=== PATIENT | female | born 1995 | race Hispanic/Latino ===

== ENCOUNTER 2018-07-04 15:39 | Emergency (ER) | payer BC ==
[2018-07-04 17:23] LABS: Absolute Lymphocytes (CBC) 1.5 K/uL (0.7-4.9); Absolute Monocytes 0.5 K/uL (0.1-1.3); Absolute Neutrophil 2.7 K/uL (1.8-8.0); Basophils % 0.9 % (0-1.3); Eosinophils % 0.7 % (0-4.4); Hematocrit 37.9 % (36.0-45.0); Lymphocytes % 31.1 % (15.3-44.8); MCH 30.2 pg (27.0-35.0); MCV 90.4 fL (80-100); MPV 7.8 fL (7.6-11.3); Monocytes % 10.4 % (3.3-12.3)
--- NOTE | 2018-07-04 17:27 | RAD REPORT ---
EXAM DESCRIPTION: CT - [id number] - 07/04/2018 5:13 pm CLINICAL HISTORY: Numbness, weakness, CVA, head and neck pain COMPARISON: None. TECHNIQUE: Axial 5 mm thick images of the head were obtained. Axial 2 mm thick images of the cervic al spine were obtained with sagittal and coronal reconstruction images generated and reviewed. All CT scans are performed using dose optimization technique as appropriate and may include automated exposure control or mA/KV adjustment according to patient size. FINDINGS: No intracranial hemorrhage, mass, edema or acute intracranial finding. No suspicion for ac annette infarction. No extra-axial fluid collections. Mastoid air cells and paranasal sinuses are clear. No globe or orbit abnormality seen. Cervical bodies are normal in height. There is reversal of the usual cervical lordosis that could be positioning artifact, muscle spasm or a combination. No subluxation abnormality. No disk space narrow ing. No fracture or acute bony abnormality. Central canal detail is inherently limited. No paraspinal mass or hematoma. IMPRESSION: Negative CT head examination for acute or significant finding. No fracture or acute cervical spine finding. The reversal of the usual cervical lordosis could be mus daja spasm, positioning artifact or a combination.
[2018-07-04 17:32] LABS: BUN Blood Urea Nitrogen 13 mg/dL (7-18); Bicarbonate 26 mmol/L (21-32); Glucose Level 93 mg/dL (74-106); Potassium 3.7 mmol/L (3.5-5.1); Sodium Level 140 mmol/L (136-145)
[2018-07-04 17:32] LABS: Barbiturates NEGATIVE (NEGATIVE); Benzodiazepines NEGATIVE (NEGATIVE); Cocaine NEGATIVE (NEGATIVE); METHAMPHETAM NEGATIVE (NEGATIVE); Methadone NEGATIVE (NEGATIVE); Opiates NEGATIVE (NEGATIVE); Phencyclidine NEGATIVE (NEGATIVE); THC Cannibis NEGATIVE (NEGATIVE)
[2018-07-04 17:53] LABS: Urine Blood NEGATIVE (NEG); Urine Glucose NEGATIVE (NEG); Urine Protein NEGATIVE (NEG); Urine Specific Gravity 1.015 (1.005-1.030); Urine pH 7.5 (5.0-7.0)
--- NOTE | 2018-07-04 18:34 | EKG ---
Test Date: 2018-07-04 Test Time: 16:45:22 Prize Fighter: SYLWIA MEASUREMENT RESULTS: Intervals: Rate: 60 MI: 128 QRSD: 78 QT: 430 QTc: 430 [place]: P: -4 MI: 128 QRS: 25 T: 19 INTERPRETIVE STATEMENTS: Normal sinus rhythm Normal ECG No previous ECG available for comparison Electronically Signed On 07-04-18 18:34:08 CDT by Gerard Wiggins
--- NOTE | 2018-07-04 18:49 | ER ---
Nurse's Notes [facility] Name: Robert Winter Age: 23 yrs Sex: Female : 1995 Arrival Date: 07/04/2018 Time: 15:42 Bed 16 Private MD: None, None Diagnosis: Paresthesia of skin Presentation: 07/04 15:45 Presenting complaint: Patient states: numbness in my hands started an hour ago, i feel tw2 like im going to pass. Transition of care: patient was not received from another setting of care. Onset of symptoms was July 04, 2018. Risk Assessment: Do you want to hurt yourself or someone else? Patient reports no desire to harm self or others. Initial Sepsis Screen: Does the patient meet any 2 criteria? No. Patient's initial sepsis screen is negative. Does the patient have a suspected source of infection? No. Patient's initial sepsis screen is negative. Care prior to arrival: None. 15:45 Method Of Arrival: Ambulatory tw2 15:46 Acuity: REBECCA 3 tw2 Triage Assessment: 15:45 General: Appears in no apparent distress. Behavior is anxious, crying. Pain: Denies tw2 pain. Cardiovascular: Denies chest pain, shortness of breath. Respiratory: Airway is patent Respiratory effort is even, unlabored, Respiratory pattern is regular, tachypnea pt instructed to slow her breathing down, guided with slow breathing techniques, friend is with her at this time. 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 - Social history:: Smoking status: Patient/guardian denies using tobacco. - Ebola Screening: : Patient negative for fever greater than or equal to 101.5 degrees Fahrenheit, and additional compatible Ebola Virus Disease symptoms Patient denies travel to an Ebola-affected area in the 21 days before illness onset. Screenin:25 Abuse screen: Denies threats or abuse. Denies injuries from another. Nutritional iw screening: No deficits noted. Tuberculosis screening: No symptoms or risk factors identified. Fall Risk IV access (20 points). Assessment: 17:00 General: Appears in no apparent distress. Behavior is calm, cooperative. Neuro: Level iw of Consciousness is awake, alert, obeys commands, Oriented to person, place, time, situation, Moves all extremities. Full function Reports dizziness. Neuro: Reports numbness in right hand, left hand, right leg, left leg and mouth paresthesias. Cardiovascular: Patient's skin is warm and dry. Respiratory: Respiratory effort is even, unlabored, Respiratory pattern is regular, symmetrical. GI: No signs and/or symptoms were reported involving the gastrointestinal system. Derm: Skin is pink, warm \T\ dry. normal. Musculoskeletal: Range of motion: intact in all extremities. 18:24 Reassessment: Patient appears in no apparent distress at this time. Patient and/or iw family updated on plan of care and expected duration. Pain level reassessed. Patient is alert, oriented x 3, equal unlabored respirations, skin warm/dry/pink. Vital Signs: 15:45 BP 146 / 94; Pulse 99; Resp 17; Temp 97.8(O); Pulse Ox 100% on R/A; Pain 0/10; tw2 19:23 BP 127 / 78; Pulse 60; Resp 18; Pulse Ox 100% on R/A; tl2 NIH Stroke Scale Scores: 18:59 NIHSS Score: 0 gs ED Course: 15:42 Patient arrived in ED. sb2 15:42 None, None is Private Physician. sb2 15:46 Triage completed. tw2 15:46 Arm band placed on. tw2 16:16 Bailey Rodriguez, RN is Primary Nurse. iw 16:19 Raman Camargo MD is Attending Physician. gs 16:55 EKG done, by optics test technician. reviewed by Raman Camargo MD. dt2 16:56 Radiology exam delayed due to per Nurse Bailey. nj 17:00 Initial lab(s) drawn, by sd, sent to lab. Inserted saline lock: 20 gauge in left iw antecubital area, using aseptic technique. Blood collected. 17:[address] nj 17:12 CT completed. Patient tolerated procedure well. Patient moved back from CT. nj 17:13 CT Head C Spine In Process Unspecified. EDMS 18:49 Jimi Terry MD is Referral Physician. gs 19:23 No provider procedures requiring assistance completed. IV discontinued, intact, tl2 bleeding controlled, No redness/swelling at site. Pressure dressing applied. 19:24 Patient has correct armband on for positive identification. Bed in low position. tl2 Administered Medications: No medications were administered Outcome: 18:48 Discharge ordered by . 19:23 Discharged to home ambulatory, with family. tl2 19:23 Condition: stable 19:23 Discharge instructions given to patient, family, Instructed on discharge instructions, follow up and referral plans. Demonstrated understanding of instructions, follow-up care. 19:25 Patient left the ED. tl2 NIH Stroke Scale - NIH Stroke Score Date: 07/04/2018 Time: 18:59 Total Score = 0 1a. Level of Consciousness (LOC) - 0(Alert) 1b. Level of Consciousness (LOC) (Year \T\ Age) - 0(Both) 1c. 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 Best Gaze (Lateral Gaze Paresis) - 0(Normal) 3. Visual Field Loss - 0(No visual loss) 4. Facial Palsy - 0(Normal) 5a. Left Arm: Motor (10-second hold) - 0(No drift) 5b. Right Arm: Motor (10-second hold) - 0(No drift) 6a. Left Leg: Motor (5-second hold - always test supine) - 0(No drift) 6b. Right Leg: Motor (5-second hold - always test supine) - 0(No drift) 7. Limb Ataxia (finger/nose \T\ heel/alas - test with eyes open) - 0(Absent) 8. Sensory Loss (pinprick arms/legs/face) - 0(Normal) 9. Best Language: Aphasia (description/naming/reading) - 0(No aphasia) 10. Dysarthria (speech clarity - read or repeat words) - 0(Normal) 11. Extinction and Inattention (visual/tactile/auditory/spatial/personal) - 0(No abnormality) Initials: Signatures: Dispatcher [employer] Bailey Acosta RN RN iw Wise, Tara, RN RN tw2 oMnique Fleming RN RN tl2 Evan Lorenz Gregory, MD MD gs Billeau, Sheri sb2 Shalini Jaquez
--- NOTE | 2018-07-04 18:49 | EDPHYS ---
Physician Documentation [facility] Name: Robert Winter Age: 23 yrs Sex: Female : 1995 Arrival Date: 07/04/2018 Time: 15:42 Bed 16 Private MD: None, None ED Physician Raman Camargo HPI: 07/04 18:59 This 23 yrs old Female presents to ER via Ambulatory with complaints of gs Numbness. 18:59 The patient's problem is reported as paresthesias, in right upper extremity, in right gs lower extremity. Onset: The symptoms/episode began/occurred gradually, 2 hour(s) ago. Duration: The episodes are intermittent. The symptoms are alleviated by nothing. The symptoms are aggravated by nothing. Associated signs and symptoms: Pertinent negatives: agitation, ataxia, confusion, weakness. Severity of symptoms: At their worst the symptoms were moderate in the emergency department the symptoms have improved markedly. The patient has experienced similar episodes in the past, several times. The patient has not recently seen a physician. 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 - Social history:: Smoking status: Patient/guardian denies using tobacco. - Ebola Screening: : Patient negative for fever greater than or equal to 101.5 degrees Fahrenheit, and additional compatible Ebola Virus Disease symptoms Patient denies travel to an Ebola-affected area in the 21 days before illness onset. ROS: 18:59 Cardiovascular: Negative for chest pain. gs 18:59 Respiratory: Negative for shortness of breath. 18:59 Abdomen/GI: Negative for abdominal pain. 18:59 All other systems are negative. Exam: 18:52 ECG was reviewed by the Attending Physician. gs 18:59 Head/Face: Normocephalic, atraumatic. Eyes: Pupils equal round and reactive to light, gs extra-ocular motions intact. Lids and lashes normal. Conjunctiva and sclera are non-icteric and not injected. Cornea within normal limits. Periorbital areas with no swelling, redness, or edema. ENT: Nares patent. No nasal discharge, no septal abnormalities noted. Tympanic membranes are normal and external auditory canals are clear. Oropharynx with no redness, swelling, or masses, exudates, or evidence of obstruction, uvula midline. Mucous membranes moist. Neck: Trachea midline, no thyromegaly or masses palpated, and no cervical lymphadenopathy. Supple, full range of motion without nuchal rigidity, or vertebral point tenderness. No Meningismus. Chest/axilla: Normal chest wall appearance and motion. Nontender with no deformity. No lesions are appreciated. Cardiovascular: Regular rate and rhythm with a normal S1 and S2. No gallops, murmurs, or rubs. Normal PMI, no JVD. No pulse deficits. Respiratory: Lungs have equal breath sounds bilaterally, clear to auscultation and percussion. No rales, rhonchi or wheezes noted. No increased work of breathing, no retractions or nasal flaring. Abdomen/GI: Soft, non-tender, with normal bowel sounds. No distension or tympany. No guarding or rebound. No evidence of tenderness throughout. Back: No spinal tenderness. No costovertebral tenderness. Full range of motion. Female : Normal external genitalia. Skin: Warm, dry with normal turgor. Normal color with no rashes, no lesions, and no evidence of cellulitis. MS/ Extremity: Pulses equal, no cyanosis. Neurovascular intact. Full, normal range of motion. 18:59 Constitutional: The patient appears alert, awake. 18:59 Neuro: Orientation: is normal, Mentation: is normal, Memory: is normal, Cranial nerves: CN II- XII are normal as tested, Cerebellar function: is grossly normal, normal finger to nose testing, Motor: moves all fours, strength is 5/5 in all extremities, Sensation: pin prick testing is normal, Gait: is steady. 18:59 Neuro: Deep tendon reflexes are 2+ (normal) in the right bicep, right brachioradialis, gs right patellar, right Achilles, left bicep, left brachioradialis, left patellar and left Achilles. Vital Signs: 15:45 BP 146 / 94; Pulse 99; Resp 17; Temp 97.8(O); Pulse Ox 100% on R/A; Pain 0/10; tw2 19:23 BP 127 / 78; Pulse 60; Resp 18; Pulse Ox 100% on R/A; tl2 NIH Stroke Scale Scores: 18:59 NIHSS Score: 0 gs MDM: 16:37 Patient medically screened. 18:59 Differential diagnosis: CVA, metabolic disorder, drug effects, cervical stenosis, gs neoplasm. Data reviewed: vital signs, nurses notes. 18:59 Counseling: I had a detailed discussion with the patient and/or guardian regarding: the gs presence of at least one elevated blood pressure reading (>120/80) during this emergency department visit, the need for outpatient follow up, a neurologist. Response to treatment: the patient's symptoms have resolved after treatment, and as a result, I will discharge patient. Special discussion: I have referred the patient to see his PCP for further evaluation of high blood pressure. 07/04 16:39 Order name: Basic Metabolic Panel; Complete Time: 17:47 07/04 16:39 Order name: CBC with Diff; Complete Time: 17:47 07/04 16:39 Order name: Urine Drug Screen; Complete Time: 17:47 07/04 17:46 Order name: Urine Dipstick--Ancillary (enter results) 07/04 17:46 Order name: Urine --Ancillary (enter results) 07/04 17:46 Order name: Urine Dipstick-Ancillary; Complete Time: 18:20 EDMS 07/04 16:39 Order name: EKG; Complete Time: 16:39 07/04 16:39 Order name: Cardiac monitoring; Complete Time: 17:35 07/04 16:39 Order name: EKG - Nurse/Tech; Complete Time: 17:35 07/04 16:39 Order name: IV Saline Lock; Complete Time: 17:35 07/04 16:39 Order name: Labs collected and sent; Complete Time: 17:35 07/04 16:39 Order name: O2 Per Protocol; Complete Time: 17:35 07/04 16:39 Order name: CT Head C Spine; Complete Time: 17:47 07/04 17:46 Order name: Urine --Ancillary; Complete Time: 18:20 EDMS 07/04 16:39 Order name: O2 Sat Monitoring; Complete Time: 17:35 07/04 16:39 Order name: Urine Dipstick-Ancillary (obtain specimen); Complete Time: 17:35 07/04 16:39 Order name: Urine Test (obtain specimen); Complete Time: 17:35 gs EC:52 Rate is 60 beats/min. Rhythm is regular. OR interval is normal. QRS interval is normal. gs T waves are Normal. No ST changes noted. Clinical impression: Normal ECG. Interpreted by me. Administered Medications: No medications were administered Disposition: 07/04/18 18:48 Discharged to Home. Impression: Paresthesia of skin. - Condition is Stable. - Discharge Instructions: Paresthesia, Peripheral Neuropathy, Paresthesia, Mmdo-by-Rnlo, Managing Your Hypertension. - Medication Reconciliation Form, Thank You Letter, Antibiotic Education, Prescription Opioid Use form. - Follow up: Jimi Terry MD; When: 1 - 2 days; Reason: Re-evaluation by your physician. NIH Stroke Scale - NIH Stroke Score Date: 07/04/2018 Time: 18:59 Total Score = 0 1a. Level of Consciousness (LOC) - 0(Alert) 1b. Level of Consciousness (LOC) (Year \T\ Age) - 0(Both) 1c. 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 Best Gaze (Lateral Gaze Paresis) - 0(Normal) 3. Visual Field Loss - 0(No visual loss) 4. Facial Palsy - 0(Normal) 5a. Left Arm: Motor (10-second hold) - 0(No drift) 5b. Right Arm: Motor (10-second hold) - 0(No drift) 6a. Left Leg: Motor (5-second hold - always test supine) - 0(No drift) 6b. Right Leg: Motor (5-second hold - always test supine) - 0(No drift) 7. Limb Ataxia (finger/nose \T\ heel/alas - test with eyes open) - 0(Absent) 8. Sensory Loss (pinprick arms/legs/face) - 0(Normal) 9. Best Language: Aphasia (description/naming/reading) - 0(No aphasia) 10. Dysarthria (speech clarity - read or repeat words) - 0(Normal) 11. Extinction and Inattention (visual/tactile/auditory/spatial/personal) - 0(No abnormality) Initials: Signatures: Dispatcher [employer] EDMS Gudelia Fermin RN RN tw2 Monique Fleming RN RN tl2 Raman Camargo MD MD Corrections: (The following items were deleted from the chart) 18:49 18:48 07/04/2018 18:48 Discharged to Home. Impression: Paresthesia of skin. gs Condition is Stable. Forms are Medication Reconciliation Form, Thank You Letter, Antibiotic Education, Prescription Opioid Use. Follow up: Private Physician; When: 2 - 3 days; Reason: Re-evaluation by your physician. 19:25 18:49 07/04/2018 18:48 Discharged to Home. Impression: Paresthesia of skin. tl2 Condition is Stable. Discharge Instructions: Paresthesia, Peripheral Neuropathy. Forms are Medication Reconciliation Form, Thank You Letter, Antibiotic Education, Prescription Opioid Use. Follow up: Jimi Terry; When: 1 - 2 days; Reason: Re-evaluation by your physician.
== END 2018-07-04 19:25 | disposition home or self-care (01) ==
LOC: ER 15:39
DX: R20.2 Paresthesia of skin (principal)
CPT/HCPCS: 36415; 70450; 72125; 80048; 80307; 81003; 81025; 85025; 93005; 99284

== ENCOUNTER 2018-09-09 15:07 | Emergency (ER) | payer BC ==
--- NOTE | 2018-09-09 16:17 | EDPHYS ---
Physician Documentation [facility] Name: Robert Winter Age: 23 yrs Sex: Female : 1995 Arrival Date: 09/09/2018 Time: 15:10 Bed 12 Private MD: None, None ED Physician Raman Camargo HPI: 09/09 16:09 This 23 yrs old Female presents to ER via Ambulatory with complaints of gs Abscess. 16:09 the patient presents with a swollen area of the diaphragm. Description: The affected gs area is small, confluent, raised. Onset: The symptoms/episode began/occurred 2 day(s) ago. Associated signs and symptoms: Pertinent negatives: drainage, fever. Modifying factors: the symptoms are aggravated by touching. Severity of symptoms: At their worst the symptoms were mild, in the emergency department the symptoms are unchanged. The patient has not experienced similar symptoms in the past. 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 - Social history:: Smoking status: Patient/guardian denies using tobacco. - Ebola Screening: : No symptoms or risks identified at this time. ROS: 16:09 All other systems are negative. gs Exam: 16:09 Cardiovascular: Regular rate and rhythm with a normal S1 and S2. No gallops, murmurs, gs or rubs. Normal PMI, no JVD. No pulse deficits. Respiratory: Lungs have equal breath sounds bilaterally, clear to auscultation and percussion. No rales, rhonchi or wheezes noted. No increased work of breathing, no retractions or nasal flaring. Abdomen/GI: Soft, non-tender, with normal bowel sounds. No distension or tympany. No guarding or rebound. No evidence of tenderness throughout. MS/ Extremity: Pulses equal, no cyanosis. Neurovascular intact. Full, normal range of motion. Neuro: Awake and alert, GCS 15, oriented to person, place, time, and situation. Cranial nerves II-XII grossly intact. Motor strength 5/5 in all extremities. Sensory grossly intact. Cerebellar exam normal. Normal gait. 16:09 Constitutional: The patient appears alert, awake. 16:09 Chest/axilla: Inspection: abscess, that is small, indurated not fluctuant. 16:09 Skin: abscess, that is small, of the chest, with induration. Vital Signs: 15:30 BP 121 / 76; Pulse 69; Resp 16 S; Temp 97.8(TE); Pulse Ox 99% on R/A; Weight 93.89 kg aa5 (R); Height 5 ft. 5 in. (165.10 cm) (R); Pain 6/10; 15:30 Body Mass Index 34.45 (93.89 kg, 165.10 cm) aa5 MDM: 16:09 Patient medically screened. gs 16:09 Data reviewed: vital signs, nurses notes. ED course: pt ok with holding i and d as no gs real fluctuance. Administered Medications: No medications were administered Disposition: 09/09/18 16:17 Discharged to Home. Impression: Cutaneous abscess of chest wall. - Condition is Stable. - Discharge Instructions: Skin Abscess. - Prescriptions for Bactroban 2 % Topical Ointment - Apply to affected area 1 application by TOPICAL route every 12 hours; 30 gram. Clindamycin HCl 300 mg Oral Capsule - take 1 capsule by ORAL route every 8 hours for 7 days; 21 capsule. - Work release form, Medication Reconciliation Form, Thank You Letter, Antibiotic Education, Prescription Opioid Use form. - Follow up: Private Physician; When: 2 - 3 days; Reason: Re-evaluation by your physician. Signatures: Jessica Bird RN RN aa5 Raman Camargo MD MD Corrections: (The following items were deleted from the chart) 16:23 16:17 09/09/2018 16:17 Discharged to Home. Impression: Cutaneous abscess of chest wall. aa5 Condition is Stable. Forms are Medication Reconciliation Form, Thank You Letter, Antibiotic Education, Prescription Opioid Use. Follow up: Private Physician; When: 2 - 3 days; Reason: Re-evaluation by your physician. gs
--- NOTE | 2018-09-09 16:17 | ER ---
Nurse's Notes [facility] Name: Robert Winter Age: 23 yrs Sex: Female : 1995 Arrival Date: 09/09/2018 Time: 15:10 Bed 12 Private MD: None, None Diagnosis: Cutaneous abscess of chest wall Presentation: 09/09 15:29 Presenting complaint: Patient states: "I think I have a spider bite on my chest that I aa5 noticed about 3 days ago, it's getting big and hard". Transition of care: patient was not received from another setting of care. Onset of symptoms was August 2018. Risk Assessment: Do you want to hurt yourself or someone else? Patient reports no desire to harm self or others. Initial Sepsis Screen: Does the patient meet any 2 criteria? No. Patient's initial sepsis screen is negative. Does the patient have a suspected source of infection? No. Patient's initial sepsis screen is negative. Care prior to arrival: None. 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 - Social history:: Smoking status: Patient/guardian denies using tobacco. - Ebola Screening: : No symptoms or risks identified at this time. Screenin:45 Abuse screen: Denies threats or abuse. Nutritional screening: No deficits noted. aa5 Tuberculosis screening: No symptoms or risk factors identified. Fall Risk None identified. Assessment: 15:45 General: Appears comfortable, Behavior is calm, cooperative. Pain: Complains of pain in aa5 mid-sternal area. Neuro: Level of Consciousness is awake, alert, obeys commands, Oriented to person, place, time, situation. Cardiovascular: No deficits noted. Respiratory: Airway is patent Respiratory effort is even, unlabored, Respiratory pattern is regular, symmetrical. GI: No signs and/or symptoms were reported involving the gastrointestinal system. : No signs and/or symptoms were reported regarding the genitourinary system. EENT: No signs and/or symptoms were reported regarding the EENT system. Derm: Skin is pink, warm \\T\\ dry. Bite that it's red and raised to mid-sternal area with no drainage noted. Musculoskeletal: Range of motion: intact in all extremities. Vital Signs: 15:30 BP 121 / 76; Pulse 69; Resp 16 S; Temp 97.8(TE); Pulse Ox 99% on R/A; Weight 93.89 kg aa5 (R); Height 5 ft. 5 in. (165.10 cm) (R); Pain 6/10; 15:30 Body Mass Index 34.45 (93.89 kg, 165.10 cm) aa5 ED Course: 15:10 Patient arrived in ED. mr 15:10 None, None is Private Physician. mr 15:30 Triage completed. aa5 15:30 Arm band placed on. aa5 15:30 Patient has correct armband on for positive identification. aa5 15:31 Jessica Bird RN is Primary Nurse. aa5 15:38 Raman Camargo MD is Attending Physician. gs 16:20 No provider procedures requiring assistance completed. Patient did not have IV access aa5 during this emergency room visit. Administered Medications: No medications were administered Outcome: 16:17 Discharge ordered by . gs 16:20 Discharged to home ambulatory, with significant other. aa5 16:20 Condition: stable 16:20 Discharge instructions given to patient, Instructed on discharge instructions, follow up and referral plans. medication usage, Demonstrated understanding of instructions, follow-up care, medications, Prescriptions given X 2. 16:23 Patient left the ED. aa5 Signatures: Julissa Aparicio mr Jessica Bird RN RN aa5 Raman Camargo MD MD Corrections: (The following items were deleted from the chart) 16:38 15:45 Derm: Skin is pink, warm \\T\\ dry. Bite that it's red and raised with no drainage aa5 noted. aa5
== END 2018-09-09 16:23 | disposition home or self-care (01) ==
LOC: ER 15:07
DX: L02.213 Cutaneous abscess of chest wall (principal)
CPT/HCPCS: 99282

== ENCOUNTER 2019-04-10 11:36 | Emergency (ER) | payer BC ==
--- OUTSIDE RECORDS SUMMARY | 2019-04-10 11:38 | XMS REPORT ---
:1995 [facility] Address [address] [place] [address] Dr. Hardy[address] [place] [id number] Care Team Providers Name Role Phone Unavailable Unavailable Unavailable Problems This patient has no known problems. Allergies, Adverse Reactions, Alerts This patient has no known allergies or adverse reactions. Medications This patient has no known medications.
--- NOTE | 2019-04-10 15:38 | ER ---
Nurse's Notes [facility] Name: Robert Winter Age: 24 yrs Sex: Female : 1995 Arrival Date: 04/10/2019 Time: 11:38 Bed 16 Private MD: Angel Horn Diagnosis: Acute pharyngitis Presentation: 04/10 11:51 Presenting complaint: Patient states: the passed 2 days my throat is getting real sore, tw2 it has happened before it gets red and itchy and maybe i had an upper respiratory infection and i feel like i have it again and i am having nausea, i feel congested and have boogers and i have stomach and back pain and i have these knots in my lower back. Transition of care: patient was not received from another setting of care. Onset of symptoms was April 10, 2019. Risk Assessment: Do you want to hurt yourself or someone else? Patient reports no desire to harm self or others. Initial Sepsis Screen: Does the patient meet any 2 criteria? No. Patient's initial sepsis screen is negative. Does the patient have a suspected source of infection? No. Patient's initial sepsis screen is negative. Care prior to arrival: None. 11:51 Method Of Arrival: Ambulatory tw2 11:51 Acuity: REBECCA 3 tw2 Triage Assessment: 11:53 General: Appears in no apparent distress. obese, well groomed, Behavior is calm, tw2 cooperative, appropriate for age. Pain: Complains of pain in left upper quadrant and left lower quadrant. GI: Reports nausea. 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 - Social history:: Smoking status: . - Ebola Screening: : Patient denies travel to an Ebola-affected area in the 21 days before illness onset. Screenin:46 Abuse screen: Denies threats or abuse. Denies injuries from another. Nutritional ls4 screening: No deficits noted. Tuberculosis screening: No symptoms or risk factors identified. Fall Risk None identified. Assessment: 13:47 General: Appears in no apparent distress. comfortable, well groomed, well nourished, ls4 Behavior is calm, cooperative. Neuro: No deficits noted. Cardiovascular: No deficits noted. Respiratory: Airway is patent Respiratory effort is even, unlabored. Derm: Skin is pink, warm \T\ dry. Musculoskeletal: Circulation, motion, and sensation intact. Capillary refill < 3 seconds, Range of motion: intact in all extremities. 14:57 Reassessment: Patient and/or family updated on plan of care and expected duration. Pain ls4 level reassessed. Patient is alert, oriented x 3, equal unlabored respirations, skin warm/dry/pink. 14:57 GI: Bowel sounds present X 4 quads. Abd is soft and non tender X 4 quads. ls4 Vital Signs: 11:52 BP 125 / 82; Pulse 69; Resp 17; Temp 97.2(TE); Pulse Ox 98% on R/A; Weight 95.25 kg tw2 (R); Height 5 ft. 5 in. (165.10 cm); Pain 8/10; 13:02 BP 108 / 76; Pulse 64; Resp 16; Pulse Ox 99% on R/A; Pain 5/10; ls4 14:10 BP 116 / 79; Pulse 62; Resp 16; Pulse Ox 99% on R/A; Pain 5/10; ls4 15:45 BP 119 / 64; Pulse 56; Resp 16; Pulse Ox 99% on R/A; Pain 5/10; ls4 11:52 Body Mass Index 34.95 (95.25 kg, 165.10 cm) tw2 ED Course: 11:39 Patient arrived in ED. rg4 11:39 Angel Horn MD is Private Physician. rg4 11:52 Triage completed. tw2 11:52 Arm band placed on. tw2 13:38 Lisa Vickers FNP-C [facility] kb 13:38 Bryan Lockwood MD is Attending Physician. kb 13:45 Emelina Darling RN is Primary Nurse. ls4 13:46 Patient has correct armband on for positive identification. Bed in low position. Call ls4 light in reach. Side rails up X 1. 13:46 No provider procedures requiring assistance completed. ls4 14:58 IV discontinued, intact, bleeding controlled, No redness/swelling at site. Pressure ls4 dressing applied. Administered Medications: No medications were administered Outcome: 15:38 Discharge ordered by . kb 15:44 Discharged to home ambulatory. ls4 15:44 Condition: good 15:44 Discharge instructions given to patient, Instructed on discharge instructions, follow up and referral plans. medication usage, safety practices, Demonstrated understanding of instructions, follow-up care, medications. 15:51 Patient left the ED. ls4 Signatures: Lisa Vickers, CIDER PRESS OPERATOR-C CIDER PRESS OPERATOR-Ckb Gudelia Fermin RN RN tw2 Lisa Alston rg4 Emelina Darling RN RN ls4 Corrections: (The following items were deleted from the chart) 15:44 14:58 Condition: good ls4 ls4 15:44 14:58 Discharged to home ambulatory, ls4 ls4 15:44 14:58 Discharge instructions given to patient, Instructed on discharge instructions, ls4 follow up and referral plans. Demonstrated understanding of instructions, follow-up care, medications, ls4
--- NOTE | 2019-04-10 15:38 | EDPHYS ---
Physician Documentation [facility] Name: Robert Winter Age: 24 yrs Sex: Female : 1995 Arrival Date: 04/10/2019 Time: 11:38 Bed 16 Private MD: Angel Horn ED Physician Bryan Lockwood HPI: 04/10 16:06 This 24 yrs old Female presents to ER via Ambulatory with complaints of kb Abdominal Pain, Nausea, Sore Throat. 16:06 The patient presents with sore throat. The patient describes throat pain as constant. kb Onset: The symptoms/episode began/occurred last night. Severity of symptoms: At their worst the symptoms were mild, moderate, in the emergency department the symptoms are unchanged. Modifying factors: The symptoms are alleviated by nothing, the symptoms are aggravated by swallowing, Patient's oral intake status: good. Associated signs and symptoms: Pertinent positives: nausea, Sore throat. The patient has not experienced similar symptoms in the past. The patient has not recently seen a physician. Pt reports sore throat and redness. States she has nausea when she takes a deep breath. 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 - Social history:: Smoking status: . - Ebola Screening: : Patient denies travel to an Ebola-affected area in the 21 days before illness onset. ROS: 16:06 Constitutional: Negative for fever, chills, and weight loss, Neck: Negative for injury, kb pain, and swelling, Cardiovascular: Negative for chest pain, palpitations, and edema, Respiratory: Negative for shortness of breath, cough, wheezing, and pleuritic chest pain, Back: Negative for injury and pain, MS/Extremity: Negative for injury and deformity, Skin: Negative for injury, rash, and discoloration, Neuro: Negative for headache, weakness, numbness, tingling, and seizure. 16:06 ENT: Positive for sore throat. 16:06 Abdomen/GI: Positive for nausea. Exam: 16:04 Constitutional: This is a well developed, well nourished patient who is awake, alert, kb and in no acute distress. Head/Face: Normocephalic, atraumatic. Chest/axilla: Normal chest wall appearance and motion. Nontender with no deformity. No lesions are appreciated. Cardiovascular: Regular rate and rhythm with a normal S1 and S2. No gallops, murmurs, or rubs. Normal PMI, no JVD. No pulse deficits. Respiratory: Lungs have equal breath sounds bilaterally, clear to auscultation and percussion. No rales, rhonchi or wheezes noted. No increased work of breathing, no retractions or nasal flaring. Abdomen/GI: Soft, non-tender, with normal bowel sounds. No distension or tympany. No guarding or rebound. No evidence of tenderness throughout. Back: No spinal tenderness. No costovertebral tenderness. Full range of motion. Skin: Warm, dry with normal turgor. Normal color with no rashes, no lesions, and no evidence of cellulitis. MS/ Extremity: Pulses equal, no cyanosis. Neurovascular intact. Full, normal range of motion. Neuro: Awake and alert, GCS 15, oriented to person, place, time, and situation. Cranial nerves II-XII grossly intact. Motor strength 5/5 in all extremities. Sensory grossly intact. Cerebellar exam normal. Normal gait. 16:04 ENT: External ear(s): are unremarkable, Ear canal(s): are normal, TM's: are normal, Nose: is normal, Mouth: is normal, Posterior pharynx: Airway: normal, no evidence of obstruction, Tonsils: with erythema, Uvula: normal, midline, swelling, that is mild, erythema, that is moderate. Vital Signs: 11:52 BP 125 / 82; Pulse 69; Resp 17; Temp 97.2(TE); Pulse Ox 98% on R/A; Weight 95.25 kg tw2 (R); Height 5 ft. 5 in. (165.10 cm); Pain 8/10; 13:02 BP 108 / 76; Pulse 64; Resp 16; Pulse Ox 99% on R/A; Pain 5/10; ls4 14:10 BP 116 / 79; Pulse 62; Resp 16; Pulse Ox 99% on R/A; Pain 5/10; ls4 15:45 BP 119 / 64; Pulse 56; Resp 16; Pulse Ox 99% on R/A; Pain 5/10; ls4 11:52 Body Mass Index 34.95 (95.25 kg, 165.10 cm) tw2 MDM: 13:38 Patient medically screened. kb 15:37 Data reviewed: vital signs, nurses notes. Data interpreted: Pulse oximetry: on room air kb is 99 %. Interpretation: normal. Counseling: I had a detailed discussion with the patient and/or guardian regarding: the historical points, exam findings, and any diagnostic results supporting the discharge/admit diagnosis, lab results, the need for outpatient follow up, a family practitioner, to return to the emergency department if symptoms worsen or persist or if there are any questions or concerns that arise at home. 04/10 14:01 Order name: Flu; Complete Time: 15:15 kb 04/10 14:01 Order name: Strep; Complete Time: 15:15 kb 04/10 15:14 Order name: Throat Culture EDMS Administered Medications: No medications were administered Disposition: 04/11 09:07 Co-signature as Attending Physician, Bryan Lockwood MD I agree with the assessment and kdr plan of care. Disposition: 04/10/19 15:38 Discharged to Home. Impression: Acute pharyngitis. - Condition is Stable. - Discharge Instructions: Pharyngitis, [id number], Sore Throat, [id number]. - Medication Reconciliation Form, Thank You Letter, Antibiotic Education, Prescription Opioid Use, Work release form form. - Follow up: Emergency Department; When: As needed; Reason: Worsening of condition. Follow up: Private Physician; When: 2 - 3 days; Reason: Recheck today's complaints, Continuance of care, Re-evaluation by your physician. Signatures: Dispatcher [employer] EDMS Lisa Vickers, SHIFT PRODUCTION ASSOCIATE-C DARIEN-Bryan Yap MD MD kdr Gudelia Fermin RN RN tw2 Emelina Darling, GRIFFIN RN ls4 Corrections: (The following items were deleted from the chart) 04/10 15:51 15:38 04/10/2019 15:38 Discharged to Home. Impression: Acute pharyngitis. Condition is ls4 Stable. Forms are Medication Reconciliation Form, Thank You Letter, Antibiotic Education, Prescription Opioid Use. Follow up: Emergency Department; When: As needed; Reason: Worsening of condition. Follow up: Private Physician; When: 2 - 3 days; Reason: Recheck today's complaints, Continuance of care, Re-evaluation by your physician. kb
== END 2019-04-10 15:51 | disposition home or self-care (01) ==
LOC: ER 11:36
DX: J02.9 Acute pharyngitis, unspecified (principal)
CPT/HCPCS: 87070; 87081; 87804; 99281

== ENCOUNTER 2019-04-24 00:57 | Emergency (ER) | payer BC ==
--- OUTSIDE RECORDS SUMMARY | 2019-04-24 01:00 | XMS REPORT ---
:1995 [facility] Address [address] [place] [address] Dr. Gresham [address] [place] [id number] Care Team Providers Name Role Phone Unavailable Unavailable Unavailable Problems This patient has no known problems. Allergies, Adverse Reactions, Alerts This patient has no known allergies or adverse reactions. Medications This patient has no known medications.
[2019-04-24] MEDS ORDERED: HYDROCODONE/APAP 7.5/325 MG TAB ONE (01:49)
--- NOTE | 2019-04-24 01:53 | ER ---
Nurse's Notes [facility] Name: Robert Winter Age: 24 yrs Sex: Female : 1995 Arrival Date: 04/24/2019 Time: 00:58 Bed 7 Private MD: Diagnosis: Low back pain Presentation: 04/24 01:05 Presenting complaint: EMS states: Patient was lying in bathtub when lower back pain lp1 began, states similar pain in the past but pain worse tonight; States taking muscle relaxer, Chlorzoxazone, and smoking marijuana for relief but no change; Patient states also having positive test tonight. Transition of care: patient was not received from another setting of care. Onset of symptoms was April 23, 2019 at 23:30. Risk Assessment: Do you want to hurt yourself or someone else? Patient reports no desire to harm self or others. Initial Sepsis Screen: Does the patient meet any 2 criteria? No. Patient's initial sepsis screen is negative. Does the patient have a suspected source of infection? No. Patient's initial sepsis screen is negative. Care prior to arrival: None. 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 - Social history:: Smoking status: Patient/guardian denies using tobacco, Patient uses street drugs, marijuana. - Ebola Screening: : No symptoms or risks identified at this time. Screenin:11 Abuse screen: Denies threats or abuse. Denies injuries from another. Nutritional lp1 screening: No deficits noted. Tuberculosis screening: No symptoms or risk factors identified. Fall Risk None identified. Assessment: 01:10 General: Appears in no apparent distress. Behavior is appropriate for age. Pain: lp1 Complains of pain in lumbar area Pain currently is 8 out of 10 on a pain scale. Quality of pain is described as sharp. Neuro: Level of Consciousness is awake, alert, obeys commands, Oriented to person, place, time, situation. Cardiovascular: Patient's skin is warm and dry. Respiratory: No deficits noted. GI: No deficits noted. : No deficits noted. EENT: No deficits noted. Derm: Skin is pink, warm \T\ dry. Musculoskeletal: Circulation, motion, and sensation intact. 01:30 Reassessment: Patient assisted to bathroom in , states some relief after movement. lp1 Vital Signs: 01:08 BP 118 / 68; Pulse 76; Resp 18; Temp 99.5(O); Pulse Ox 100% on R/A; Weight 97.52 kg; lp1 Height 5 ft. 6 in. (167.64 cm); Pain 8/10; 01:08 Body Mass Index 34.70 (97.52 kg, 167.64 cm) lp1 ED Course: 00:58 Patient arrived in ED. ds1 01:04 Kenia Brewer RN is Primary Nurse. lp1 01:08 Triage completed. lp1 01:08 Arm band placed on left wrist. lp1 01:11 Patient has correct armband on for positive identification. lp1 01:18 Lisa Vickers FNP-C [facility]. kb 01:18 Paul Murcia MD is Attending Physician. kb 02:03 No provider procedures requiring assistance completed. Patient did not have IV access lp1 during this emergency room visit. Administered Medications: 01:43 Drug: [place] (7.5 mg-325 mg) 1 tabs Route: PO; lp1 02:00 Follow up: Response: No adverse reaction lp1 Outcome: 01:52 Discharge ordered by MD. kb 02:03 Discharged to home via wheelchair, with family. lp1 02:03 Condition: improved 02:03 Discharge instructions given to patient, Instructed on discharge instructions, follow up and referral plans. Demonstrated understanding of instructions, follow-up care. 02:04 Patient left the ED. lp1 Signatures: Lisa Vickers FNP-C BOILER TENDERS SUPERVISOR-Jolene Fong ds1 Kenia Brewer, RN RN lp1 Corrections: (The following items were deleted from the chart) 01:10 01:05 Presenting complaint: EMS states: Patient was lying in bathtub when lower back lp1 pain began, states similar pain in the past but pain worse tonight; States taking muscle relaxer and smoking marijuana for relief but no change; Patient states also having positive test tonight lp1
--- NOTE | 2019-04-24 01:54 | EDPHYS ---
Physician Documentation [facility] Name: Robert Winter Age: 24 yrs Sex: Female : 1995 Arrival Date: 04/24/2019 Time: 00:58 Bed 7 Private MD: ED Physician Paul Murcia HPI: 04/24 01:27 This 24 yrs old Female presents to ER via EMS with complaints of Back Pain. kb 01:27 The patient presents with pain that is acute, that is chronic. The symptoms are located kb in the lumbar area. Onset: The symptoms/episode began/occurred and became worse 4 day(s) ago. The pain does not radiate. Associated signs and symptoms: The patient has no apparent associated signs or symptoms. The problem was sustained from unknown cause. Modifying factors: The patient symptoms are alleviated by nothing, the patient symptoms are aggravated by any movement. Severity of symptoms: At their worst the symptoms were moderate, in the emergency department the symptoms are unchanged. The patient has not experienced similar symptoms in the past. The patient has not recently seen a physician. Pt states "I've had this back pain for a while already, but it got worse 4 days ago. I've been going to the chiropractor and he does adjustments and gives me muscle relaxers. Tonight it locked up and I couldn't move because it hurt. I took a test right before the pain started and it was positive." . 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 - Social history:: Smoking status: Patient/guardian denies using tobacco, Patient uses street drugs, marijuana. - Ebola Screening: : No symptoms or risks identified at this time. ROS: 01:26 Constitutional: Negative for fever, chills, and weight loss, Cardiovascular: Negative kb for chest pain, palpitations, and edema, Respiratory: Negative for shortness of breath, cough, wheezing, and pleuritic chest pain, Abdomen/GI: Negative for abdominal pain, nausea, vomiting, diarrhea, and constipation, : Negative for injury, bleeding, discharge, and swelling, MS/Extremity: Negative for injury and deformity, Skin: Negative for injury, rash, and discoloration, Neuro: Negative for headache, weakness, numbness, tingling, and seizure. 01:26 Back: Positive for pain at rest, pain with movement, of the lumbar area. Exam: 01:26 Constitutional: This is a well developed, well nourished patient who is awake, alert, kb and in no acute distress. Head/Face: Normocephalic, atraumatic. Chest/axilla: Normal chest wall appearance and motion. Nontender with no deformity. No lesions are appreciated. Cardiovascular: Regular rate and rhythm with a normal S1 and S2. No gallops, murmurs, or rubs. Normal PMI, no JVD. No pulse deficits. Respiratory: Lungs have equal breath sounds bilaterally, clear to auscultation and percussion. No rales, rhonchi or wheezes noted. No increased work of breathing, no retractions or nasal flaring. Abdomen/GI: Soft, non-tender, with normal bowel sounds. No distension or tympany. No guarding or rebound. No evidence of tenderness throughout. Skin: Warm, dry with normal turgor. Normal color with no rashes, no lesions, and no evidence of cellulitis. MS/ Extremity: Pulses equal, no cyanosis. Neurovascular intact. Full, normal range of motion. Neuro: Awake and alert, GCS 15, oriented to person, place, time, and situation. Cranial nerves II-XII grossly intact. Motor strength 5/5 in all extremities. Sensory grossly intact. Cerebellar exam normal. Normal gait. 01:26 Back: pain, that is moderate, of the lumbar area, ROM is painful, with all movement, normal spinal alignment noted, Straight leg raises: pain bilaterally. Vital Signs: 01:08 BP 118 / 68; Pulse 76; Resp 18; Temp 99.5(O); Pulse Ox 100% on R/A; Weight 97.52 kg; lp1 Height 5 ft. 6 in. (167.64 cm); Pain 8/10; 01:08 Body Mass Index 34.70 (97.52 kg, 167.64 cm) lp1 MDM: 01:18 Patient medically screened. kb 01:25 Data reviewed: vital signs, nurses notes. Data interpreted: Pulse oximetry: on room air kb is 100 %. Interpretation: normal. 01:52 Counseling: I had a detailed discussion with the patient and/or guardian regarding: the kb historical points, exam findings, and any diagnostic results supporting the discharge/admit diagnosis, lab results, the need for outpatient follow up, a family practitioner, to return to the emergency department if symptoms worsen or persist or if there are any questions or concerns that arise at home. ED course: Pt able to walk. States the pain is better. . 04/24 01:44 Order name: Urine Dipstick--Ancillary (enter results) 2 04/24 01:44 Order name: Urine --Ancillary (enter results) 2 04/24 01:25 Order name: Urine Dipstick-Ancillary (obtain specimen); Complete Time: 01:43 kb 04/24 01:25 Order name: Urine Test (obtain specimen); Complete Time: 01:43 kb Administered Medications: 01:43 Drug: [place] (7.5 mg-325 mg) 1 tabs Route: PO; lp1 02:00 Follow up: Response: No adverse reaction lp1 Disposition: 02:09 Co-signature as Attending Physician, Paul Murcia MD I agree with the assessment and tw4 plan of care. Disposition: 04/24/19 01:52 Discharged to Home. Impression: Low back pain. - Condition is Stable. - Discharge Instructions: Back Pain, Adult, [id number]. - Medication Reconciliation Form, Thank You Letter, Antibiotic Education, Prescription Opioid Use form. - Work release form (04/24/19 02:05). lp1 - Follow up: Emergency Department; When: As needed; Reason: Worsening of condition. Follow up: Private Physician; When: 2 - 3 days; Reason: Recheck today's complaints, Continuance of care, Re-evaluation by your physician. Signatures: Dispatcher [employer] Lisa Camarillo FNP-C FNP-Kenia Mandujano RN RN lp1 Paul Murcia MD MD tw4 Corrections: (The following items were deleted from the chart) 02:04 01:52 04/24/2019 01:52 Discharged to Home. Impression: Low back pain. Condition is lp1 Stable. Forms are Medication Reconciliation Form, Thank You Letter, Antibiotic Education, Prescription Opioid Use. Follow up: Emergency Department; When: As needed; Reason: Worsening of condition. Follow up: Private Physician; When: 2 - 3 days; Reason: Recheck today's complaints, Continuance of care, Re-evaluation by your physician. kb
[2019-04-24 02:05] LABS: Urine Blood NEGATIVE (NEG); Urine Glucose NEGATIVE (NEG); Urine Protein 1+ (NEG); Urine Specific Gravity 1.025 (1.005-1.030)
== END 2019-04-24 02:04 | disposition home or self-care (01) ==
LOC: ER 00:57
DX: M54.5 Low back pain (principal)
CPT/HCPCS: 81003; 81025; 99283

== ENCOUNTER 2019-04-29 00:01 | Emergency (ER) | payer BC ==
--- OUTSIDE RECORDS SUMMARY | 2019-04-29 00:04 | XMS REPORT ---
:1995 [facility] Address [address] [place] [address] Dr. Gresham [address] [place] [id number] Care Team Providers Name Role Phone Unavailable Unavailable Unavailable Problems This patient has no known problems. Allergies, Adverse Reactions, Alerts This patient has no known allergies or adverse reactions. Medications This patient has no known medications.
[2019-04-29 00:48] LABS: Urine Specific Gravity 1.025 (1.005-1.030)
[2019-04-29 00:48] LABS: Urine Blood NEGATIVE (NEG); Urine Glucose NEGATIVE (NEG); Urine Protein 2+ (NEG); Urine Specific Gravity 1.025 (1.005-1.030); Urine pH 6.5 (5.0-7.0)
[2019-04-29] MEDS ORDERED: NA CHLORIDE 0.9% 1,000 ML ONE (01:07)
[2019-04-29] MEDS ORDERED: PROMETHAZINE 25 MG/ML VIAL ONE (01:07)
[2019-04-29 01:15] LABS: Absolute Lymphocytes (CBC) 1.4 K/uL (0.7-4.9); Absolute Monocytes 0.5 K/uL (0.1-1.3); Absolute Neutrophil 7.3 K/uL (1.8-8.0); Basophils % 0.6 % (0-1.3); Eosinophils % 0.3 % (0-4.4); Lymphocytes % 14.7 % (15.3-44.8); Monocytes % 5.8 % (3.3-12.3); RBC Red Blood Cell Count 4.41 M/uL (3.86-4.86)
[2019-04-29 01:24] LABS: Urine Bacteria 20-50 /HPF (<20); Urine Culture Reflex Order REFLEXED; Urine Mucus HEAVY /HPF (NONE SEEN); Urine RBC NONE SEEN /HPF (NONE SEEN)
[2019-04-29 01:39] LABS: Potassium 3.4 mmol/L (3.5-5.1)
--- NOTE | 2019-04-29 02:42 | EDPHYS ---
Physician Documentation [facility] Name: Robert Winter Age: 24 yrs Sex: Female : 1995 Arrival Date: 04/29/2019 Time: 00:06 Bed 16 Private MD: Angel Horn ED Physician Franklin Pro HPI: 04/29 00:50 This 24 yrs old Female presents to ER via Ambulatory with complaints of kb Vomiting, Abdominal Pain, 3-4 weeks preg. 00:50 The patient presents to the emergency department with nausea and vomiting, that started kb 2 day(s) ago. The estimated gestational age is 3 weeks. course: care: none, Leakage of Fluid: none appreciated, Ultrasound: the patient has not had an ultrasound, Risk/complications: no obvious risks or complications are appreciated. Previous pregnancies: the patient has never been . Associated signs and symptoms: Pertinent positives: nausea, vomiting, Pertinent negatives: abdominal pain, chest pain, diarrhea, dysuria, fever, frequency, ruptured membranes, seizure, shortness of breath, vaginal bleeding, vaginal discharge. The patient has not experienced similar symptoms in the past. The patient has not recently seen a physician. Pt c/o nausea and vomiting for 2 days. Unable to tolerate anything by mouth. 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 - Social history:: Smoking status: Patient/guardian denies using tobacco. - Ebola Screening: : Patient negative for fever greater than or equal to 101.5 degrees Fahrenheit, and additional compatible Ebola Virus Disease symptoms Patient denies exposure to infectious person Patient denies travel to an Ebola-affected area in the 21 days before illness onset No symptoms or risks identified at this time. ROS: 00:50 Constitutional: Negative for fever, chills, and weight loss, Cardiovascular: Negative kb for chest pain, palpitations, and edema, Respiratory: Negative for shortness of breath, cough, wheezing, and pleuritic chest pain, Back: Negative for injury and pain, MS/Extremity: Negative for injury and deformity, Skin: Negative for injury, rash, and discoloration, Neuro: Negative for headache, weakness, numbness, tingling, and seizure. 00:50 Abdomen/GI: Positive for nausea and vomiting, Negative for abdominal pain, diarrhea, constipation, abdominal cramps, abdominal distension, anorexia. Exam: 00:49 Head/Face: Normocephalic, atraumatic. Chest/axilla: Normal chest wall appearance and kb motion. Nontender with no deformity. No lesions are appreciated. Cardiovascular: Regular rate and rhythm with a normal S1 and S2. No gallops, murmurs, or rubs. Normal PMI, no JVD. No pulse deficits. Respiratory: Lungs have equal breath sounds bilaterally, clear to auscultation and percussion. No rales, rhonchi or wheezes noted. No increased work of breathing, no retractions or nasal flaring. Abdomen/GI: Soft, non-tender, with normal bowel sounds. No distension or tympany. No guarding or rebound. No evidence of tenderness throughout. Skin: Warm, dry with normal turgor. Normal color with no rashes, no lesions, and no evidence of cellulitis. MS/ Extremity: Pulses equal, no cyanosis. Neurovascular intact. Full, normal range of motion. Neuro: Awake and alert, GCS 15, oriented to person, place, time, and situation. Cranial nerves II-XII grossly intact. Motor strength 5/5 in all extremities. Sensory grossly intact. Cerebellar exam normal. Normal gait. 00:49 Constitutional: The patient appears alert, awake, pale. Vital Signs: 00:19 BP 139 / 88; Pulse 71; Resp 19; Temp 97.6(O); Pulse Ox 98% on R/A; Weight 91.17 kg; ed1 Height 5 ft. 6 in. (167.64 cm); Pain 6/10; 01:50 BP 118 / 86; Pulse 90; Resp 18; Pulse Ox 97% ; ea 02:38 BP 120 / 60; Pulse 60; Resp 18; Pulse Ox 100% ; ea 00:19 Body Mass Index 32.44 (91.17 kg, 167.64 cm) ed1 MDM: 00:12 Patient medically screened. kb 00:49 Data reviewed: vital signs, nurses notes. Data interpreted: Pulse oximetry: on room air kb is 98 %. Interpretation: normal. 02:22 Counseling: I had a detailed discussion with the patient and/or guardian regarding: the kb historical points, exam findings, and any diagnostic results supporting the discharge/admit diagnosis, lab results, the need for outpatient follow up, a family practitioner, an OB/Gyne specialist, to return to the emergency department if symptoms worsen or persist or if there are any questions or concerns that arise at home. 04/29 00:11 Order name: Quantitative Hcg; Complete Time: 02:21 kb 04/29 00:11 Order name: Abo/rh Typing; Complete Time: 01:42 kb 04/29 00:11 Order name: Basic Metabolic Panel; Complete Time: 02:21 kb 04/29 00:11 Order name: CBC with Diff; Complete Time: 01:26 kb 04/29 00:44 Order name: Urine Dipstick--Ancillary (enter results); Complete Time: 00:49 mw2 04/29 00:44 Order name: Urine Microscopic Only; Complete Time: 01:26 ea 04/29 00:11 Order name: Urine Test (obtain specimen); Complete Time: 00:45 kb 04/29 00:11 Order name: IV Saline Lock; Complete Time: 01:09 kb 04/29 00:11 Order name: Labs collected and sent; Complete Time: 01:09 kb 04/29 00:11 Order name: NPO; Complete Time: 01:09 kb 04/29 00:45 Order name: Urine --Ancillary (enter results); Complete Time: 00:49 mw2 04/29 01:26 Order name: Urine Culture EDOR 04/29 00:11 Order name: Urine Dipstick-Ancillary (obtain specimen); Complete Time: 01: kb 04/29 02:20 Order name: PO challenge; Complete Time: 02:36 kb Administered Medications: 01:08 Drug: Phenergan 12.5 mg Route: IVP; Site: left antecubital; ea 01:51 Follow up: Response: No adverse reaction; Marked relief of symptoms; Nausea is decreasedea 01:09 Drug: NS 0.9% 1000 ml Route: IV; Rate: 1000 ml; Site: left antecubital; ea 01:51 Follow up: Response: No adverse reaction; IV Status: Completed infusion; IV Intake: ea 1000ml Disposition: 04:26 Co-signature as Attending Physician, Franklin Pro MD. ma2 Disposition: 04/29/19 02:41 Discharged to Home. Impression: Vomiting of , unspecified. - Condition is Stable. - Discharge Instructions: Morning Sickness, [id number], Nausea and Vomiting, Adult, [id number]. - Prescriptions for Macrobid 100 mg Oral Capsule - take 1 capsule by ORAL route every 12 hours for 7 days; 14 capsule. promethazine 25 mg Oral Tablet - take 1 tablet by ORAL route every 8 hours As needed; 20 tablet. - Medication Reconciliation Form, Thank You Letter, Antibiotic Education, Prescription Opioid Use form. - Follow up: Emergency Department; When: As needed; Reason: Worsening of condition. Follow up: Private Physician; When: 2 - 3 days; Reason: Recheck today's complaints, Continuance of care, Re-evaluation by your physician. Signatures: Dispatcher [employer] EDLisa Plaza, DARIEN-C MASH PREPARATORY OPERATOR-Lali Garcia RN RN ed1 Chen Wiley RN RN ea Alzahri, Mohammad, MD MD ma2 Corrections: (The following items were deleted from the chart) 02:49 02:41 04/29/2019 02:41 Discharged to Home. Impression: Vomiting of , ea unspecified. Condition is Stable. Discharge Instructions: Morning Sickness, [id number], Nausea and Vomiting, Adult, [id number]. Prescriptions for Macrobid 100 mg Oral Capsule - take 1 capsule by ORAL route every 12 hours for 7 days; 14 capsule, promethazine 25 mg Oral Tablet - take 1 tablet by ORAL route every 8 hours As needed; 20 tablet. and Forms are Medication Reconciliation Form, Thank You Letter, Antibiotic Education, Prescription Opioid Use. Follow up: Emergency Department; When: As needed; Reason: Worsening of condition. Follow up: Private Physician; When: 2 - 3 days; Reason: Recheck today's complaints, Continuance of care, Re-evaluation by your physician. kb
--- NOTE | 2019-04-29 02:42 | ER ---
[facility] Name: Robert Winter Age: 24 yrs Sex: Female : 1995 Arrival Date: 04/29/2019 Time: 00:06 Bed 16 Private MD: Angel Horn Diagnosis: Vomiting of , unspecified Presentation: 04/29 00:17 Presenting complaint: Patient states: I haven't had anything to eat in two days. I keep ed1 vomiting. Transition of care: patient was not received from another setting of care. Onset of symptoms was April 26, 2019. Risk Assessment: Do you want to hurt yourself or someone else? Patient reports no desire to harm self or others. Initial Sepsis Screen: Does the patient meet any 2 criteria? No. Patient's initial sepsis screen is negative. Does the patient have a suspected source of infection? No. Patient's initial sepsis screen is negative. Care prior to arrival: None. 00:17 Method Of Arrival: Ambulatory ed1 00:17 Acuity: REBECCA 3 ed1 Triage Assessment: 00:19 General: Appears uncomfortable, Behavior is calm, cooperative. Pain: Complains of pain ed1 in back. GI: Reports lower abdominal pain, upper abdominal pain, vomiting. 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 - Social history:: Smoking status: Patient/guardian denies using tobacco. - Ebola Screening: : Patient negative for fever greater than or equal to 101.5 degrees Fahrenheit, and additional compatible Ebola Virus Disease symptoms Patient denies exposure to infectious person Patient denies travel to an Ebola-affected area in the 21 days before illness onset No symptoms or risks identified at this time. Screenin:28 Abuse screen: Denies threats or abuse. Nutritional screening: No deficits noted. ea Tuberculosis screening: No symptoms or risk factors identified. Fall Risk IV access (20 points). Assessment: 01:00 General: Appears uncomfortable, Behavior is calm, cooperative, appropriate for age. ea Pain: Complains of pain in abdomen. Neuro: Level of Consciousness is awake, alert, obeys commands, Oriented to person, place, time. Cardiovascular: Patient's skin is warm and dry. Respiratory: Airway is patent Respiratory effort is even, unlabored, Respiratory pattern is regular, symmetrical. GI: Abdomen is non-distended. Derm: Skin is pink, warm \T\ dry. Musculoskeletal: Circulation, motion, and sensation intact. 02:33 Reassessment: Patient and/or family updated on plan of care and expected duration. Pain ea level reassessed. Patient is alert, oriented x 3, equal unlabored respirations, skin warm/dry/pink. Patient states symptoms have improved. 02:34 Reassessment: PO challenge complete, pt tolerated well. ea 02:47 Reassessment: Patient and/or family updated on plan of care and expected duration. Pain ea level reassessed. Patient is alert, oriented x 3, equal unlabored respirations, skin warm/dry/pink. Discharge instruction given to patient, verbalized the understanding of instruction. Pt left ED ambulatory with significant other, pt tolerating well. Patient states feeling better. Patient states symptoms have improved. Vital Signs: 00:19 BP 139 / 88; Pulse 71; Resp 19; Temp 97.6(O); Pulse Ox 98% on R/A; Weight 91.17 kg; ed1 Height 5 ft. 6 in. (167.64 cm); Pain 6/10; 01:50 BP 118 / 86; Pulse 90; Resp 18; Pulse Ox 97% ; ea 02:38 BP 120 / 60; Pulse 60; Resp 18; Pulse Ox 100% ; ea 00:19 Body Mass Index 32.44 (91.17 kg, 167.64 cm) ed1 ED Course: 00:06 Patient arrived in ED. es 00:08 Angel Horn MD is Private Physician. es 00:11 Lisa Vickers [facility]-C [facility] kb 00:11 Franklin Pro MD is Attending Physician. kb 00:18 Triage completed. ed1 00:19 Arm band placed on right wrist. ed1 00:33 Chen Wiley, RN is Primary Nurse. ea 01:09 Inserted saline lock: 20 gauge in left antecubital area, using aseptic technique. Blood ea collected. 01:28 Patient has correct armband on for positive identification. Bed in low position. Call ea light in reach. Side rails up X2. 02:48 No provider procedures requiring assistance completed. IV discontinued, intact, ea bleeding controlled, No redness/swelling at site. Pressure dressing applied. Administered Medications: 01:08 Drug: Phenergan 12.5 mg Route: IVP; Site: left antecubital; ea 01:51 Follow up: Response: No adverse reaction; Marked relief of symptoms; Nausea is decreasedea 01:09 Drug: NS 0.9% 1000 ml Route: IV; Rate: 1000 ml; Site: left antecubital; ea 01:51 Follow up: Response: No adverse reaction; IV Status: Completed infusion; IV Intake: ea 1000ml Intake: 01:51 IV: 1000ml; Total: 1000ml. ea Outcome: 02:41 Discharge ordered by . kb 02:48 Discharged to home ambulatory, with significant other. ea 02:48 Condition: improved 02:48 Discharge instructions given to patient, Instructed on discharge instructions, follow up and referral plans. medication usage, Demonstrated understanding of instructions, follow-up care, medications, Prescriptions given X 2. 02:49 Patient left the ED. ea Signatures: Lisa Vickers, BASEBALL WINDER-C BASEBALL WINDER-Alma Rosa Elam Erika RN RN ed1 Chen Wiley, RN RN ea Corrections: (The following items were deleted from the chart) 02:48 02:47 Reassessment: Patient and/or family updated on plan of care and expected ea duration. Pain level reassessed. Patient is alert, oriented x 3, equal unlabored respirations, skin warm/dry/pink. Discharge instruction given to patient, verbalized the understanding of instruction. Patient states symptoms have improved. ea
== END 2019-04-29 02:49 | disposition home or self-care (01) ==
LOC: ER 00:01
DX: O21.9 Vomiting of pregnancy, unspecified (principal); Z3A.01 Less than 8 weeks gestation of pregnancy
CPT/HCPCS: 36415; 80048; 81003; 81015; 81025; 84702; 85025; 86900; 86901; 87086; 87088; 96361; 96374; 99284; J2550; J7030

== ENCOUNTER 2020-01-22 22:05 | Emergency (ER) | payer BC, OTHER ==
--- OUTSIDE RECORDS SUMMARY | 2020-01-22 22:07 | XMS REPORT ---
:1995 [facility] [address] [place] [address] Dr. [place] [address] [place] [id number] Care Team Providers Name Role Phone Unavailable Unavailable Unavailable Problems This patient has no known problems. Allergies, Adverse Reactions, Alerts This patient has no known allergies or adverse reactions. Medications This patient has no known medications.
--- OUTSIDE RECORDS SUMMARY | 2020-01-22 22:10 | XMS REPORT | Summary of Care ---
:1995 Author Organization [facility] - [facility] Address [address] [place] [address] Care Team Providers Name Role Phone Amanda Rao MD Primary Care Provider Rocio Tolliver Insurance H[employer] Reason for Referral (Routine) Status Reason Specialty Diagnoses / Referred By Referred To Procedures Contact Contact New Request Diagnoses Obesity, unspecified classification, unspecified obesity type, unspecified whether serious comorbidity present High-risk in third trimester 37 weeks gestation of Amanda Rao MD Lam, Vien Cam, MD labor in third trimester with term delivery, single or unspecified fetus Liveborn infant, of barillas , born in hospital by vaginal delivery [address] [place] [address] Procedures DISCHARGE FOLLOW-UP: PRIVATE PHYSICIAN DR. CHA [facility] [address] [place] [address] [place] Phone: [phone] Phone: Reason for Visit Auth/Cert Status Reason Specialty Diagnoses / Procedures Referred By Contact Referred To Contact Obstetrics Diagnoses Contractions; Vaginal bleeding Ad[facility] Labor And Delivery [address] [place] [address] [place] [address] Encounter Details Date Type Department Care Team Description 12/02/2019 - Hospital Encounter ADC Labor and Amanda Rao, Liveborn , of 12/05/2019 Delivery Unit MD barillas [address] [place] [address] , born [place] [address] [address] delivery [phone] [place] [address] [phone] Allergies No Known Allergiesdocumented as of this encounter (statuses as of 12/05/2019) Medications Medication Sig Dispensed Refills Start Date End Date Status SERTraline (ZOLOFT) Take 1 tablet 30 tablet 1 06/12/2019 Active 50 mg by mouth tabletIndications: daily. High-risk in first trimester, 12 weeks gestation of , Moderate episode of recurrent major depressive disorder vitamin Take 1 tablet 100 tablet 3 12/04/2019 Active w/FA by mouth tabletIndications: daily. Obesity, unspecified classification, unspecified obesity type, unspecified whether serious comorbidity present, High-risk in third trimester, 37 weeks gestation of , labor in third trimester with term delivery, single or unspecified fetus, Liveborn , of barillas , born in hospital by vaginal delivery docusate calcium Take 1 30 capsule 1 12/04/2019 Active 240 mg capsule by capsuleIndications: mouth once Obesity, daily as unspecified needed for classification, Constipation. unspecified obesity type, unspecified whether serious comorbidity present, High-risk in third trimester, 37 weeks gestation of , labor in third trimester with term delivery, single or unspecified fetus, Liveborn infant, of barillas , born in hospital by vaginal delivery ferrous sulfate 325 Take 1 tablet 60 tablet 2 12/04/2019 Active mg (65 mg iron) by mouth 2 tabletIndications: (two) times Obesity, daily. unspecified classification, unspecified obesity type, unspecified whether serious comorbidity present, High-risk in third trimester, 37 weeks gestation of , labor in third trimester with term delivery, single or unspecified fetus, Liveborn , of barillas , born in hospital by vaginal delivery ibuprofen 600 mg Take 1 tablet 30 tablet 1 12/04/2019 Active tabletIndications: by mouth Obesity, every 6 (six) unspecified hours as classification, needed unspecified obesity (Pain). Take type, unspecified with food or whether serious milk. comorbidity present, High-risk in third trimester, 37 weeks gestation of , labor in third trimester with term delivery, single or unspecified fetus, Liveborn infant, of barillas , born in hospital by vaginal delivery Take by 0 12/04/2019 Discontinued vit37/iron/folic mouth. acid (PRENATA ORAL) metroNIDAZOLE 500 Take 1 tablet 14 tablet 0 10/23/2019 12/04/2019 Discontinued mg by mouth tabletIndications: every 12 BV (bacterial (twelve) vaginosis) hours. documented as of this encounter (statuses as of 12/05/2019) Active Problems Problem Noted Date labor in third trimester with term delivery 12/03/2019 Liveborn , of barillas , born in hospital by vaginal 2019 delivery High-risk in third trimester 11/05/2019 37 weeks gestation of 11/05/2019 Acanthosis nigricans 10/03/2017 Obesity, unspecified classification, unspecified obesity type, unspecified whether serious comorbidity present Tobacco use disorder 10/03/2017 Comments Yes documented as of this encounter (statuses as of 12/05/2019) Resolved Problems Problem Noted Date Resolved Date Candidiasis of vulva and vagina 01/09/2018 11/05/2019 documented as of this encounter (statuses as of 12/05/2019) Immunizations Name Administration Dates Next Due HPV9 10/03/2018 Influenza Virus Vaccine Quad .5 mL IM 6+ MO 09/08/2019 TDAP (ADACEL) VACCINE 10/22/2019 Tdap 08/22/2018 documented as of this encounter Social History Tobacco Use Types Packs/Day Years Used Date Never Smoker 0.1 Smokeless Tobacco: Never Used Alcohol Use Drinks/Week oz/Week Comments Not Currently occasional Comments Yes Sex Assigned at Date Recorded Not on file Job Start Date Occupation Industry Not on file Not on file Not on file Travel History Travel Start Travel End No recent travel history available. documented as of this encounter Last Filed Vital Signs Vital Sign Reading Time Taken Comments Blood Pressure 140/89 12/05/2019 8:00 AM WATER SERVICE DISPATCHER Pulse 74 12/05/2019 8:00 AM WATER SERVICE DISPATCHER Temperature 36.8 C (98.2 F) 12/05/2019 8:00 AM WATER SERVICE DISPATCHER Respiratory Rate 16 12/05/2019 8:00 AM WATER SERVICE DISPATCHER Oxygen Saturation 100% 12/05/2019 8:00 AM WATER SERVICE DISPATCHER Inhaled Oxygen Concentration - - Weight 106.1 kg (234 lb) 12/02/2019 6:54 PM WATER SERVICE DISPATCHER Height 165.1 cm (5' 5") 12/02/2019 6:54 PM WATER SERVICE DISPATCHER Body Mass Index 38.94 12/02/2019 6:54 PM WATER SERVICE DISPATCHER documented in this encounter Discharge Summaries Amanda Rao MD - 12/05/2019 7:40 AM CST PP D/C SUMMARY ADMIT DATE: 12/02/2019 DISCHARGE DATE: 12/05/2019 ADMIT ATTENDING: Amanda Rao MD ATTENDING MD AT DISCHARGE: Amanda Rao MD REASON FOR ADMISSION: in active labor FINAL DIAGNOSIS: S/P Vaginal Delivery SECONDARY DIAGNOSIS: Principal Problem: Liveborn , of barillas , born in hospital by vaginal delivery (12/03/2019) POA: No Active Problems: Obesity, unspecified classification, unspecified obesity type, unspecified whether serious comorbidity present (10/03/2017) POA: Yes High-risk in third trimester (11/05/2019) POA: Yes 37 weeks gestation of (11/05/2019) POA: Yes labor in third trimester with term delivery (12/03/2019) POA: Yes PRINCIPAL PROCEDURE: Cephalic vaginal delivery ADDITIONAL PROCEDURES: None SIGNIFICANT LAB/X-RAYS: WBC (10*3/L) Date Value 12/04/2019 18.65 (H) 12/02/2019 12.77 (H) 10/22/2019 8.25 HGB (g/dL) Date Value 12/04/2019 10.5 (L) 12/02/2019 12.4 10/22/2019 11.4 (L) HCT (%) Date Value 12/04/2019 33.3 (L) 12/02/2019 38.6 10/22/2019 36.0 PLT (10*3/L) Date Value 12/04/2019 200 12/02/2019 254 10/22/2019 252 HOSPITAL COURSE: Briefly, Robert Winter is a 24 year old G1 who was admitted to [facility] on for pretermlabor at 36 6/7 weeks. She underwent a Cephalic vaginal delivery at 37 0/7 weeks. She was ambulating, tolerating a regular diet with good pain control on day # 2. The patient is medically stable for discharge home to the care of her family with care instructions reviewed and with home medsprescribed. She is to follow-up in clinic as directed. CONDITION: Good DIET: Regular ACTIVITY: Physical activities as tolerated. Pelvic rest x 6-8 weeks . DISCHARGE MEDICATIONS: Robert Winter Home Medication Instructions SEYMOUR:[id number] Printed on:12/05/19740 Medication Information docusate calcium 240 mg capsule Take 1 capsule by mouth once daily as needed for Constipation. ferrous sulfate 325 mg (65 mg iron) tablet Take 1 tablet by mouth 2 (two) times daily. ibuprofen 600 mg tablet Take 1 tablet by mouth every 6 (six) hours as needed (Pain). Take with food or milk. vitamin w/FA tablet Take 1 tablet by mouth daily. SERTraline (ZOLOFT) 50 mg tablet Take 1 tablet by mouth daily. WOUND CARE: The patient was instructed to keep delivery lacerations (if any) clean and dry with soap and water in shower, dry gently with clean towel. She was instructed to return to ER if Temp > 101F, foul-smelling vaginal discharge, headache unresolved with pain medications, visual disturbances including double or blurry vision, seeing spots, upper abdominal pain, or vaginal bleeding greater than 1 pad perhour. Pelvic rest 4-6 weeks, and no heavy lifting. DISCHARGE: Home FOLLOW-UP APPOINTMENT: With [facility] clinic in 4 weeks for check. Amanda Rao MD 12/05/2019 7:41 AM documented in this encounter Progress Notes Amanda Rao MD - 12/04/2019 10:15 AM CST PROGRESS NOTE Subjective: Patient is a 24 year old, S/P , post day 1. She complains of nothing. Objective: Vital Signs: BP: (108-146)/(65-87) Temp: [36.6 C (97.9 F)-37.1 C (98.7 F)] Temp source: Oral (12/04 07) Pulse: [61-88] Resp: [16-20] SpO2: [99 %-100 %] Height: -- Weight: -- BMI (calculated): -- Physical Exam: General: NAD Lungs: clear to auscultation bilaterally Cardiology: regular rate and rhythm Abdomen: Soft, NTTP, fundus firm and below umbilicus Extremities: no clubbing, cyanosis, or edema Current Medications: Current Facility-Administered Medications Medication Dose Route Frequency Last Rate Last Dose acetaminophen (TYLENOL) tablet 650 mg 650 mg Oral Q6HPRN benzocaine-menthol (DERMOPLAST) 20-0.5 % topical spray Topical PRN diphenhydrAMINE (BENADRYL) tablet 25 mg 25 mg Oral Q6HPRN docusate calcium (SURFAK) capsule 240 mg 240 mg Oral QDAILYPRN 240 mg at 12/04/19 1009 HYDROcodone-acetaminophen (NORCO 5) 5-325 mg tablet 1 tablet 1 tablet Oral Q6HPRN ibuprofen (IBU) tablet 600 mg 600 mg Oral Q6HPRN 600 mg at 12/03/192006 magnesium hydroxide (MILK OF MAGNESIA) 400 mg/5 mL suspension 30 mL 30 mL Oral QDAILYPRN ondansetron (ZOFRAN (PF)) injection 4 mg 4 mg Slow IV Push Q8HPRN vitamin w/FA (PRENATABS RX) tablet 1 tablet 1 tablet Oral DAILY 1 tablet at 12/04/200909 rho(D) immune globulin (RHOGAM) syringe 300 mcg 300 mcg Intramuscular ONCE simethicone (GAS RELIEF (SIMETHICONE)) chewable tablet 160 mg 160 mg Oral PC+HSPRN 160 mg at 12/04/19 1009 Labs: CBC BMP MAGNESIUM WBC (10*3/L) Date Value 12/04/2019 18.65 (H) No results found for: NA No results found for: MG PLT (10*3/L) Date Value 12/04/2019 200 No results found for: K HGB (g/dL) Date Value 12/04/2019 10.5 (L) No results found for: CA HCT (%) Date Value 12/04/2019 33.3 (L) No results found for: CL TYPE & RH No results found for: BUN ABO & RH (no units) Date Value 12/02/2019 O Positive No results found for: CREAT Type & Screen Rubella Varicella ABO & RH (no units) Date Value 12/02/2019 O Positive Rubella screen IgG (no units) Date Value 06/12/2019 Positive No results found for: VZVG No results found for: TSABINT Hep B HIV Syphilis No results found for: HBS No results found for: HIV No results found for: SYPG Group B Strep Chlamydia No results found for: CGBS C. trachomatis Nucleic Acid (no units) Date Value 12/02/2019 Negative Assessment/Plan: PPD#1 - Doing well. Continue routine care - patient desires to stay tonight. Anticipate discharge tomorrow if remains stable Amanda Rao MD 12/04/2019 7:42 PM manda Rao MD - 12/03/2019 4:45 PM CSTPatient continues to make cervical change. SVE 80/0. Will admit for delivery due to labor. AROM with clear fluid without complications. SVE 80/0. Amanda Rao MD 12/03/2019 4:45 PM documented in this encounter Plan of Treatment Date Type Specialty Care Team Description 01/01/2020 Routine Obstetrics & Danielle Mireles, Visit Gynecology [facility] [address] [place] [phone] Health Maintenance Due Date Last Done Comments MENINGOCOCCAL B VACCINES (1 2007 of 2 - Risk Bexsero 2-dose series) HPV VACCINES (2 - Female 10/31/2018 10/03/2018 3-dose series) CHLAMYDIA SCREENING 12/02/2020 12/02/2019, 04/24/2019, 10/03/2018, Additional history exists PAP SMEAR 10/03/2021 10/03/2018 DTaP,Tdap,and Td Vaccines (3 10/22/2029 10/22/2019, 08/22/2018 - Td) INFLUENZA VACCINE Completed 09/08/2019 MENINGOCOCCAL VACCINE Aged Out No longer eligible based on patient's age to complete this topic PNEUMOCOCCAL 0-64 YEARS Aged Out No longer eligible COMBINED SERIES based on patient's age to complete this topic documented as of this encounter Procedures Procedure Name Priority Date/Time Associated Comments Diagnosis CBC WITH DIFFERENTIAL Routine 12/04/2019 3:59 Results for this AM WATER SERVICE DISPATCHER procedure are in the results section. CBC WITH DIFFERENTIAL Routine 12/04/2019 3:59 Results for this AM WATER SERVICE DISPATCHER procedure are in the results section. VENOUS CORD GAS Routine 12/03/2019 5:45 Results for this PM WATER SERVICE DISPATCHER procedure are in the results section. ARTERIAL CORD GAS Routine 12/03/2019 5:45 Results for this PM WATER SERVICE DISPATCHER procedure are in the results section. GROUP B STREPTOCOCCUS Routine 12/02/2019 8:47 Results for this BY PCR PM WATER SERVICE DISPATCHER procedure are in the results section. RHO (D) IMMUNE Routine 12/02/2019 8:45 Results for this GLOBULIN PM WATER SERVICE DISPATCHER procedure are in the results section. RHO (D) IMMUNE Routine 12/02/2019 8:45 Results for this GLOBULIN PM WATER SERVICE DISPATCHER procedure are in the results section. HB ABO GROUPING Routine 12/02/2019 8:45 Results for this PM WATER SERVICE DISPATCHER procedure are in the results section. HIV 1/2 AG-AB WITH Routine 12/02/2019 8:37 Results for this REFLEX PM WATER SERVICE DISPATCHER procedure are in the results section. CBC WITH DIFFERENTIAL Routine 12/02/2019 8:37 Results for this PM WATER SERVICE DISPATCHER procedure are in the results section. ADC OR DEMARCUS ONLY - Routine 12/02/2019 8:37 Results for this RPR PM WATER SERVICE DISPATCHER procedure are in the results section. GC & CHLAMYDIA Routine 12/02/2019 8:37 Results for this AMPLIFIED ASSAY PM WATER SERVICE DISPATCHER procedure are in the results section. HEPATITIS B SURFACE Routine 12/02/2019 8:37 Results for this ANTIGEN PM WATER SERVICE DISPATCHER procedure are in the results section. CBC WITH DIFFERENTIAL Routine 12/02/2019 8:37 Results for this PM WATER SERVICE DISPATCHER procedure are in the results section. ADC CLC OR LCC ONLY - Routine 12/02/2019 8:36 Results for this WET PREP PM WATER SERVICE DISPATCHER procedure are in the results section. ASSIGNMENT OF BENEFITS Routine 12/02/2019 6:28 PM WATER SERVICE DISPATCHER CONSENT/REFUSAL FOR Routine 12/02/2019 6:28 DIAGNOSIS AND PM WATER SERVICE DISPATCHER TREATMENT documented in this encounter Results CBC WITH DIFFERENTIAL (12/04/2019 3:59 AM WATER SERVICE DISPATCHER) WBC 18.65 (H) 4.30 - 11.10 [facility] 10*3/L [facility] RBC 3.61 (L) 3.93 - 5.25 [facility] 10*6/L [facility] HGB 10.5 (L) 11.6 - 15.0 [facility] g/dL HOSPITAL LABORATORY HCT 33.3 (L) 35.7 - 45.2 % [facility] MCV 92.2 80.6 - 95.5 fL [facility] MCH 29.1 25.9 - 32.8 pg [facility] MCHC 31.5 (L) 31.6 - 35.1 [facility] g/dL [facility] RDW-SD 43.2 39.0 - 49.9 fL [facility] RDW-CV 12.8 12.0 - 15.5 % [facility] PLT 200 166 - 358 [facility] 10*3/L [facility] MPV 10.5 9.5 - 12.9 fL [facility] NRBC/100 WBC 0.0 0.0 - 10.0 /100 [facility] WBCs [facility] NRBC x10^3 <0.01 10*3/L [facility] GRAN MAT (NEUT) % 86.2 % [facility] IMM GRAN % 0.90 % [facility] LYMPH % 9.3 % [facility] MONO % 3.3 % [facility] EOS % 0.0 % [facility] BASO % 0.3 % [facility] GRAN MAT x10^3(ANC) 16.08 (H) 1.88 - 7.09 [facility] 10*3/uL [facility] IMM GRAN x10^3 0.17 (H) 0.00 - 0.06 [facility] 10*3/uL [facility] LYMPH x10^3 1.73 1.32 - 3.29 [facility] 10*3/uL [facility] MONO x10^3 0.62 0.33 - 0.92 [facility] 10*3/uL [facility] EOS x10^3 <0.03 (L) 0.03 - 0.39 [facility] 10*3/uL [facility] BASO x10^3 0.05 0.01 - 0.07 [facility] 10*3/uL [facility] Specimen Blood - VENOUS Performing Organization Address City/State/Zipcode Phone Number [facility] CLIA: [id number], [address] [place] [address] Venous Cord Gas (12/03/2019 5:45 PM WATER SERVICE DISPATCHER) VENOUS BASE EXCESS, -3.7 mEq/L [facility] VENOUS PH, CORD 7.40 7.25 - 7.45 [facility] VENOUS PC02, CORD 33 27 - 49 mmHg [facility] VENOUS PO2, CORD 23 17 - 41 mmHg [facility] VENOUS BICARBONATE, 20 12 - 29 mEq/L [facility] Specimen Blood - ARTERIAL Performing Organization Address City/[facility] Services[facility] Phone Number [facility] CLIA: [id number], [address] [place] [id number] [place] [address] Arterial Cord Gas (12/03/2019 5:45 PM WATER SERVICE DISPATCHER) BASE EXCESS, CORD -5.8 mEq/L [facility] AC PH, CORD (BEAKER) 7.31 7.18 - 7.38 [facility] PC02, CORD 41 32 - 66 mmHg [facility] PO2, CORD 25 10 - 30 mmHg [facility] BICARBONATE, CORD 20 17 - 27 mEq/L [facility] Specimen Blood - ARTERIAL Performing Organization Address City/[facility] Phone Number [facility] CLIA: [id number], [address] [place] [address] GROUP B STREPTOCOCCUS BY PCR (12/02/2019 8:47 PM WATER SERVICE DISPATCHER) Group B Streptococcus by Negative Negative [facility] LABORAT[facility] PCR SERVICES Specimen Swab - ANAL/VAGINAL Performing Organization Address City/[facility]/Zipcode Phone Number [facility] LABORATORY SERVICES CLIA: [id number], [address] [place] [address] [facility] RHO (D) IMMUNE GLOBULIN (12/02/2019 8:45 PM WATER SERVICE DISPATCHER) RHIG CANDIDATE? No- see comment LAB Comment: Patient is not a candidate for RhIg- Patient is Rh Positive. Performed at [facility] Laboratory Services - [facility] Blood Bank [address] [place] [id number] Toll Free: [phone] CLIA No. [id number] Specimen Blood - VENOUS Performing Organization Address City/[facility]/Zipcode Phone Number [facility] LAB RHO (D) IMMUNE GLOBULIN (12/02/2019 8:45 PM WATER SERVICE DISPATCHER) Pathologist [facility] RHIG CANDIDATE? No- see comment LAB Comment: Patient is not a candidate for RhIg- Patient is Rh Positive. Performed at [facility] Laboratory [facility] Blood Bank [address] [place] [address] Toll Free: [phone] CLIA No. [id number] Specimen Blood - VENOUS Performing Organization Address City/[facility]/Zipcode Phone Number [facility] Type and Screen - ONCE Routine (12/02/2019 8:45 PM WATER SERVICE DISPATCHER) Pathologist [facility] ABO & RH O Positive LAB Comment: Performed at [facility] Laboratory [facility] Blood Bank [address] [place] [address] Toll Free: [phone] CLIA No. [id number] IAT Negative LAB Comment: Performed at [facility] Laboratory [facility] Blood Bank [address] [place] [address] Toll Free: [phone] CLIA No. [id number] Specimen Performing Organization Address City/[facility] Phone Number [facility] HIV 1/2 AG-AB WITH REFLEX (12/02/2019 8:37 PM WATER SERVICE DISPATCHER) [facility] HIV 1/2 Ag-Ab with Negative Negative [facility] Reflex HOSPITAL LABORATORY HIV Semi-quantitative 0.08 [facility] LABOR[facility]ORY Specimen Blood - VENOUS Narrative Performed At Non-reactive for HIV-1 antigen and HIV-1/HIV-2 [facility] LABORATORY antibodies. No laboratory evidence of HIV infection. Repeat in 2-4 weeks if acute HIV infection is suspected. Performing Organization Address City/[facility] Servicescode Phone Number [facility] CLIA: [id number], [address] [place] [address] CBC WITH DIFFERENTIAL (12/02/2019 8:37 PM WATER SERVICE DISPATCHER) [facility] WBC 12.77 (H) 4.30 - 11.10 [facility] 10*3/L HOSPITAL LABORATORY RBC 4.25 3.93 - 5.25 [facility] 10*6/L HOSPITAL LABORATORY HGB 12.4 11.6 - 15.0 [facility] g/dL HOSPITAL LABORATORY HCT 38.6 35.7 - 45.2 % [facility]ORY MCV 90.8 80.6 - 95.5 fL [facility]ORY MCH 29.2 25.9 - 32.8 pg [facility] MCHC 32.1 31.6 - 35.1 [facility] g/dL [facility] RDW-SD 42.2 39.0 - 49.9 fL [facility] RDW-CV 12.9 12.0 - 15.5 % [facility] PLT 254 166 - 358 [facility] 10*3/L [facility] MPV 9.9 9.5 - 12.9 fL [facility]ORY NRBC/100 WBC 0.0 0.0 - 10.0 /100 [facility] WBCs [facility] NRBC x10^3 <0.01 10*3/L [facility]ORY GRAN MAT (NEUT) % 63.8 % [facility] IMM GRAN % 0.50 % [facility] LYMPH % 28.1 % [facility] MONO % 6.7 % [facility] EOS % 0.6 % [facility] BASO % 0.3 % [facility]OR[facility]ORY GRAN MAT x10^3(ANC) 8.13 (H) 1.88 - 7.09 [facility] 10*3/uL [facility] IMM GRAN x10^3 0.07 (H) 0.00 - 0.06 [facility] 10*3/uL HOSPITAL LABORATORY LYMPH x10^3 3.59 (H) 1.32 - 3.29 [facility] 10*3/uL HOSPITAL LABORATORY MONO x10^3 0.86 0.33 - 0.92 [facility] 10*3/uL HOSPITAL LABORATORY EOS x10^3 0.08 0.03 - 0.39 [facility] 10*3/uL HOSPITAL LABORATORY BASO x10^3 0.04 0.01 - 0.07 [facility] 10*3/uL [facility]OR[facility] Specimen Blood - VENOUS Performing Organization Address City/State/Zipcode Phone Number [facility] CLIA: [id number], [address] [place] [address] ADC OR DEMARCUS BOSTON - RPR (12/02/2019 8:37 PM WATER SERVICE DISPATCHER) RPR (Qualitative) Nonreactive Nonreactive [facility] LABORATORY Specimen Blood - VENOUS Performing Organization Address City/[facility] Services[facility]h Phone Number [facility] CLIA: [id number], [address] [place] [address] HEPATITIS B SURFACE ANTIGEN (12/02/2019 8:37 PM WATER SERVICE DISPATCHER) HBsAg Negative Negative [facility] HBsAg 0.04 [facility] Semi-Quantitative SERVICES Specimen Blood - VENOUS Performing Organization Address City/[facility] Services[facility] Phone Number [facility] CLIA: [id number], [address] [place] [address] [facility] GC & CHLAMYDIA AMPLIFIED ASSAY (12/02/2019 8:37 PM WATER SERVICE DISPATCHER) C. trachomatis Nucleic Negative Negative [facility] Acid SERVICES N. gonorrhoeae Nucleic Negative Negative [facility] Acid SERVICES Specimen Fluid - URINARY BLADDER Performing Organization Address [facility] Phone Number [facility] CLIA: [id number], [address] [place] [address] [facility] ADC CLC OR LCC ONLY - WET PREP (12/02/2019 8:36 PM WATER SERVICE DISPATCHER) Wet Prep No Trichomonas [facility] vaginalis [facility] LABORATORY Wet Prep No Yeast [facility] Wet Prep Numerous Organisms [facility] LABORATORY Wet Prep Numerous Epithelial [facility] LABORATORY Wet Prep Few WBC per high-power [facility] LABORATORY Wet Prep Few Red blood cells [facility] Specimen Fluid - CERVIX Performing Organization Address [facility] Servicesconh Phone Number [facility] CLIA: [id number], [id number] documented in this encounter Visit Diagnoses Diagnosis Liveborn infant, of barillas , born in hospital by vaginal delivery - Primary Obesity, unspecified classification, unspecified obesity type, unspecified whether serious comorbidity present High-risk in third trimester 37 weeks gestation of state, incidental labor in third trimester with term delivery, single or unspecified fetus documented in this encounter Administered Medications Medication Order MAR Action Action Date Dose Rate Site acetaminophen (TYLENOL) tablet Given 12/05/2019 8:07 AM WATER SERVICE DISPATCHER 650 mg 650 mg 650 mg, Oral, Q6HPRN, Starting Sun12/04/19 at 1630, Until Discontinued, Routine, Pain (scale 1-3) ibuprofen (IBU) tablet 600 mg Given 12/05/2019 12:00 PM WATER SERVICE DISPATCHER 600 mg 600 mg, Oral, Q6HPRN, Starting Sun12/04/19 at 1630, Until Discontinued, Routine, Pain (scale 4-6) Given 12/04/2019 6:42 PM WATER SERVICE DISPATCHER 600 mg vitamin w/FA (PRENATABS RX) Given 12/05/2019 8:07 AM WATER SERVICE DISPATCHER 1 tablet tablet 1 tablet 1 tablet, Oral, DAILY, First dose on Sun12/05/19 at 0900, Until Discontinued, Routine Medication Order MAR Action Action Date Dose Rate Site acetaminophen (TYLENOL) tablet Given 12/04/2019 3:53 PM WATER SERVICE DISPATCHER 650 mg 650 mg 650 mg, Oral, Q6HPRN, Starting Sun12/03/19 at 2006, Until Sun12/04/19 at 1630, Routine, Pain (scale 1-3) betamethasone acet,sod phos (CELESTONE Given 12/02/2019 8:01 PM WATER SERVICE DISPATCHER 12 mg Left Hip SOLUSPAN) 6 mg/mL injection 12 mg 12 mg, Intramuscular, Q24H, 2 doses, First dose on Sun12/02/19 at 2100, Last dose on Sun12/03/19 at 2100, Routine D5W-LR IV infusion 1,000 mL New Bag 12/03/2019 1:28 PM WATER SERVICE DISPATCHER 1,000 mL 125 mL/hr at 125 mL/hr, IV Infusion, CONTINUOUS, Starting Sun12/02/19 at 2115, Until Sun12/03/19 at 2006, Routine New Bag 12/03/2019 4:23 AM WATER SERVICE DISPATCHER 1,000 mL 125 mL/hr New Bag 12/02/2019 8:37 PM WATER SERVICE DISPATCHER 1,000 mL 125 mL/hr docusate calcium (SURFAK) capsule 240 mg Given 12/04/2019 10:09 AM WATER SERVICE DISPATCHER 240 mg 240 mg, Oral, QDAILYPRN, Starting Sun12/03/19 at 2006, Until Sun12/04/19 at 1630, Routine, Constipation FENTanyl PF (SUBLIMAZE (PF)) injection 100 Given 12/03/2019 12:05 PM WATER SERVICE DISPATCHER 100 mcg mcg 100 mcg, Slow IV Push, ONCE, 1 dose, Sun12/03/19 at 1215, Routine FENTanyl PF (SUBLIMAZE (PF)) injection 100 Given 12/03/2019 5:37 PM WATER SERVICE DISPATCHER 100 mcg mcg 100 mcg, Slow IV Push, Q1HPRN, Starting Sun12/03/19 at 1533, Until Sun12/03/19 at 2006, Routine, Pain (scale 4-6) Given 12/03/2019 3:43 PM WATER SERVICE DISPATCHER 100 mcg ibuprofen (IBU) tablet 600 mg Given 12/04/2019 11:56 AM WATER SERVICE DISPATCHER 600 mg 600 mg, Oral, Q6HPRN, Starting Sun12/03/19 at 2006, Until Lynette 12/04/19 at 1630, Routine, Pain (scale 4-6) Given 12/03/2019 8:07 PM WATER SERVICE DISPATCHER 600 mg lactated ringers IV infusion New Bag 12/02/2019 8:38 PM WATER SERVICE DISPATCHER 1,000 mL 999 mL/hr 1,000 mL at 999 mL/hr, 1,000 mL, IV Infusion, ONCE, 1 dose, 12/02/19 at 2115, Routine nalbuphine (NUBAIN) injection 10 mg Given 12/02/2019 9:42 PM WATER SERVICE DISPATCHER 10 mg 10 mg, Intravenous, ONCE, 1 dose, 12/02/19 at 2245, Routine penicillin g pot in dextrose Given 12/03/2019 4:23 AM WATER SERVICE DISPATCHER 3 Million Units 50 mL/hr 3 million unit/50 mL RTU iv piggyback 3 Million Units 3 Million Units, IV Piggyback, Q4H ABX, First dose on Sun12/03/19 at 0000, Until Discontinued, 50 mL, Reason for Anti-Infective: Empiric Therapy for Suspected Infection, Empiric Therapy Site: Other, Other site: vaginal, Duration of therapy: 72 hours Given 12/03/2019 12:29 AM WATER SERVICE DISPATCHER 3 Million Units 50 mL/hr penicillin g pot in dextrose Given 12/03/2019 1:52 PM WATER SERVICE DISPATCHER 3 Million Units 50 mL/hr 3 million unit/50 mL RTU iv piggyback 3 Million Units 3 Million Units, IV Piggyback, Q4H ABX, First dose on Sun12/03/19 at 1445, Until Discontinued, 50 mL, Reason for Anti-Infective: Empiric Therapy for Suspected Infection, Empiric Therapy Site: Pelvic, Duration of therapy: 72 hours penicillin g potassium 5 Million Given 12/02/2019 9:15 PM WATER SERVICE DISPATCHER 5 Million Units Units in NaCl 0.9% (NS) 100 mL piggyback 5 Million Units, IV Piggyback, ONCE, 1 dose, Sun12/02/19 at 2115, 100 mL, Reason for Anti-Infective: Empiric Therapy for Suspected Infection, Empiric Therapy Site: Other, Other site: vaginal vitamin w/FA (PRENATABS RX) Given 12/04/2019 10:09 AM WATER SERVICE DISPATCHER 1 tablet tablet 1 tablet 1 tablet, Oral, DAILY, First dose on Sun12/04/19 at 0900, Until Discontinued, Routine proMETHazine (PHENERGAN) 25 mg in NaCl 0.9% Given 12/02/2019 10:45 PM WATER SERVICE DISPATCHER 25 mg (NS) 50 mL piggyback 25 mg, IV Piggyback, ONCE, 1 dose, Sun12/02/19 at 2245, 50 mL proMETHazine (PHENERGAN) 25 mg in NaCl 0.9% Given 12/03/2019 12:48 PM WATER SERVICE DISPATCHER 25 mg (NS) 50 mL piggyback 25 mg, IV Piggyback, ONCE-SEE INSTRUCTIONS, 1 dose, Starting Sun12/03/19 at 1155, Until Sun12/03/19 at 1248, 50 mL simethicone (GAS RELIEF (SIMETHICONE)) Given 12/04/2019 10:09 AM WATER SERVICE DISPATCHER 160 mg chewable tablet 160 mg 160 mg, Oral, PC+HSPRN, Starting Sun12/03/19 at 2006, Until Sun12/04/19 at 1630, Routine, Gas terbutaline (BRETHINE) injection Given 12/02/2019 8:00 PM WATER SERVICE DISPATCHER 0.25 mg Left Arm 0.25 mg 0.25 mg, Subcutaneous, ONCE, 1 dose, Sun12/02/19 at 2100, Routine documented in this encounter Insurance Payer Benefit Plan / Subscriber ID Effective Phone Address Type Group Dates [facility] [id number] 2016-Pedro [phone] [address] PPO/POS nt [id number] [place] [address] [facility] xxxxxxxxx 2019- [address] Medicaid HEALTH CHOICE HEALTH [facility] [id number] - MANAGED MEDICAID [place], [place] MEDICAID [id number] documented as of this encounter
--- OUTSIDE RECORDS SUMMARY | 2020-01-22 22:11 | XMS REPORT | Summary of Care ---
:1995 Author Organization [facility] - [facility] Address [address] [place] [id number] Care Team Providers Name Role Phone Pcp, Patient Does Not Have A Primary Care Provider Amanda Rao MD Primary Care Provider Rocio Tolliver Insurance Hmo Encounter Details Date Type Department Care Team Description 12/01/2019 Patient Secure Msg [facility] Amanda Rao MD [facility]- [address] [place] [address] [place], [place] [id number] Allergies No Known Allergiesdocumented as of this encounter (statuses as of 01/03/2020) Medications Medication Sig Dispensed Refills Start Date End Date Status SERTraline (ZOLOFT) 50 Take 1 tablet by 30 tablet 1 06/12/2019 Active mg tabletIndications: mouth daily. High-risk in first trimester, 12 weeks gestation of , Moderate episode of recurrent major depressive disorder documented as of this encounter (statuses as of 01/03/2020) Active Problems Problem Noted Date labor in third trimester with term delivery 12/03/2019 Liveborn infant, of barillas , born in hospital by vaginal 2019 delivery High-risk in third trimester 11/05/2019 37 weeks gestation of 11/05/2019 Acanthosis nigricans 10/03/2017 Obesity, unspecified classification, unspecified obesity type, unspecified whether serious comorbidity present Tobacco use disorder 10/03/2017 Comments Yes documented as of this encounter (statuses as of 01/03/2020) Resolved Problems Problem Noted Date Resolved Date Candidiasis of vulva and vagina 01/09/2018 11/05/2019 documented as of this encounter (statuses as of 01/03/2020) Immunizations Name Administration Dates Next Due HPV9 [...] of this encounter Last Filed Vital Signs Not on filedocumented in this encounter Plan of Treatment Health Maintenance Due Date Last Done Comments [...] this topic documented as of this encounter Results Not on filedocumented in this encounter Insurance Payer Benefit Plan / Subscriber ID Effective Phone Address Type Group Dates [facility] [id number] 2016-Prese [phone] [address] PPO/POS nt [id number] [place] [address] [facility] xxxxxxxxx 2019-Pres [address] Medicaid HEALTH CHOICE HEALTH CHOICE ent [id number] - MANAGED MEDICAID [place], [place] MEDICAID [id number] documented as of this encounter
[2020-01-22 22:53] LABS: Urine Blood NEGATIVE (NEG); Urine Glucose NEGATIVE (NEG); Urine Protein NEGATIVE (NEG); Urine Specific Gravity 1.025 (1.005-1.030)
[2020-01-22 23:46] LABS: Urine Bacteria <20 /HPF (<20); Urine RBC <5 /HPF (NONE SEEN)
[2020-01-22] MEDS ORDERED: KETOROLAC 30 MG/ML INJ ONE (23:55)
--- NOTE | 2020-01-23 00:10 | EDPHYS ---
Physician Documentation [facility] Name: Robert Winter Age: 24 yrs Sex: Female : 1995 Arrival Date: 01/22/2020 Time: 22:05 Bed 19 Private MD: ED Physician Paul Murcia HPI: 01/22 01:20 This 24 yrs old Female presents to ER via Ambulatory with complaints of Low tw4 Back Pain. 01:20 The patient presents with pain and decreased range of motion, and tenderness. The tw4 symptoms are located in the low back. The pain does not radiate. The problem was sustained from unknown cause. Onset: The symptoms/episode began/occurred today, at 14:00. Modifying factors: The patient symptoms are alleviated by nothing, the patient symptoms are aggravated by nothing. Associated signs and symptoms: The patient has no apparent associated signs or symptoms. The patient has not experienced similar symptoms in the past. Historical: - Allergies: 01/21 22:22 No Known Allergies; ah - Home Meds: 22:22 cyclobenzaprine 5 mg Oral tab [Active]; ah - PMHx: 22:22 None; ah - PSHx: 22:22 None; ah - Immunization history:: Flu vaccine is up to date. - Social history:: Smoking status: Patient reports the use of cigarette tobacco products, denies chronic smoking, but will smoke occasionally. ROS: 01/22 01:20 Constitutional: Negative for fever, chills, and weight loss, Eyes: Negative for injury, tw4 pain, redness, and discharge, Cardiovascular: Negative for chest pain, palpitations, and edema, Respiratory: Negative for shortness of breath, cough, wheezing, and pleuritic chest pain, Abdomen/GI: Negative for abdominal pain, nausea, vomiting, diarrhea, and constipation, MS/Extremity: Negative for injury and deformity, Skin: Negative for injury, rash, and discoloration, Neuro: Negative for headache, weakness, numbness, tingling, and seizure. Back: Positive for decreased range of motion, pain at rest, pain with movement. Exam: 01:22 Constitutional: This is a well developed, well nourished patient who is awake, alert, tw4 and in no acute distress. Head/Face: Normocephalic, atraumatic. Chest/axilla: Normal chest wall appearance and motion. Nontender with no deformity. No lesions are appreciated. Cardiovascular: Regular rate and rhythm with a normal S1 and S2. No gallops, murmurs, or rubs. Normal PMI, no JVD. No pulse deficits. Respiratory: Lungs have equal breath sounds bilaterally, clear to auscultation and percussion. No rales, rhonchi or wheezes noted. No increased work of breathing, no retractions or nasal flaring. Abdomen/GI: Soft, non-tender, with normal bowel sounds. No distension or tympany. No guarding or rebound. No evidence of tenderness throughout. MS/ Extremity: Pulses equal, no cyanosis. Neurovascular intact. Full, normal range of motion. Neuro: Awake and alert, GCS 15, oriented to person, place, time, and situation. Cranial nerves II-XII grossly intact. Motor strength 5/5 in all extremities. Sensory grossly intact. Cerebellar exam normal. Normal gait. 01:22 Back: pain, that is moderate, of the lumbar area, ROM is painless, decreased, with all movement. Vital Signs: 01/21 22:17 BP 128 / 80; Pulse 88; Resp 20; Temp 97.9; Pulse Ox 100% ; Weight 108.86 kg; Height 5 ah ft. 6 in. (167.64 cm); Pain 9/10; 01/22 00:15 BP 119 / 64; Pulse 75; Resp 18; Pulse Ox 100% on R/A; ea 01/21 22:17 Body Mass Index 38.74 (108.86 kg, 167.64 cm) ah MDM: 01/21 22:20 Patient medically screened. tw4 01/22 01:22 Data reviewed: vital signs, nurses notes. Data reviewed: lab test result(s), tw4 urinalysis. Counseling: I had a detailed discussion with the patient and/or guardian regarding: the historical points, exam findings, and any diagnostic results supporting the discharge/admit diagnosis, lab results. Medication response: Toradol partially relieved the patient's pain. Response to treatment: and as a result, I will discharge patient, administer pain medication. Special discussion: I discussed with the patient/guardian in detail that at this point there is no indication for admission to the hospital. It is understood, however, that if the symptoms persist or worsen the patient needs to return immediately for re-evaluation. 01/21 22:44 Order name: Urine Dipstick--Ancillary (enter results) ar 01/21 22:44 Order name: Urine --Ancillary (enter results) ar5 01/21 22:20 Order name: Urine Dipstick-Ancillary (obtain specimen); Complete Time: 22:42 tw4 01/21 22:53 Order name: Urine Microscopic Only; Complete Time: 23:47 ar5 01/21 22:53 Order name: Urine Culture ar5 01/21 22:20 Order name: Urine Test (obtain specimen); Complete Time: 22:42 tw4 Administered Medications: 01/21 23:55 Drug: TORadol 60 mg Route: IM; Site: right gluteus; 01/22 00:18 Follow up: Response: No adverse reaction; Pain is decreased ea Disposition: 01/23/20 00:08 Discharged to Home. Impression: Sprain of ligaments of lumbar spine. - Condition is Stable. - Discharge Instructions: Back Pain, Adult, Back Injury Prevention. - Prescriptions for Ibuprofen 800 mg Oral Tablet - take 1 tablet by ORAL route every 8 hours As needed take with food; 30 tablet. Cyclobenzaprine 10 mg Oral Tablet - take 1 tablet by ORAL route every 8 hours As needed; 30 tablet. Tramadol 50 mg Oral Tablet - take 1 tablet by ORAL route every 8 hours as needed; 12 tablet. - Work release form, Medication Reconciliation Form, Thank You Letter, Antibiotic Education, Prescription Opioid Use form. - Follow up: Private Physician; When: Upon discharge from the Emergency Department; Reason: Recheck today's complaints, Continuance of care. - Problem is new. - Symptoms have improved. Signatures: Dispatcher [employer] EDChen Brian RN Paul Ross ea, MD MD tw4 Kylah Wiggins RN GRIFFIN Corrections: (The following items were deleted from the chart) 00:26 00:08 01/23/2020 00:08 Discharged to Home. Impression: Sprain of ligaments of lumbar ea spine. Condition is Stable. Forms are Medication Reconciliation Form, Thank You Letter, Antibiotic Education, Prescription Opioid Use. Follow up: Private Physician; When: Upon discharge from the Emergency Department; Reason: Recheck today's complaints, Continuance of care. Problem is new. Symptoms have improved. tw4
--- NOTE | 2020-01-23 00:10 | ER ---
Nurse's Notes [facility] Name: Robert Winter Age: 24 yrs Sex: Female : 1995 Arrival Date: 01/22/2020 Time: 22:05 Bed 19 Private MD: Diagnosis: Sprain of ligaments of lumbar spine Presentation: 01/21 22:17 Chief complaint: Patient states: low back pain since 1400 today with no injury. Coronavirus screen: The patient has NOT traveled to a country currently being monitored by the [facility] within the last 14 days. The patient has NOT had contact with any known and/or suspected case of coronavirus. Ebola Screen: No symptoms or risks identified at this time. Initial Sepsis Screen: Does the patient meet any 2 criteria? No. Patient's initial sepsis screen is negative. Risk Assessment: Do you want to hurt yourself or someone else? Patient reports no desire to harm self or others. 22:17 Method Of Arrival: Ambulatory 22:17 Acuity: REBECCA 3 22:32 Initial Sepsis Screen: Does the patient have a suspected source of infection? No. Patient's initial sepsis screen is negative. Historical: - Allergies: 22:22 No Known Allergies; - Home Meds: 22:22 cyclobenzaprine 5 mg Oral tab [Active]; - PMHx: 22:22 None; - PSHx: 22:22 None; - Immunization history:: Flu vaccine is up to date. - Social history:: Smoking status: Patient reports the use of cigarette tobacco products, denies chronic smoking, but will smoke occasionally. Screenin:30 Abuse screen: Denies threats or abuse. Nutritional screening: No deficits noted. Tuberculosis screening: No symptoms or risk factors identified. Fall Risk None identified. Assessment: 22:25 General: Appears uncomfortable, Behavior is cooperative. Pain: Complains of pain in back Pain does not radiate. Pain currently is 9 out of 10 on a pain scale. Quality of pain is described as dull, sharp, Pain began 1400 today Is continuous, Aggravated by standing up straight. Neuro: Level of Consciousness is awake, alert, Oriented to person, place, time, Foundry Process Engineer are equal bilaterally. Cardiovascular: No deficits noted. Heart tones S1 S2. Respiratory: Airway is patent Respiratory effort is even, unlabored, Respiratory pattern is regular, symmetrical, Breath sounds are clear GI: No signs and/or symptoms were reported involving the gastrointestinal system. : No signs and/or symptoms were reported regarding the genitourinary system. Denies burning with urination. EENT: No signs and/or symptoms were reported regarding the EENT system. Derm: No signs and/or symptoms reported regarding the dermatologic system. Vital Signs: 22:17 BP 128 / 80; Pulse 88; Resp 20; Temp 97.9; Pulse Ox 100% ; Weight 108.86 kg; Height 5 ft. 6 in. (167.64 cm); Pain 9/10; 01/22 00:15 BP 119 / 64; Pulse 75; Resp 18; Pulse Ox 100% on R/A; ea 01/21 22:17 Body Mass Index 38.74 (108.86 kg, 167.64 cm) ED Course: 01/21 22:05 Patient arrived in ED. 3 22:16 Kylah Wiggins, RN is Primary Nurse. 22:19 Triage completed. 22:19 Paul Murcia MD is Attending Physician. tw4 22:32 Patient has correct armband on for positive identification. Bed in low position. Call light in reach. 22:40 Patient placed in an exam room, on a stretcher, on pulse oximetry. ea 01/22 00:24 No provider procedures requiring assistance completed. Patient did not have IV access ea during this emergency room visit. Administered Medications: 01/21 23:55 Drug: TORadol 60 mg Route: IM; Site: right gluteus; 01/22 00:18 Follow up: Response: No adverse reaction; Pain is decreased ea Outcome: 00:08 Discharge ordered by [facility] 00:24 Discharged to home ambulatory. ea 00:24 Condition: stable 00:24 Discharge instructions given to patient, Instructed on discharge instructions, follow up and referral plans. medication usage, Demonstrated understanding of instructions, follow-up care, medications, Prescriptions given X 3. 00:26 Patient left the ED. ea Signatures: Chen Wiley RN Paul Ross ea, MD MD 4 Kalpesh Loza cl3 Kylah Wiggins, RN GRIFFIN Corrections: (The following items were deleted from the chart) 00:30 00:29 BP 119 / 64; Pulse 75bpm; Resp 18bpm; Pulse Ox 100% RA; jeri ea
[2020-01-23 01:03] VITALS: BP 128/80; TEMP 97.9; O2SAT 100
== END 2020-01-23 00:26 | disposition home or self-care (01) ==
LOC: ER 22:05
DX: S33.5XXA Sprain of ligaments of lumbar spine, initial encounter (principal); X58.XXXA Exposure to other specified factors, initial encounter; Y93.9 Activity, unspecified; Y92.9 Unspecified place or not applicable; F17.210 Nicotine dependence, cigarettes, uncomplicated
CPT/HCPCS: 81003; 81015; 81025; 87086; 87088; 96372; 99283

== ENCOUNTER 2020-04-14 11:29 | Emergency (ER) | payer BC, OTHER ==
--- OUTSIDE RECORDS SUMMARY | 2020-04-14 13:37 | XMS REPORT ---
:[address] [facility] t Address [address] [place] [address] Care Team Providers Name Role Phone Aline JAUREGUI Attending Clinician Problems This patient has no known problems. Allergies, Adverse Reactions, Alerts This patient has no known allergies or adverse reactions. Medications This patient has no known medications. Procedures This patient has no known procedures. Encounters Start End Encounter Admission Attending Care Care Encounter Source Date/Time Date/Time Type Type Clinicians Facility Department ID 2020-04-01 2020-04-01 PINO Guzman [id number] 00:00:00 00:00:00 Management Danielle Lima [id number] Mabel [id number] Alphonso [id number] [facility] [address] [facility] Results This patient has no known results.
--- OUTSIDE RECORDS SUMMARY | 2020-04-14 13:38 | XMS REPORT | Summary of Care ---
:1995 Author Organization [facility] Address [address] [place] [id number] Care Team Providers Name Role Phone Manuelito Rao MD Primary Care Provider Efra Tolliver Insurance [employer] Reason for Visit Reason Comments Assessment Appointment Encounter Details Date Type Department Care Team Description 03/22/2020 Telephone [facility] Women's Amanda Rao MD Assessment; [facility]- [address] Appointment [address] [facility], [address] [place], [place] [id number] [phone] Allergies No Known Allergiesdocumented as of this encounter (statuses as of 03/29/2020) Medications Medication Sig Dispensed Refills Start Date End Date Status SERTraline (ZOLOFT) 50 Take 1 tablet by 30 tablet 1 06/12/2019 Active mg tabletIndications: mouth daily. High-risk in first trimester, 12 weeks gestation of , Moderate episode of recurrent major depressive disorder vitamin w/FA Take 1 tablet by 100 tablet 3 12/04/2019 Active tabletIndications: mouth daily. Obesity, unspecified classification, unspecified obesity type, unspecified whether serious comorbidity present, High-risk in third trimester, 37 weeks gestation of , labor in third trimester with term delivery, single or unspecified fetus, Liveborn , of bar[place] , born in hospital by vaginal delivery docusate calcium 240 Take 1 capsule by 30 capsule 1 12/04/2019 Active mg capsuleIndications: mouth once daily Obesity, unspecified as needed for classification, Constipation. unspecified obesity type, unspecified whether serious comorbidity present, High-risk in third trimester, 37 weeks gestation of , labor in third trimester with term delivery, single or unspecified fetus, Liveborn infant, of bar[place] , born in hospital by vaginal delivery ferrous sulfate 325 mg Take 1 tablet by 60 tablet 2 12/04/2019 Active (65 mg iron) mouth 2 (two) tabletIndications: times daily. Obesity, unspecified classification, unspecified obesity type, unspecified whether serious comorbidity present, High-risk in third trimester, 37 weeks gestation of , labor in third trimester with term delivery, single or unspecified fetus, Liveborn , of bar[place] , born in hospital by vaginal delivery ibuprofen 600 mg Take 1 tablet by 30 tablet 1 12/04/2019 Active tabletIndications: mouth every 6 Obesity, unspecified (six) hours as classification, needed (Pain). unspecified obesity Take with food or type, unspecified milk. whether serious comorbidity present, High-risk in third trimester, 37 weeks gestation of , labor in third trimester with term delivery, single or unspecified fetus, Liveborn infant, of bar[place] , born in hospital by vaginal delivery documented as of this encounter (statuses as of 03/29/2020) Active Problems Problem Noted Date labor in third trimester with term delivery Liveborn , of bar[place] , [facility] in [facility] by vaginal 12/03/2019 delivery High-risk in third trimester 11/05/2019 37 weeks gestation of 11/05/2019 Acanthosis nigricans 10/03/2017 Obesity, unspecified classification, unspecified obesi ty type, unspecified 10/03/2017 whether serious comorbidity present Tobacco use disorder 10/03/2017 documented as of this encounter (statuses as of 03/29/2020) Resolved Problems Problem Noted Date Resolved Date Candidiasis of vulva and vagina 01/09/2018 11/05/20 19 documented as of this encounter (statuses as of 03/29/2020) Immunizations Name Administration Dates Next Due HPV9 10/03/2018 Influenza Virus Vaccine Quad .5 mL IM 6+ MO 09/08/2019 TDAP (ADACEL) VACCINE 10/22/2019 Tdap 08/22/2018 documented as of this encounter Social History Tobacco Use Types Packs/Day Years Used Date Never Smoker 0.1 Smokeless Tobacco: Never Used Alcohol Use Drinks/Week oz/Week Comments Not Currently occasional Sex Assigned at Date Recorded Not on file Job Start Date Occupation Industry Not on file Not on file Not on file Travel History Travel Start Travel End No recent travel history available. documented as of this encounter Last Filed Vital Signs Not on filedocumented in this encounter Plan of Treatment Date Type Specialty Care Team Description 03/29/2020 Office Visit Obstetrics & Gynecology Danielle Mireles PA-C [address] [place] [address] [phone] Health Maintenance Due Date Last Done Comments MENINGOCOCCAL B VACCINES (1 2007 of 2 - Risk Bexsero 2-dose series) HPV VACCINES (2 - Female 10/31/2018 10/03/2018 3-dose series) CHLAMYDIA SCREENING 12/02/2020 12/02/2019, 04/24/2019, 10/03/2018, Additional history exists PAP SMEAR 10/03/2021 10/03/2018 DTaP,Tdap,and Td Vaccines (3 10/22/2029 10/22/2019, 018 - Td) INFLUENZA VACCINE Completed 09/08/2019 PNEUMOCOCCAL 0-64 YEARS Aged Out No longe r eligible COMBINED SERIES based on patient 's age to complete this topic documented as of this encounter Results Not on filedocumented in this encounter Insurance Payer Benefit Plan / Subscriber ID Effective Phone Address T ype Group Dates [facility] [id number] 2016-Prese [phone] [address] PPO/POS nt [id number] [place] [address] [facility] xxxxxxxxx 2019-Pres [address] Medic aid HEALTH CHOICE HEALTH CHOICE ent [id number] - MANAGED MEDICAID [place] [id number] documented as of this encounter
--- OUTSIDE RECORDS SUMMARY | 2020-04-14 13:38 | XMS REPORT | Summary of Care ---
:1995 Author Organization [facility] Address [address] [place] [address] Care Team Providers Name Role Phone Manuelito Rao MD Primary Care Provider Efra Tolliver Insurance Hmo Reason for Visit Reason Comments Vaginal Discharge Encounter Details Date Type Department Care Team Description 03/29/2020 Office Visit [facility] Women's Danielle Mireles Vagi nal discharge [facility] (Primary Dx) [address] [facility], [address] [facility] 208 [phone] [place] [phone] Allergies No Known Allergiesdocumented as of this [...] of 03/29/2020) Active Problems Problem Noted Date Morbid obesity with body mass index of 40.0-49.9 03/29 Acanthosis nigricans 10/03/2017 Obesity, unspecified classification, unspecified obesi ty type, unspecified 10/03/2017 whether serious comorbidity present Tobacco use disorder 10/03/2017 documented as of this encounter (statuses as of 03/29/2020) Resolved Problems Problem Noted Date Resolved Date labor in third trimester with term delivery 12/03/19 20 03/29/2020 Liveborn infant, of barillas , born in hospital by 12/03/2019 03/29/2020 vaginal delivery High-risk in third trimester 11/05/2019 0 03/29/2020 37 weeks gestation of 11/05/2019 03/29/20 20 Candidiasis of vulva and vagina 01/09/2018 11/05/20 [...] Travel End No recent travel history available. COVID-19 Exposure Response Date Recorded In the last month, have you been in contact with No / Unsure 03/29/2020 2:33 PM CDT someone who was confirmed or suspected to have Coronavirus / COVID-19? documented as of this encounter Last Filed Vital Signs Vital Sign Reading Time Taken Comments Blood Pressure 106/67 03/29/2020 2:33 PM CDT Pulse 76 03/29/2020 2:33 PM CDT Temperature 36.7 C (98.1 F) 03/29/2020 2:33 PM CDT Respiratory Rate 18 03/29/2020 2:33 PM CDT Oxygen Saturation - - Inhaled Oxygen Concentration - - Weight 115.5 kg (254 lb 9.6 oz) 03/29/2020 2:33 PM CDT Height 165.1 cm (5' 5") 03/29/2020 2:33 PM CDT Body Mass Index 42.37 03/29/2020 2:33 PM CDT documented in this encounter Patient Instructions Patient InstructionsArlene Barragan MA - 03/29/2020 2:00 PM CDT Patient Education Bacterial Vaginosis You have a vaginal infection called bacterial vaginosis (BV). Both good and bad bacteria are presentin a healthy vagina. BV occurs when these bacteria get out of balance. The number of bad bacteria increase. And the number of good bacteria decrease. Although BV is associated with sexual activity, it is not a sexually transmitted disease. BV may or may not cause symptoms. If symptoms do occur, they can include: Thin, mullins, milky-white, or sometimes green discharge Unpleasant odor or fishy smell Itching, burning, or pain in or around the vagina It is not known what causes BV, but certain factors can make the problem more likely. This can include: Douching Having sex with a new partner Having sex with more than one partner BV will sometimes go away on its own. But treatment is usually recommended. This is because untreated BV can increase the risk of more serious health problems such as: Pelvic inflammatory disease (PID) delivery (giving to a baby early if youre ) HIV and certain other sexually transmitted diseases (STDs) Infection after surgery on the reproductive organs Home care General care BV is most often treated with medicines called antibiotics. These may be given as pills or as a vaginal cream.If antibiotics are prescribed, be sure to use them exactly as directed. Also, be sure to complete all of the medicine, even if your symptoms go away. Don't douche or having sex during treatment. If you have sex with a female partner, ask your healthcare provider if she should also be treated. Prevention Don't douche. Don't have sex. If you do have sex, then take steps to lower your risk: ? Use condoms when having sex. ? Limit the number of sexual partners you have. Follow-up care Follow up with your healthcare provider, or as advised. When to seek medical advice Call your healthcare provider right away if: You have a fever of100.4F (38C)or higher, or as directed by your provider. Your symptoms worsen, or they dont go away within a few days of starting treatment. You have new pain in the lower bellyor pelvic region. You have side effects that bother you or a reaction to the pills or cream youre prescribed. You or any partners you have sex with have new symptoms, such as a rash, joint pain, or sores. [employer] last reviewed this educational content on 08/19/201719993887-3507 [employer]. [address] [place] [address], [place] [address]. All rights reserved. This information is not intended as a substitute for professional medical care. Always follow your healthcare professional's instructions. Patient Education Bacterial Vaginosis You have a vaginal infection called bacterial vaginosis (BV). Both good and bad bacteria are presentin a healthy vagina. BV occurs when these bacteria get out of balance. The number of bad bacteria increase. And the number of good bacteria decrease. Although BV is associated with sexual activity, it is not a sexually transmitted disease. BV may or may not cause symptoms. If symptoms do occur, they can include: Thin, mullins, milky-white, or sometimes green discharge Unpleasant odor or fishy smell Itching, burning, or pain in or around the vagina It is not known what causes BV, but certain factors can make the problem more likely. This can include: Douching Having sex with a new partner Having sex with more than one partner BV will sometimes go away on its own. But treatment is usually recommended. This is because untreated BV can increase the risk of more serious health problems such as: Pelvic inflammatory disease (PID) delivery (giving to a baby early if youre ) HIV and certain other sexually transmitted diseases (STDs) Infection after surgery on the reproductive organs Home care General care BV is most often treated with medicines called antibiotics. These may be given as pills or as a vaginal cream.If antibiotics are prescribed, be sure to use them exactly as directed. Also, be sure to complete all of the medicine, even if your symptoms go away. Don't douche or having sex during treatment. If you have sex with a female partner, ask your healthcare provider if she should also be treated. Prevention Don't douche. Don't have sex. If you do have sex, then take steps to lower your risk: ? Use condoms when having sex. ? Limit the number of sexual partners you have. Follow-up care Follow up with your healthcare provider, or as advised. When to seek medical advice Call your healthcare provider right away if: You have a fever of100.4F (38C)or higher, or as directed by your provider. Your symptoms worsen, or they dont go away within a few days of starting treatment. You have new pain in the lower bellyor pelvic region. You have side effects that bother you or a reaction to the pills or cream youre prescribed. You or any partners you have sex with have new symptoms, such as a rash, joint pain, or sores. [employer] last reviewed this educational content on 08/19/201719997857-9021 [employer]. [address] [place] [address], [place] [address]. All rights reserved. This information is not intended as a substitute for professional medical care. Always follow your healthcare professional's instructions. Patient Education Understanding STIs When it comes to sex, nothing is risk-free. Any sexual contact with the penis, vagina, anus, or mouth can spread a sexually transmitted infection (STI). These include chlamydia, gonorrhea, herpes, HIV,and genital warts. STIs are also known as sexually transmitted diseases (STDs). The only sure way toprevent STIs is not having sex (abstinence). But there are ways to make sex safer. Use a latex condom each time you have sex. And choose your partner wisely. Use condoms for safer sex If you have sex, latex condoms provide the best protection against STIs. Latex condoms stop the exchange of body fluids that carry certain STIs. They also limit contact with affected skin. Be aware that a condom doesnt cover all skin. So affected skin that isn't covered can still transfer disease. But youre safer with a condom than without one. Use a condom even if you use other control. control methods such as the pill or IUD help prevent , but they don't protect against STIs. Choose the right condom Condoms made of latex prevent disease best. If youre allergic to latex, use polyurethane condoms instead. Male condoms fit over the penis. Female condoms line the vagina. Before buying a condom, read the label to be sure it prevents disease. Some novelty condoms dont. The right lubricant helps Buy lubricated condoms or use lubricant. This provides greater comfort and reduces the risk for condom breakage. Use only water-based lubricants. Dont use oil, lotion, or petroleum jelly. They can weaken the condom, causing breakage. Also, you may want to choose lubricants without nonoxynol-9. This spermicide may cause irritation. It can raise the risk for certain STIs. Use condoms correctly For condoms to work, they must be used the right way. Keep these tips in mind: Use a new latex condom each time you have sex. Slip the condom on the penis before any contact ismade. When ready to withdraw, hold the rim of the condom as the penis pulls out. This prevents the condom from slipping off. Check the expiration date before using a condom. Dont store condoms in places that can get hot, such as a car or a wallet that is carried in a back pocket. Get to know your partner Safer sex is a process. It involves getting to know your partner and making informed choices. Ask each other how many partners you have had in the past, and how many you have now. Find out if either ofyou has HIV or any other STI. If you decide to have sex, use a condom each time. Dont stop using condoms unless youre sure neither of you has other partners and youve both been tested to confirm you dont have HIV or other STIs. Then stay free of disease by having sex only with each other (monogamy). Keep your cool Dont let alcohol or drugs cloud your judgment. They could lead you to have sex with someone you wouldnt have chosen if you were sober. Or you might forget to use a condom. If you do plan to have sex, keep a latex condom with you. Dont wait until youre in the heat of passion to try to find one. Consider abstinence The only way to be sure you wont get an STI is to abstain from sex. Abstinence is a choice that many people make at some point in their life. Maybe you want to wait until you are sure youre readybefore you have sex. Maybe youd like a break from the responsibilities of sex for a while. Or maybe you just want to know your partner better before taking the next step. Abstinence is a choice you can make now to protect your future. [employer] last reviewed this educational content on 10/19/201819999751-6618 [employer]. [address] [place] [address], [place] [address]. All rights reserved. This information is not intended as a substitute for professional medical care. Always follow your healthcare professional's instructions. Patient Education What Are Sexually Transmitted Infections (STIs)? A sexually transmitted infection (STI) is an infection that is spread during sex. An STI can also becalled STD for sexually transmitted disease. You can become infected with an STI if you have sex with someone who has an STI. Any sex that involves the penis, vagina, anus, or mouth can spread these infections. Some STIs also spread through body fluids such as semen, vaginal fluid, or blood. Others spread through contact with infected skin. The most common STIs are chlamydia, genital warts , genital herpes, syphilis, HIV, gonorrhea, and trichomoniasis. Who is at risk? It doesnt matter if youre straight or morgan, male or female, young or old. Any person who has sex can get an STI. Your risk increases if: You have more than one partner. The more partners you have, the greater your risk. Your partner has other partners. If your partner is exposed to an STI, you could be, too. You or your partner have had sex with other people in the past. Either of you might be carrying an STI from an earlier partner. You have an STI. The STI may cause sores or other health problems that increase your risk for newinfections. Your risk will stay high unless you are treated for your current STI and change the behaviors that put you at risk. Prevent future problems Left untreated, certain STIs can lead to cancer or, rarely, . Some can harm unborn babies whosemothers are infected. Others can cause you to not be able to have children (sterility) or can affectchanges in behavior or your ability to think. You can prevent these problems with safer sex, regularcheckups, and early treatment. Always use a latex condom when you have sex. Get tested if youre at risk. And get treated early if you have an STI. Using a latex condom every time you have sex can reduce your risk of STIs. Getting checked The only sure way to know if you have an STI is to get checked by a healthcare provider. If you notice a change in how your body looks or feels, have it checked out. But keep in mind, STIs dont always show symptoms. So if youre at risk for STIs, get checked regularly. If you find you have an STI, have your partner get treatment. If not, his or her health is at risk. And left untreated, your partner could pass the STI back to you, or on to others. Common symptoms Be alert to any changes in your body and your partners body. Symptoms may appear in or near the vagina, penis, rectum, mouth, or throat. They may include: Unusual discharge Lumps, bumps, or rashes Sores that may be painful, itchy, or painless Itchy skin Burning with urination Pain in the pelvis, belly (abdomen), or rectum Bleeding from the rectum Even if you dont have symptoms You may have an STI even if you dont have symptoms. If you think you are at risk, get checked. Goto a clinic or to your healthcare provider. If your partner has an STI, you need to be tested even if you feel fine. Vaccines to prevent disease Vaccines are available to prevent hepatitis A and hepatitis B. These are 2 kinds of STIs. There is also a vaccine to prevent human papillomavirus (HPV). This is a virus that can be passed from person to person through sexual contact. Ask your healthcare provider whether any of these vaccines is right for you. [employer] last reviewed this educational content on 10/19/201819994889-7994 [employer]. [address] [place] [address]. All rights reserved. This information is not intended as a substitute for professional medical care. Always follow your healthcare professional's instructions. documented in this encounter Progress Notes Danielle Mireles PA-C - 03/29/2020 2:00 PM CDT Robert Winter is a 25 year old female presented for vaginal discharge. Patient had WWE on 09/2018. Vaginal discharge started a couple of months ago. Vaginal discharge appears yellow/green.+ vaginal itching. + vaginal pain. + vaginal odor. not associated with menstrual cycle. not associated with intercourse. no vaginal douching. + history of prior infection: bv. + cotton underwear. Past Medical History: Diagnosis Date Anxiety Candidiasis of vulva and vagina 01/09/2018 Depression Tobacco use disorder 10/03/2017 No past surgical history on file. No Known Allergies Current Outpatient Medications on File Prior to Visit Medication Sig Dispense Refill docusate calcium 240 mg capsule Take 1 capsule by mouth once daily as needed for Constipation. 30 capsule 1 ferrous sulfate 325 mg (65 mg iron) tablet Take 1 tablet by mouth 2 (two) times daily. 60 tablet2 ibuprofen 600 mg tablet Take 1 tablet by mouth every 6 (six) hours as needed (Pain). Take with food or milk. 30 tablet 1 vitamin w/FA tablet Take 1 tablet by mouth daily. 100 tablet 3 SERTraline (ZOLOFT) 50 mg tablet Take 1 tablet by mouth daily. 30 tablet 1 No current facility-administered medications on file prior to visit. 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 Social Needs Financial resource strain: Not on file Food insecurity: Worry: Not on file Inability: Not on file Transportation needs: Medical: Not on file Non-medical: Not on file Tobacco Use Smoking status: Never Smoker Smokeless tobacco: Never Used Substance and Sexual Activity Alcohol use: Not Currently Comment: occasional Drug use: Not Currently Types: Marijuana Sexual activity: Yes Partners: Male control/protection: None Lifestyle Physical activity: Days per week: Not on file Minutes per session: Not on file Stress: Not on file Relationships Social connections: Talks on phone: Not on file Gets together: Not on file Attends taoism service: Not on file Active member of club or organization: Not on file Attends meetings of clubs or organizations: Not on file Relationship status: Not on file Intimate partner violence: Fear of current or ex partner: Not on file Emotionally abused: Not on file Physically abused: Not on file Forced sexual activity: Not on file Other Topics Concern Not on file Social History Narrative Denies domestic abuse or violence in the home Mu-Ism Preference: none Family History Problem Relation Age of Onset Heart Mother Diabetes Father Colon Cancer Maternal Aunt 50's Arthritis NoFHx Asthma NoFHx defects NoFHx Breast Cancer NoFHx Ovarian Cancer NoFHx Uterine Cancer NoFHx Cancer NoFHx Depression NoFHx Genetic NoFHx High cholesterol NoFHx Hypertension NoFHx Mental retardation NoFHx Neurological NoFHx Osteoporosis NoFHx Psychiatry NoFHx Other - see comments NoFHx ROS: Denies chest pain, SOB, fever/chill, abdominal pain, vaginal bleeding/spotting, dysuria. BP: (106)/(67) Temp: [36.7 C (98.1 F)] Temp source: Oral (03/29 1433) Pulse: [76] Resp: [18] SpO2: -- Height: [5' 5" (165.1 cm)] Weight: [254 lb 9.6 oz (115.5 kg)] BMI (calculated): [42.37] NAD RRR Breathing unlabored External genitalia: no erythema. no lesions. Speculum exam: + vaginal discharge (white). + odor BME: no uterine tenderness, no CMT, no adnexal tenderness Vaginal discharge Plan: GC & CHLAMYDIA AMPLIFIED ASSAY, [facility] ONLY - VAGINAL PATHOGENS BY DNA PROBE Feminine hygiene reviewed. Advise patient to rinse vagina with warm water after sexual intercourse and menses. May try probiotic yogurt. Follow-up PRN if symptoms do not resolved, improved, or worsened Danielle Mireles PA-C 03/29/2020 2:54 PM documented in this encounter Plan of Treatment Name Type Priority Associated Diagnoses Order S chedule GC & CHLAMYDIA AMPLIFIED ASSAY LAB Routine Vaginal di scharge Ordered: 03/29/2020 [facility] ONLY - VAGINAL PATHOGENS LAB Routine Vaginal dis charge Ordered: 03/29/2020 BY DNA PROBE Health Maintenance Due Date Last Done Comments [...] Results Not on filedocumented in this encounter Visit Diagnoses Diagnosis Vaginal discharge - Primary Leukorrhea, not specified as infective documented in this encounter Insurance Payer Benefit Plan / Subscriber ID Effective Phone Address T ype Group Dates [facility] [id number] 2016-Prese [phone] [address] PPO/POS nt [id number] [place] [address] [facility] xxxxxxxxx 2019-Pres [address] Medic aid HEALTH CHOICE HEALTH CHOICE ent [id number] - MANAGED MEDICAID [place], [place] [phone] documented as of this encounter
--- OUTSIDE RECORDS SUMMARY | 2020-04-14 13:38 | XMS REPORT | Summary of Care ---
:1995 Author Organization [facility] Address [address] [place] [id number] Care Team Providers Name Role Phone Manuelito Rao MD Primary Care Provider Efra Tolliver Insurance Hmo Reason for Visit Reason Comments Vaginal Discharge Encounter Details Date Type Department Care Team Description 03/29/2020 Office Visit [facility] Women's Danielle Mireles Vagi nal discharge [facility] (Primary Dx) [address] [facility], [address] [facility] 208 [phone] [place] [phone] Allergies No Known Allergiesdocumented as of this [...] as a rash, joint pain, or sores. [employer] last reviewed this educational content on 08/19/201719998709-3165 [employer]. [address] [place] [address], [place] [address]. All rights reserved. This information is not [...] as a rash, joint pain, or sores. [employer] last reviewed this educational content on 08/19/201719993895-7668 [employer]. [address] [place] [address], [place] [address]. All rights reserved. This information is not [...] can make now to protect your future. [employer] last reviewed this educational content on 10/19/201819996632-1717 [employer]. [address] [place] [address], [place] [address]. All rights reserved. This information is not [...] of these vaccines is right for you. [employer] last reviewed this educational content on 10/19/201819995369-8889 [employer]. [address] [place] [address]. All rights reserved. 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 Medic aid HEALTH CHOICE HEALTH CHOICE ent [id number] - MANAGED MEDICAID [place], [place] [id number] documented as of this encounter
--- OUTSIDE RECORDS SUMMARY | 2020-04-14 13:39 | XMS REPORT | Summary of Care ---
:1995 Author Organization [facility] Address [address] [place] [address] Care Team Providers Name Role Phone Manuelito Rao MD Primary Care Provider Efra Tolliver Insurance Hmo Encounter Details Date Type Department Care Team Description 04/01/2020 Patient Secure Msg [facility] Women's Doctor Unassign , [facility] [place] [address], [address] [place] [address] [address] [place] [address] [place] [address] Allergies No Known Allergiesdocumented as of this encounter (statuses as of 04/01/2020) Medications Medication Sig Dispensed Refills Start Date [...] hospital by vaginal delivery docusate calcium 240 mg Take 1 capsule 30 capsule 1 12/04/2019 Active capsuleIndications: by mouth once Obesity, unspecified daily as needed classification, for unspecified obesity Constipation. type, unspecified whether serious comorbidity present, High-risk [...] needed (Pain). unspecified obesity Take with food type, unspecified or milk. whether serious comorbidity present, High-risk in third trimester, 37 weeks gestation of , labor in third trimester with term delivery, single or unspecified fetus, Liveborn , of barillas , born in hospital by vaginal delivery metroNIDAZOLE 500 mg Take 1 tablet by 14 tablet 0 04/01/2020 Active tabletIndications: mouth every 12 Trichomonal (twelve) hours. vulvovaginitis, BV (bacterial vaginosis) documented as of this encounter (statuses as of 04/01/2020) Active Problems Problem Noted Date Morbid obesity with body mass index of 40.0-49.9 03/29 Acanthosis nigricans 10/03/2017 Obesity, unspecified classification, unspecified obesi ty type, unspecified 10/03/2017 whether serious comorbidity present Tobacco use disorder 10/03/2017 documented as of this encounter (statuses as of 04/01/2020) Resolved Problems Problem Noted Date Resolved Date labor in third trimester with term delivery 12/03/19 20 03/29/2020 Liveborn , of barillas , born in hospital by 12/03/2019 03/29/2020 vaginal delivery High-risk in third trimester 11/05/2019 0 03/29/2020 37 weeks gestation of 11/05/2019 03/29/20 20 Candidiasis of vulva and vagina 01/09/2018 11/05/20 19 documented as of this encounter (statuses as of 04/01/2020) Immunizations Name Administration Dates Next Due HPV9 [...] Treatment Date Type Specialty Care Team Description 05/19/2020 Office Visit Obstetrics & Gynecology Danielle Mireles PA-C [address] [place] [address] [phone] Health Maintenance Due Date Last Done Comments MENINGOCOCCAL B VACCINES (1 2007 of 2 - Risk Bexsero 2-dose series) HPV VACCINES (2 - Female 10/31/2018 10/03/2018 3-dose series) CHLAMYDIA SCREENING 03/29/2021 03/29/2020, 12/02/2019, 04/24/2019, Additional history exists PAP SMEAR 10/03/2021 10/03/2018 [...] Effective Phone Address T ype Group Dates [facility] [id number] 2016-Prese [phone] P O BOX PPO/POS nt [id number] [place] [address] [facility] xxxxxxxxx 2019-Pres P.OEsdras BOX Medic aid HEALTH CHOICE HEALTH CHOICE ent [id number] - MANAGED MEDICAID [place], [place] [phone] documented as of this encounter
--- OUTSIDE RECORDS SUMMARY | 2020-04-14 13:39 | XMS REPORT | Summary of Care ---
:1995 Author Organization [facility] Address [address] [place] [address] Care Team Providers Name Role Phone Manuelito Rao MD Primary Care Provider Efra Tolliver Insurance Hmo Reason for Visit Reason Comments New Medication Encounter Details Date Type Department Care Team Description 04/01/[address] [facility] Women's Danielle Mireles N ew Medication Healthcare- [address], [address] [place] [address] [facility] [address] [place] [address] [phone] Allergies No Known Allergiesdocumented as of this [...] Visit Obstetrics & Gynecology Danielle Mireles PA-C [address] [place] [address] [phone] Health Maintenance Due Date Last Done [...] filedocumented in this encounter Visit Diagnoses Diagnosis Trichomonal vulvovaginitis - Primary BV (bacterial vaginosis) Vaginitis and vulvovaginitis, unspecifie d documented in this encounter Insurance Payer Benefit Plan / Subscriber ID Effective Phone Address T ype Group Dates [facility] [id number] 2016-Pedro [phone] P O BOX PPO/POS nt [id number] [place] [address] [facility] xxxxxxxxx 2019-Pres P.O. BOX Medic aid HEALTH CHOICE HEALTH CHOICE ent [id number] - MANAGED MEDICAID [place], [place] [id number] documented as of this encounter
--- OUTSIDE RECORDS SUMMARY | 2020-04-14 13:39 | XMS REPORT | Summary of Care ---
:1995 Author Organization [facility] Address [address] [place] [address] Care Team Providers Name Role Phone Manuelito Rao MD Primary Care Provider Efra Tolliver Insurance Hmo Reason for Visit Reason Comments New Medication Encounter Details Date Type Department Care Team Description 04/01/2020 Case Management [facility] Women's Danielle Mireles N ew Medication Healthcare- [address], [address] [place] [address] [facility] [address] [place] [address] [phone] Allergies No Known Allergiesdocumented as of this [...] Signs Not on filedocumented in this encounter Progress Notes Leticia Hickman RN - 04/01/2020 8:23 AM CDTRx called to Pharmacist Awilda at [facility] pharmacy for partner. Cain Menon 07/27/1996 NKDA Metronidazole 500mg Qty 14, 0 refills Take 1 tablet by mouth twice daily. documented in this encounter Plan of Treatment Date Type Specialty Care Team Description 05/19/2020 Office Visit Obstetrics & Gynecology Danielle Mireles PA-C [address] [place] [address] [phone] Health Maintenance Due Date Last Done [...] T ype Group Dates [facility] [id number] 2016-Pedro [phone] P O BOX PPO/POS nt [id number] [place] [address] [facility] xxxxxxxxx 2019-Pres P.O. BOX Medic aid HEALTH CHOICE HEALTH CHOICE ent [id number] - MANAGED MEDICAID [place], [place] MED[place] [phone] documented as of this encounter
[2020-04-14 15:21] VITALS: BP 122/81; TEMP 98.4; O2SAT 99
--- NOTE | 2020-04-19 14:19 | ER ---
Nurse's Notes [facility] Name: Robert Winter Age: 25 yrs Sex: Female : 1995 Arrival Date: 04/14/2020 Time: 11:35 Bed 12 Private MD: None, None Diagnosis: Rash and other nonspecific skin eruption Presentation: 04/14 11:49 Acuity: REBECCA 5 dm5 12:54 Chief complaint: Patient states: rash started last night, and fever on Sunday up to 101 dm5 but no fever today. Pt denies taking medication for headache she had yesterday or today. Pt states that she feels better but the itchiness has gotten worse. I may be having an allergic reaction. Coronavirus screen: Proceed with normal triage. Patient denies a cough. Patient denies shortness of breath or difficulty breathing. Patient denies measured and/or subjective temperature greater than 100.4F prior to today's visit. Patient denies travel on a cruise ship or to a country the [facility] currently lists as an affected area. Patient denies contact with known and/or suspected case of COVID-19. Ebola Screen: Patient negative for fever greater than or equal to 101.5 degrees Fahrenheit, and additional compatible Ebola Virus Disease symptoms Patient denies exposure to infectious person. Patient denies travel to an Ebola-affected area in the 21 days before illness onset. No symptoms or risks identified at this time. Initial Sepsis Screen: Does the patient meet any 2 criteria? No. Patient's initial sepsis screen is negative. Does the patient have a suspected source of infection? No. Patient's initial sepsis screen is negative. Risk Assessment: Do you want to hurt yourself or someone else? Patient reports no desire to harm self or others. Onset of symptoms was April 12, 2020. 12:54 Method Of Arrival: Ambulatory dm5 Triage Assessment: 14:30 General: Appears in no apparent distress. Behavior is calm, cooperative. Pain: Denies ll1 pain. Derm: Reports rash with itching to arms and chest. 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 - Social history:: Smoking status: Patient denies any tobacco usage or history of. Screenin:32 Abuse screen: Denies threats or abuse. Denies injuries from another. Nutritional hb screening: No deficits noted. Tuberculosis screening: No symptoms or risk factors identified. Fall Risk None identified. Assessment: 14:30 General: Appears in no apparent distress. Behavior is calm, cooperative, appropriate ll1 for age. Pain: Denies pain. Derm: Rash noted that is itchy, Reports itching. Vital Signs: 12:54 BP 122 / 81; Pulse 79; Resp 18; Temp 98.4; Pulse Ox 99% on R/A; Weight 113.4 kg; Height dm5 5 ft. 5 in. (165.10 cm); Pain 0/10; 12:54 Body Mass Index 41.60 (113.40 kg, 165.10 cm) 5 ED Course: 11:35 Patient arrived in ED. mr 11:35 None, None is Private Physician. mr 11:49 Triage completed. [facility] 14:17 Darwin Oliver PA is [facility] 14:17 Bryan Lockwood MD is Attending Physician. [facility] 14:30 Patient has correct armband on for positive identification. Bed in low position. Call ll1 light in reach. Side rails up X2. 14:30 No provider procedures requiring assistance completed. Patient did not have IV access ll1 during this emergency room visit. 14:32 Daya Loza, GRIFFIN is Primary Nurse. ll1 14:32 Arm band placed on. hb Administered Medications: No medications were administered Outcome: 14:25 Discharge ordered by . [facility] 14:35 Discharged to home ambulatory. ll1 14:35 Condition: stable 14:35 Discharge instructions given to patient, Instructed on discharge instructions, follow up and referral plans. medication usage, Demonstrated understanding of instructions, follow-up care, medications, Prescriptions given X 3. 14:36 Patient left the ED. ll1 Signatures: Jemima Duarte, RN RN [facility] Darwin Oliver PA PA jmm RiveraJulissa mr RoachEula RN RN Daya Loza RN RN ll1
--- NOTE | 2020-04-19 14:19 | EDPHYS ---
Physician Documentation [facility] Name: Robert Winter Age: 25 yrs Sex: Female : 1995 Arrival Date: 04/14/2020 Time: 11:35 Bed 12 Private MD: None, None ED Physician Bryan Lockwood HPI: 04/14 14:22 This 25 yrs old Female presents to ER via Ambulatory with complaints of Rash. jmm 14:22 The patient's rash thought to be caused by an unknown cause. Onset: The jmm symptoms/episode began/occurred gradually, 1 day(s) ago. Associated signs and symptoms: Pertinent positives: itching, itching, Pertinent negatives: burning sensation, difficulty breathing, fever, nausea, Pain swelling of throat, swelling of tongue, vomiting, wheezing. Patient complains of rash to the arms and chest. Does now know of any infectious exposure. This has happened once before. . 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 - Social history:: Smoking status: Patient denies any tobacco usage or history of. ROS: 14:22 Constitutional: Negative for fever, chills, and weight loss, Cardiovascular: Negative jmm for chest pain, palpitations, and edema, Respiratory: Negative for shortness of breath, cough, wheezing, and pleuritic chest pain. 14:22 Skin: Positive for rash. 14:22 Allergy/Immunology: Positive for pruritus. 14:22 All other systems are negative. Exam: 14:22 Constitutional: This is a well developed, well nourished patient who is awake, alert, jmm and in no acute distress. Head/Face: atraumatic. Eyes: EOMI, no conjunctival erythema appreciated ENT: Moist Mucus Membranes Neck: Trachea midline, Supple Chest/axilla: Normal chest wall appearance and motion. Cardiovascular: Regular rate and rhythm. No edema appreciated Respiratory: Normal respirations, no respiratory distress appreciated Abdomen/GI: Non distended, soft Back: Normal ROM 14:22 Skin: mild erythematous rash noted to the arms bilaterally. . 14:22 Neuro: Orientation: is normal, Mentation: is normal, Memory: is normal. 14:22 Psych: Behavior/mood is pleasant, cooperative. Vital Signs: 12:54 BP 122 / 81; Pulse 79; Resp 18; Temp 98.4; Pulse Ox 99% on R/A; Weight 113.4 kg; Height dm5 5 ft. 5 in. (165.10 cm); Pain 0/10; 12:54 Body Mass Index 41.60 (113.40 kg, 165.10 cm) dm5 MDM: 14:19 Patient medically screened. [facility] 14:24 Data reviewed: vital signs, nurses notes. Counseling: I had a detailed discussion with sandy the patient and/or guardian regarding: the historical points, exam findings, and any diagnostic results supporting the discharge/admit diagnosis, the need for outpatient follow up, to return to the emergency department if symptoms worsen or persist or if there are any questions or concerns that arise at home. ED course: Patient is alert and non toxic in appearance in the ED. No signs of resp distress. Patient is advised to follow up with pcp and otherwise given strict return precautions. Patient understood and agrees with the plan of care. . Administered Medications: No medications were administered Disposition: 14:52 Co-signature as Attending Physician, Bryan Lockwood MD I agree with the assessment and kdr plan of care. Disposition: 04/14/20 14:25 Discharged to Home. Impression: Rash and other nonspecific skin eruption. - Condition is Stable. - Discharge Instructions: Rash. - Prescriptions for Elimite 5 % Topical Cream - apply 1 application by TOPICAL route one time Wash after 12 hours.; 60 gram. Hydroxyzine HCl 25 mg Oral Tablet - take 1 tablet by ORAL route every 6 hours As needed; 30 tablet. Prednisone 20 mg Oral Tablet - take 3 tablet by ORAL route once daily for 5 days; 15 tablet. - Medication Reconciliation Form, Thank You Letter, Antibiotic Education, Prescription Opioid Use, Work release form form. - Follow up: Private Physician; When: 2 - 3 days; Reason: Recheck today's complaints, Continuance of care, Re-evaluation by your physician. Signatures: Jemima Duarte, RN RN dm5 Bryan Lockwood MD MD kdr Mickail, Joel, PA PA jmm Lewis, Lynsay, RN RN ll1 Corrections: (The following items were deleted from the chart) 14:36 14:25 04/14/2020 14:25 Discharged to Home. Impression: Rash and other nonspecific skin ll1 eruption. Condition is Stable. Forms are Medication Reconciliation Form, Thank You Letter, Antibiotic Education, Prescription Opioid Use. Follow up: Private Physician; When: 2 - 3 days; Reason: Recheck today's complaints, Continuance of care, Re-evaluation by your physician. sandy
== END 2020-04-14 14:36 | disposition home or self-care (01) ==
LOC: ER 11:29
DX: R21 Rash and other nonspecific skin eruption (principal)
CPT/HCPCS: 99282

== ENCOUNTER 2021-05-21 17:19 | Emergency (ER) | payer BC, OTHER ==
--- OUTSIDE RECORDS SUMMARY | 2021-05-21 17:35 | XMS REPORT | Continuity of Care Document ---
:1995 Author Organization [facility] t Address [address] [place] [address] Dr. Hardy. [address] [place] [address] Care Team Providers Name Role Phone Andrew Arana DO Attending Clinician Aline JAUREGUI Attending Clinician 2, Lab Attending Clinician Unavailable Problems This patient has no known problems. Allergies, Adverse Reactions, Alerts This patient has no known allergies or adverse reactions. Medications This patient has no known medications. Procedures This patient has no known procedures. Encounters Start End Encounter Admission Attending Care Care Encounter Source Date/Time Date/Time Type Type Clinicians Facility Department ID 2021-02-08 2021-02-08 Patient PINO Arana [id number] 00:00:00 00:00:00 Outreach Giuseppe JIMENEZ 350..13.10 Andrew [facility] [id number] PAVDEYSI [phone] [facility] 2020-12-29 2020-12-29 Case PINO Mireles [id number] 00:00:00 00:00:00 Management Danielle Lima [id number] [place] [id number] Profminhio [phone] [address] 2020-12-29 2020-12-29 PINO Guzman [id number] 00:00:00 00:00:00 Management Daniellegricel Lima [id number] Mabel [id number] Professio [phone] [facility] [address] [facility] 2020-08-03 2020-08-03 Drugless Doctor 2, Adc Lab [facility] [id number] 10:37:16 10:52:16 Visit Janie [id number] Mabel [id number] Professio [phone] [facility] 2020-08-03 2020-08-03 Office Aline [facility] [id number] 09:20:24 10:20:24 Visit Danielle Lima [id number] Mabel [id number] Professio [phone] [address] Results This patient has no known results.
--- NOTE | 2021-05-21 19:11 | ER ---
Nurse's Notes [facility] Name: Robert Winter Age: 26 yrs Sex: Female : 1995 Arrival Date: 05/21/2021 Time: 18:08 Bed Waiting Private MD: Diagnosis: ED Course: 05/21 18:08 Patient arrived in ED. mr 18:35 Fab Cazares NP is PHCP. pm1 18:35 Bryan Lockwood MD is Attending Physician. pm1 Administered Medications: No medications were administered Outcome: 19:11 Patient left the ED. kg Signatures: Julissa Aparicio mr Fab Cazares NP SCRATCH FINISHER pm1 Shauna Wellington, RN RN kg
== END 2021-05-21 19:11 | disposition left against medical advice (07) ==
LOC: ER 17:19
DX: Z02.9 Encounter for administrative examinations, unspecified (principal)

== ENCOUNTER 2021-05-22 00:57 | Emergency (ER) | payer BC, OTHER ==
--- OUTSIDE RECORDS SUMMARY | 2021-05-22 01:04 | XMS REPORT | Continuity of Care Document ---
:1995 Author Organization [facility] t Address [address] [place] [address] Dr. Hardy. [address] [place] [address] Care Team Providers Name Role Phone Andrew [...] ID 2021-02-08 2021-02-08 Patient PINO Arana [id number] 00:00:00 00:00:00 Outreach Giuseppe JIMENEZ 350..13.10 Andrew [facility] [id number] PAVDEYSI [id number] [facility] 2020-12-29 2020-12-29 Case PINO Mireles [id number] 00:00:00 00:00:00 Management Danielle Lima [id number] [place] [id number] Profminhio [phone] [address] 2020-12-29 2020-12-29 PINO Guzman [id number] 00:00:00 00:00:00 Management Daniellegricel Lima [id number] Mabel [id number] Professio [phone] [facility] 134 [facility] 2020-08-03 2020-08-03 Body Painter 2, Adc Lab [facility] [id number] 10:37:16 10:52:16 Visit Janie [id number] Mabel [id number] Professio [phone] [facility] 353 [facility] 2020-08-03 2020-08-03 Office Aline [facility] [id number] 09:20:24 10:20:24 Visit Danielle Lima [id number] Mabel [id number] Professio [phone] [address] Results This patient has no known results.
--- NOTE | 2021-05-22 02:08 | EDPHYS ---
Physician Documentation [facility] Name: Robert Winter Age: 26 yrs Sex: Female : 1995 Arrival Date: 05/22/2021 Time: 00:59 Bed 13 Private MD: ED Physician Rusty Rao HPI: 05/22 01:58 This 26 yrs old Female presents to ER via Ambulatory with complaints of RT LEG pkl PAIN. 01:58 The patient presents with pain that is acute. The symptoms are located in the low back. pkl The pain radiates to the right lateral thigh. Onset: The symptoms/episode began/occurred 2 day(s) ago. Patient said she has back pain off and on for a long time. 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 - Social history:: Smoking status: Patient reports the use of cigarette tobacco products, denies chronic smoking, but will smoke occasionally. ROS: 01:58 Eyes: Negative for injury, pain, redness, and discharge, ENT: Negative for injury, pkl pain, and discharge, Neck: Negative for injury, pain, and swelling, Cardiovascular: Negative for chest pain, palpitations, and edema, Respiratory: Negative for shortness of breath, cough, wheezing, and pleuritic chest pain, Abdomen/GI: Negative for abdominal pain, nausea, vomiting, diarrhea, and constipation. 01:58 Back: Positive for pain with movement, of the lower back. 01:58 : Negative for urinary symptoms. 01:58 MS/extremity: Negative for acute changes. 01:58 Skin: Negative for rash. 01:58 Neuro: Negative for altered mental status, loss of consciousness. Exam: 01:58 Head/Face: Normocephalic, atraumatic. Eyes: Pupils equal round and reactive to light, pkl extra-ocular motions intact. Lids and lashes normal. Conjunctiva and sclera are non-icteric and not injected. Cornea within normal limits. Periorbital areas with no swelling, redness, or edema. ENT: Nares patent. No nasal discharge, no septal abnormalities noted. Tympanic membranes are normal and external auditory canals are clear. Oropharynx with no redness, swelling, or masses, exudates, or evidence of obstruction, uvula midline. Mucous membranes moist. Neck: Trachea midline, no thyromegaly or masses palpated, and no cervical lymphadenopathy. Supple, full range of motion without nuchal rigidity, or vertebral point tenderness. No Meningismus. Chest/axilla: Normal chest wall appearance and motion. Nontender with no deformity. No lesions are appreciated. Cardiovascular: Regular rate and rhythm with a normal S1 and S2. No gallops, murmurs, or rubs. Normal PMI, no JVD. No pulse deficits. Respiratory: Lungs have equal breath sounds bilaterally, clear to auscultation and percussion. No rales, rhonchi or wheezes noted. No increased work of breathing, no retractions or nasal flaring. Abdomen/GI: Soft, non-tender, with normal bowel sounds. No distension or tympany. No guarding or rebound. No evidence of tenderness throughout. 01:58 Back: pain, that is very mild, of the lower back, Straight leg raises: right lower extremity illicits pain, at 30 degrees. 01:58 : Exam negative for acute changes. pkl 01:58 Musculoskeletal/extremity: Extremities: grossly normal except: noted in the right lateral thigh: pain. 01:58 Skin: Exam negative for rash. 01:58 Neuro: Orientation: is normal, Mentation: is normal, Cranial nerves: grossly normal, Motor: is normal. Vital Signs: 01:04 BP 128 / 87; Pulse 68; Resp 18; Temp 98.4; Pulse Ox 99% on R/A; Weight 108.86 kg; em Height 5 ft. 6 in. (167.64 cm); Pain 7/10; 02:24 BP 115 / 74; Pulse 71; Resp 16; Pulse Ox 100% on R/A; ak2 01:04 Body Mass Index 38.74 (108.86 kg, 167.64 cm) em MDM: 01:46 Patient medically screened. pkl 01:58 Data reviewed: vital signs, nurses notes. ED course: Discussed possibility of lumbar pkl radiculopathy. Advised MRI lumbar if symptoms persists. Patient understood instructions. Administered Medications: 02:22 Drug: Motrin (ibuprofen) 600 mg Route: PO; ak2 Disposition Summary: 05/22/21 02:07 Discharge Ordered Location: Home pkl Problem: new pkl Symptoms: are unchanged pkl Condition: Stable pkl Diagnosis - Lumbar radiculopathy pkl Followup: pkl - With: Private Physician - When: 1 week - Reason: Re-evaluation by your physician Discharge Instructions: - Discharge Summary Sheet pkl Forms: - Medication Reconciliation Form pkl - Thank You Letter pkl - Antibiotic Education pkl - Work release form pkl - Prescription Opioid Use pkl Prescriptions: - Diclofenac Sodium 75 mg Oral Tablet Sustained Release - take 1 tablet by ORAL route 2 times per day; 30 tablet; Refills: 0, Product pkl Selection Permitted Signatures: Rusty Rao MD MD pkl Maxwell Uriarte RN RN em Melchor Diez2
--- NOTE | 2021-05-22 02:08 | ER ---
Nurse's Notes [facility] Name: Robert Winter Age: 26 yrs Sex: Female : 1995 Arrival Date: 05/22/2021 Time: 00:59 Bed 13 Private MD: Diagnosis: Lumbar radiculopathy Presentation: 05/22 01:04 Chief complaint: Patient states: right leg pain for 3 days, denies trauma. Coronavirus em screen: Client denies travel out of the [place] in the last 14 days. Ebola Screen: Patient negative for fever greater than or equal to 101.5 degrees Fahrenheit, and additional compatible Ebola Virus Disease symptoms Patient denies exposure to infectious person. Patient denies travel to an Ebola-affected area in the 21 days before illness onset. No symptoms or risks identified at this time. Initial Sepsis Screen: Does the patient meet any 2 criteria? No. Patient's initial sepsis screen is negative. Does the patient have a suspected source of infection? No. Patient's initial sepsis screen is negative. Risk Assessment: Do you want to hurt yourself or someone else? Patient reports no desire to harm self or others. Onset of symptoms was May 22, 2021. 01:04 Method Of Arrival: Ambulatory em 01:04 Acuity: REBECCA 4 em Triage Assessment: 01:26 General: Appears in no apparent distress. Behavior is calm, cooperative. Pain: ak2 Complains of pain in right leg. Neuro: No deficits noted. Cardiovascular: No deficits noted. Respiratory: No deficits noted. 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 - Social history:: Smoking status: Patient reports the use of cigarette tobacco products, denies chronic smoking, but will smoke occasionally. Screenin:27 Abuse screen: Denies threats or abuse. Denies injuries from another. Nutritional ak2 screening: No deficits noted. Tuberculosis screening: No symptoms or risk factors identified. Fall Risk None identified. Assessment: 01:26 Reassessment:. General: Appears in no apparent distress. Behavior is calm, cooperative. ak2 Vital Signs: 01:04 BP 128 / 87; Pulse 68; Resp 18; Temp 98.4; Pulse Ox 99% on R/A; Weight 108.86 kg; em Height 5 ft. 6 in. (167.64 cm); Pain 7/10; 02:24 BP 115 / 74; Pulse 71; Resp 16; Pulse Ox 100% on R/A; ak2 01:04 Body Mass Index 38.74 (108.86 kg, 167.64 cm) em ED Course: 00:59 Patient arrived in ED. cf2 01:06 Triage completed. em 01:06 Arm band placed on. em 01:23 Melchor Diez is Primary Nurse. ak2 01:27 Patient has correct armband on for positive identification. ak2 01:27 No provider procedures requiring assistance completed. Patient did not have IV access ak2 during this emergency room visit. 01:46 Rusty Rao MD is Attending Physician. pkl Administered Medications: 02:22 Drug: Motrin (ibuprofen) 600 mg Route: PO; ak2 Outcome: 02:07 Discharge ordered by . pkl 02:24 Discharged to home ambulatory. ak2 02:24 Condition: good 02:24 Discharge instructions given to patient, Prescriptions given X 02:24 Patient left the ED. ak2 Signatures: Rusty Rao MD MD pkl Maxwell Uriarte, RN RN Andrea Corado cf2 Melchor Diez ak2
[2021-05-22 02:32] VITALS: TEMP 98.4
[2021-05-22 02:33] VITALS: BP 115/74; O2SAT 100
[2021-05-22] MEDS ORDERED: IBUPROFEN 200 MG TAB PO ONE (02:36)
[2021-05-22] MEDS ORDERED: IBUPROFEN 400 MG TAB ONE (02:36)
== END 2021-05-22 02:24 | disposition home or self-care (01) ==
LOC: ER 00:57
DX: M54.16 Radiculopathy, lumbar region (principal); F17.210 Nicotine dependence, cigarettes, uncomplicated
CPT/HCPCS: 99283

== ENCOUNTER 2022-09-17 08:48 | Emergency (ER) | payer BC, OTHER ==
--- OUTSIDE RECORDS SUMMARY | 2022-09-17 08:55 | XMS REPORT | Continuity of Care Document ---
:1995 Author Organization [facility] [place] t Address [address] [place] [address] [address]. [address] [place] [address] Care Team Providers Name Role Phone Jalen ROBISON, Amanda Billings Primary Care Physician DANIELLE FERREIRA Attending Clinician Unavailable Stanley MOYA, Janice Hobson Attending Clinician Unavailable Giuseppe Arana DO Attending Clinician Danielle Ferreira PA-C Attending Clinician 2, [facility] Attending Clinician Unavailable Doctor Unassigned, [place] Attending Clinician Unavailable ANDERSON BARNETT Attending Clinician Unavailable Amanda Rao MD Attending Clinician Ultrasound, [facility] Attending Clinician Unavailable Katie Bowling MD Attending Clinician 1, [facility] Attending Clinician Unavailable Rocio Paulino RN Attending Clinician Unavailable Lab/Pedi, [facility] Attending Clinician Unavailable Lang NAVARRO, Ritika Arevalo Attending Clinician 1, [facility] Attending Clinician Unavailable Sarah Ordonez MD Attending Clinician Amanda Rao MD Admitting Clinician Payers Payer Name Policy Type Policy Number Effective Date Expiration Date S ource [place] [id number] 2016 00:00:00 [facility] [id number] 2019 CHOICE MEDICAID 00:00:00 Problems Condition Condition Condition Status Onset Resolution Last Treating Co mments Source Name Details Category Date Date Treatment Clinician Date Morbid Morbid Disease Active Univers obesity obesity 5-11 [place] of [place] mass [place] mass index 00 [place] dical of of Branch 40.0-49.9 40.0-49.9 Disease Active Univers labor in labor in 1-15 ity of third third 00:00: [place] trimester trimester 00 [facility] with term with term Bran ch delivery delivery Liveborn Liveborn Disease Active Unive rs infant, of infant, of 1-15 it y of barillas bar[place] , , 00 [place] dical born in born in [facility] hospital by vaginal by vaginal delivery delivery High-risk High-risk Disease Active 2018-11 Uni vers 2-18 ity of in third in third 00:00: [place] trimester trimester [address] [facility] 37 weeks 37 weeks Disease Active 2018-11 Unive rs gestation gestation 2-18 ity of of of 00:00: [place] [address] [facility] Candidiasi Candidiasi Disease Active U nivers s of vulva s of vulva 2-21 it y of [place] [facility] Acanthosis Acanthosis Disease Active 2016-11 U nivers nigricans nigricans 1-15 ity of 00:00: [place] [facility] Obesity, Obesity, Disease Active 2016-11 Unive rs unspecifie unspecifie 1-15 it y of d d 00:00: [place] classifica classifica 00 Me dical tion, tion, Branch unspecifie unspecifie d obesity d obesity type, type, unspecifie unspecifie d whether d whether serious serious comorbidit comorbidit y present y present Tobacco Tobacco Disease Active 2016-11 Univers use use 1-15 ity of disorder disorder 00:00: [place] 00 [facility] Allergies, Adverse Reactions, Alerts Allergy Allergy Status Severity Reaction(s) Onset Inactive Treating Comm ents Source Name Type Date Date Clinician NO KNOWN Drug Active Univers ALLERGIE Class ity of [facility] [place] [facility] Social History Social Habit Start Date Stop Date Quantity Comments Source History of tobacco 2020-07-20 Smoker Univer sity of use 00:00:00 [facility] ASSERTION 2019-04-02 University of 00:00:00 [facility] History SDOH University o f Alcohol Std Drinks [facility] History SDOH University o f Alcohol Binge [facility] Exposure to Not sure University SARS-CoV-2 (event) [facility] Alcohol intake 2020-12-27 2020-12-27 Ex-drinker University of 00:00:00 00:00:00 (finding) [facility] Cigarettes smoked 2020-08-03 2020-08-03 Univers ity of current (pack per 00:00:00 00:00:00 [facility] [place]) - Reported Branch Tobacco use and 2020-08-03 2020-08-03 Never used Universit y of exposure 00:00:00 00:00:00 [facility] History SDOH 2019-04-24 2019-04-24 99 University o f Alcohol Frequency 00:00:00 00:00:00 [facility] Alcohol Comment 2017-10-03 2017-10-03 occasional Universit y of 00:00:00 00:00:00 [facility] Sex Assigned At [birth year] Universit y of 00:00:00 00:00:00 [facility] Smoking Status Start Date Stop Date Source Current every day smoker 2020-08-03 00:00:00 Uni versity of [facility] Never smoker [facility] Medications Ordered Filled Start Stop Current Ordering Indication Dosage Frequency Signature Comments Components Source Medication Medication Date Date Medication? Clinician (SIG) Name Name metroNIDAZO Yes [id number] 500mg Take 1 Univers LE 500 mg 2-10 tablet by ity o f tablet 00:00: mouth [place] 00 every 12 Medical (twelve) Branch hours. metroNIDAZO Yes [id number] 500mg Take 1 Univers LE 500 mg 2-10 tablet by ity o f tablet 00:00: mouth [place] 00 every 12 Medical (twelve) Branch hours. metroNIDAZO Yes [id number] 500mg Take 1 Univers LE 500 mg 2-10 tablet by ity o f tablet 00:00: mouth [place] 00 every 12 Medical (twelve) Branch hours. metroNIDAZO Yes [id number] 500mg Take 1 Univers LE 500 mg 2-10 tablet by ity o f tablet 00:00: mouth [place] 00 every 12 Medical (twelve) Branch hours. azithromyci 2020- No [id number] 1000mg Take 2 Univers n 500 mg 2-10 02-12 tablets by ity of tablet 00:00: 05:59 mouth [place] 00 :00 daily for Medical 1 day. Branch azithromyci 2020- No [id number] 1000mg Take 2 Univers n 500 mg 2-10 02-12 tablets by ity of tablet 00:00: 05:59 mouth [place] 00 :00 daily for Medical 1 day. Branch metroNIDAZO 2020-0 Yes [id number] 500mg Take 1 Univers LE 500 mg 5-14 tablet by ity o f tablet 00:00: mouth [place] 00 every 12 Medical (twelve) Branch hours. metroNIDAZO 2020-0 Yes [id number] 500mg Take 1 Univers LE 500 mg 5-14 tablet by ity o f tablet 00:00: mouth [place] 00 every 12 Medical (twelve) Branch hours. metroNIDAZO 2020-0 Yes [id number] 500mg Take 1 Univers LE 500 mg 5-14 tablet by ity o f tablet 00:00: mouth [place] 00 every 12 Medical (twelve) Branch hours. metroNIDAZO 2020-0 Yes [id number] 500mg Take 1 Univers LE 500 mg 5-14 tablet by ity o f tablet 00:00: mouth [place] 00 every 12 Medical (twelve) Branch hours. metroNIDAZO 2020-0 Yes [id number] 500mg Take 1 Univers LE 500 mg 5-14 tablet by ity o f tablet 00:00: mouth [place] 00 every 12 Medical (twelve) Branch hours. metroNIDAZO 2020-0 Yes [id number] 500mg Take 1 Univers LE 500 mg 5-14 tablet by ity o f tablet 00:00: mouth [place] 00 every 12 Medical (twelve) Branch hours. metroNIDAZO 2020-0 Yes [id number] 500mg Take 1 Univers LE 500 mg 5-14 tablet by ity o f tablet 00:00: mouth [place] 00 every 12 Medical (twelve) Branch hours. metroNIDAZO 2020-0 Yes [id number] 500mg Take 1 Univers LE 500 mg 5-14 tablet by ity o f tablet 00:00: mouth [place] 00 every 12 Medical (twelve) Branch hours. metroNIDAZO 2020-0 Yes [id number] 500mg Take 1 Univers LE 500 mg 5-14 tablet by ity o f tablet 00:00: mouth [place] 00 every 12 Medical (twelve) Branch hours. metroNIDAZO 2020-0 Yes [id number] 500mg Take 1 Univers LE 500 mg 5-14 tablet by ity o f tablet 00:00: mouth [place] 00 every 12 Medical (twelve) Branch hours. metroNIDAZO 2020-0 Yes [id number] 500mg Take 1 Univers LE 500 mg 5-14 tablet by ity o f tablet 00:00: mouth [place] 00 every 12 Medical (twelve) Branch hours. rho(D) 2020-0 Yes 300ug 300 mcg, Univer s immune 1-16 Intramuscu ity of globulin 22:30: lar, ONCE, [place] as (RHOGAM) 19 For 1 Medical syringe 300 dose, Branch mcg Conditiona l, Routine ondansetron 2019-0 Yes 4mg 4 mg, Slow Univers (ZOFRAN 1-16 IV Push, ity of (PF)) 22:30: Q8HPRN, [place] injection 4 15 Starting Medi elias mg [place] Branch 12/04/19 at 1630, Until Discontinu ed, Routine, Nausea and Vomiting (N/V) simethicone 2020-0 Yes 160mg 160 mg, Un breezy (GAS RELIEF 1-16 Oral, ity of (SIMETHICON 22:30: [place]+HSPRN, [place] E)) 15 Starting Medical chewable [place] Branch tablet 160 12/04/19 at mg 1630, Until Discontinu ed, Routine, Gas HYDROcodone 2020-0 Yes 1{tbl} 1 tablet, Univers -acetaminop 1-16 Oral, ity of hen (NORCO 22:30: Q6HPRN, [place] 5) 5-325 mg 14 Starting Medi elias tablet 1 [place] Branch tablet 12/04/19 at 1630, Until Discontinu ed, Routine, Pain (scale 7-10) ibuprofen 2020-0 Yes 600mg 600 mg, Univ ers (IBU) 1-16 Oral, ity of tablet 600 22:30: Q6HPRN, [place] mg 14 Starting Medical [place] Branch 12/04/19 at 1630, Until Discontinu ed, Routine, Pain (scale 4-6) acetaminoph 2020-0 Yes 650mg 650 mg, Un breezy en 16 Oral, ity of (TYLENOL) 22:30: Q6HPRN, [place] tablet 650 14 Starting Medic al mg [place] Branch 12/04/19 at 1630, Until Discontinu ed, Routine, Pain (scale 1-3) diphenhydrA 2020-0 Yes 25mg 25 mg, Univ ers MINE 12-04 Oral, ity of (BENADRYL) 22:30: Q6HPRN, [place] tablet 25 14 Starting Medica l mg [place] Branch 12/04/19 at 1630, Until Discontinu ed, Routine, Sleep, Itching docusate 2020-0 Yes 240mg 240 mg, [facility] rs calcium 12-04 Oral, ity of (SURFAK) 22:30: QDAILYPRN, [place] capsule 240 14 Starting Medi elias mg [place] Branch 12/04/19 at 1630, Until Discontinu ed, Routine, Constipati on magnesium 2019-0 Yes 30mL 30 mL, [facility] s hydroxide 12-04 Oral, ity of (MILK OF 22:30: QDAILYPRN, [place] MAGNESIA) 14 Starting Medica l 400 mg/5 mL [place] Branch suspension 12/04/19 at 30 mL 1630, Until Discontinu ed, Routine, Constipati on benzocaine- 2019-0 Yes Topical, Un breezy menthol 16 PRN, ity of (DERMOPLAST 22:30: [place] 20-0.5 % 14 [place] Medical topical 12/04/19 at Branch spray 1630, Until Discontinu ed, Routine, Perineum discomfort 2019-0 2020- No Take by [facility] vit37/iron/ 12-04 mouth. ity o f folic acid 16:20: 00:00 [place] (PRENATA 27 :00 Medical ORAL) Branch ibuprofen 0 2020- No 600mg 600 mg, Uni vers (IBU) 12-04 Oral, ity of tablet 600 02:06: 22:30 Q6HPRN, [place] mg 25 :20 Starting Medical Wed Branch 12/03/19 at 2006, Until [place] 12/04/19 at 1630, Routine, Pain (scale 4-6) simethicone 2020-0 2020- No 160mg 160 mg, U nivers (GAS RELIEF 12-04 Oral, ity of (SIMETHICON 02:06: 22:30 PC+HSPRN, [place] E)) 25 :20 Starting Medical chewable Wed Branch tablet 160 12/03/19 at mg 2005, Until [place] 12/04/19 at 1630, Routine, Gas docusate 2019- No 240mg 240 mg, Univ ers calcium 12-04 Oral, ity of (SURFAK) 02:06: 22:30 QDAILYPRN, [place] capsule 240 25 :20 Starting Medi elias mg Wed Branch 12/03/19 at 2005, Until [place] 12/04/19 at 1630, Routine, Constipati on acetaminoph 2019- No 650mg 650 mg, U nivers en 12-04 Oral, ity of (TYLENOL) 02:06: 22:30 Q6HPRN, [place] tablet 650 24 :20 Starting Medic al mg Wed Branch 12/03/19 at 2005, Until [place] 12/04/19 at 1630, Routine, Pain (scale 1-3) 2019-0 Yes [id number] 1{tbl} Take 1 Univers vitamin 1-16 102 tablet by ity of w/FA tablet 00:00: mouth [place] 00 daily. Medical Branch 2019-0 Yes [id number] 1{tbl} Take 1 Univers vitamin 1-16 102 tablet by ity of w/FA tablet 00:00: mouth [place] 00 daily. Medical Branch docusate Yes [id number] 240mg Take 1 Univers calcium 240 1-16 102 capsule by it y of mg capsule 00:00: mouth [place] 00 daily as Medical needed for Branch Constipati on. ferrous 2019-0 Yes [id number] 325mg Take 1 Univers sulfate 325 1-16 102 tablet by ity of mg (65 mg 00:00: mouth 2 [place] iron) 00 (two) Medical tablet times Branch daily. ibuprofen 2019-0 Yes [id number] 600mg Take 1 Univers 600 mg 1-16 102 tablet by ity of tablet 00:00: mouth [place] 00 every 6 Medical (six) Branch hours as needed (Pain). Take with food or milk. docusate 0 Yes [id number] 240mg Take 1 Univers calcium 240 1-16 102 capsule by it y of mg capsule 00:00: mouth once [place] 00 daily as Medical needed for Branch Constipati on. ferrous 2020-0 Yes [id number] 325mg Take 1 Univers sulfate 325 1-16 102 tablet by ity of mg (65 mg 00:00: mouth 2 [place] iron) 00 (two) Medical tablet times Branch daily. ibuprofen 2020-0 Yes [id number] 600mg Take 1 Univers 600 mg 1-16 102 tablet by ity of tablet 00:00: mouth [place] 00 every 6 Medical (six) Branch hours as needed (Pain). Take with food or milk. 2020-0 Yes [id number] 1{tbl} Take 1 Univers vitamin 1-16 102 tablet by ity of w/FA tablet 00:00: mouth [place] 00 daily. Medical Branch docusate 2020-0 Yes [id number] 240mg Take 1 Univers calcium 240 1-16 102 capsule by it y of mg capsule 00:00: mouth once [place] 00 daily as Medical needed for Branch Constipati on. ferrous 2020-0 Yes [id number] 325mg Take 1 Univers sulfate 325 1-16 102 tablet by ity of mg (65 mg 00:00: mouth 2 [place] iron) 00 (two) Medical tablet times Branch daily. ibuprofen 2020-0 Yes [id number] 600mg Take 1 Univers 600 mg 1-16 102 tablet by ity of tablet 00:00: mouth [place] 00 every 6 Medical (six) Branch hours as needed (Pain). Take with food or milk. 2020-0 Yes [id number] 1{tbl} Take 1 Univers vitamin 1-16 102 tablet by ity of w/FA tablet 00:00: mouth [place] 00 daily. Medical Branch docusate 2020-0 Yes [id number] 240mg Take 1 Univers calcium 240 1-16 102 capsule by it y of mg capsule 00:00: mouth once [place] 00 daily as Medical needed for Branch Constipati on. ferrous 2020-0 Yes [id number] 325mg Take 1 Univers sulfate 325 1-16 102 tablet by ity of mg (65 mg 00:00: mouth 2 [place] iron) 00 (two) Medical tablet times Branch daily. ibuprofen 2020-0 Yes [id number] 600mg Take 1 Univers 600 mg 1-16 102 tablet by ity of tablet 00:00: mouth [place] 00 every 6 Medical (six) Branch hours as needed (Pain). Take with food or milk. 2020-0 Yes [id number] 1{tbl} Take 1 Univers vitamin 1-16 102 tablet by ity of w/FA tablet 00:00: mouth [place] 00 daily. Medical Branch docusate 2020-0 Yes [id number] 240mg Take 1 Univers calcium 240 1-16 102 capsule by it y of mg capsule 00:00: mouth once [place] 00 daily as Medical needed for Branch Constipati on. ferrous 2020-0 Yes [id number] 325mg Take 1 Univers sulfate 325 1-16 102 tablet by ity of mg (65 mg 00:00: mouth 2 [place] iron) 00 (two) Medical tablet times Branch daily. ibuprofen 2020-0 Yes [id number] 600mg Take 1 Univers 600 mg 1-16 102 tablet by ity of tablet 00:00: mouth [place] 00 every 6 Medical (six) Branch hours as needed (Pain). Take with food or milk. 2020-0 Yes [id number] 1{tbl} Take 1 Univers vitamin 1-16 102 tablet by ity of w/FA tablet 00:00: mouth [place] 00 daily. Medical Branch docusate 2020-0 Yes [id number] 240mg Take 1 Univers calcium 240 1-16 102 capsule by it y of mg capsule 00:00: mouth once [place] 00 daily as Medical needed for Branch Constipati on. ferrous 2020-0 Yes [id number] 325mg Take 1 Univers sulfate 325 1-16 102 tablet by ity of mg (65 mg 00:00: mouth 2 [place] iron) 00 (two) Medical tablet times Branch daily. ibuprofen 2020-0 Yes [id number] 600mg Take 1 Univers 600 mg 1-16 102 tablet by ity of tablet 00:00: mouth [place] 00 every 6 Medical (six) Branch hours as needed (Pain). Take with food or milk. 2020-0 Yes [id number] 1{tbl} Take 1 Univers vitamin 1-16 102 tablet by ity of w/FA tablet 00:00: mouth [place] 00 daily. Medical Branch docusate 2020-0 Yes [id number] 240mg Take 1 Univers calcium 240 1-16 102 capsule by it y of mg capsule 00:00: mouth once [place] 00 daily as Medical needed for Branch Constipati on. ferrous 2020-0 Yes [id number] 325mg Take 1 Univers sulfate 325 1-16 102 tablet by ity of mg (65 mg 00:00: mouth 2 [place] iron) 00 (two) Medical tablet times Branch daily. ibuprofen 2020-0 Yes [id number] 600mg Take 1 Univers 600 mg 1-16 102 tablet by ity of tablet 00:00: mouth [place] 00 every 6 Medical (six) Branch hours as needed (Pain). Take with food or milk. 2020-0 Yes [id number] 1{tbl} Take 1 Univers vitamin 1-16 102 tablet by ity of w/FA tablet 00:00: mouth [place] 00 daily. Medical Branch docusate 2020-0 Yes [id number] 240mg Take 1 Univers calcium 240 1-16 102 capsule by it y of mg capsule 00:00: mouth once [place] 00 daily as Medical needed for Branch Constipati on. ferrous 2020-0 Yes [id number] 325mg Take 1 Univers sulfate 325 1-16 102 tablet by ity of mg (65 mg 00:00: mouth 2 [place] iron) 00 (two) Medical tablet times Branch daily. ibuprofen 2020-0 Yes [id number] 600mg Take 1 Univers 600 mg 1-16 102 tablet by ity of tablet 00:00: mouth [place] 00 every 6 Medical (six) Branch hours as needed (Pain). Take with food or milk. 2020-0 Yes [id number] 1{tbl} Take 1 Univers vitamin 1-16 102 tablet by ity of w/FA tablet 00:00: mouth [place] 00 daily. Medical Branch docusate 2020-0 Yes [id number] 240mg Take 1 Univers calcium 240 1-16 102 capsule by it y of mg capsule 00:00: mouth once [place] 00 daily as Medical needed for Branch Constipati on. ferrous 2020-0 Yes [id number] 325mg Take 1 Univers sulfate 325 1-16 102 tablet by ity of mg (65 mg 00:00: mouth 2 [place] iron) 00 (two) Medical tablet times Branch daily. ibuprofen 2020-0 Yes [id number] 600mg Take 1 Univers 600 mg 1-16 102 tablet by ity of tablet 00:00: mouth [place] 00 every 6 Medical (six) Branch hours as needed (Pain). Take with food or milk. 2020-0 Yes [id number] 1{tbl} Take 1 Univers vitamin 1-16 102 tablet by ity of w/FA tablet 00:00: mouth [place] 00 daily. Medical Branch docusate 2020-0 Yes [id number] 240mg Take 1 Univers calcium 240 1-16 102 capsule by it y of mg capsule 00:00: mouth once [place] 00 daily as Medical needed for Branch Constipati on. ferrous 2020-0 Yes [id number] 325mg Take 1 Univers sulfate 325 1-16 102 tablet by ity of mg (65 mg 00:00: mouth 2 [place] iron) 00 (two) Medical tablet times Branch daily. ibuprofen 2020-0 Yes [id number] 600mg Take 1 Univers 600 mg 1-16 102 tablet by ity of tablet 00:00: mouth [place] 00 every 6 Medical (six) Branch hours as needed (Pain). Take with food or milk. 2020-0 Yes [id number] 1{tbl} Take 1 Univers vitamin 1-16 102 tablet by ity of w/FA tablet 00:00: mouth [place] 00 daily. Medical Branch docusate 2020-0 Yes [id number] 240mg Take 1 Univers calcium 240 1-16 102 capsule by it y of mg capsule 00:00: mouth once [place] 00 daily as Medical needed for Branch Constipati on. ferrous 2020-0 Yes [id number] 325mg Take 1 Univers sulfate 325 1-16 102 tablet by ity of mg (65 mg 00:00: mouth 2 [place] iron) 00 (two) Medical tablet times Branch daily. ibuprofen 2020-0 Yes [id number] 600mg Take 1 Univers 600 mg 1-16 102 tablet by ity of tablet 00:00: mouth [place] 00 every 6 Medical (six) Branch hours as needed (Pain). Take with food or milk. 2020-0 Yes [id number] 1{tbl} Take 1 Univers vitamin 1-16 102 tablet by ity of w/FA tablet 00:00: mouth [place] 00 daily. Medical Branch docusate 2020-0 Yes [id number] 240mg Take 1 Univers calcium 240 1-16 102 capsule by it y of mg capsule 00:00: mouth once [place] 00 daily as Medical needed for Branch Constipati on. ferrous 2020-0 Yes [id number] 325mg Take 1 Univers sulfate 325 1-16 102 tablet by ity of mg (65 mg 00:00: mouth 2 [place] iron) 00 (two) Medical tablet times Branch daily. ibuprofen 2020-0 Yes [id number] 600mg Take 1 Univers 600 mg 1-16 102 tablet by ity of tablet 00:00: mouth [place] 00 every 6 Medical (six) Branch hours as needed (Pain). Take with food or milk. 2020-0 Yes [id number] 1{tbl} Take 1 Univers vitamin 1-16 102 tablet by ity of w/FA tablet 00:00: mouth [place] 00 daily. Medical Branch docusate 2020-0 Yes [id number] 240mg Take 1 Univers calcium 240 1-16 102 capsule by it y of mg capsule 00:00: mouth once [place] 00 daily as Medical needed for Branch Constipati on. ferrous 2020-0 Yes [id number] 325mg Take 1 Univers sulfate 325 1-16 102 tablet by ity of mg (65 mg 00:00: mouth 2 [place] iron) 00 (two) Medical tablet times Branch daily. ibuprofen 2020-0 Yes [id number] 600mg Take 1 Univers 600 mg 1-16 102 tablet by ity of tablet 00:00: mouth [place] 00 every 6 Medical (six) Branch hours as needed (Pain). Take with food or milk. 2020-0 Yes [id number] 1{tbl} Take 1 Univers vitamin 1-16 102 tablet by ity of w/FA tablet 00:00: mouth [place] 00 daily. Medical Branch docusate 2020-0 Yes [id number] 240mg Take 1 Univers calcium 240 1-16 102 capsule by it y of mg capsule 00:00: mouth once [place] 00 daily as Medical needed for Branch Constipati on. ferrous 2020-0 Yes [id number] 325mg Take 1 Univers sulfate 325 1-16 102 tablet by ity of mg (65 mg 00:00: mouth 2 [place] iron) 00 (two) Medical tablet times Branch daily. ibuprofen 2020-0 Yes [id number] 600mg Take 1 Univers 600 mg 1-16 102 tablet by ity of tablet 00:00: mouth [place] 00 every 6 Medical (six) Branch hours as needed (Pain). Take with food or milk. 2020-0 Yes [id number] 1{tbl} Take 1 Univers vitamin 1-16 102 tablet by ity of w/FA tablet 00:00: mouth [place] 00 daily. Medical Branch docusate 2020-0 Yes [id number] 240mg Take 1 Univers calcium 240 1-16 102 capsule by it y of mg capsule 00:00: mouth once [place] 00 daily as Medical needed for Branch Constipati on. ferrous 2020-0 Yes [id number] 325mg Take 1 Univers sulfate 325 - 102 tablet by ity of mg (65 mg 00:00: mouth 2 [place] iron) 00 (two) Medical tablet times Branch daily. ibuprofen 2020-0 Yes [id number] 600mg Take 1 Univers 600 mg -16 102 tablet by ity of tablet 00:00: mouth [place] 00 every 6 Medical (six) Branch hours as needed (Pain). Take with food or milk. FENTanyl PF 2020- No 100ug 100 mcg, Univers (SUBLIMAZE 12-03 Slow IV ity o f (PF)) 21:33: 02:06 Push, [place] injection 37 :30 Q1HPRN, Medical 100 mcg Starting Branch 12/03/19 at 1533, Until 12/03/19 at 2006, Routine, Pain (scale 4-6) penicillin 2019- No 310 3 Million U nivers g pot in 12-03 Units, IV ity o f dextrose 3 20:45: 02:06 Piggyback, [place] million 00 :30 Q4H ABX, Medical unit/50 mL First dose Bra nch RTU iv on Sun piggyback 3 12/03/19 at Million 1445, Units Until Discontinu ed, 50 mL
R ivan for Anti-Infec tive: Empiric Therapy for Suspected Infection< br>Empiric Therapy Site: Pelvic
Duration of therapy: 72 hours FENTanyl PF 2020- No 100ug 100 mcg, Univers (SUBLIMAZE 12-03 Slow IV ity o f (PF)) 18:15: 18:05 Push, [place] injection 00 :00 ONCE, 1 Medical 100 mcg dose, Wed Branch 12/03/19 at 1215, Routine proMETHazin 2019- No 25mg 25 mg, IV Univers e 12-03 Piggyback, ity of (PHENERGAN) 17:55: 18:48 ONCE-[place] 25 mg in 47 :00 INSTRUCTIO Medic al NaCl 0.9% NS, 1 Branch (NS) 50 mL dose, piggyback Starting 12/03/19 at 1155, Until Sun12/03/19 at 1248, 50 mL penicillin 2020-0 2020- No 310 3 Million U nivers g pot in 12-03 Units, IV ity o f dextrose 3 06:00: 14:59 Piggyback, [facility] [place] [facility] 00 :42 Q4H ABX, Medical unit/50 mL First dose Bra nch RTU iv on Sun piggyback 3 12/03/19 at Million 0000, Units Until Discontinu ed, 50 mL
R ivan for Anti-Infec tive: Empiric Therapy for Suspected Infection< br>Empiric Therapy Site: Other
O ther site: vaginal
Duration of therapy: 72 hours proMETHazin 2020-0 2020- No 25mg 25 mg, IV Univers e 12-03 Piggyback, ity of (PHENERGAN) 04:45: 04:45 [place]CE[place] 1 [place] 25 mg in 00 :00 dose, Tue Medica l NaCl 0.9% 12/02/19 at [facility] (NS) 50 mL 2244, 50 piggyback mL nalbuphine 2019-0 2020- No 10mg 10 mg, Univ ers (NUBAIN) 12-03 Intravenou ity of injection 04:45: 03:42 s, ONCE, 1 [place] 10 mg 00 :00 dose, [facility] 12/02/19 at Branch 2245, Routine [id number] IV 2020-0 2020- No 1000mL at 125 Uni vers infusion 12-03 01-16 mL/hr, IV ity o f 1,000 mL 03:15: 02:06 Infusion, [place] as 00 :30 CONTINUOUS Medical , Starting Branch Replaced By [facility] 12/02/19 at 2115, Until Sun12/03/19 at 2006, Routine penicillin 2020-0 2020- No 510 5 Million U nivers g potassium 12-03 Units, IV it y of 5 Million 03:15: 04:15 Piggyback, [place] Units in 00 :00 ONCE, 1 Medical NaCl 0.9% dose, [facility] h (NS) 100 mL 12/02/19 at piggyback 2115, 100 mL
Reas on for Anti-Infec tive: Empiric Therapy for Suspected Infection< br>Empiric Therapy Site: Other
O ther site: vaginal lactated 2019- No 1000mL at 999 Univ ers ringers IV 12-03 mL/hr, ity of infusion 03:15: 02:38 1,000 mL, [place] as 1,000 mL 00 :00 IV Medical Infusion, Branch ONCE, 1 dose, 12/02/19 at 2115, Routine betamethaso 2019- No 12mg 12 mg, Uni vers ne acet,sod 12-03 Intramuscu i ty of phos 03:00: 02:06 lar, Q24H, [place] (CELESTONE 00 :30 2 doses, Medic al SOLUSPAN) 6 First dose Br anch mg/mL on Tue injection 12/02/19 at 12 mg 2100, Last dose on 12/03/19 at 2100, Routine terbutaline 2019- No .25mg 0.25 mg, Univers (BRETHINE) 12-03 Subcutaneo it y of injection 03:00: 02:[place] 0.25 mg 00 :00 1 dose, Medical Tue Branch 12/02/19 at 2100, Routine metroNIDAZO 2018-11 2020- No [id number] 500mg Take 1 Univers LE 500 mg 2-12-04 tablet by ity of tablet 00:00: 00:00 mouth [place] 00 :00 every 12 Medical (twelve) Branch hours. Yes Take by [facility] vit37/iron/ 9-19 mouth. ity of folic acid 18:55: [place] ([facility] 41 Medical ORAL) Branch 2019 Yes Take by [facility] vit37/iron/ 9-19 mouth. ity of folic acid 18:55: [place] [facility] Branch metroNIDAZO Yes [id number] 500mg Take 1 Univers LE 500 mg 8-23 tablet by ity o f tablet 00:00: mouth [place] 00 every 12 Medical (twelve) Branch hours. metroNIDAZO 2019- No [id number] 500mg Take 1 Univers LE 500 mg 8-23 -19 tablet by ity of tablet 00:00: 00:00 mouth [place] 00 :00 every 12 Medical (twelve) Branch hours. SERTraline 2019-0 Yes [id number] 50mg Take 1 Univers (ZOLOFT) 50 7-25 tablet by ity of mg tablet 00:00: mouth [place] 00 daily. Medical Branch SERTraline 2018-0 Yes [id number] 50mg Take 1 Univers (ZOLOFT) 50 7-25 tablet by ity of mg tablet 00:00: mouth [place] 00 daily. Medical Branch SERTraline 2018-0 Yes [id number] 50mg Take 1 Univers (ZOLOFT) 50 7-25 tablet by ity of mg tablet 00:00: mouth [place] 00 daily. Medical Branch SERTraline 2018-0 Yes [id number] 50mg Take 1 Univers (ZOLOFT) 50 7-25 tablet by ity of mg tablet 00:00: mouth [place] 00 daily. Medical Branch SERTraline 0 Yes [id number] 50mg Take 1 Univers (ZOLOFT) 50 7-25 tablet by ity of mg tablet 00:00: mouth [place] 00 daily. Medical Branch SERTraline 2018-0 Yes [id number] 50mg Take 1 Univers (ZOLOFT) 50 7-25 tablet by ity of mg tablet 00:00: mouth [place] 00 daily. Medical Branch SERTraline 0 Yes [id number] 50mg Take 1 Univers (ZOLOFT) 50 7-25 tablet by ity of mg tablet 00:00: mouth [place] 00 daily. Medical Branch SERTraline 0 Yes [id number] 50mg Take 1 Univers (ZOLOFT) 50 7-25 tablet by ity of mg tablet 00:00: mouth [place] 00 daily. Medical Branch SERTraline 2018-0 Yes [id number] 50mg Take 1 Univers (ZOLOFT) 50 7-25 tablet by ity of mg tablet 00:00: mouth [place] 00 daily. Medical Branch SERTraline 0 Yes [id number] 50mg Take 1 Univers (ZOLOFT) 50 7-25 tablet by ity of mg tablet 00:00: mouth [place] 00 daily. [facility] Branch SERTraline 2018-0 Yes [id number] 50mg Take 1 Univers (ZOLOFT) 50 7-25 tablet by ity of mg tablet 00:00: mouth [place] 00 daily. [facility] Branch SERTraline 2018-0 Yes [id number] 50mg Take 1 Univers (ZOLOFT) 50 7-25 tablet by ity of mg tablet 00:00: mouth [place] 00 daily. Medical Branch SERTraline Yes [id number] 50mg Take 1 Univers (ZOLOFT) 50 7-25 tablet by ity of mg tablet 00:00: mouth [place] 00 daily. Medical Branch SERTraline Yes [id number] 50mg Take 1 Univers (ZOLOFT) 50 7-25 tablet by ity of mg tablet 00:00: mouth [place] 00 daily. Medical Branch SERTraline Yes [id number] 50mg Take 1 Univers (ZOLOFT) 50 7-25 tablet by ity of mg tablet 00:00: mouth [place] 00 daily. Medical Branch SERTraline Yes [id number] 50mg Take 1 Univers (ZOLOFT) 50 7-25 tablet by ity of mg tablet 00:00: mouth [place] 00 daily. [facility] Branch SERTraline Yes [id number] 50mg Take 1 Univers (ZOLOFT) 50 7-25 tablet by ity of mg tablet 00:00: mouth [place] 00 daily. Medical Branch SERTraline Yes [id number] 50mg Take 1 Univers (ZOLOFT) 50 7-25 tablet by ity of mg tablet 00:00: mouth [place] 00 daily. Medical Branch SERTraline Yes [id number] 50mg Take 1 Univers (ZOLOFT) 50 7-25 tablet by ity of mg tablet 00:00: mouth [place] 00 daily. [facility] Branch SERTraline Yes [id number] 50mg Take 1 Univers (ZOLOFT) 50 7-25 tablet by ity of mg tablet 00:00: mouth [place] 00 daily. [facility] Branch SERTraline Yes [id number] 50mg Take 1 Univers (ZOLOFT) 50 7-25 tablet by ity of mg tablet 00:00: mouth [place] 00 daily. Medical Branch SERTraline Yes [id number] 50mg Take 1 Univers (ZOLOFT) 50 7-25 tablet by ity of mg tablet 00:00: mouth [place] 00 daily. [facility] Branch SERTraline Yes [id number] 50mg Take 1 Univers (ZOLOFT) 50 7-25 tablet by ity of mg tablet 00:00: mouth [place] 00 daily. [facility] Branch SERTraline Yes [id number] 50mg Take 1 Univers (ZOLOFT) 50 7-25 tablet by ity of mg tablet 00:00: mouth [place] 00 daily. Medical Branch SERTraline Yes [id number] 50mg Take 1 Univers (ZOLOFT) 50 7-25 tablet by ity of mg tablet 00:00: mouth [place] 00 daily. Medical Branch SERTraline Yes [id number] 50mg Take 1 Univers (ZOLOFT) 50 7-25 tablet by ity of mg tablet 00:00: mouth [place] 00 daily. Medical Branch SERTraline Yes [id number] 50mg Take 1 Univers (ZOLOFT) 50 7-25 tablet by ity of mg tablet 00:00: mouth [place] 00 daily. [facility] Branch SERTraline Yes [id number] 50mg Take 1 Univers (ZOLOFT) 50 7-25 tablet by ity of mg tablet 00:00: mouth [place] 00 daily. [facility] Branch SERTraline Yes [id number] 50mg Take 1 Univers (ZOLOFT) 50 7-25 tablet by ity of mg tablet 00:00: mouth [place] 00 daily. Medical Branch Yes Take by Univer s vit37/iron/ 6-27 mouth. ity of folic acid 16:14: [place] [facility] Saline Yes Take by Univer s vit37/iron/ 6-27 mouth. ity of folic acid 16:14: [place] [facility]) Saline Yes Take by Univer s vit37/iron/ 6-27 mouth. ity of folic acid 16:14: [place] (PRENATA 27 Medical ORAL) Saline 2019 Yes Take by Univer s vit37/iron/ 6-27 mouth. ity of folic acid 16:14: [place] [facility]) Saline 2019-0 Yes Take by Univer s vit37/iron/ 6-27 mouth. ity of folic acid 16:14: [place] [facility]) Saline 2019-0 Yes Take by Univer s vit37/iron/ 6-27 mouth. ity of folic acid 16:14: [place] [facility]) Saline 2019-0 Yes Take by Univer s vit37/iron/ 6-27 mouth. ity of folic acid 16:14: [place] (PRENATA 27 Medical ORAL) Branch Yes Take by [facility] s vit37/iron/ 6-27 mouth. ity of folic acid 16:14: [place] (PRENATA 27 Medical ORAL) Saline Yes Take by [facility] s vit37/iron/ 6-27 mouth. ity of folic acid 16:14: [place] ([facility] 27 Medical ORAL) Saline Yes Take by [facility] s vit37/iron/ 6-27 mouth. ity of folic acid 16:14: [place] [facility]) Saline Yes Take by [facility] s vit37/iron/ 6-27 mouth. ity of folic acid 16:14: [place] ([facility] 27 Medical ORAL) Saline Yes Take by [facility] s vit37/iron/ 6-27 mouth. ity of folic acid 16:14: [place] ([facility] 27 Medical ORAL) Saline doxylamine- Yes [id number] 1{tbl} Take 1 Univers pyridoxine, 6-10 tablet by ity of vit B6, 00:00: mouth [facility]) 00 SEE-INSTRU Med ical 10-10 mg CTIONS. Branch per tablet doxylamine- Yes [id number] 1{tbl} Take 1 Univers pyridoxine, 6-10 tablet by ity of vit B6, 00:00: mouth [facility] 00 SEE-INSTRU Med ical 10-10 mg CTIONS. Branch per tablet doxylamine- Yes [id number] 1{tbl} Take 1 Univers pyridoxine, 6-10 tablet by ity of vit B6, 00:00: mouth [facility]) 00 SEE-INSTRU Med ical 10-10 mg CTIONS. Branch per tablet doxylamine- Yes [id number] 1{tbl} Take 1 Univers pyridoxine, 6-10 tablet by ity of vit B6, 00:00: mouth [place] (DICS) 00 SEE-INSTRU Med ical 10-10 mg CTIONS. Branch per tablet doxylamine- Yes [id number] 1{tbl} Take 1 Univers pyridoxine, 6-10 tablet by ity of vit B6, 00:00: mouth [place] ([facility]) 00 SEE-INSTRU Med ical 10-10 mg CTIONS. Branch per tablet doxylamine- Yes [id number] 1{tbl} Take 1 Univers pyridoxine, 6-10 tablet by ity of vit B6, 00:00: mouth [place] ([facility]) 00 SEE-INSTRU Med ical 10-10 mg CTIONS. Branch per tablet doxylamine- Yes [id number] 1{tbl} Take 1 Univers pyridoxine, 6-10 tablet by ity of vit B6, 00:00: mouth [place] ([facility]) 00 SEE-INSTRU Med ical 10-10 mg CTIONS. Branch per tablet doxylamine- Yes [id number] 1{tbl} Take 1 Univers pyridoxine, 6-10 tablet by ity of vit B6, 00:00: mouth [place] ([facility]) 00 SEE-INSTRU Med ical 10-10 mg CTIONS. Branch per tablet doxylamine- Yes [id number] 1{tbl} Take 1 Univers pyridoxine, 6-10 tablet by ity of vit B6, 00:00: mouth [place] ([facility]) 00 SEE-INSTRU Med ical 10-10 mg CTIONS. Branch per tablet doxylamine- Yes [id number] 1{tbl} Take 1 Univers pyridoxine, 6-10 tablet by ity of vit B6, 00:00: mouth [place] ([facility]) 00 SEE-INSTRU Med ical 10-10 mg CTIONS. Branch per tablet doxylamine- Yes [id number] 1{tbl} Take 1 Univers pyridoxine, 6-10 tablet by ity of vit B6, 00:00: mouth [place] ([facility]) 00 SEE-INSTRU Med ical 10-10 mg CTIONS. Branch per tablet doxylamine- Yes [id number] 1{tbl} Take 1 Univers pyridoxine, 6-10 tablet by ity of vit B6, 00:00: mouth [place] ([facility]) 00 SEE-INSTRU Med ical 10-10 mg CTIONS. Branch per tablet doxylamine- 2019- No [id number] 1{tbl} Take 1 Univers pyridoxine, 6-10 - tablet by it y of vit B6, 00:00: 00:00 mouth [place] (D[facility]) 00 :00 SEE-INSTRU Med ical 10-10 mg CTIONS. Branch per tablet Immunizations Ordered Filled Immunization Date Status Comments Sour e Immunization Name Name TDAP (ADACEL) 2019-10-22 Completed University of VACCINE 00:00:00 [facility] Branch TDAP (ADACEL) 2019-10-22 Completed University of VACCINE 00:00:00 [facility] Branch TDAP (ADACEL) 2019-10-22 Completed University of VACCINE 00:00:00 [facility] Branch TDAP (ADACEL) 2019-10-22 Completed University of VACCINE 00:00:00 [facility] Branch TDAP (ADACEL) 2019-10-22 Completed University of VACCINE 00:00:00 [facility] Branch TDAP (ADACEL) 2019-10-22 Completed University of VACCINE 00:00:00 [facility] Branch TDAP (ADACEL) 2019-10-22 Completed University of VACCINE 00:00:00 [facility] Branch TDAP (ADACEL) 2019-10-22 Completed University of VACCINE 00:00:00 [facility] Branch TDAP (ADACEL) 2019-10-22 Completed University of VACCINE 00:00:00 [facility] TDAP (ADACEL) 2019-10-22 Completed University of VACCINE 00:00:00 [facility] Branch TDAP (ADACEL) 2019-10-22 Completed University of VACCINE 00:00:00 [facility] TDAP (ADACEL) 2019-10-22 Completed University of VACCINE 00:00:00 [facility] TDAP (ADACEL) 2019-10-22 Completed University of VACCINE 00:00:00 [facility] Branch TDAP (ADACEL) 2019-10-22 Completed University of VACCINE 00:00:00 [facility] Branch TDAP (ADACEL) 2019-10-22 Completed University of VACCINE 00:00:00 [facility] Branch TDAP (ADACEL) 2019-10-22 Completed University of VACCINE 00:00:00 [facility] Influenza Virus 2019-09-08 Completed Universit y of Vaccine Quad .5 mL 00:00:[address] [facility] 6+ MO Branch Influenza Virus 2019-09-08 Completed Universit y of Vaccine [place] .5 mL 00:00:00 [facility] IM 6+ MO Branch Influenza Virus 2019-09-08 Completed Universit y of Vaccine [place] .5 mL 00:00:00 [place] [facility] 6+ MO Branch Influenza Virus 2019-09-08 Completed Universit y of Vaccine [place] .5 mL 00:00:00 [place] [facility] IM 6+ MO Branch Influenza Virus 2019-09-08 Completed Universit y of Vaccine [place] .5 mL 00:00:00 [place] [facility] IM 6+ MO Branch Influenza Virus 2019-09-08 Completed Universit y of Vaccine [place] .5 mL 00:00:00 [place] [facility] IM 6+ MO Branch Influenza Virus 2019-09-08 Completed Universit y of Vaccine [place] .5 mL 00:00:00 [place] [facility] IM 6+ MO Branch Influenza Virus 2019-09-08 Completed Universit y of Vaccine [place] .5 mL 00:00:00 [place] [facility] IM 6+ MO Branch Influenza Virus 2019-09-08 Completed Universit y of Vaccine [place] .5 mL 00:00:00 [place] [facility] IM 6+ MO Branch Influenza Virus 2019-09-08 Completed Universit y of Vaccine [place] .5 mL 00:00:00 [place] [facility] IM 6+ MO Branch Influenza Virus 2019-09-08 Completed Universit y of Vaccine [place] .5 mL 00:00:00 [place] [facility] IM 6+ MO Branch Influenza Virus 2019-09-08 Completed Universit y of Vaccine [place] .5 mL 00:00:00 [place] [facility] IM 6+ MO Branch Influenza Virus 2019-09-08 Completed Universit y of Vaccine [place] .5 mL 00:00:00 [place] [facility] IM 6+ MO Branch Influenza Virus 2019-09-08 Completed Universit y of Vaccine [place] .5 mL 00:00:00 [place] [facility] IM 6+ MO Branch Influenza Virus 2019-09-08 Completed Universit y of Vaccine [place] .5 mL 00:00:00 [place] [facility] IM 6+ MO Branch Influenza Virus 2019-09-08 Completed Universit y of Vaccine [place] .5 mL 00:00:00 [place] [facility] 6+ MO Branch HPV9 2018-10-03 Completed University of 00:00:00 [place] [facility] HPV9 2018-10-03 Completed University of 00:00:00 [place] [facility] HPV9 2018-10-03 Completed University of 00:00:00 [place] [facility] HPV9 2018-10-03 Completed University of 00:00:00 [place] [facility] HPV9 2018-10-03 Completed University of 00:00:00 [place] [facility] HPV9 2018-10-03 Completed University of 00:00:00 [place] [facility] HPV9 2018-10-03 Completed University of 00:00:00 [place] [facility] HPV9 2018-10-03 Completed University of 00:00:00 [place] [facility] HPV9 2018-10-03 Completed University of 00:00:00 [place] [facility] HPV9 2018-10-03 Completed University of 00:00:00 [place] [facility] HPV9 2018-10-03 Completed University of 00:00:00 [place] [facility] HPV9 2018-10-03 Completed University of 00:00:00 [place] [facility] HPV9 2018-10-03 Completed University of 00:00:00 [place] [facility] HPV9 2018-10-03 Completed University of 00:00:00 [place] [facility] HPV9 2018-10-03 Completed University of 00:00:00 [place] [facility] HPV9 2018-10-03 Completed University of 00:00:00 [place] [facility] HPV9 2018-10-03 Completed University of 00:00:00 [place] [facility] HPV9 2018-10-03 Completed University of 00:00:00 [place] [facility] HPV9 2018-10-03 Completed University of 00:00:00 [place] [facility] HPV9 2018-10-03 Completed University of 00:00:00 [place] [facility] HPV9 2018-10-03 Completed University of 00:00:00 [place] [facility] HPV9 2018-10-03 Completed University of 00:00:00 [place] [facility] HPV9 2018-10-03 Completed University of 00:00:00 [place] [facility] HPV9 2018-10-03 Completed University of 00:00:00 [place] [facility] HPV9 2018-10-03 Completed University of 00:00:00 [place] [facility] HPV9 2018-10-03 Completed University of 00:00:00 [place] [facility] HPV9 2018-10-03 Completed University of 00:00:00 [place] [facility] HPV9 2018-10-03 Completed University of 00:00:00 [place] [facility] HPV9 2018-10-03 Completed University of 00:00:00 [place] [facility] HPV9 2018-10-03 Completed University of 00:00:00 [facility] Tdap 2018-08-22 Completed University of 00:00:00 [facility] Tdap 2018-08-22 Completed University of 00:00:00 [facility] Tdap 2018-08-22 Completed University of 00:00:00 [facility] Branch Tdap 2018-08-22 Completed University of 00:00:00 [place] [facility] Tdap 2018-08-22 Completed University of 00:00:00 [place] [facility] Tdap 2018-08-22 Completed University of 00:00:00 [place] [facility] Tdap 2018-08-22 Completed University of 00:00:00 [place] [facility] Tdap 2018-08-22 Completed University of 00:00:00 [place] [facility] TDAP 2018-08-22 Completed University of 00:00:00 [place] [facility] Tdap 2018-08-22 Completed University of 00:00:00 [place] [facility] Tdap 2018-08-22 Completed University of 00:00:00 [place] [facility] Tdap 2018-08-22 Completed University of 00:00:00 [place] [facility] Tdap 2018-08-22 Completed University of 00:00:00 [place] [facility] Tdap 2018-08-22 Completed University of 00:00:00 [place] [facility] Tdap 2018-08-22 Completed University of 00:00:00 [facility] Tdap 2018-08-22 Completed University of 00:00:00 [place] [facility] TDAP 2018-08-22 Completed University of 00:00:00 [place] [facility] TDAP 2018-08-22 Completed University of 00:00:00 [place] [facility] Tdap 2018-08-22 Completed University of 00:00:00 [place] [facility] TDAP 2018-08-22 Completed University of 00:00:00 [facility] Branch TDAP 2018-08-22 Completed University of 00:00:00 [facility] TDAP 2018-08-22 Completed University of 00:00:00 [facility] TDAP 2018-08-22 Completed University of 00:00:00 [place] [facility] TDAP 2018-08-22 Completed University of 00:00:00 [place] [facility] Tdap 2018-08-22 Completed University of 00:00:00 [facility] Tdap 2018-08-22 Completed University of 00:00:00 [facility] Tdap 2018-08-22 Completed University of 00:00:00 [place] [facility] Tdap 2018-08-22 Completed University of 00:00:00 [place] [facility] Tdap 2018-08-22 Completed University of 00:00:00 [facility] Tdap 2018-08-22 Completed University of 00:00:00 [facility] Vital Signs Vital Name Observation Time Observation Value Comments Source Systolic blood 2020-08-03 14:34:00 120 mm[Hg] Univer sity of pressure [place] [facility] Diastolic blood 2020-08-03 14:34:00 81 mm[Hg] Unive rsity of pressure [place] [facility] Heart rate 2020-08-03 14:34:00 84 /min Universi ty of [place] [facility] Body temperature 2020-08-03 14:34:00 36.78 Julia Univ ersity of [place] [facility] Respiratory rate 2020-08-03 14:34:00 18 /min Univ ersity of [place] [facility] Body height 2020-08-03 14:34:00 167.6 cm Universi ty of [place] [facility] Body weight 2020-08-03 14:34:00 112.674 kg Universi ty of [place] [facility] BMI 2020-08-03 14:34:00 40.09 kg/m2 Universi ty of [place] [facility] Systolic blood 2020-08-03 14:34:00 120 mm[Hg] Univer sity of pressure [place] [facility] Diastolic blood 2020-08-03 14:34:00 81 mm[Hg] Unive rsity of pressure [place] [facility] Heart rate 2020-08-03 14:34:00 84 /min Universi ty of [place] [facility] Body temperature 2020-08-03 14:34:00 36.78 Julia Univ ersity of [place] [facility] Respiratory rate 2020-08-03 14:34:00 18 /min Univ ersity of [place] [facility] Body height 2020-08-03 14:34:00 167.6 cm Universi ty of [place] [facility] Body weight 2020-08-03 14:34:00 112.674 kg Universi ty of [place] [facility] BMI 2020-08-03 14:34:00 40.09 kg/m2 Universi ty of [place] [facility] Systolic blood 2020-03-29 19:33:00 106 mm[Hg] Univer sity of pressure [place] [facility] Diastolic blood 2020-03-29 19:33:00 67 mm[Hg] Unive rsity of pressure [place] [facility] Heart rate 2020-03-29 19:33:00 76 /min Universi ty of [place] [facility] Body temperature 2020-03-29 19:33:00 36.72 Julia Univ ersity of [place] [facility] Respiratory rate 2020-03-29 19:33:00 18 /min Univ ersity of [place] [facility] Body height 2020-03-29 19:33:00 165.1 cm Universi ty of [place] [facility] Body weight 2020-03-29 19:33:00 115.486 kg Universi ty of [place] [facility] BMI 2020-03-29 19:33:00 42.37 kg/m2 Universi ty of [place] [facility] Systolic blood 2019-12-05 14:00:00 140 mm[Hg] Univer sity of pressure [place] [facility] Diastolic blood 2019-12-05 14:00:00 89 mm[Hg] Unive rsity of pressure [place] [facility] Heart rate 2019-12-05 14:00:00 74 /min Universi ty of [place] [facility] Body temperature 2019-12-05 14:00:00 36.78 Julia Univ ersity of [facility] Branch Respiratory rate 2019-12-05 14:00:00 16 /min Univ ersity of [facility] Oxygen saturation in 2019-12-05 14:00:00 100 /min University of Arterial blood by [facility] Pulse oximetry Branch Body height 2019-12-03 00:54:00 165.1 cm Universi ty of [place] [facility] Body weight 2019-12-03 00:54:00 106.142 kg Universi ty of [place] [facility] BMI 2019-12-03 00:54:00 38.94 kg/m2 Universi ty of [place] [facility] Systolic blood 2019-08-07 18:53:00 121 mm[Hg] Univer sity of pressure [place] [facility] Diastolic blood 2019-08-07 18:53:00 76 mm[Hg] Unive rsity of pressure [place] [facility] Heart rate 2019-08-07 18:53:00 69 /min Universi ty of [place] [facility] Body temperature 2019-08-07 18:53:00 36.5 Julia Univ ersity of [place] [facility] Respiratory rate 2019-08-07 18:53:00 20 /min Univ ersity of [place] [facility] Body height 2019-08-07 18:53:00 167.6 cm Universi ty of [place] [facility] Body weight 2019-08-07 18:53:00 92.08 kg Universi ty of [place] [facility] BMI 2019-08-07 18:53:00 32.77 kg/m2 Universi ty of [place] [facility] Systolic blood 2019-07-10 16:56:00 117 mm[Hg] Univer sity of pressure [place] [facility] Diastolic blood 2019-07-10 16:56:00 72 mm[Hg] [facility] Heart rate 2019-07-10 16:56:00 70 /min Universi ty of [facility] Body temperature 2019-07-10 16:56:00 36.78 Julia [facility] 2019-07-10 16:56:00 18 /min [facility] Body height 2019-07-10 16:56:00 167.6 cm Universi ty of [facility] Body weight 2019-07-10 16:56:00 89.359 kg Universi ty [facility] BMI 2019-07-10 16:56:00 31.80 kg/m2 Universi ty [facility] Systolic blood 2019-06-12 16:42:00 118 mm[Hg] Univer sity of [facility] Diastolic blood 2019-06-12 16:42:00 82 mm[facility]Hg[facility] 2019-06-12 16:42:00 36.39 Julia [facility] Respiratory rate 2019-06-12 16:42:00 18 /min [facility] Body height 2019-06-12 16:42:00 165.1 cm Universi ty of [facility] Body weight 2019-06-12 16:42:00 89.177 kg Universi ty [facility] BMI 2019-06-12 16:42:00 32.72 [facility] Procedures Procedure Date / Time Performing Clinician Source Performed THYROID STIMULATING 2020-08-03 15:42:00 [facility] H[facility]ONE [facility] CBC WITH DIFFERENTIAL 2019-12-04 09:59:00 Amanda Rao [facility] VENOUS CORD GAS 2019-12-03 23:45:00 Amanda Rao [facility] o f [facility] GROUP B STREPTOCOCCUS BY 2019-12-03 02:47:00 Amanda [facility]ao [facility] 2019-12-03 02:45:00 Amanda Rao [place] o [facility] RHO (D) IMMUNE GLOBULIN 2019-12-03 02:45:00 Amanda Rao [facility] CBC WITH DIFFERENTIAL 2019-12-03 02:37:00 Amanda Rao [facility] HEPATITIS B SURFACE 2019-12-03 02:37:00 Amanda Rao [facility] ANTIGEN [facility] [place] GC & CHLAMYDIA AMPLIFIED 2019-12-03 02:37:00 Amanda Rao [facility] [place] ADC OR DEMARCUS ONLY - 2019-12-03 02:37:00 Amanda Rao [facility] RPR [facility] [place] HIV 1/2 AG-AB WITH 2019-12-03 02:37:00 Amanda Rao [facility] REFLEX [facility] [place] ADC CLC OR LCC ONLY - 2019-12-03 02:36:00 Amanda Rao [facility] WET PREP [facility] [place] ASSIGNMENT OF BENEFITS 2019-12-03 00:28:34 Doctor Unassigned, No [place] [facility]ENT[facility]REFUSAL FOR 2019-12-03 00:28:17 Doctor Unassigned, No [facility] DIAGNOSIS AND TREATMENT [facility] POCT URINALYSIS W/O 2019-08-07 00:00:00 Amanda Rao [facility] SPECIFIC GRAVITY [facility] ASSIGNMENT OF BENEFITS 2019-07-10 17:40:12 Doctor Unassigned, No [facility] POCT URINALYSIS W/O 2019-07-10 00:00:00 Danielle Ferreira [facility] Encounters Start End Encounter Admission Attending Care Care Encounter Source Date/Time Date/Time Type Type Clinicians Facility Department ID 2021-08-18 2021-08-18 Outpatient Ria FERREIRA [facility] [id number] Univers 16:00:00 16:00:00 DANIELLE pearce [facility] 2021-08-05 2021-08-05 Telephone Stanley Fair 1.2.840.114 [id number] Univers 00:00:00 00:00:00 , Janice Guevara 350.1.13.10 Jono 4.2.7.2.686 Noah s [phone] [place] [address] [address] 2021-08-03 2021-08-03 Outpatient Ria FERREIRA [facility] [id number] Univers 13:00:00 13:00:00 DANIELLE pearce [facility] 2021-02-082021-02-08 Patient Sumit, [facility] 1.2.840.114 [id number] 00:00:00 00:00:00 Outreach Giuseppe PRIMARY 350.1.13.10 Andrew CARE 4.2.7.2.686 PAVILLION [id number] [id number] 2021-02-08 2021-02-08 Patient Sumit [facility] 1.2.840.114 [id number] Univers 00:00:00 00:00:00 Outreach Giuseppe PRIMARY 350.1.13.10 i ty of [place] [phone] Dc dical [address] 2020-12-29 2020-12-29 Case Jhon [facility] 1.2.055.370 [id number] Univers 00:00:00 00:00:00 Management Danielle Alkol 350.1.13.10 [place] [phone] Dc dical [address] 2020-12-29 2020-12-29 [facility] 1.2.083.172 [id number] Univers 00:00:00 00:00:00 Management Danielle Alkol 350.1.13.10 [place] [phone] Dc dical nal 134 [facility] 2020-12-29 2020-12-29 Case Jhon [facility] 1.2.917.527 [id number] 00:00:00 00:00:00 Management Danielle Alkol 350.1.13.10 [place] 4.2.7.2.686 Professio [phone] [address] 2020-12-29 2020-12-29 Case Jhon [facility] 1.2.113.677 [id number] 00:00:00 00:00:00 Management Danielle Alkol 350.1.13.10 [place] 4.2.7.2.686 Professio [phone] [address] 2020-12-27 2020-12-27 Outpatient R JHON [facility] [id number] [facility] 16:30:00 16:54:49 DANIELLE pearce [facility] 2020-12-27 2020-12-27 Outpatient R JHON [facility] [id number] [facility] 14:30:00 14:30:00 DANIELLE pearce [facility] 2020-12-02 2020-12-02 Outpatient R JHON [facility] [id number] [facility] 14:45:00 14:45:00 DANIELLE ramses [facility] 2020-08-03 2020-08-03 Beam Dyer Operator 2, Adc Lab [facility] 1.2.840.114 [id number] Univers 10:37:16 10:52:16 Visit Danielle Ferreira 350.1.13.10 [place] [phone] [address] 2020-08-03 2020-08-03 Beam Dyer Operator 2, Adc Lab [facility] 1.2.840.114 [id number] 10:37:16 10:52:16 Visit Alkol 350.1.13.10 [place] 4.2.7.2.686 Professio [phone] [address] 2020-08-03 2020-08-03 Office Jhon [facility] 1.2.797.073 [id number] [facility] 09:20:24 10:20:24 Visit Daniellegricel Lima 350.1.13.10 [place] [phone] [address] 2020-08-03 2020-08-03 Office Jhon [facility] 1.2.308.383 [id number] 09:20:24 10:20:24 Visit Danielle Lima 350.1.13.10 [place] 4.2.7.2.686 Professio [phone] [address] 2020-08-03 2020-08-03 Outpatient R JHON [facility] [id number] [facility] 09:00:00 09:00:00 DANIELLE pearce [facility] 2020-04-01 2020-04-01 Case Jhon [facility] 1.2.155.324 [id number] Univers 00:00:00 00:00:00 Management Danielle Janie 350.1.13.10 [place] [phone] Dc dical nal [address] [place] [address] 2020-04-01 2020-04-01 Patient Doctor [facility] 1.2.840.114 [id number] Univers 00:00:00 00:00:00 Secure Msg Unassigned Janie 350.1.13.10 ity of [place] [phone] [address] 2020-03-29 2020-03-29 Office Jhon [facility] 1.2.738.019 [id number] Univers 14:20:12 14:55:35 Visit Danielle [place]ima 350.1.13.10 [place] [phone] [address] 2020-03-29 2020-03-29 Outpatient R JHON [facility] [id number] Univers 14:00:00 14:00:00 DANIELLE dianakathrine [facility] 2020-03-29 2020-03-29 Outpatient R ANIBAL [facility] [id number] Univers 09:00:00 09:00:00 ANDERSON ortizkathrine [facility] 2020-03-22 2020-03-22 Telephone Amanda Rao [facility] 1..840.114 [id number] Univers 00:00:00 00:00:00 Cam Janie 350.1.13.10 i [place] [phone] Dc dical nal [address] [place] [address] 2019-12-02 2019-12-05 Hospital RaoVianneyen [facility] .2.840.114 [id number] Univers 18:27:00 12:55:00 Encounter Manuelito [place] 350.1.13.10 [place] [phone] [address] 2019-12-01 2019-12-01 Patient Rao, Amanda [facility] 1.2.052.127 [id number] Univers 00:00:00 00:00:00 Secure Msg Manuelito Alkol 350.1.13.10 [place] [phone] Dc dical nal 134 [facility] 2019-08-08 2019-08-08 Beam Dyer Operator Ultrasound, Adc [facility] 1.2 .840.114 [id number] Univers 10:01:37 11:01:37 Visit aRdhatelmaKatie 350.1.13.10 [place] [phone] Dc dical nal 134 [facility] 2019-08-07 2019-08-07 Routine Vianney Raoen [facility] 1.2.084.971 [id number] [facility] 13:19:27 14:31:47 Manuelito Acostaton 350.1.13.10 ity of [place] [phone] Dc dical nal 134 [facility] 2019-07-11 2019-07-11 Case Vianney Raoen [facility] 1.2.677.152 [id number] Univers 00:00:00 00:00:00 Management Manuelito Alkol 350.1.13.10 [place] [phone] Dc dical nal 134 [facility] 2019-07-11 2019-07-11 Case Jhon NCLAVERN 1.2.552.095 [id number] Univers 00:00:00 00:00:00 Management Danielle Health 350.1.13.10 ity of Surgical 4.2.7.2.686 Jose Antonio as Specialti [phone] Dc dical es 370 [facility] 2019-07-10 2019-07-10 Beam Dyer Operator 1, Adc Lab [facility] 1.2.840.114 [id number] Univers 12:39:44 12:54:44 Visit Amanda Rao Manuelito [place] 350.1.13.10 [place] [phone] [address] 2019-07-10 2019-07-10 Routine Nateetienneroxane, [facility] 1.2.280.964 [id number] Univers 11:37:17 12:16:07 Danielle Janie 350.1.13.10 it[place] of [place] [phone] [facility] [address] [facility] 2019-07-10 2019-07-10 Orders Doctor [facility] 1.2.840.114 [id number] Univers 00:00:00 00:00:00 Only Unassigned, CAYETANO 350.1.13.10 ity of [place] [facility] 4.2.7.2.686 Jose Antonio as [phone] [address] 2019-06-30 2019-06-30 Patient Lora, [facility] 1.2.840.114 [id number] Univers 00:00:00 00:00:00 Secure Msg Rocio Mickey [place] 350.1.13.10 [place] [phone] [address] 2019-06-19 2019-06-19 Beam Dyer Operator Lab/Se[facility] 1.2 .840.114 [id number] Univers 15:19:17 15:34:49 Visit Ritika Croft JAIL OFFICER 350.1.13.10 ity of [facility] 4.2.7.2.686 Jose Antonio as MATERNAL [phone] [facility] ical & CHILD 125 [facility] 2019-06-19 2019-06-19 Beam Dyer Operator 1, [facility] 1.2. 840.114 [id number] Univers 14:34:16 15:04:16 Visit Sarah Ordonez JAIL OFFICER 350.1.13.10 ity of [facility] 4.2.7.2.686 Jose Antonio as MATERNAL [phone] [facility] ical & CHILD 369 [facility] 2019-06-12 2019-06-12 Beam Dyer Operator 1, Alejandro Lab [facility] 1.2.840.114 [id number] Univers 12:24:42 12:39:42 Visit Amanda Rao 350.1.13.10 [place] [phone] [facility] [address] 2019-06-12 2019-06-12 Routine Amanda Rao [facility] 1.2.006.006 [id number] Univers 11:32:16 12:10:45 Cam Alkol 350.1.13.10 ity of [place].2.[place] [facility] [phone] Dc dical nal [address] Results Test Description Test Time Test Comments Results Result Comments Source THYROID STIMULATING HORMONE 2020-08-03 17:57:00 Test Item Value Reference Range Interpretation Comme nts TSH (test code = 7947556930) See_Comment Biotin has been reported to cause a negative bias , interpret results relativ e to patient's use of biotin. [Aut omated message] The system [employer] generated this result transmit hipolito reference range: 0.45 - 4 .70 mIU/L. The reference range was not used to interpret this result as normal/abnormal . Lab Interpretation (test code = Normal 88821-6) [place] [facility] IMMUNE [id number] 22:47:05 Test Item Value Reference Range Interpretation Comments RHIG CANDIDATE? No- see comment Patient i s not a (test code = candidate for R [facility]- 5055) Patient is Rh Positive.Perfor med at [facility] Laboratory Services - [facility] Blood [address] [place] [address]Dzjw Free: [phone] A No. [id number] [facility]landsGROUP B STREPTOCOCCUS BY [id number] 15:52:00 Test Item Value Reference Range Interpretation Comments Group B Streptococcus by PCR (test Negative Negative code = 95020-1) Lab Interpretation (test code = Normal 32326-9) [facility] WITH [id number] 10:28:00 Test Item Value Reference Range Interpretation Comments WBC (test code = See_Comment H [Automated 8709-2) message] The system which generated this result transmit hipolito reference range : 4.30 - 11.10 10*3/?L. The reference range was not used to interpret this result as normal/abnormal . RBC (test code = See_Comment L [Automated 789-8) message] The system which generated this result transmit hipolito reference range : 3.93 - 5.25 10*6/?L. The reference range was not used to interpret this result as normal/abnormal . HGB (test code = 10.5 g/dL 11.6-15 L 718-7) HCT (test code = 33.3 % 35.7-45.2 L 4544-3) MCV (test code = 92.2 fL 80.6-95.5 787-2) MCH (test code = 29.1 pg 25.9-32.8 785-6) MCHC (test code = 31.5 g/dL 31.6-35.1 L 786-4) RDW-SD (test code = 43.2 fL 39-49.9 62807-1) RDW-CV (test code = 12.8 % 12-15.5 788-0) PLT (test code = See_Comment [Automated 777-3) message] The system which generated this result transmit hipolito reference range : 166 - 358 10*3/ ?L. The reference range was not u sed to interpret th is result as normal/abnormal . MPV (test code = 10.5 fL 9.5-12.9 82999-1) NRBC/100 WBC (test See_Comment [Automat ed code = 1629438832) message] The system which generated this result transmit hipolito reference range : 0.0 - 10.0 /100 WBCs. The reference range was not used to interpret this result as normal/abnormal . NRBC x10^3 (test code <0.01 See_Comment [Auto mated = 0104017196) message] The system which generated this result transmit hipolito reference range : 10*3/?L. The reference range was not used to interpret this result as normal/abnormal . GRAN MAT (NEUT) % 86.2 % (test code = 770-8) IMM GRAN % (test code 0.90 % = 1182283653) LYMPH % (test code = 9.3 % 736-9) MONO % (test code = 3.3 % 5905-5) EOS % (test code = 0.0 % 713-8) BASO % (test code = 0.3 % 706-2) GRAN MAT x10^3(ANC) 16.08 10*3/uL 1.88-7.09 H (test code = 9115836839) IMM GRAN x10^3 (test 0.17 10*3/uL 0-0.06 H code = 7082105101) LYMPH x10^3 (test code 1.73 10*3/uL 1.32-3.29 = 731-0) MONO x10^3 (test code 0.62 10*3/uL 0.33-0.92 = 742-7) EOS x10^3 (test code = <0.03 0.03-0.39 L 711-2) BASO x10^3 (test code 0.05 10*3/uL 0.01-0.07 = 704-7) Lab Interpretation Abnormal (test code = 84590-0) [facility] (D) IMMUNE [id number] 03:13:43 Test Item Value Reference Range Interpretation Comments RHIG CANDIDATE? No- see comment Patient i s not a (test code = candidate for R hIg- 5055) Patient is Rh Positive.Perfor med at [facility] Laboratory Services - [facility] Blood [address] [place], [place] [address]Toll Free: [phone] A No. [id number] [facility]landsVenous Cord [id number] 23:56:00 Test Item Value Reference Range Interpretation Comments VENOUS BASE EXCESS, mEq/L CORD (test code = 2490460609) VENOUS PH, CORD (test 7.25-7.45 code = 6616603075) VENOUS PC02, CORD See_Comment [Automate d message] The (test code = system which ge nerated 4834618926) this result tra nsmitted reference range : 27 - 49 mmHg. The refer ence range was not used to interpret this result as normal/abnormal . VENOUS PO2, CORD (test See_Comment [Aut omated message] The code = 5912834562) system ich generated this result tra nsmitted reference range : 17 - 41 mmHg. The refer ence range was not used to interpret this result as normal/abnormal . VENOUS BICARBONATE, See_Comment [Automa hipolito message] The CORD (test code = system whi ch generated 4770323450) this result tra nsmitted reference range : 12 - 29 mEq/L. The refe rence range was not used to interpret this result as normal/abnormal . [facility]landsArterial Cord [id number] 23:54:00 Test Item Value Reference Range Interpretation Comments BASE EXCESS, CORD mEq/L (test code = 9522819287) AC PH, CORD (BEAKER) 7.18-7.38 (test code = 1265890834) PC02, CORD (test code See_Comment [Auto mated message] The = 5608390181) system which g enerated this result transmit hipolito reference range : 32 - 66 mmHg. The refer ence range was not used to interpret this result as normal/abnormal . PO2, CORD (test code See_Comment [Autom ated message] The = 3037124197) system which g enerated this result transmit hipolito reference range : 10 - 30 mmHg. The refer ence range was not used to interpret this result as normal/abnormal . BICARBONATE, CORD See_Comment [Automate d message] The (test code = system which ge nerated this 2960234569) result transmit hipolito reference range : 17 - 27 mEq/L. The refe rence range was not used to interpret this result as normal/abnormal . [facility]landsGC & CHLAMYDIA AMPLIFIED [id number] 17:27:00 Test Item Value Reference Range Interpretation Comments C. trachomatis Nucleic Acid (test Negative Negative code = 66482-7) N. gonorrhoeae Nucleic Acid (test Negative Negative code = 96336-0) Lab Interpretation (test code = Normal 00103-4) [facility]landsHEPATITIS B SURFACE [id number] 06:43:00 Test Item Value Reference Range Interpretation Comments HBsAg Semi-Quantitative (test code = Negative Negative 5195-3) [facility]landsADC OR DEMARCUS ONLY - [id number] 05:35:00 Test Item Value Reference Range Interpretation Comments RPR (Qualitative) (test code = Nonreactive Nonreactive 67707-2) Lab Interpretation (test code = Normal 93639-2) [facility]landsHIV 1/2 AG-AB WITH [id number] 04:32:00 Test Item Value Reference Range Interpretation Comments HIV Negative Negative Semi-quantitative (test code = 42371-7) DELIA (test code = Non-reactive for HIV-1 DELIA) antigen and HIV-1/HIV-2 antibodies. ?No laboratory evidence of HIV infection. ?Repeat in 2-4 weeks if acute HIV infection is suspected. [facility] WoodlandsType and Screen - ONCE [id number] 04:08:33 Test Item Value Reference Range Interpretation Comments ABO & RH (test code O Positive Performe d at [facility] = 20) Laboratory Serv [facility] Blood [facility] [place], [place] [address]Toll Free: [phone] A No. [id number] IAT (test code = Negative Performed a t [facility] 1185) Laboratory Serv [facility] [address] [place], [place] [address]Toll Free: [phone] A No. [id number] [facility]landsAD CLC OR LCC ONLY - WET [id number] 03:20:00 Test Item Value Reference Range Interpretation Comments Wet Prep (test code = Few Red blood cells 3726058045) [facility]landsCBC WITH [id number] 03:12:00 Test Item Value Reference Range Interpretation Comments WBC (test code = See_Comment H [Automated 3519-2) message] The sy stem which generated this result transmitted reference range : 4.30 - 11.10 10*3/?L. The reference range was not used to interpret this result as normal/abnormal . RBC (test code = See_Comment [Automated 819-8) message] The sy stem which generated this result transmitted reference range : 3.93 - 5.25 10*6/?L. The reference range was not used to interpret this result as normal/abnormal . HGB (test code = 12.4 g/dL 11.6-15 718-7) HCT (test code = 38.6 % 35.7-45.2 4544-3) MCV (test code = 90.8 fL 80.6-95.5 787-2) MCH (test code = 29.2 pg 25.9-32.8 785-6) MCHC (test code = 32.1 g/dL 31.6-35.1 786-4) RDW-SD (test code = 42.2 fL 39-49.9 13328-5) RDW-CV (test code = 12.9 % 12-15.5 788-0) PLT (test code = See_Comment [Automated 777-3) message] The sy stem which generated this result transmitted reference range : 166 - 358 10*3/ ?L. The reference r nikki was not used to interpret this result as normal/abnormal . MPV (test code = 9.9 fL 9.5-12.9 17141-7) NRBC/100 WBC (test See_Comment [Automat ed code = 7776504846) message] The system which generated this result transmitted reference range : 0.0 - 10.0 /100 WBCs. The refer ence range was not u sed to interpret th is result as normal/abnormal . NRBC x10^3 (test code <0.01 See_Comment [Auto mated = 4639300759) message] The s ystem which generated this result transmitted reference range : 10*3/?L. The reference range was not used to interpret this result as normal/abnormal . GRAN MAT (NEUT) % 63.8 % (test code = 770-8) IMM GRAN % (test code 0.50 % = 7515387593) LYMPH % (test code = 28.1 % 736-9) MONO % (test code = 6.7 % 5905-5) EOS % (test code = 0.6 % 713-8) BASO % (test code = 0.3 % 706-2) GRAN MAT x10^3(ANC) 8.13 10*3/uL 1.88-7.09 H (test code = 9628478985) IMM GRAN x10^3 (test 0.07 10*3/uL 0-0.06 H code = 9673886791) LYMPH x10^3 (test code 3.59 10*3/uL 1.32-3.29 H = 731-0) MONO x10^3 (test code 0.86 10*3/uL 0.33-0.92 = 742-7) EOS x10^3 (test code = 0.08 10*3/uL 0.03-0.39 711-2) BASO x10^3 (test code 0.04 10*3/uL 0.01-0.07 = 704-7) Lab Interpretation Abnormal (test code = 36338-9) [facility]landsPOWV URINALYSIS W/O SPECIFIC [id number] 18:57:00 Test Item Value Reference Range Interpretation Comments POCT PH U (test code = 3254) n/a 5-8 POCT U LEUK EST (test code = 3263) n/a Negative - Negative POCT U NIT (test code = 3262) n/a Negative - Negative POCT U PROT (test code = 3259) neg Negative - Negative POCT U GLU (test code = 3256) neg Negative - Negative POCT U KETONE (test code = 3258) n/a Negative - Negative POCT U BLD (test code = 3257) n/a Negative - Negative Lab Interpretation (test code = Normal 01972-0) [facility] URINALYSIS W/O SPECIFIC [id number] 17:00:00 Test Item Value Reference Range Interpretation Comments POCT PH U (test code = 3254) N/A 5-8 POCT U LEUK EST (test code = N/A Negative - Negative 3263) POCT U NIT (test code = 3262) N/A Negative - Negative POCT U PROT (test code = 3259) Negative Negative - Negative POCT U GLU (test code = 3256) Negative Negative - Negative POCT U KETONE (test code = 3258) N/A Negative - Negative POCT U BLD (test code = 3257) N/A Negative - Negative [facility]
[2022-09-17 08:59] LABS: Urine Blood Negative (Negative); Urine Glucose Negative (Negative); Urine Protein 1+ (Negative); Urine pH 7.5 (5.0-7.0)
[2022-09-17 09:35] LABS: Absolute Lymphocytes (CBC) 1.4 K/uL (0.7-4.9); Hematocrit 38.6 % (36.0-45.0); Lymphocytes % 15.5 % (15.3-44.8); MCV 88.6 fL (80-100); RBC Red Blood Cell Count 4.35 M/uL (3.86-4.86)
[2022-09-17 09:51] LABS: Bilirubin Total 0.4 mg/dL (0.2-1.0); Potassium 3.8 mmol/L (3.5-5.1); Protein, Total 7.9 g/dL (6.4-8.2)
--- NOTE | 2022-09-17 10:22 | EDPHYS ---
Physician Documentation [facility] Name: Robert Winter Age: 27 yrs Sex: Female : 1995 Arrival Date: 09/17/2022 Time: 08:49 Bed 20 Private MD: ED Physician Bryan Lockwood HPI: 09/17 11:20 This 27 yrs old Female presents to ER via Ambulatory with complaints of kb Vomiting. 11:20 The patient presents to the emergency department with nausea, vomiting. Onset: The kb symptoms/episode began/occurred last night. Possible causes: unknown. The symptoms are aggravated by nothing. The symptoms are alleviated by nothing. Associated signs and symptoms: Pertinent positives: nausea, vomiting, Pertinent negatives: abdominal pain, diarrhea, fever. Severity of symptoms: At their worst the symptoms were moderate in the emergency department the symptoms are unchanged. The patient has not experienced similar symptoms in the past. The patient has not recently seen a physician. Pt states she vomited last night, then started drinking alcohol which caused her to vomit more. Reports several episodes of vomiting since 0200. Denies fever, diarrhea, abd pain. 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 - Social history:: Smoking status: Patient denies any tobacco usage or history of. ROS: 11:20 Constitutional: Negative for fever, chills, and weight loss. kb 11:20 Abdomen/GI: Positive for nausea and vomiting, Negative for abdominal pain, diarrhea. 11:20 All other systems are negative. Exam: 11:20 Constitutional: This is a well developed, well nourished patient who is awake, alert, kb and in no acute distress. Head/Face: Normocephalic, atraumatic. ENT: Moist Mucous membranes Cardiovascular: Regular rate and rhythm with a normal S1 and S2. No gallops, murmurs, or rubs. No pulse deficits. Respiratory: Respirations even and unlabored. No increased work of breathing. Talking in full sentences Skin: Warm, dry with normal turgor. Normal color. MS/ Extremity: Pulses equal, no cyanosis. Neurovascular intact. Full, normal range of motion. Neuro: Awake and alert, GCS 15, oriented to person, place, time, and situation. Moves all extremities. Normal gait. Psych: Awake, alert, with orientation to person, place and time. Behavior, mood, and affect are within normal limits. 11:20 Abdomen/GI: Inspection: abdomen appears normal, Bowel sounds: normal, Palpation: soft, in all quadrants, mild abdominal tenderness, in all quadrants. Vital Signs: 08:58 Resp 22; Weight 113.4 kg; Height 5 ft. 5 in. (165.10 cm); Pain 8/10; ss 09:12 BP 143 / 80; Pulse 90; Resp 24; Temp 98.2; Pulse Ox 100% on R/A; ll1 10:06 BP 108 / 76; Pulse 91; Resp 16; Pulse Ox 100% on R/A; eh3 08:58 Body Mass Index 41.60 (113.40 kg, 165.10 cm) ss MDM: 08:51 Patient medically screened. kb 10:21 Data reviewed: vital signs, nurses notes. Data interpreted: Pulse oximetry: on room air kb is 100 %. Interpretation: normal. Counseling: I had a detailed discussion with the patient and/or guardian regarding: the historical points, exam findings, and any diagnostic results supporting the discharge/admit diagnosis, lab results, the need for outpatient follow up, a family practitioner, to return to the emergency department if symptoms worsen or persist or if there are any questions or concerns that arise at home. 11:20 ED course: Pt is nontoxic in appearance. Tolerating po intake. kb 09/17 08:56 Order name: CBC with Diff; Complete Time: 09:45 kb 09/17 08:56 Order name: CMP; Complete Time: 09:52 kb 09/17 08:56 Order name: Lipase; Complete Time: 09:52 kb 09/17 08:56 Order name: Strep; Complete Time: 09:45 kb 09/17 08:59 Order name: Urine Dipstick-Ancillary; Complete Time: 09:45 EDMS 09/17 09:03 Order name: Urine --Ancillary (enter results); Complete Time: 10:14 ss 09/17 08:56 Order name: IV Saline Lock; Complete Time: 09:30 kb 09/17 08:56 Order name: Labs collected and sent; Complete Time: 09:30 kb 09/17 08:56 Order name: Urine Test (obtain specimen); Complete Time: 08:59 kb 09/17 09:32 Order name: Throat Culture [facility] 09/17 10:02 Order name: PO challenge; Complete Time: 10:12 kb Administered Medications: 09:30 Drug: NS 0.9% 1000 ml Route: IV; Rate: 1 bolus; Site: left antecubital; eh3 10:30 Follow up: Response: No adverse reaction; IV Status: Completed infusion; IV Intake: eh3 1000ml 09:30 Drug: Zofran (Ondansetron) 4 mg Route: IVP; Site: left antecubital; eh3 10:10 Follow up: Response: Nausea is decreased eh3 09:32 Drug: Pepcid (famotidine) 20 mg Route: IVP; Site: left antecubital; eh3 10:10 Follow up: Response: No adverse reaction eh3 09:36 Drug: GI Cocktail without - (Maalox Suspension 30 ml, Lidocaine Liquid 2 % 15 eh3 ml) Route: PO; 10:12 Follow up: Response: Pain is decreased eh3 Disposition: 11:34 Co-signature as Attending Physician, Bryan Lockwood MD I agree with the assessment and kdr plan of care. Disposition Summary: 09/17/22 10:21 Discharge Ordered Location: Home kb Condition: Stable kb Diagnosis - Nausea with vomiting, unspecified kb Followup: kb - With: Emergency Department - When: As needed - Reason: Worsening of condition Followup: kb - With: Private Physician - When: 2 - 3 days - Reason: Recheck today's complaints, Continuance of care, Re-evaluation by your physician Discharge Instructions: - Discharge Summary Sheet kb - Nausea and Vomiting, Adult, [id number] kb Forms: - Medication Reconciliation Form kb - Thank You Letter kb - Antibiotic Education kb - Prescription Opioid Use kb Prescriptions: - Zofran 4 mg Oral Tablet - take 1 tablet by ORAL route every 6 hours As needed; 20 tablet; Refills: 0, kb Product Selection Permitted - dicyclomine 20 mg Oral Tablet - take 1 tablet by ORAL route 4 times per day As needed; 20 tablet; Refills: 0, kb Product Selection Permitted Signatures: Dispatcher [employer] EDLisa Plaza, MULTIPLE LAUNCH ROCKET SYSTEM CREWMEMBER-C MULTIPLE LAUNCH ROCKET SYSTEM CREWMEMBER-Ckb Bryan Lockwood MD MD kdr Azra Traylor, GRIFFIN RN ss Radha Wasserman RN RN eh3
--- NOTE | 2022-09-17 10:22 | ER ---
Nurse's Notes [facility] Name: Robert Winter Age: 27 yrs Sex: Female : 1995 Arrival Date: 09/17/2022 Time: 08:49 Bed 20 Private MD: Diagnosis: Nausea with vomiting, unspecified Presentation: 09/17 08:58 Chief complaint: Patient states: N/V that began at 0200 this morning. Pt reports ss drinking "some" ETOH last night, but vomited prior to drinking. Coronavirus screen: Client denies travel out of the [place] in the last 14 days. Ebola Screen: Patient denies exposure to infectious person. Patient denies travel to an Ebola-affected area in the 21 days before illness onset. Initial Sepsis Screen: Does the patient meet any 2 criteria? No. Patient's initial sepsis screen is negative. Does the patient have a suspected source of infection? No. Patient's initial sepsis screen is negative. Risk Assessment: Do you want to hurt yourself or someone else? Patient reports no desire to harm self or others. Onset of symptoms was September 17, 2022 at 02:00. 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 - Social history:: Smoking status: Patient denies any tobacco usage or history of. Screenin:52 Abuse screen: Denies threats or abuse. Nutritional screening: No deficits noted. ll1 Tuberculosis screening: No symptoms or risk factors identified. Fall Risk IV access (20 points). Total James Fall Scale indicates No Risk (0-24 pts). Assessment: 09:12 General: Appears distressed, uncomfortable, Behavior is cooperative, crying, fussy, eh3 Reports feeling ill for 0-12 hours. Pain: Complains of pain in throat. Neuro: Level of Consciousness is awake, alert, obeys commands, Oriented to person, place, time, situation. Cardiovascular: Capillary refill < 3 seconds Patient's skin is warm and dry. Respiratory: Airway is patent Respiratory effort is even, labored, Respiratory pattern is regular, symmetrical. GI: Abdomen is round non-distended, Reports nausea, vomiting. : No signs and/or symptoms were reported regarding the genitourinary system. EENT: No signs and/or symptoms were reported regarding the EENT system. Derm: No signs and/or symptoms reported regarding the dermatologic system. Musculoskeletal: No signs and/or symptoms reported regarding the musculoskeletal system. 10:06 Reassessment: Patient and/or family updated on plan of care and expected duration. Pain eh3 level reassessed. Patient is alert, oriented x 3, equal unlabored respirations, skin warm/dry/pink. Vital Signs: 08:58 Resp 22; Weight 113.4 kg; Height 5 ft. 5 in. (165.10 cm); Pain 8/10; ss 09:12 BP 143 / 80; Pulse 90; Resp 24; Temp 98.2; Pulse Ox 100% on R/A; ll1 10:06 BP 108 / 76; Pulse 91; Resp 16; Pulse Ox 100% on R/A; eh3 08:58 Body Mass Index 41.60 (113.40 kg, 165.10 cm) ss ED Course: 08:49 Patient arrived in ED. as 08:51 Bryan Lockwood MD is Attending Physician. kdr 08:51 Lisa Vickers FNP-C is PHCP. kb 08:51 Arm band placed on Patient placed in an exam room, on a stretcher. ll1 08:57 Radha Wasserman, GRIFFIN is Primary Nurse. eh3 08:59 Triage completed. ss 09:08 Strep Sent. ll1 09:12 Patient has correct armband on for positive identification. Placed in gown. Bed in low eh3 position. Call light in reach. Side rails up X2. Client placed on continuous cardiac and pulse oximetry monitoring. NIBP monitoring applied. Door closed. Noise minimized. Warm blanket given. 09:12 Missed attempt(s): 20 gauge in right antecubital area. Bleeding controlled, band aid eh3 applied, catheter tip intact. 09:30 Inserted saline lock: 22 gauge in left antecubital area, using aseptic technique. Blood ll1 collected. 10:12 Diet: Patient given water. Tolerated well. eh3 10:39 No provider procedures requiring assistance completed. eh3 10:49 IV discontinued, intact, bleeding controlled, No redness/swelling at site. Pressure eh3 dressing applied. Administered Medications: 09:30 Drug: NS 0.9% 1000 ml Route: IV; Rate: 1 bolus; Site: left antecubital; eh3 10:30 Follow up: Response: No adverse reaction; IV Status: Completed infusion; IV Intake: eh3 1000ml 09:30 Drug: Zofran (Ondansetron) 4 mg Route: IVP; Site: left antecubital; eh3 10:10 Follow up: Response: Nausea is decreased eh3 09:32 Drug: Pepcid (famotidine) 20 mg Route: IVP; Site: left antecubital; eh3 10:10 Follow up: Response: No adverse reaction eh3 09:36 Drug: GI Cocktail without - (Maalox Suspension 30 ml, Lidocaine Liquid 2 % 15 eh3 ml) Route: PO; 10:12 Follow up: Response: Pain is decreased eh3 Medication: 10:40 VIS not applicable for this client. eh3 Intake: 10:30 IV: 1000ml; Total: 1000ml. eh3 Outcome: 10:21 Discharge ordered by . kb 10:49 Discharged to home ambulatory, with significant other. eh3 10:49 Condition: stable 10:49 Discharge instructions given to patient, Instructed on discharge instructions, follow up and referral plans. medication usage, Demonstrated understanding of instructions, follow-up care, medications, Prescriptions given X 2. 10:55 Patient left the ED. eh3 Signatures: Lisa Vickers, BLOCK TRIMMER-C BLOCK TRIMMER-Ckb Bryan Lockwood MD MD kdr Martinez, Amelia as Smirch, Shelby, RN RN ss Daya Loza RN RN ll1 Radha Wasserman RN RN eh3
[2022-09-17 11:15] VITALS: TEMP 98.2; O2SAT 100
[2022-09-17 11:17] VITALS: BP 108/76
== END 2022-09-17 10:55 | disposition home or self-care (01) ==
LOC: ER 08:48
DX: R11.2 Nausea with vomiting, unspecified (principal)
CPT/HCPCS: 36415; 80053; 81003; 81025; 83690; 85025; 87070; 87081; 96361; 96374; 96375; 99284

== ENCOUNTER 2023-05-29 18:34 | Emergency (ER) | payer BC, OTHER ==
--- OUTSIDE RECORDS SUMMARY | 2023-05-29 18:43 | XMS REPORT | Continuity of Care Document ---
:1995 Author Organization [facility] t Address [address] [facility] [address] [place] [address] Care Team Providers Name Role Phone Jalen ROBISON, Amanda Billings Primary Care Physician DANIELLE FERREIRA Attending Clinician Unavailable Stanley MOYA, Janice Hobson Attending Clinician Unavailable Giuseppe Arana DO Attending Clinician Danielle Ferreira PA-C Attending Clinician 2, [facility] Attending Clinician Unavailable Doctor Unassigned, [facility] Attending Clinician Unavailable ANDERSON BARNETT Attending Clinician Unavailable Amanda Rao MD Attending Clinician Ultrasound, [facility] Attending Clinician Unavailable Katie Bowling MD Attending Clinician 1, [facility] Attending Clinician Unavailable Rocio Paulino RN Attending Clinician Unavailable Lab/Pedi, [facility] Attending Clinician Unavailable Lang NAVARRO, Ritika Arevalo Attending Clinician 1, [facility] Attending Clinician Unavailable Sarah Ordonez MD Attending Clinician Amanda Rao MD Admitting Clinician Payers Payer Name Policy Type Policy Number Effective Date Expiration Date S ource [place] [id number] 2016 00:00:00 [facility] [id number] 2019 CHOICE MEDICAID 00:00:00 Problems Condition Condition [...] in 1-15 ity of third third 00:00: [place] trimester trimester 00 [facility] with term with term Bran ch delivery delivery Liveborn Liveborn Disease Active Unive rs , of , of 1-15 it y of bar[place] , , [place] born in born in [facility] by vaginal by vaginal delivery delivery High-risk High-risk Disease Active 2018-11 Uni vers 2-18 ity of in third in third 00:00: [place] trimester trimester 00 [facility] 37 weeks 37 weeks Disease Active 2018-11 Unive rs gestation gestation 2-18 ity of of of 00:00: [place] 00 [facility] Candidiasi Candidiasi Disease Active U nivers s of vulva s of vulva 2-21 it y of [place] vagina [place] 00 [facility] Acanthosis Acanthosis Disease Active 2016-11 U nivers nigricans nigricans 1-15 ity of 00:00: [place] [facility] Obesity, Obesity, Disease Active 2016-11 Unive rs unspecifie unspecifie 1-15 it y of d d 00:00: [place] classifica classifica 00 Me dical tion, tion, Branch unspecifie unspecifie d obesity d obesity type, type, unspecifie unspecifie d whether d whether serious serious comorbidit comorbidit y present y present Tobacco Tobacco Disease Active 2016-11 Univers use use 1-15 ity of disorder disorder 00:00: [place] 00 [facility] Allergies, Adverse Reactions, Alerts Allergy Allergy Status Severity Reaction(s) Onset Inactive Treating Comm ents Source Name Type Date Date Clinician NO KNOWN Drug Active Univers ALLERGIE Class ity of [facility] [place] [facility] Social History Social Habit Start Date Stop Date Quantity Comments Source History of tobacco 2020-07-20 Smoker Univer sity of use 00:00:00 [facility] ASSERTION 2019-04-02 University of 00:00:00 [facility] History SDOH University o f Alcohol Std Drinks [facility] History SDOH University o f Alcohol [facility]inge [facility] Exposure to Not sure University SARS-CoV-2 (event) [facility] Alcohol intake 2020-12-27 2020-12-27 Ex-drinker University of 00:00:00 00:00:00 (finding) [facility] Cigarettes smoked 2020-08-03 2020-08-03 Univers ity of current (pack per 00:00:00 00:00:00 [facility]) - Reported Branch Tobacco use and 2020-08-03 2020-08-03 Never used Universit y of exposure 00:00:00 00:00:00 [facility] History SDOH 2019-04-24 2019-04-24 99 University o f Alcohol Frequency 00:00:00 00:00:00 [facility] Alcohol Comment 2017-10-03 2017-10-03 occasional Universit y of 00:00:00 00:00:00 [facility] Sex Assigned At [birth year] Universit y of 00:00:00 00:00:00 [facility] Smoking Status Start Date Stop Date Source Current every day smoker 2020-08-03 00:00:00 Uni versity of [facility] Never smoker [facility] Medications Ordered Filled Start Stop Current Ordering Indication Dosage Frequency Signature Comments Components Source Medication Medication Date Date Medication? Clinician (SIG) Name Name metroNIDAZO Yes [id number] 500mg Take 1 Univers LE 500 mg 2-10 tablet by ity o f tablet 00:00: mouth [place] 00 every 12 Medical (twelve) Branch hours. metroNIDAZO Yes [id number] 500mg Take 1 Univers LE 500 mg 2-10 tablet by ity o f tablet 00:00: mouth [place] 00 every 12 Medical (twelve) Branch hours. metroNIDAZO Yes [id number] 500mg Take 1 Univers LE 500 mg 2-10 tablet by ity o f tablet 00:00: mouth [place] 00 every 12 Medical (twelve) Branch hours. metroNIDAZO Yes [id number] 500mg Take 1 Univers LE 500 mg 2-10 tablet by ity o f tablet 00:00: mouth [place] 00 every 12 Medical (twelve) Branch hours. azithromyci 2020- No [id number] 1000mg Take 2 Univers n 500 mg 2-10 02-12 tablets by ity of tablet 00:00: 05:59 mouth [place] 00 :00 daily for Medical 1 day. Branch azithromyci 2020- No [id number] 1000mg Take 2 Univers n 500 mg 2-10 02-12 tablets by ity of tablet 00:00: 05:59 mouth [place] 00 :00 daily for Medical 1 day. Branch metroNIDAZO 2020-0 Yes [id number] 500mg Take 1 Univers LE 500 mg 5-14 tablet by ity o f tablet 00:00: mouth [place] 00 every 12 Medical (twelve) Branch hours. metroNIDAZO 2020-0 Yes [id number] 500mg Take 1 Univers LE 500 mg 5-14 tablet by ity o f tablet 00:00: mouth [place] 00 every 12 Medical (twelve) Branch hours. metroNIDAZO 2020-0 Yes [id number] 500mg Take 1 Univers LE 500 mg 5-14 tablet by ity o f tablet 00:00: mouth [place] 00 every 12 Medical (twelve) Branch hours. metroNIDAZO 2020-0 Yes [id number] 500mg Take 1 Univers LE 500 mg 5-14 tablet by ity o f tablet 00:00: mouth [place] 00 every 12 Medical (twelve) Branch hours. metroNIDAZO 2020-0 Yes [id number] 500mg Take 1 Univers LE 500 mg 5-14 tablet by ity o f tablet 00:00: mouth [place] 00 every 12 Medical (twelve) Branch hours. metroNIDAZO 2020-0 Yes [id number] 500mg Take 1 Univers LE 500 mg 5-14 tablet by ity o f tablet 00:00: mouth [place] 00 every 12 Medical (twelve) Branch hours. metroNIDAZO 2020-0 Yes [id number] 500mg Take 1 Univers LE 500 mg 5-14 tablet by ity o f tablet 00:00: mouth [place] 00 every 12 Medical (twelve) Branch hours. metroNIDAZO 2020-0 Yes [id number] 500mg Take 1 Univers LE 500 mg 5-14 tablet by ity o f tablet 00:00: mouth [place] 00 every 12 Medical (twelve) Branch hours. metroNIDAZO 2020-0 Yes [id number] 500mg Take 1 Univers LE 500 mg 5-14 tablet by ity o f tablet 00:00: mouth [place] 00 every 12 Medical (twelve) Branch hours. metroNIDAZO 2020-0 Yes [id number] 500mg Take 1 Univers LE 500 mg 5-14 tablet by ity o f tablet 00:00: mouth [place] 00 every 12 Medical (twelve) Branch hours. metroNIDAZO 2020-0 Yes [id number] 500mg Take 1 Univers LE 500 mg [...] 16 Oral, ity of (TYLENOL) 22:30: Q6HPRN, [place] tablet 650 14 Starting Medic al mg [place] Branch 12/04/19 at 1630, Until Discontinu ed, Routine, Pain (scale 1-3) diphenhydrA 2020-0 Yes 25mg 25 mg, Univ ers MINE 12-04 Oral, ity of (BENADRYL) 22:30: Q6HPRN, [place] 25 14 Starting Medica l mg [place] Branch 12/04/19 at 1630, Until Discontinu ed, Routine, Sleep, Itching docusate 2020-0 Yes 240mg 240 mg, [facility] rs calcium 12-04 Oral, ity of (SURFAK) 22:30: QDAILYPRN, [place] as capsule 240 14 Starting Medi elias mg [place] Branch 12/04/19 at 1630, Until Discontinu ed, Routine, Constipati on magnesium 2019-0 Yes 30mL 30 mL, [facility] s hydroxide 12-04 Oral, ity of (MILK [...] Perineum discomfort 2019-0 2020- No Take by [facility] vit37/iron/ 12-04 mouth. ity o f folic acid 16:20: 00:00 [place] (PRENATA 27 :00 Medical ORAL) Branch ibuprofen [...] 1630, Routine, Pain (scale 1-3) 2019-0 Yes [id number] 1{tbl} Take 1 Univers vitamin 1-16 102 tablet by ity of w/FA tablet 00:00: mouth [place] 00 daily. Medical Branch 2019-0 Yes [id number] 1{tbl} Take 1 Univers vitamin 1-16 102 tablet by ity of w/FA tablet 00:00: mouth [place] 00 daily. Medical Branch docusate Yes [id number] 240mg Take 1 Univers calcium 240 1-16 102 capsule by it y of mg capsule 00:00: mouth [place] 00 daily as Medical needed for Branch Constipati on. ferrous 2019-0 Yes [id number] 325mg Take 1 Univers sulfate 325 1-16 102 tablet by ity of mg (65 mg 00:00: mouth 2 [place] iron) 00 (two) Medical tablet times Branch daily. ibuprofen 2019-0 Yes [id number] 600mg Take 1 Univers 600 mg 1-16 102 tablet by ity of tablet 00:00: mouth [place] 00 every 6 Medical (six) Branch hours as needed (Pain). Take with food or milk. docusate 0 Yes [id number] 240mg Take 1 Univers calcium 240 1-16 102 capsule by it y of mg capsule 00:00: mouth once [place] 00 daily as Medical needed for Branch Constipati on. ferrous 2020-0 Yes [id number] 325mg Take 1 Univers sulfate 325 1-16 102 tablet by ity of mg (65 mg 00:00: mouth 2 [place] iron) 00 (two) Medical tablet times Branch daily. ibuprofen 2020-0 Yes [id number] 600mg Take 1 Univers 600 mg 1-16 102 tablet by ity of tablet 00:00: mouth [place] 00 every 6 Medical (six) Branch hours as needed (Pain). Take with food or milk. 2020-0 Yes [id number] 1{tbl} Take 1 Univers vitamin 1-16 102 tablet by ity of w/FA tablet 00:00: mouth [place] 00 daily. Medical Branch docusate 2020-0 Yes [id number] 240mg Take 1 Univers calcium 240 1-16 102 capsule by it y of mg capsule 00:00: mouth once [place] 00 daily as Medical needed for Branch Constipati on. ferrous 2020-0 Yes [id number] 325mg Take 1 Univers sulfate 325 1-16 102 tablet by ity of mg (65 mg 00:00: mouth 2 [place] iron) 00 (two) Medical tablet times Branch daily. ibuprofen 2020-0 Yes [id number] 600mg Take 1 Univers 600 mg 1-16 102 tablet by ity of tablet 00:00: mouth [place] 00 every 6 Medical (six) Branch hours as needed (Pain). Take with food or milk. 2020-0 Yes [id number] 1{tbl} Take 1 Univers vitamin 1-16 102 tablet by ity of w/FA tablet 00:00: mouth [place] 00 daily. Medical Branch docusate 2020-0 Yes [id number] 240mg Take 1 Univers calcium 240 1-16 102 capsule by it y of mg capsule 00:00: mouth once [place] 00 daily as Medical needed for Branch Constipati on. ferrous 2020-0 Yes [id number] 325mg Take 1 Univers sulfate 325 1-16 102 tablet by ity of mg (65 mg 00:00: mouth 2 [place] iron) 00 (two) Medical tablet times Branch daily. ibuprofen 2020-0 Yes [id number] 600mg Take 1 Univers 600 mg 1-16 102 tablet by ity of tablet 00:00: mouth [place] 00 every 6 Medical (six) Branch hours as needed (Pain). Take with food or milk. 2020-0 Yes [id number] 1{tbl} Take 1 Univers vitamin 1-16 102 tablet by ity of w/FA tablet 00:00: mouth [place] 00 daily. Medical Branch docusate 2020-0 Yes [id number] 240mg Take 1 Univers calcium 240 1-16 102 capsule by it y of mg capsule 00:00: mouth once [place] 00 daily as Medical needed for Branch Constipati on. ferrous 2020-0 Yes [id number] 325mg Take 1 Univers sulfate 325 1-16 102 tablet by ity of mg (65 mg 00:00: mouth 2 [place] iron) 00 (two) Medical tablet times Branch daily. ibuprofen 2020-0 Yes [id number] 600mg Take 1 Univers 600 mg 1-16 102 tablet by ity of tablet 00:00: mouth [place] 00 every 6 Medical (six) Branch hours as needed (Pain). Take with food or milk. 2020-0 Yes [id number] 1{tbl} Take 1 Univers vitamin 1-16 102 tablet by ity of w/FA tablet 00:00: mouth [place] 00 daily. Medical Branch docusate 2020-0 Yes [id number] 240mg Take 1 Univers calcium 240 1-16 102 capsule by it y of mg capsule 00:00: mouth once [place] 00 daily as Medical needed for Branch Constipati on. ferrous 2020-0 Yes [id number] 325mg Take 1 Univers sulfate 325 1-16 102 tablet by ity of mg (65 mg 00:00: mouth 2 [place] iron) 00 (two) Medical tablet times Branch daily. ibuprofen 2020-0 Yes [id number] 600mg Take 1 Univers 600 mg 1-16 102 tablet by ity of tablet 00:00: mouth [place] 00 every 6 Medical (six) Branch hours as needed (Pain). Take with food or milk. 2020-0 Yes [id number] 1{tbl} Take 1 Univers vitamin 1-16 102 tablet by ity of w/FA tablet 00:00: mouth [place] 00 daily. Medical Branch docusate 2020-0 Yes [id number] 240mg Take 1 Univers calcium 240 1-16 102 capsule by it y of mg capsule 00:00: mouth once [place] 00 daily as Medical needed for Branch Constipati on. ferrous 2020-0 Yes [id number] 325mg Take 1 Univers sulfate 325 1-16 102 tablet by ity of mg (65 mg 00:00: mouth 2 [place] iron) 00 (two) Medical tablet times Branch daily. ibuprofen 2020-0 Yes [id number] 600mg Take 1 Univers 600 mg 1-16 102 tablet by ity of tablet 00:00: mouth [place] 00 every 6 Medical (six) Branch hours as needed (Pain). Take with food or milk. 2020-0 Yes [id number] 1{tbl} Take 1 Univers vitamin 1-16 102 tablet by ity of w/FA tablet 00:00: mouth [place] 00 daily. Medical Branch docusate 2020-0 Yes [id number] 240mg Take 1 Univers calcium 240 1-16 102 capsule by it y of mg capsule 00:00: mouth once [place] 00 daily as Medical needed for Branch Constipati on. ferrous 2020-0 Yes [id number] 325mg Take 1 Univers sulfate 325 1-16 102 tablet by ity of mg (65 mg 00:00: mouth 2 [place] iron) 00 (two) Medical tablet times Branch daily. ibuprofen 2020-0 Yes [id number] 600mg Take 1 Univers 600 mg 1-16 102 tablet by ity of tablet 00:00: mouth [place] 00 every 6 Medical (six) Branch hours as needed (Pain). Take with food or milk. 2020-0 Yes [id number] 1{tbl} Take 1 Univers vitamin 1-16 102 tablet by ity of w/FA tablet 00:00: mouth [place] 00 daily. Medical Branch docusate 2020-0 Yes [id number] 240mg Take 1 Univers calcium 240 1-16 102 capsule by it y of mg capsule 00:00: mouth once [place] 00 daily as Medical needed for Branch Constipati on. ferrous 2020-0 Yes [id number] 325mg Take 1 Univers sulfate 325 1-16 102 tablet by ity of mg (65 mg 00:00: mouth 2 [place] iron) 00 (two) Medical tablet times Branch daily. ibuprofen 2020-0 Yes [id number] 600mg Take 1 Univers 600 mg 1-16 102 tablet by ity of tablet 00:00: mouth [place] 00 every 6 Medical (six) Branch hours as needed (Pain). Take with food or milk. 2020-0 Yes [id number] 1{tbl} Take 1 Univers vitamin 1-16 102 tablet by ity of w/FA tablet 00:00: mouth [place] 00 daily. Medical Branch docusate 2020-0 Yes [id number] 240mg Take 1 Univers calcium 240 1-16 102 capsule by it y of mg capsule 00:00: mouth once [place] 00 daily as Medical needed for Branch Constipati on. ferrous 2020-0 Yes [id number] 325mg Take 1 Univers sulfate 325 1-16 102 tablet by ity of mg (65 mg 00:00: mouth 2 [place] iron) 00 (two) Medical tablet times Branch daily. ibuprofen 2020-0 Yes [id number] 600mg Take 1 Univers 600 mg 1-16 102 tablet by ity of tablet 00:00: mouth [place] 00 every 6 Medical (six) Branch hours as needed (Pain). Take with food or milk. 2020-0 Yes [id number] 1{tbl} Take 1 Univers vitamin 1-16 102 tablet by ity of w/FA tablet 00:00: mouth [place] 00 daily. Medical Branch docusate 2020-0 Yes [id number] 240mg Take 1 Univers calcium 240 1-16 102 capsule by it y of mg capsule 00:00: mouth once [place] 00 daily as Medical needed for Branch Constipati on. ferrous 2020-0 Yes [id number] 325mg Take 1 Univers sulfate 325 1-16 102 tablet by ity of mg (65 mg 00:00: mouth 2 [place] iron) 00 (two) Medical tablet times Branch daily. ibuprofen 2020-0 Yes [id number] 600mg Take 1 Univers 600 mg 1-16 102 tablet by ity of tablet 00:00: mouth [place] 00 every 6 Medical (six) Branch hours as needed (Pain). Take with food or milk. 2020-0 Yes [id number] 1{tbl} Take 1 Univers vitamin 1-16 102 tablet by ity of w/FA tablet 00:00: mouth [place] 00 daily. Medical Branch docusate 2020-0 Yes [id number] 240mg Take 1 Univers calcium 240 1-16 102 capsule by it y of mg capsule 00:00: mouth once [place] 00 daily as Medical needed for Branch Constipati on. ferrous 2020-0 Yes [id number] 325mg Take 1 Univers sulfate 325 1-16 102 tablet by ity of mg (65 mg 00:00: mouth 2 [place] iron) 00 (two) Medical tablet times Branch daily. ibuprofen 2020-0 Yes [id number] 600mg Take 1 Univers 600 mg 1-16 102 tablet by ity of tablet 00:00: mouth [place] 00 every 6 Medical (six) Branch hours as needed (Pain). Take with food or milk. 2020-0 Yes [id number] 1{tbl} Take 1 Univers vitamin 1-16 102 tablet by ity of w/FA tablet 00:00: mouth [place] 00 daily. Medical Branch docusate 2020-0 Yes [id number] 240mg Take 1 Univers calcium 240 1-16 102 capsule by it y of mg capsule 00:00: mouth once [place] 00 daily as Medical needed for Branch Constipati on. ferrous 2020-0 Yes [id number] 325mg Take 1 Univers sulfate 325 1-16 102 tablet by ity of mg (65 mg 00:00: mouth 2 [place] iron) 00 (two) Medical tablet times Branch daily. ibuprofen 2020-0 Yes [id number] 600mg Take 1 Univers 600 mg 1-16 102 tablet by ity of tablet 00:00: mouth [place] 00 every 6 Medical (six) Branch hours as needed (Pain). Take with food or milk. 2020-0 Yes [id number] 1{tbl} Take 1 Univers vitamin 1-16 102 tablet by ity of w/FA tablet 00:00: mouth [place] 00 daily. Medical Branch docusate 2020-0 Yes [id number] 240mg Take 1 Univers calcium 240 1-16 102 capsule by it y of mg capsule 00:00: mouth once [place] 00 daily as Medical needed for Branch Constipati on. ferrous 2020-0 Yes [id number] 325mg Take 1 Univers sulfate 325 1-16 102 tablet by ity of mg (65 mg 00:00: mouth 2 [place] iron) 00 (two) Medical tablet times Branch daily. ibuprofen 2020-0 Yes [id number] 600mg Take 1 Univers 600 mg 1-16 102 tablet by ity of tablet 00:00: mouth [place] 00 every 6 Medical (six) Branch hours as needed (Pain). Take with food or milk. 2020-0 Yes [id number] 1{tbl} Take 1 Univers vitamin 1-16 102 tablet by ity of w/FA tablet 00:00: mouth [place] 00 daily. Medical Branch docusate 2020-0 Yes [id number] 240mg Take 1 Univers calcium 240 1-16 102 capsule by it y of mg capsule 00:00: mouth once [place] 00 daily as Medical needed for Branch Constipati on. ferrous 2020-0 Yes [id number] 325mg Take 1 Univers sulfate 325 - 102 tablet by ity of mg (65 mg 00:00: mouth 2 [place] iron) 00 (two) Medical tablet times Branch daily. ibuprofen 2020-0 Yes [id number] 600mg Take 1 Univers 600 mg -16 [...] o f dextrose 3 06:00: 14:59 Piggyback, [facility] 00 :42 Q4H ABX, Medical unit/50 mL [...] Tue Medica l NaCl 0.9% 12/02/19 at [facility] (NS) 50 mL 2244, 50 piggyback mL nalbuphine 2019-0 2020- No 10mg 10 mg, Univ ers (NUBAIN) 12-03 Intravenou ity of injection 04:45: 03:42 s, ONCE, 1 [place] 10 mg 00 :00 dose, [facility] 12/02/19 at Branch 2245, Routine D5W-LR IV 2020-0 2020- No 1000mL at 125 Uni vers infusion 12-03 01-16 mL/hr, IV ity o f 1,000 mL 03:15: 02:06 Infusion, Josea Ntonio as 00 :30 CONTINUOUS Medical , Starting Branch [facility] 12/02/19 at 2115, Until Sun12/03/19 at 2006, Routine penicillin 2020-0 2020- No 510 5 Million U nivers g potassium 12-03 Units, IV it y of 5 Million 03:15: 04:15 [place]gyback, [place] Units in 00 :00 ONCE, 1 Medical NaCl 0.9% dose, [facility] h (NS) 100 mL 12/02/19 [...] ty of phos 03:00: 02:06 lar, Q24H, [place] (CELESTONE 00 :30 2 doses, Medic al [...] at 2100, Routine metroNIDAZO 2018-11 2020- No [id number] 500mg Take 1 Univers LE 500 mg 2-12-04 tablet by ity of tablet 00:00: 00:00 mouth [place] 00 :00 every 12 Medical (twelve) Branch hours. Yes Take by [facility] vit37/iron/ 9-19 mouth. ity of folic acid 18:55: [place] (PRENATA 41 Medical ORAL) Branch [address] [facility] vit37/iron/ 9-19 mouth. ity of folic acid 18:55: [place] [facility] Branch metroNIDAZO Yes [id number] 500mg Take 1 Univers LE 500 mg 8-23 tablet by ity o f tablet 00:00: mouth [place] 00 every 12 Medical (twelve) Branch hours. metroNIDAZO 2019- No [id number] 500mg Take 1 Univers LE 500 mg 8-23 -19 tablet by ity of tablet 00:00: 00:00 mouth [place] 00 :00 every 12 Medical (twelve) Branch hours. SERTraline 2019-0 Yes [id number] 50mg Take 1 Univers (ZOLOFT) 50 7-25 tablet by ity of mg tablet 00:00: mouth [place] 00 daily. Medical Branch SERTraline 2018-0 Yes [id number] 50mg Take 1 Univers (ZOLOFT) 50 7-25 tablet by ity of mg tablet 00:00: mouth [place] 00 daily. Medical Branch SERTraline 2018-0 Yes [id number] 50mg Take 1 Univers (ZOLOFT) 50 7-25 tablet by ity of mg tablet 00:00: mouth [place] 00 daily. Medical Branch SERTraline 2018-0 Yes [id number] 50mg Take 1 Univers (ZOLOFT) 50 7-25 tablet by ity of mg tablet 00:00: mouth [place] 00 daily. Medical Branch SERTraline 0 Yes [id number] 50mg Take 1 Univers (ZOLOFT) 50 7-25 tablet by ity of mg tablet 00:00: mouth [place] 00 daily. Medical Branch SERTraline 2018-0 Yes [id number] 50mg Take 1 Univers (ZOLOFT) 50 7-25 tablet by ity of mg tablet 00:00: mouth [place] 00 daily. Medical Branch SERTraline 0 Yes [id number] 50mg Take 1 Univers (ZOLOFT) 50 7-25 tablet by ity of mg tablet 00:00: mouth [place] 00 daily. Medical Branch SERTraline 0 Yes [id number] 50mg Take 1 Univers (ZOLOFT) 50 7-25 tablet by ity of mg tablet 00:00: mouth [place] 00 daily. Medical Branch SERTraline 2018-0 Yes [id number] 50mg Take 1 Univers (ZOLOFT) 50 7-25 tablet by ity of mg tablet 00:00: mouth [place] 00 daily. Medical Branch SERTraline 0 Yes [id number] 50mg Take 1 Univers (ZOLOFT) 50 7-25 tablet by ity of mg tablet 00:00: mouth [place] 00 [facility]. [facility] SERTraline 2018-0 Yes [id number] 50mg Take 1 Univers (ZOLOFT) 50 7-25 tablet by ity of mg tablet 00:00: mouth [place] 00 daily. [facility] SERTraline 2018-0 Yes [id number] 50mg Take 1 Univers (ZOLOFT) 50 7-25 tablet by ity of mg tablet 00:00: mouth [place] 00 daily. Medical Branch SERTraline Yes [id number] 50mg Take 1 Univers (ZOLOFT) 50 7-25 tablet by ity of mg tablet 00:00: mouth [place] 00 daily. Medical Branch SERTraline Yes [id number] 50mg Take 1 Univers (ZOLOFT) 50 7-25 tablet by ity of mg tablet 00:00: mouth [place] 00 daily. Medical Branch SERTraline Yes [id number] 50mg Take 1 Univers (ZOLOFT) 50 7-25 tablet by ity of mg tablet 00:00: mouth [place] 00 daily. Medical Branch SERTraline Yes [id number] 50mg Take 1 Univers (ZOLOFT) 50 7-25 tablet by ity of mg tablet 00:00: mouth [place] 00 daily. [facility] SERTraline Yes [id number] 50mg Take 1 Univers (ZOLOFT) 50 7-25 tablet by ity of mg tablet 00:00: mouth [place] 00 daily. Medical Branch SERTraline Yes [id number] 50mg Take 1 Univers (ZOLOFT) 50 7-25 tablet by ity of mg tablet 00:00: mouth [place] 00 daily. Medical Branch SERTraline Yes [id number] 50mg Take 1 Univers (ZOLOFT) 50 7-25 tablet by ity of mg tablet 00:00: mouth [place] 00 daily. [facility] SERTraline Yes [id number] 50mg Take 1 Univers (ZOLOFT) 50 7-25 tablet by ity of mg tablet 00:00: mouth [place] 00 daily. [facility] SERTraline Yes [id number] 50mg Take 1 Univers (ZOLOFT) 50 7-25 tablet by ity of mg tablet 00:00: mouth [place] 00 daily. Medical Branch SERTraline Yes [id number] 50mg Take 1 Univers (ZOLOFT) 50 7-25 tablet by ity of mg tablet 00:00: mouth [place] 00 daily. [facility] SERTraline Yes [id number] 50mg Take 1 Univers (ZOLOFT) 50 7-25 tablet by ity of mg tablet 00:00: mouth [place] 00 daily. [facility] SERTraline Yes [id number] 50mg Take 1 Univers (ZOLOFT) 50 7-25 tablet by ity of mg tablet 00:00: mouth [place] 00 daily. Medical Branch SERTraline Yes [id number] 50mg Take 1 Univers (ZOLOFT) 50 7-25 tablet by ity of mg tablet 00:00: mouth [place] 00 daily. Medical Branch SERTraline Yes [id number] 50mg Take 1 Univers (ZOLOFT) 50 7-25 tablet by ity of mg tablet 00:00: mouth [place] 00 daily. Medical Branch SERTraline Yes [id number] 50mg Take 1 Univers (ZOLOFT) 50 7-25 tablet by ity of mg tablet 00:00: mouth [place] 00 daily. [facility] SERTraline Yes [id number] 50mg Take 1 Univers (ZOLOFT) 50 7-25 tablet by ity of mg tablet 00:00: mouth [place] 00 daily. [facility] SERTraline Yes [id number] 50mg Take 1 Univers (ZOLOFT) 50 7-25 tablet by ity of mg tablet 00:00: mouth [place] 00 daily. Medical Branch Yes Take by Univer s vit37/iron/ 6-27 mouth. ity of folic acid 16:14: [place] [facility] [place] Yes Take by Univer s vit37/iron/ 6-27 mouth. ity of folic acid 16:14: [place] [facility] [place] Yes Take by Univer s vit37/iron/ 6-27 mouth. ity of folic acid 16:14: [place] ([facility] 27 Medical ORAL) [place] 2019 Yes Take by Univer s vit37/iron/ 6-27 mouth. ity of folic acid 16:14: [place] [facility] [place] 2019-0 Yes Take by Univer s vit37/iron/ 6-27 mouth. ity of folic acid 16:14: [place] [facility]) [place] 2019-0 Yes Take by Univer s vit37/iron/ 6-27 mouth. ity of folic acid 16:14: [place] [facility]) [place] 2019-0 Yes Take by Univer s vit37/iron/ 6-27 mouth. ity of folic acid 16:14: [place] ([facility] 27 Medical ORAL) Branch Yes Take by [facility] s vit37/iron/ 6-27 mouth. ity of folic acid 16:14: [place] ([facility] 27 Medical ORAL) [place] Yes Take by [facility] s vit37/iron/ 6-27 mouth. ity of folic acid 16:14: [place] ([facility] 27 Medical ORAL) [place] Yes Take by [facility] s vit37/iron/ 6-27 mouth. ity of folic acid 16:14: [place] ([facility]) [place] Yes Take by [facility] s vit37/iron/ 6-27 mouth. ity of folic acid 16:14: [place] ([facility] 27 Medical ORAL) [place] Yes Take by [facility] s vit37/iron/ 6-27 mouth. ity of folic acid 16:14: [place] ([facility] 27 Medical ORAL) [place] doxylamine- Yes [id number] 1{tbl} Take 1 Univers pyridoxine, 6-10 tablet by ity of vit B6, 00:00: mouth [facility]) 00 SEE-INSTRU Med ical 10-10 mg CTIONS. Branch per tablet doxylamine- Yes [id number] 1{tbl} Take 1 Univers pyridoxine, 6-10 tablet by ity of vit B6, 00:00: mouth [facility] 00 SEE-INSTRU Med ical 10-10 mg CTIONS. Branch per tablet doxylamine- Yes [id number] 1{tbl} Take 1 Univers pyridoxine, 6-10 tablet by ity of vit B6, 00:00: mouth [facility]) 00 SEE-INSTRU Med ical 10-10 mg CTIONS. Branch per tablet doxylamine- Yes [id number] 1{tbl} Take 1 Univers pyridoxine, 6-10 tablet by ity of vit B6, 00:00: mouth [place] ([facility]) 00 SEE-INSTRU Med ical 10-10 mg CTIONS. Branch per tablet doxylamine- Yes [id number] 1{tbl} Take 1 Univers pyridoxine, 6-10 tablet by ity of vit B6, 00:00: mouth [place] ([facility]) 00 SEE-INSTRU Med ical 10-10 mg CTIONS. Branch per tablet doxylamine- Yes [id number] 1{tbl} Take 1 Univers pyridoxine, 6-10 tablet by ity of vit B6, 00:00: mouth [place] ([facility]) 00 SEE-INSTRU Med ical 10-10 mg CTIONS. Branch per tablet doxylamine- Yes [id number] 1{tbl} Take 1 Univers pyridoxine, 6-10 tablet by ity of vit B6, 00:00: mouth [place] ([facility]) 00 SEE-INSTRU Med ical 10-10 mg CTIONS. Branch per tablet doxylamine- Yes [id number] 1{tbl} Take 1 Univers pyridoxine, 6-10 tablet by ity of vit B6, 00:00: mouth [place] ([facility]) 00 SEE-INSTRU Med ical 10-10 mg CTIONS. Branch per tablet doxylamine- Yes [id number] 1{tbl} Take 1 Univers pyridoxine, 6-10 tablet by ity of vit B6, 00:00: mouth [place] ([facility]) 00 SEE-INSTRU Med ical 10-10 mg CTIONS. Branch per tablet doxylamine- Yes [id number] 1{tbl} Take 1 Univers pyridoxine, 6-10 tablet by ity of vit B6, 00:00: mouth [place] ([facility]) 00 SEE-INSTRU Med ical 10-10 mg CTIONS. Branch per tablet doxylamine- Yes [id number] 1{tbl} Take 1 Univers pyridoxine, 6-10 tablet by ity of vit B6, 00:00: mouth [place] ([facility]) 00 SEE-INSTRU Med ical 10-10 mg CTIONS. Branch per tablet doxylamine- Yes [id number] 1{tbl} Take 1 Univers pyridoxine, 6-10 tablet by ity of vit B6, 00:00: mouth [place] ([facility]) 00 SEE-INSTRU Med ical 10-10 mg CTIONS. Branch per tablet doxylamine- 2019- No [id number] 1{tbl} Take 1 Univers pyridoxine, 6-10 - tablet by it y of vit B6, 00:00: 00:00 mouth [place] ([facility]) 00 :00 SEE-INSTRU Med ical 10-10 mg CTIONS. Branch per tablet Immunizations Ordered Filled Immunization Date Status Comments Sour e Immunization Name Name TDAP (ADACEL) 2019-10-22 Completed University of VACCINE 00:00:00 [facility] Branch TDAP (ADACEL) 2019-10-22 Completed University of VACCINE 00:00:00 [facility] Branch TDAP (ADACEL) 2019-10-22 Completed University of VACCINE 00:00:00 [facility] Branch TDAP (ADACEL) 2019-10-22 Completed University of VACCINE 00:00:00 [facility] Branch TDAP (ADACEL) 2019-10-22 Completed University of VACCINE 00:00:00 [facility] Branch TDAP (ADACEL) 2019-10-22 Completed University of VACCINE 00:00:00 [facility] Branch TDAP (ADACEL) 2019-10-22 Completed University of VACCINE 00:00:00 [facility] Branch TDAP (ADACEL) 2019-10-22 Completed University of VACCINE 00:00:00 [facility] Branch TDAP (ADACEL) 2019-10-22 Completed University of VACCINE 00:00:00 [facility] TDAP (ADACEL) 2019-10-22 Completed University of VACCINE 00:00:00 [facility] Branch TDAP (ADACEL) 2019-10-22 Completed University of VACCINE 00:00:00 [facility] TDAP (ADACEL) 2019-10-22 Completed University of VACCINE 00:00:00 [facility] TDAP (ADACEL) 2019-10-22 Completed University of VACCINE 00:00:00 [facility] Branch TDAP (ADACEL) 2019-10-22 Completed University of VACCINE 00:00:00 [facility] Branch TDAP (ADACEL) 2019-10-22 Completed University of VACCINE 00:00:00 [facility] Branch TDAP (ADACEL) 2019-10-22 Completed University of VACCINE 00:00:00 [facility] Influenza Virus 2019-09-08 Completed Universit y of Vaccine Quad .5 mL 00:00:00 [facility] 6+ MO Branch Influenza Virus 2019-09-08 Completed Universit y of Vaccine [place] .5 mL 00:00:00 [facility] IM 6+ MO Branch Influenza Virus 2019-09-08 [...] y of Vaccine Quad .5 mL 00:00:00 [place] [facility] 6+ MO Branch HPV9 2018-10-03 Completed University of 00:00:00 [place] [facility] HPV9 2018-10-03 Completed University of 00:00:00 [place] [facility] HPV9 2018-10-03 Completed University of 00:00:00 [place] [facility] HPV9 2018-10-03 Completed University of 00:00:00 [place] [facility] HPV9 2018-10-03 Completed University of 00:00:00 [place] [facility] HPV9 2018-10-03 Completed University of 00:00:00 [place] [facility] HPV9 2018-10-03 Completed University of 00:00:00 [place] [facility] HPV9 2018-10-03 Completed University of 00:00:00 [place] [facility] HPV9 2018-10-03 Completed University of 00:00:00 [place] [facility] HPV9 2018-10-03 Completed University of 00:00:00 [place] [facility] HPV9 2018-10-03 Completed University of 00:00:00 [place] [facility] HPV9 2018-10-03 Completed University of 00:00:00 [place] [facility] HPV9 2018-10-03 Completed University of 00:00:00 [place] [facility] HPV9 2018-10-03 Completed University of 00:00:00 [place] [facility] HPV9 2018-10-03 Completed University of 00:00:00 [place] [facility] HPV9 2018-10-03 Completed University of 00:00:00 [place] [facility] HPV9 2018-10-03 Completed University of 00:00:00 [place] [facility] HPV9 2018-10-03 Completed University of 00:00:00 [place] [facility] HPV9 2018-10-03 Completed University of 00:00:00 [place] [facility] HPV9 2018-10-03 Completed University of 00:00:00 [place] [facility] HPV9 2018-10-03 Completed University of 00:00:00 [place] [facility] HPV9 2018-10-03 Completed University of 00:00:00 [place] [facility] HPV9 2018-10-03 Completed University of 00:00:00 [place] [facility] HPV9 2018-10-03 Completed University of 00:00:00 [place] [facility] HPV9 2018-10-03 Completed University of 00:00:00 [place] [facility] HPV9 2018-10-03 Completed University of 00:00:00 [place] [facility] HPV9 2018-10-03 Completed University of 00:00:00 [place] [facility] HPV9 2018-10-03 Completed University of 00:00:00 [place] [facility] HPV9 2018-10-03 Completed University of 00:00:00 [place] [facility] HPV9 2018-10-03 Completed University of 00:00:00 [facility] Tdap 2018-08-22 Completed University of 00:00:00 [facility] Tdap 2018-08-22 Completed University of 00:00:00 [facility] Tdap 2018-08-22 Completed University of 00:00:00 [facility] Branch Tdap 2018-08-22 Completed University of 00:00:00 [place] [facility] Tdap 2018-08-22 Completed University of 00:00:00 [place] [facility] Tdap 2018-08-22 Completed University of 00:00:00 [place] [facility] Tdap 2018-08-22 Completed University of 00:00:00 [place] [facility] Tdap 2018-08-22 Completed University of 00:00:00 [place] [facility] TDAP 2018-08-22 Completed University of 00:00:00 [place] [facility] Tdap 2018-08-22 Completed University of 00:00:00 [place] [facility] Tdap 2018-08-22 Completed University of 00:00:00 [place] [facility] Tdap 2018-08-22 Completed University of 00:00:00 [place] [facility] Tdap 2018-08-22 Completed University of 00:00:00 [place] [facility] Tdap 2018-08-22 Completed University of 00:00:00 [place] [facility] Tdap 2018-08-22 Completed University of 00:00:00 [facility] Tdap 2018-08-22 Completed University of 00:00:00 [place] [facility] TDAP 2018-08-22 Completed University of 00:00:00 [place] [facility] TDAP 2018-08-22 Completed University of 00:00:00 [place] [facility] Tdap 2018-08-22 Completed University of 00:00:00 [place] [facility] TDAP 2018-08-22 Completed University of 00:00:00 [facility] Branch TDAP 2018-08-22 Completed University of 00:00:00 [facility] TDAP 2018-08-22 Completed University of 00:00:00 [facility] TDAP 2018-08-22 Completed University of 00:00:00 [place] [facility] TDAP 2018-08-22 Completed University of 00:00:00 [place] [facility] Tdap 2018-08-22 Completed University of 00:00:00 [facility] Branch Tdap 2018-08-22 Completed University of 00:00:00 [facility] Branch Tdap 2018-08-22 Completed University of 00:00:00 [place] [facility] Tdap 2018-08-22 Completed University of 00:00:00 [place] [facility] Tdap 2018-08-22 Completed University of 00:00:00 [facility] Tdap 2018-08-22 Completed University of 00:00:00 [facility] Vital Signs Vital Name Observation Time Observation Value Comments Source Systolic blood 2020-08-03 14:34:00 120 mm[Hg] Univer sity of pressure [place] [facility] Diastolic blood 2020-08-03 14:34:00 81 mm[Hg] Unive rsity of pressure [place] [facility] Heart rate 2020-08-03 14:34:00 84 /min Universi ty of [place] [facility] Body temperature 2020-08-03 14:34:00 36.78 Julia Univ ersity of [place] [facility] Respiratory rate 2020-08-03 14:34:00 18 /min Univ ersity of [place] [facility] Body height 2020-08-03 14:34:00 167.6 cm Universi ty of [place] [facility] Body weight 2020-08-03 14:34:00 112.674 kg Universi ty of [place] [facility] BMI 2020-08-03 14:34:00 40.09 kg/m2 Universi ty of [place] [facility] Systolic blood 2020-08-03 14:34:00 120 mm[Hg] Univer sity of pressure [place] [facility] Diastolic blood 2020-08-03 14:34:00 81 mm[Hg] Unive rsity of pressure [place] [facility] Heart rate 2020-08-03 14:34:00 84 /min Universi ty of [place] [facility] Body temperature 2020-08-03 14:34:00 36.78 Julia Univ ersity of [place] [facility] Respiratory rate 2020-08-03 14:34:00 18 /min Univ ersity of [place] [facility] Body height 2020-08-03 14:34:00 167.6 cm Universi ty of [place] [facility] Body weight 2020-08-03 14:34:00 112.674 kg Universi ty of [place] [facility] BMI 2020-08-03 14:34:00 40.09 kg/m2 Universi ty of [place] [facility] Systolic blood 2020-03-29 19:33:00 106 mm[Hg] Univer sity of pressure [place] [facility] Diastolic blood 2020-03-29 19:33:00 67 mm[Hg] Unive rsity of pressure [place] [facility] Heart rate 2020-03-29 19:33:00 76 /min Universi ty of [place] [facility] Body temperature 2020-03-29 19:33:00 36.72 Julia Univ ersity of [place] [facility] Respiratory rate 2020-03-29 19:33:00 18 /min Univ ersity of [place] [facility] Body height 2020-03-29 19:33:00 165.1 cm Universi ty of [place] [facility] Body weight 2020-03-29 19:33:00 115.486 kg Universi ty of [place] [facility] BMI 2020-03-29 19:33:00 42.37 kg/m2 Universi ty of [place] [facility] Systolic blood 2019-12-05 14:00:00 140 mm[Hg] Univer sity of pressure [place] [facility] Diastolic blood 2019-12-05 14:00:00 89 mm[Hg] Unive rsity of pressure [place] [facility] Heart rate 2019-12-05 14:00:00 74 /min Universi ty of [place] [facility] Body temperature 2019-12-05 14:00:00 36.78 Julia Univ ersity of [facility] Branch Respiratory rate 2019-12-05 14:00:00 16 /min Univ ersity of [facility] Oxygen saturation in 2019-12-05 14:00:00 100 /min University of Arterial blood by [facility] Pulse oximetry Branch Body height 2019-12-03 00:54:00 165.1 cm Universi ty of [place] [facility] Body weight 2019-12-03 00:54:00 106.142 kg Universi ty of [place] [facility] BMI 2019-12-03 00:54:00 38.94 kg/m2 Universi ty of [place] [facility] Systolic blood 2019-08-07 18:53:00 121 mm[Hg] Univer sity of pressure [place] [facility] Diastolic blood 2019-08-07 18:53:00 76 mm[Hg] Unive rsity of pressure [place] [facility] Heart rate 2019-08-07 18:53:00 69 /min Universi ty of [place] [facility] Body temperature 2019-08-07 18:53:00 36.5 Julia Univ ersity of [place] [facility] Respiratory rate 2019-08-07 18:53:00 20 /min Univ ersity of [place] [facility] Body height 2019-08-07 18:53:00 167.6 cm Universi ty of [place] [facility] Body weight 2019-08-07 18:53:00 92.08 kg Universi ty of [place] [facility] BMI 2019-08-07 18:53:00 32.77 kg/m2 Universi ty of [place] [facility] Systolic blood 2019-07-10 16:56:00 117 mm[Hg] Univer sity of pressure [place] [facility] Diastolic blood 2019-07-10 16:56:00 72 mm[Hg] [facility] Heart rate 2019-07-10 16:56:00 70 /min Universi ty of [facility] Body temperature 2019-07-10 16:56:00 36.78 Julia [facility] Respiratory rate 2019-07-10 16:56:00 18 /min [facility] Body height 2019-07-10 16:56:00 167.6 cm Universi ty of [facility] Body weight 2019-07-10 16:56:00 89.359 kg Universi ty [facility] [place] [facility] BMI 2019-07-10 16:56:00 31.80 kg/m2 Universi ty [facility] Systolic blood 2019-06-12 16:42:00 118 mm[Hg] Univer sity of [facility] Diastolic blood 2019-06-12 16:42:00 82 mm[facility]Hg] [facility] 2019-06-12 16:42:00 36.39 Julia [facility] Respiratory rate 2019-06-12 16:42:00 18 /min [facility] Body height 2019-06-12 16:42:00 165.1 cm Universi ty of [facility] Body weight 2019-06-12 16:42:00 89.177 kg Universi ty [facility] BMI 2019-06-12 16:42:00 32.72 kg/m2 [facility] Procedures Procedure Date / Time Performing Clinician Source Performed THYROID STIMULATING 2020-08-03 15:42:00 Danielle [facility] HORMONE [facility] CBC WITH DIFFERENTIAL 2019-12-04 09:59:00 Amanda Rao [facility] VENOUS CORD GAS 2019-12-03 23:45:00 Amanda Rao [facility] o f [facility] GROUP B STREPTOCOCCUS BY 2019-12-03 02:47:00 Amanda Rao [facility] ABO GROUPING 2019-12-03 02:45:00 Amanda Rao [place] o f [facility] RHO (D) IMMUNE GLOBULIN 2019-12-03 02:45:00 Amanda Rao [facility] CBC WITH DIFFERENTIAL 2019-12-03 02:37:00 Amanda Rao [facility] HEPATITIS B SURFACE 2019-12-03 02:37:00 Amanda Rao [facility] ANTIGEN [facility] GC & CHLAMYDIA AMPLIFIED 2019-12-03 02:37:00 Amanda [facility] ADC OR DEMARCUS ONLY - 2019-12-03 02:37:00 Amanda Rao [facility] RPR [facility] HIV 1/2 AG-AB WITH 2019-12-03 02:37:00 Amanda Rao [facility] REFLEX [facility] ADC CLC OR LCC ONLY - 2019-12-03 02:36:00 Amanda Rao [facility] WET PREP [facility] ASSIGNMENT OF BENEFITS 2019-12-03 00:28:34 Doctor Unassigned, No [facility] CONSENT/REFUSAL FOR 2019-12-03 00:28:17 Doctor Unassigned, No [facility] DIAGNOSIS AND TREATMENT [facility] POCT URINALYSIS W/O 2019-08-07 00:00:00 Amanda Rao [facility] SPECIFIC GRAVITY [facility] ASSIGNMENT OF BENEFITS 2019-07-10 17:40:12 Doctor Unassigned, No [facility] POCT URINALYSIS W/O 2019-07-10 00:00:00 Danielle Ferreira [facility] Encounters Start End Encounter Admission Attending Care Care Encounter Source Date/Time Date/Time Type Type Clinicians Facility Department ID 2021-08-18 2021-08-18 Outpatient Ria FERREIRA [facility] [id number] Univers 16:00:00 16:00:00 DANIELLE pearce [facility] 2021-08-05 2021-08-05 Telephone [place] [id number] Univers 00:00:00 00:00:00 , Janice Guevara [id number] Jono [id number] Noah s [phone] [place] [address] Branch 2021-08-03 2021-08-03 Outpatient Ria FERREIRA [facility] [id number] Univers 13:00:00 13:00:00 DANIELLE pearce [facility] 2021-02-082021-02-08 Patient Sumit, [facility] [id number] 00:00:00 00:00:00 Outreach Giuseppe PRIMARY [id number] Andrew CARE [id number] PAVILLION [id number] 388 2021-02-08 2021-02-08 Patient Sumit [facility] [id number] Univers 00:00:00 00:00:00 Outreach Giuseppe PRIMARY [id number] i ty of [id number] [phone] Mn dical [address] [place] 2020-12-29 2020-12-29 Case Jhon [facility] [id number] Univers 00:00:00 00:00:00 Management Danielle [place] [id number] [id number] [phone] Mn dical [address] 2020-12-29 2020-12-[address] [facility] [id number] Univers 00:00:00 00:00:00 Management Danielle [place] [id number] [id number] [phone] Mn dical nal [address] [facility] 2020-12-29 2020-12-29 Case Jhon [facility] [id number] 00:00:00 00:00:00 Management Danielle [place] [id number] [place] [id number] Professio [phone] [address] 2020-12-29 2020-12-29 Case Jhon [facility] [id number] 00:00:00 00:00:00 Management Danielle [place] [id number] [place] [id number] Professio [phone] [address] 2020-12-27 2020-12-27 Outpatient R JHON [facility] [id number] [facility] 16:30:00 16:54:49 DANIELLE pearce [facility] 2020-12-27 2020-12-27 Outpatient R JHON [facility] [id number] [facility] 14:30:00 14:30:00 DANIELLE pearce [facility] 2020-12-02 2020-12-02 Outpatient R JHON [facility] [id number] [facility] 14:45:00 14:45:00 DANIELLE ramses [facility] 2020-08-03 2020-08-03 Sticker On 2, Adc Lab [facility] [id number] Univers 10:37:16 10:52:16 Visit Danielle Ferreira [id number] [id number] [phone] [address] 2020-08-03 2020-08-03 Sticker On 2, Adc Lab [facility] [id number] 10:37:16 10:52:16 Visit [place] [id number] [place] [id number] Professio [phone] [address] 2020-08-03 2020-08-03 Office Jhon [facility] [id number] [facility] 09:20:24 10:20:24 Visit Daniellegricel [place] [id number] i ty [id number] [phone] [address] 2020-08-03 2020-08-03 Office Jhon [facility] [id number] 09:20:24 10:20:24 Visit Danielle [place] [id number] [place] [id number] Professio [phone] [address] 2020-08-03 2020-08-03 Outpatient R JHON [facility] [id number] [facility] 09:00:00 09:00:00 DANIELLE pearce [facility] 2020-04-01 2020-04-01 Case Jhon [facility] [id number] Univers 00:00:00 00:00:00 Management Danielle Jan[place] [id number] ity [id number] [phone] Mn dical nal [address] [place] [address] 2020-04-01 2020-04-01 Patient Doctor [facility] 1.2.840.114 [id number] Univers 00:00:00 00:00:00 Secure Msg Unassigned Janie [id number] [facility] [id number] [phone] [address] 2020-03-29 2020-03-29 Office Jhon [facility] [id number] [id number] Univers 14:20:12 14:55:35 Visit Danielle [place] [id number] i ty [id number] [phone] [address] 2020-03-29 2020-03-29 Outpatient R JHON [facility] [id number] Univers 14:00:00 14:00:00 DANIELLE dianakathrine [facility] 2020-03-29 2020-03-29 Outpatient R ANIBAL [facility] [id number] Univers 09:00:00 09:00:00 ANDERSON ortizkathrine [facility] 2020-03-22 2020-03-22 Telephone Amanda Rao [facility] 1..840.114 [id number] Univers 00:00:00 00:00:00 Cam Janie [id number] i ty [id number] [phone] Mn dical nal [address] [place] [address] 2019-12-02 2019-12-05 Hospital RaoVianneyen [facility] .2.840.114 [id number] Univers 18:27:00 12:55:00 Encounter Manuelito [place] [id number] ity of [id number] [phone] [address] 2019-12-01 2019-12-01 Patient Rao, Amanda [facility] [id number] Univers 00:00:00 00:00:00 Secure Msg Manuelito [place] [id number] [id number] [phone] Mn dical nal [address] [facility] 2019-08-08 2019-08-08 Sticker On Ultrasound, Adc [facility] 1.2 .840.114 [id number] Univers 10:01:37 11:01:37 Visit RadhatelmaKatie [id number] [id number] [phone] Mn dical nal [address] [facility] 2019-08-07 2019-08-07 Routine Vianney Raoen [facility] [id number] [facility] 13:19:27 14:31:47 Manuelito [place] [id number] ity of Visit [id number] [phone] Mn dical nal [address] [facility] 2019-07-11 2019-07-11 Case Vianney Raoen [facility] [id number] Univers 00:00:00 00:00:00 Management Manuelito [place] [id number] [id number] [phone] Mn dical nal 134 [facility] 2019-07-11 2019-07-11 Case Jhon NYLAVERN [id number] Univers 00:00:00 00:00:00 Management [facility] 350.1.13.10 ity of Surgical 4.2.7.2.686 Jose Antonio as Specialti [phone] Mn dical es 370 [facility] 2019-07-10 2019-07-10 Sticker On 1, Adc Lab [facility] 1.2.840.114 [id number] Univers 12:39:44 12:54:44 Visit Amanda Rao Manuelito [place] 350.1.13.10 [place] [phone] [address] 2019-07-10 2019-07-10 Routine Ntaeetienneroxane, [facility] [id number] Univers 11:37:17 12:16:07 Danielle Janie 350.1.13.10 ity of [place] [phone] [facility] 134 [facility] 2019-07-10 2019-07-10 Orders Doctor CHA 1.2.840.114 [id number] Univers 00:00:00 00:00:00 Only Unassigned, CAYETANO 350.1.13.[address] [facility] 4.2.7.2.686 Jose Antonio as [phone] [address] 2019-06-30 2019-06-30 Patient Lora, [facility] 1.2.840.114 [id number] Univers 00:00:00 00:00:00 Secure Msg Rocio Mickey [place] 350.1.13.10 [place] [phone] [address] 2019-06-19 2019-06-19 Sticker On Lab[facility] 1.2 .840.114 [id number] Univers 15:19:17 15:34:49 Visit Ritika Croft PSYCHOLOGICAL OPERATIONS OFFICER 350.1.13.10 ity of [facility] 4.2.7.2.686 Jose Antonio as MATERNAL [phone] [facility] ical & CHILD 125 [facility] 2019-06-19 2019-06-19 Sticker On 1, [facility] 1.2. 840.114 [id number] Univers 14:34:16 15:04:16 Visit Sarah Ordonez PSYCHOLOGICAL OPERATIONS OFFICER 350.1.13.10 ity of [facility] 4.2.7.2.686 Jose Antonio as MATERNAL [phone] [facility] ical & CHILD 369 [facility] 2019-06-12 2019-06-12 Sticker On 1, Alejandro Lab [facility] 1.2.840.114 [id number] Univers 12:24:42 12:39:42 Visit Amanda Rao 350.1.13.10 it[place] of [place] [phone] [facility] [address] 2019-06-12 2019-06-12 Routine Amanda Rao [facility] 1.2.142.802 [id number] Univers 11:32:16 12:10:45 [place] 350.1.13.10 ity of Visit [place]2.[place] [facility] [phone] Mn dical nal [address] Results Test Description Test Time Test Comments Results Result Comments Source THYROID STIMULATING HORMONE 2020-08-03 17:57:00 Test Item Value Reference Range Interpretation Comme nts TSH (test code = 5314966632) See_Comment Biotin has been reported to cause a negative bias , interpret results relativ e to patient's use of biotin. [Aut omated message] The system [employer] generated this result transmit hipolito reference range: 0.45 - 4 .70 mIU/L. The reference range was not used to interpret this result as normal/abnormal . Lab Interpretation (test code = Normal 40649-2) [facility] IMMUNE [id number] 22:47:05 Test Item Value Reference Range Interpretation Comments RHIG CANDIDATE? No- see comment Patient i s not a (test code = candidate for R [facility]- 5055) Patient is Rh Positive.Perfor med at [facility] Laboratory [facility] - [facility] Blood [address] [place] [id number] Free: [phone] A No. [id number] [facility] B STREPTOCOCCUS BY [id number] 15:52:00 Test Item Value Reference Range Interpretation Comments Group B Streptococcus by PCR (test Negative Negative code = 48746-0) Lab Interpretation (test code = Normal 18869-4) [facility] WITH [id number] 10:28:00 Test Item Value Reference Range Interpretation Comments WBC (test code = See_Comment H [Automated 6669-2) message] The system which generated this result [...] RDW-SD (test code = 43.2 fL 39-49.9 86454-4) RDW-CV (test code = 12.8 % 12-15.5 788-0) PLT (test code = See_Comment [Automated 777-3) message] The system which generated this result transmit hipolito reference range : 166 - 358 10*3/ ?L. The reference range was not u sed to interpret th is result as normal/abnormal . MPV (test code = 10.5 fL 9.5-12.9 92170-0) NRBC/100 WBC (test See_Comment [Automat ed code = 3814702865) message] The system which generated this result transmit hipolito reference range : 0.0 - 10.0 /100 WBCs. The reference range was not used to interpret this result as normal/abnormal . NRBC x10^3 (test code <0.01 See_Comment [Auto mated = 4854113778) message] The system which generated this result transmit hipolito reference range : 10*3/?L. The reference range was not used to interpret this result as normal/abnormal . GRAN MAT (NEUT) % 86.2 % (test code = 770-8) IMM GRAN % (test code 0.90 % = 2780391671) LYMPH % (test code = 9.3 % 736-9) MONO % (test code = 3.3 % 5905-5) EOS % (test code = 0.0 % 713-8) BASO % (test code = 0.3 % 706-2) GRAN MAT x10^3(ANC) 16.08 10*3/uL 1.88-7.09 H (test code = 1976805008) IMM GRAN x10^3 (test 0.17 10*3/uL 0-0.06 H code = 8429103861) LYMPH x10^3 (test code 1.73 10*3/uL 1.32-3.29 = 731-0) MONO x10^3 (test code 0.62 10*3/uL 0.33-0.92 = 742-7) EOS x10^3 (test code = <0.03 0.03-0.39 L 711-2) BASO x10^3 (test code 0.05 10*3/uL 0.01-0.07 = 704-7) Lab Interpretation Abnormal (test code = 46668-2) [facility]) IMMUNE [id number] 03:13:43 Test Item Value Reference Range Interpretation Comments RHIG CANDIDATE? No- see comment Patient i s not a (test code = candidate for R hIg- 5055) Patient is Rh Positive.Perfor med at [facility] Laboratory Services - [facility] Blood [address] [place], [place] [address]Toll Free: [phone] A No. [id number] [facility] AllenVenous Cord [id number] 23:56:00 Test Item Value Reference Range Interpretation Comments VENOUS BASE EXCESS, mEq/L CORD (test code = 0918222527) VENOUS PH, CORD (test 7.25-7.45 code = 3219622899) VENOUS PC02, CORD See_Comment [Automate d message] The (test code = system which ge nerated 5254886228) this result tra nsmitted reference range : 27 - 49 mmHg. The refer ence range was not used to interpret this result as normal/abnormal . VENOUS PO2, CORD (test See_Comment [Aut omated message] The code = 1165444256) system ich generated this result tra nsmitted reference range : 17 - 41 mmHg. The refer ence range was not used to interpret this result as normal/abnormal . VENOUS BICARBONATE, See_Comment [Automa hipolito message] The CORD (test code = system whi ch generated 7868526983) this result tra nsmitted reference range : 12 - 29 mEq/L. The refe rence range was not used to interpret this result as normal/abnormal . [facility] AllenAr[facility]ial Cord [id number] 23:54:00 Test Item Value Reference Range Interpretation Comments BASE EXCESS, CORD mEq/L (test code = 7087936692) AC PH, CORD (BEAKER) 7.18-7.38 (test code = 5384517397) PC02, CORD (test code See_Comment [Auto mated message] The = 8649160311) system which g enerated this result transmit hipolito reference range : 32 - 66 mmHg. The refer ence range was not used to interpret this result as normal/abnormal . PO2, CORD (test code See_Comment [Autom ated message] The = 9508487879) system which g enerated this result transmit hipolito reference range : 10 - 30 mmHg. The refer ence range was not used to interpret this result as normal/abnormal . BICARBONATE, CORD See_Comment [Automate d message] The (test code = system which ge nerated this 7972060300) result transmit hipolito reference range : 17 - 27 mEq/L. The refe rence range was not used to interpret this result as normal/abnormal . [facility] AllenGC & CHLAMYDIA AMPLIFIED [id number] 17:27:00 Test Item Value Reference Range Interpretation Comments C. trachomatis Nucleic Acid (test Negative Negative code = 70543-4) N. gonorrhoeae Nucleic Acid (test Negative Negative code = 46120-9) Lab Interpretation (test code = Normal 32867-4) [facility] AllenHEPATITIS B SURFACE [id number] 06:43:00 Test Item Value Reference Range Interpretation Comments HBsAg Semi-Quantitative (test code = Negative Negative 5195-3) [facility] AllenADC OR DEMARCUS ONLY - [id number] 05:35:00 Test Item Value Reference Range Interpretation Comments RPR (Qualitative) (test code = Nonreactive Nonreactive 28672-5) Lab Interpretation (test code = Normal 19657-9) [facility] AllenHIV 1/2 AG-AB WITH [id number] 04:32:00 Test Item Value Reference Range Interpretation Comments HIV Negative Negative Semi-quantitative (test code = 64025-2) DELIA (test code = Non-reactive for HIV-1 DELIA) antigen and HIV-1/HIV-2 antibodies. ?No laboratory evidence of HIV infection. ?Repeat in 2-4 weeks if acute HIV infection is suspected. [facility] AllenType and Screen - ONCE [id number] 04:08:33 Test Item Value Reference Range Interpretation Comments ABO & RH (test code O Positive Performe d at [facility] = 20) Laboratory Serv [facility] [place], [place] [id number] Free: [phone] A No. [id number] IAT (test code = Negative Performed a t [facility] 1185) Laboratory Serv [facility] [address] [place], [place] [address]Toll Free: [phone] A No. [id number] [facility] AllenAD CLC OR LCC ONLY - WET [id number] 03:20:00 Test Item Value Reference Range Interpretation Comments Wet Prep (test code = Few Red blood cells 5424613932) [facility] AllenCBC WITH [id number] 03:12:00 Test Item Value Reference Range Interpretation Comments WBC (test code = See_Comment H [Automated 7054-2) message] The sy stem which generated this result transmitted reference range : 4.30 - 11.10 10*3/?L. The reference range was not used to interpret this result as normal/abnormal . RBC (test code = See_Comment [Automated 709-8) message] The sy stem which generated this [...] RDW-SD (test code = 42.2 fL 39-49.9 09881-6) RDW-CV (test code = 12.9 % 12-15.5 788-0) PLT (test code = See_Comment [Automated 777-3) message] The sy stem which generated this result transmitted reference range : 166 - 358 10*3/ ?L. The reference r nikki was not used to interpret this result as normal/abnormal . MPV (test code = 9.9 fL 9.5-12.9 70015-3) NRBC/100 WBC (test See_Comment [Automat ed code = 5183598303) message] The system which generated this result transmitted reference range : 0.0 - 10.0 /100 WBCs. The refer ence range was not u sed to interpret th is result as normal/abnormal . NRBC x10^3 (test code <0.01 See_Comment [Auto mated = 6439873096) message] The s ystem which generated this result transmitted reference range : 10*3/?L. The reference range was not used to interpret this result as normal/abnormal . GRAN MAT (NEUT) % 63.8 % (test code = 770-8) IMM GRAN % (test code 0.50 % = 7968659506) LYMPH % (test code = 28.1 % 736-9) MONO % (test code = 6.7 % 5905-5) EOS % (test code = 0.6 % 713-8) BASO % (test code = 0.3 % 706-2) GRAN MAT x10^3(ANC) 8.13 10*3/uL 1.88-7.09 H (test code = 0864055135) IMM GRAN x10^3 (test 0.07 10*3/uL 0-0.06 H code = 7764217354) LYMPH x10^3 (test code 3.59 10*3/uL 1.32-3.29 H = 731-0) MONO x10^3 (test code 0.86 10*3/uL 0.33-0.92 = 742-7) EOS x10^3 (test code = 0.08 10*3/uL 0.03-0.39 711-2) BASO x10^3 (test code 0.04 10*3/uL 0.01-0.07 = 704-7) Lab Interpretation Abnormal (test code = 00241-3) [facility] AllenPONV URINALYSIS W/O SPECIFIC [id number] 18:57:00 Test Item Value Reference Range Interpretation [...] Negative Lab Interpretation (test code = Normal 08776-9) [facility] URINALYSIS W/O SPECIFIC [id number] 17:00:00 Test Item Value Reference Range Interpretation [...] = 3257) N/A Negative - Negative [facility]
--- NOTE | 2023-05-29 20:05 | RAD REPORT ---
EXAM DESCRIPTION: RAD - Lumbar Spine 3 Views - 05/29/2023 7:40 pm CLINICAL HISTORY: low back pain, fall COMPARISON: LUMBAR SPINE 3 VIEWS dated 08/22/2014 TECHNIQUE: Lumbar spine, 3 views. FINDINGS: Lumbar vertebral bodies are normal in height and alignment. No fracture or acute bony proc ess seen. No disc space narrowing. No other significant findings. IMPRESSION: Negative Lumbar Spine examination.
[2023-05-29] MEDS ORDERED: DIAZEPAM 5 MG TABLET ONE (20:52)
[2023-05-29] MEDS ORDERED: MORPHINE 4 MG/ML SYR ONE (20:53)
[2023-05-29 21:59] LABS: Specific Gravity 1.022 (1.005-1.030)
--- NOTE | 2023-05-29 22:16 | EDPHYS ---
Physician Documentation [facility] Name: Robert Winter Age: 28 yrs Sex: Female : 1995 Arrival Date: 05/29/2023 Time: 18:34 Bed 12 Private MD: ED Physician Óscar Nguyen HPI: 05/29 19:25 This 28 yrs old Female presents to ER via Ambulatory with complaints of Back jmm Pain. 19:25 The patient presents with pain that is acute. jmm 19:25 Onset: The symptoms/episode began/occurred acutely, 1 week(s) ago. This is a jmm 28-year-old female no known chronic medical conditions presents emerged department with complaints of lower back pain which radiates to both sides of the back. States that she fell down half a flight of stairs approximately a week ago. Pain has worsened since the fall. Denies any leg pain, denies numbness, denies paresthesias, denies dysuria, denies any bowel or bladder issues.. 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 Last tetanus immunization: up to date. - Social history:: Smoking status: Reported history of juuling and/or vaping. ROS: 19:25 Constitutional: Negative for fever, chills, and weight loss, Cardiovascular: Negative jmm for chest pain, palpitations, and edema, Respiratory: Negative for shortness of breath, cough, wheezing, and pleuritic chest pain. 19:25 Back: Positive for pain with movement. 19:25 All other systems are negative. Exam: 19:25 Constitutional: This is a well developed, well nourished patient who is awake, alert, jmm and in no acute distress. Head/Face: atraumatic. Eyes: EOMI, no conjunctival erythema appreciated ENT: Moist Mucus Membranes Neck: Trachea midline, Supple Chest/axilla: Normal chest wall appearance and motion. Cardiovascular: Regular rate and rhythm. No edema appreciated Respiratory: Normal respirations, no respiratory distress appreciated Abdomen/GI: Non distended 19:25 Back: pain, is absent, ROM is painful. 19:25 Musculoskeletal/extremity: ROM: intact in all extremities. 19:25 Skin: Appearance: Color: normal in color. 19:25 Neuro: Orientation: is normal, Mentation: is normal, Memory: is normal, extensor hallucis longus bilateral. 19:25 Psych: Behavior/mood is pleasant, cooperative. Vital Signs: 19:16 Weight 102.51 kg; Height 5 ft. 6 in. ; Pain 10/10; vc1 19:22 BP 137 / 86; Pulse 78; Resp 18; Temp 97.4; Pulse Ox 100% ; vc1 21:23 Pain 4/10; cm10 22:27 BP 125 / 77 LA Sitting (auto/reg); Pulse 68 MON; Resp 18 S; Pulse Ox 100% on R/A; cm10 19:16 Body Mass Index 36.48 (102.51 kg, 167.64 cm) vc1 19:16 Pain Scale: Adult vc1 21:23 Pain Scale: Adult cm10 MDM: 19:25 Patient medically screened. [facility] 05/30 00:48 Data reviewed: vital signs, nurses notes. [facility] 01:01 Differential diagnosis: vertebral fracture. Consideration of Admission/Observation. I [facility] considered the following discharge prescriptions or medication management in the emergency department Medications were administered in the Emergency Department. See MAR. Counseling: I had a detailed discussion with the patient and/or guardian regarding: the historical points, exam findings, and any diagnostic results supporting the discharge/admit diagnosis, radiology results, the need for outpatient follow up, to return to the emergency department if symptoms worsen or persist or if there are any questions or concerns that arise at home. 05/29 19:25 Order name: PREGU; Complete Time: 22:06 [facility] 05/29 19:25 Order name: Lumbar Spine (3 Views) XRAY; Complete Time: 20:10 [facility] Administered Medications: 05/29 20:52 Drug: Diazepam PO 5 mg Route: PO; cm10 21:23 Follow up: Response: No adverse reaction; Pain is decreased cm10 20:53 Drug: morphine IM 4 mg Route: IM; Site: left deltoid; cm10 21:23 Follow up: Pain 4/10 Adult; Response: No adverse reaction; Pain is decreased cm10 Disposition Summary: 05/29/23 22:15 Discharge Ordered Location: Home jm Condition: Stable jm Diagnosis - Low back pain jm Followup: jmm - With: Private Physician - When: 2 - 3 days - Reason: Recheck today's complaints, Continuance of care, Re-evaluation by your physician Discharge Instructions: - Discharge Summary Sheet jmm - Acute Back Pain, Adult jmm - Back Exercises [facility] Forms: - Medication Reconciliation Form [facility] - Thank You Letter [facility] - Antibiotic Education jmm - Prescription Opioid Use jm - Patient Portal Instructions.htm [facility] - Work release form cm10 Prescriptions: - Zanaflex 4 mg Oral Tablet - take 1 tablet by ORAL route every 8 hours As needed; 20 tablet; Refills: 0, [facility] Product Selection Permitted - Diclofenac Sodium 75 mg Oral Tablet Sustained Release - take 1 tablet by ORAL route 2 times per day; 30 tablet; Refills: 0, Product [facility] Selection Permitted Signatures: Dispatcher [employer] Darwin Kraus PA PA jmm Calcote, Vanessa, RN RN vc1 Angle Barragan RN RN cm10
--- NOTE | 2023-05-29 22:16 | ER ---
Nurse's Notes [facility] Name: Robert Winter Age: 28 yrs Sex: Female : 1995 Arrival Date: 05/29/2023 Time: 18:34 Bed 12 Private MD: Diagnosis: Low back pain Presentation: 05/29 19:16 Chief complaint: Patient states: lower middle back pain that radiates to the sides and vc1 up towards the top of back. I was closing the door to my apartment and my shoe strrap got caught and I rolled [facility] down the stairs. It's been hurting but when I got up today it was ok but over the day it has gotten worse. Coronavirus screen: Vaccine status: Patient reports being unvaccinated. Client denies travel out of the [place] in the last 14 days. At this time, the client does not indicate any symptoms associated with coronavirus-19. Ebola Screen: Patient negative for fever greater than or equal to 101.5 degrees Fahrenheit, and additional compatible Ebola Virus Disease symptoms Patient denies exposure to infectious person. Patient denies travel to an Ebola-affected area in the 21 days before illness onset. No symptoms or risks identified at this time. Risk Assessment: Do you want to hurt yourself or someone else? Patient reports no desire to harm self or others. Onset of symptoms was May 19, 2023. 19:16 Method Of Arrival: Ambulatory vc1 19:16 Acuity: REBECCA 3 vc1 19:46 Initial Sepsis Screen: Does the patient meet any 2 criteria? No. Patient's initial cm10 sepsis screen is negative. Does the patient have a suspected source of infection? No. Patient's initial sepsis screen is negative. Triage Assessment: 19:20 General: Appears distressed, uncomfortable, Behavior is cooperative, appropriate for vc1 age. Pain: Complains of pain in lumbar area Pain radiates to thoracic area, left low back and right low back Pain currently is 8 out of 10 on a pain scale. at worst was 10 out of 10 on a pain scale. Quality of pain is described as sharp, shooting, Pain began over a week Is continuous, Aggravated by increased activity, repositioning, Noted to be grimacing, resistant to movement. EENT: No deficits noted. No signs and/or symptoms were reported regarding the EENT system. Neuro: No deficits noted. Cardiovascular: No deficits noted. Respiratory: Airway is patent Respiratory effort is even, unlabored, Respiratory pattern is regular, symmetrical. GI: No deficits noted. No signs and/or symptoms were reported involving the gastrointestinal system. : No deficits noted. No signs and/or symptoms were reported regarding the genitourinary system. Derm: No deficits noted. No signs and/or symptoms reported regarding the dermatologic system. Musculoskeletal: Circulation, motion, and sensation intact. Range of motion: intact in all extremities, Reports pain in back. 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 Last tetanus immunization: up to date. - Social history:: Smoking status: Reported history of juuling and/or vaping. Screenin:45 [facility] ED Fall Risk Assessment (Adult) History of falling in the last 3 months, cm10 including since admission Yes- single mechanical fall (1 pt) Confusion or Disorientation No (0 pts) Intoxicated or Sedated No (0 pts) Impaired Gait Yes (1 pt) Mobility Assist Device Used No (0 pt) Altered Elimination No (0 pt) Score/Fall Risk Level 0 - 2 = Low Risk Oriented to surroundings, Maintained a safe environment, Hourly rounding (assess needs \T\ fall precautionary measures) done. Abuse screen: Denies threats or abuse. Denies injuries from another. Nutritional screening: No deficits noted. Tuberculosis screening: No symptoms or risk factors identified. Assessment: 19:46 Reassessment: See triage assessment. Neuro: No deficits noted. Level of Consciousness cm10 is awake, alert, obeys commands, Oriented to person, place, time, situation. Vital Signs: 19:16 Weight 102.51 kg; Height 5 ft. 6 in. ; Pain 10/10; vc1 19:22 BP 137 / 86; Pulse 78; Resp 18; Temp 97.4; Pulse Ox 100% ; vc1 21:23 Pain 4/10; cm10 22:27 BP 125 / 77 LA Sitting (auto/reg); Pulse 68 MON; Resp 18 S; Pulse Ox 100% on R/A; cm10 19:16 Body Mass Index 36.48 (102.51 kg, 167.64 cm) vc1 19:16 Pain Scale: Adult vc1 21:23 Pain Scale: Adult cm10 ED Course: 18:38 Patient arrived in ED. am2 18:39 Darwin Oliver PA is PHCP. [facility] 18:39 Óscar Nguyen MD is Attending Physician. m 19:19 Triage completed. vc1 19:20 Arm band placed on right wrist. vc1 19:41 Lumbar Spine (3 Views) XRAY In Process Unspecified. EDMS 19:43 Angle Barragan, RN is Primary Nurse. cm10 19:45 No provider procedures requiring assistance completed. cm10 19:46 Patient has correct armband on for positive identification. Placed in gown. Bed in low cm10 position. Call light in reach. Provided Education on: N/A. 21:49 PREGU Sent. cm10 22:28 Patient did not have IV access during this emergency room visit. cm10 Administered Medications: 20:52 Drug: Diazepam PO 5 mg Route: PO; cm10 21:23 Follow up: Response: No adverse reaction; Pain is decreased cm10 20:53 Drug: morphine IM 4 mg Route: IM; Site: left deltoid; cm10 21:23 Follow up: Pain 4/10 Adult; Response: No adverse reaction; Pain is decreased cm10 Medication: 19:45 VIS not applicable for this client. cm10 Outcome: 22:15 Discharge ordered by . [facility] 22:28 Discharged to home ambulatory, with family. cm10 22:28 Condition: good 22:28 Discharge instructions given to patient, Instructed on discharge instructions, follow up and referral plans. medication usage, Demonstrated understanding of instructions, follow-up care, medications, Prescriptions given X 2. 22:28 Patient left the ED. cm10 Signatures: Dispatcher [employer] EDMS Darwin Oliver PA PA jmm Moreno, Amanda am2 Nerissa Kamara, RN RN vc1 Angle Barragan, RN RN cm10
[2023-05-29 23:59] VITALS: TEMP 97.4; O2SAT 100
[2023-05-30 00:17] VITALS: BP 125/77
== END 2023-05-29 22:28 | disposition home or self-care (01) ==
LOC: ER 18:34
DX: M54.50 Low back pain, unspecified (principal)
CPT/HCPCS: 72100; 81025; 96372; 99284

== ENCOUNTER → 2024-02-01 | Emergency (ER) | payer OTHER, SELFPAY ==
[~2024-02-01] MED LIST: KETOROLAC 30 MG/ML INJ ONE; dexAMETHasone 10 MG/ML VIAL ONE
--- OUTSIDE RECORDS SUMMARY | 2024-02-01 22:03 | XMS REPORT | Continuity of Care Document ---
Author Name Unknown Address [address] 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 Name Role Phone Jalen ROBISON, Amanda Billings Primary Care Physician [phone] DANIELLE FERREIRA Attending Clinician Unavailable Janice Angel RN Attending Clinician Unav ailable Doctor Unassigned, [place] Attending Clinician U Giuseppe Encinas DO Attending Clinician [phone] Danielle Ferreira PA-C Attending Clinician [phone], [facility] Attending Clinician Unavailable ANDERSON BARNETT Attending Clinician Unavailable Jalen ROBISON, Amanda Billings Attending Clinician [phone] Ultrasound, [facility] Attending Clinician UnavailKatie Pinon MD Attending Clinician [phone], [facility] Attending Clinician Unavailable Lora MOYA, Rocio Arevalo Attending Clinician Unava ilable Lab/Pedi, [facility] Attending Clinician Unavailmaureen Croft MSN, Ritika Arevalo Attending Clinician [phone], [facility] Attending Clinician Unavailab Amado ROBISON, Sarah Attending Clinician [phone] Amanda Rao MD Admitting Clinician Payers Payer Name Policy Type Policy Number Effective Date Expirati on Date Source [facility] [id number] 2016 00:00:00 [employer] [id number] 2019 00:00:00 Problems Condition Name Condition Details Condition Category Status Onset Date Resolution Date Last Treatment Date Treating Clinician Comments Source Morbid obesity with body mass index of 40.0-49.9 Morbid obesity with body mass index of 40.0-49.9 Disease Active 03-29 00:00: 00 [facility] Morbid obesity with body mass index of 40.0-49.9 Morbid obesity with body mass index of 40.0-49.9 Disease Active 03-29 00:00: 00 [facility] labor in third trimester with term delivery labor in third trimester with term delivery Disease Active 12-03 00:00: 00 [facility] acute hospital Liveborn , of barillas , born in hospital by vaginal delivery Liveborn , of barillas , born in hospital by vaginal delivery Disease Active 12-03 00:00: 00 [facility] High-risk in third trimester High-risk in third trimester Disease Active 2018-11 00:00: 00 [facility] 37 weeks gestation of 37 weeks gestation of Disease Active 2018-11 00:00: 00 [facility] acute hospital Candidiasi s of vulva and vagina Candidiasi s of vulva and vagina Disease Active 01-09 00:00: 00 [facility] acute hospital Acanthosis nigricans Acanthosis nigricans Disease Active 2016-11 00:00: 00 [facility] Obesity, unspecifie d classifica tion, unspecifie d obesity type, unspecifie d whether serious comorbidit y present Obesity, unspecifie d classifica tion, unspecifie d obesity type, unspecifie d whether serious comorbidit y present Disease Active 2016-11 00:00: 00 [facility] Tobacco use disorder Tobacco use disorder Disease Active 2016-11 00:00: 00 [facility] Allergies, Adverse Reactions, Alerts Allergy Name Allergy Type Status Severity Reaction(s) Onset Date Inactive Date Treating Clinician Comments Source NO KNOWN ALLERGIE S Drug Class Active [facility] acute hospital Social History Social Habit Start Date Stop Date Quantity Comments Source History of tobacco use 2020-07-20 00:00:00 Cigarette Smoker [facility] ASSERTION 2019-04-02 00:00:00 [facility] History SDOH Alcohol Binge [facility] to SARS-CoV-2 (event) 2020-11-27 00:00:00 2020-12-27 15:47:00 Not sure [facility] Alcohol intake 2020-12-27 00:00:00 2020-12-27 00:00:00 Ex-drinker (finding) [facility] Cigarettes smoked current (pack per day) - Reported 2020-08-03 00:00:00 2020-08-03 00:00:00 [facility] Tobacco use and exposure 2020-08-03 00:00:00 2020-08-03 00:00:00 Smokeless tobacco non-user [facility] History of Social function 2020-06-20 00:00:00 2020-06-20 00:00:00 [facility] History SDOH Alcohol Frequency 2019-04-24 00:00:00 2019-04-24 00:00:00 99 [facility] Alcohol Comment 2017-10-03 00:00:00 2017-10-03 00:00:00 occasional [facility] Sex Assigned At 1995 00:00:00 1995 00:00:00 [facility] Smoking Status Start Date Stop Date Source Smokes tobacco daily 2020-08-03 00:00:00 [facility] Never smoker [facility] Medications Ordered Medication Name Filled Medication Name Start Date Stop Date Current Medication? Ordering Clinician Indication Dosage Frequency Signature (SIG) Comments Components Source metroNIDAZO LE 500 mg tablet 2-10 00:00: 00 Yes [id number] 500mg Take 1 tablet by mouth every 12 (twelve) hours. [facility] metroNIDAZO LE 500 mg tablet 2020-0 2-10 00:00: 00 Yes [id number] 500mg Take 1 tablet by mouth every 12 (twelve) hours. [facility] metroNIDAZO LE 500 mg tablet 2020-0 2-10 00:00: 00 Yes [id number] 500mg Take 1 tablet by mouth every 12 (twelve) hours. [facility] metroNIDAZO LE 500 mg tablet 2020-0 2-10 00:00: 00 Yes [id number] 500mg Take 1 tablet by mouth every 12 (twelve) hours. [facility] metroNIDAZO LE 500 mg tablet 2020-0 2-10 00:00: 00 Yes [id number] 500mg Take 1 tablet by mouth every 12 (twelve) hours. [facility] metroNIDAZO LE 500 mg tablet 2020-0 2-10 00:00: 00 Yes [id number] 500mg Take 1 tablet by mouth every 12 (twelve) hours. [facility] azithromyci n 500 mg tablet 2020-0 2-10 00:00: 00 12-31 05:59 :00 No [id number] 1000mg Take 2 tablets by mouth daily for 1 day. [facility] azithromyci n 500 mg tablet 2020-0 2-10 00:00: 00 12-31 05:59 :00 No [id number] 1000mg Take 2 tablets by mouth daily for 1 day. [facility] metroNIDAZO LE 500 mg tablet 2020-0 5-14 00:00: 00 Yes [id number] 500mg Take 1 tablet by mouth every 12 (twelve) hours. [facility] metroNIDAZO LE 500 mg tablet 2020-0 5-14 00:00: 00 Yes [id number] 500mg Take 1 tablet by mouth every 12 (twelve) hours. [facility] metroNIDAZO LE 500 mg tablet 2020-0 5-14 00:00: 00 Yes [id number] 500mg Take 1 tablet by mouth every 12 (twelve) hours. [facility] metroNIDAZO LE 500 mg tablet 2020-0 5-14 00:00: 00 Yes [id number] 500mg Take 1 tablet by mouth every 12 (twelve) hours. [facility] metroNIDAZO LE 500 mg tablet 2020-0 5-14 00:00: 00 Yes [id number] 500mg Take 1 tablet by mouth every 12 (twelve) hours. [facility] metroNIDAZO LE 500 mg tablet 2020-0 5-14 00:00: 00 Yes [id number] 500mg Take 1 tablet by mouth every 12 (twelve) hours. [facility] metroNIDAZO LE 500 mg tablet 2020-0 5-14 00:00: 00 Yes [id number] 500mg Take 1 tablet by mouth every 12 (twelve) hours. [facility] metroNIDAZO LE 500 mg tablet 2020-0 5-14 00:00: 00 Yes [id number] 500mg Take 1 tablet by mouth every 12 (twelve) hours. [facility] metroNIDAZO LE 500 mg tablet 2020-0 5-14 00:00: 00 Yes [id number] 500mg Take 1 tablet by mouth every 12 (twelve) hours. [facility] metroNIDAZO LE 500 mg tablet 2020-0 5-14 00:00: 00 Yes [id number] 500mg Take 1 tablet by mouth every 12 (twelve) hours. [facility] metroNIDAZO LE 500 mg tablet 2019-0 5-14 00:00: 00 Yes [id number] 500mg Take 1 tablet by mouth every 12 (twelve) hours. [facility] metroNIDAZO LE 500 mg tablet 2020-0 5-14 00:00: 00 Yes [id number] 500mg Take 1 tablet by mouth every 12 (twelve) hours. [facility] metroNIDAZO LE 500 mg tablet 2019-0 5-14 00:00: 00 Yes [id number] 500mg Take 1 tablet by mouth every 12 (twelve) hours. [facility] rho(D) immune globulin (RHOGAM) syringe 300 mcg 12-04 22:30: 19 Yes 300ug 300 mcg, Intramuscu lar, ONCE, For 1 dose, Conditiona l, Routine [facility] ondansetron (ZOFRAN (PF)) injection 4 mg 12-04 22:30: 15 Yes 4mg 4 mg, Slow IV Push, Q8HPRN, Starting Sun12/04/19 at 1630, Until Discontinu ed, Routine, Nausea and Vomiting (N/V) [facility] simethicone (GAS RELIEF (SIMETHICON E)) chewable tablet 160 mg 12-04 22:30: 15 Yes 160mg 160 mg, Oral, PC+HSPRN, Starting Sun12/04/19 at 1630, Until Discontinu ed, Routine, Gas [facility] HYDROcodone -acetaminop hen (NORCO 5) 5-325 mg tablet 1 tablet 12-04 22:30: 14 Yes 1{tbl} 1 tablet, Oral, Q6HPRN, Starting Sun12/04/19 at 1630, Until Discontinu ed, Routine, Pain (scale 7-10) [facility] ibuprofen (IBU) tablet 600 mg 12-04 22:30: 14 Yes 600mg 600 mg, Oral, Q6HPRN, Starting Sun12/04/19 at 1630, Until Discontinu ed, Routine, Pain (scale 4-6) [facility] acetaminoph en (TYLENOL) tablet 650 mg 12-04 22:30: 14 Yes 650mg 650 mg, Oral, Q6HPRN, Starting Sun12/04/19 at 1630, Until Discontinu ed, Routine, Pain (scale 1-3) [facility] diphenhydrA MINE (BENADRYL) tablet 25 mg 12-04 22:30: 14 Yes 25mg 25 mg, Oral, Q6HPRN, Starting Sun12/04/19 at 1630, Until Discontinu ed, Routine, Sleep, Itching [facility] docusate calcium (SURFAK) capsule 240 mg 12-04 22:30: 14 Yes 240mg 240 mg, Oral, QDAILYPRN, Starting Sun12/04/19 at 1630, Until Discontinu ed, Routine, Constipati on [facility] acute hospital magnesium hydroxide (MILK OF MAGNESIA) 400 mg/5 mL suspension 30 mL 12-04 22:30: 14 Yes 30mL 30 mL, Oral, QDAILYPRN, Starting Sun12/04/19 at 1630, Until Discontinu ed, Routine, Constipati on [facility] acute [facility] benzocaine- menthol (DERMOPLAST ) 20-0.5 % topical spray 12-04 22:30: 14 Yes Topical, PRN, Starting Sun12/04/19 at 1630, Until Discontinu ed, Routine, Perineum discomfort [facility] vit37/iron/ folic acid (PRENATA ORAL) 12-04 16:20: 27 12-04 00:00 :00 No Take by mouth. [facility] ibuprofen (IBU) tablet 600 mg 12-04 02:06: 25 12-04 22:30 :20 No 600mg 600 mg, Oral, Q6HPRN, Starting Sun12/03/19 at 2005, Until Sun12/04/19 at 1630, Routine, Pain (scale 4-6) [facility] simethicone (GAS RELIEF (SIMETHICON E)) chewable tablet 160 mg 12-04 02:06: 25 12-04 22:30 :20 No 160mg 160 mg, Oral, PC+HSPRN, Starting Sun12/03/19 at 2005, Until Sun12/04/19 at 1630, Routine, Gas [facility] docusate calcium (SURFAK) capsule 240 mg 12-04 02:06: 25 12-04 22:30 :20 No 240mg 240 mg, Oral, QDAILYPRN, Starting Sun12/03/19 at 2005, Until Sun12/04/19 at 1630, Routine, Constipati on [facility] acetaminoph en (TYLENOL) tablet 650 mg 12-04 02:06: 24 12-04 22:30 :20 No 650mg 650 mg, Oral, Q6HPRN, Starting Sun12/03/19 at 2005, Until Lynette 12/04/19 at 1630, Routine, Pain (scale 1-3) [facility] vitamin w/FA tablet 12-04 00:00: 00 Yes [id number] 102 1{tbl} Take 1 tablet by mouth daily. [facility] vitamin w/FA tablet 16 00:00: 00 Yes [id number] 102 1{tbl} Take 1 tablet by mouth daily. [facility] docusate calcium 240 mg capsule 12-04 00:00: 00 Yes [id number] 102 240mg Take 1 capsule by mouth once daily as needed for Constipati on. [facility] acute hospital ferrous sulfate 325 mg (65 mg iron) tablet 12-04 00:00: 00 Yes [id number] 102 325mg Take 1 tablet by mouth 2 (two) times daily. [facility] ibuprofen 600 mg tablet 12-04 00:00: 00 Yes [id number] 102 600mg Take 1 tablet by mouth every 6 (six) hours as needed (Pain). Take with food or milk. [facility] docusate calcium 240 mg capsule 12-04 00:00: 00 Yes [id number] 102 240mg Take 1 capsule by mouth once daily as needed for Constipati on. [facility] ferrous sulfate 325 mg (65 mg iron) tablet 12-04 00:00: 00 Yes [id number] 102 325mg Take 1 tablet by mouth 2 (two) times daily. [facility] ibuprofen 600 mg tablet 12-04 00:00: 00 Yes [id number] 102 600mg Take 1 tablet by mouth every 6 (six) hours as needed (Pain). Take with food or milk. [facility] vitamin w/FA tablet 12-04 00:00: 00 Yes [id number] 102 1{tbl} Take 1 tablet by mouth daily. [facility] docusate calcium 240 mg capsule 12-04 00:00: 00 Yes [id number] 102 240mg Take 1 capsule by mouth once daily as needed for Constipati on. [facility] ferrous sulfate 325 mg (65 mg iron) tablet 12-04 00:00: 00 Yes [id number] 102 325mg Take 1 tablet by mouth 2 (two) times daily. [facility] ibuprofen 600 mg tablet 12-04 00:00: 00 Yes [id number] 102 600mg Take 1 tablet by mouth every 6 (six) hours as needed (Pain). Take with food or milk. [facility] vitamin w/FA tablet 12-04 00:00: 00 Yes [id number] 102 1{tbl} Take 1 tablet by mouth daily. [facility] docusate calcium 240 mg capsule 12-04 00:00: 00 Yes [id number] 102 240mg Take 1 capsule by mouth once daily as needed for Constipati on. [facility] ferrous sulfate 325 mg (65 mg iron) tablet 12-04 00:00: 00 Yes [id number] 102 325mg Take 1 tablet by mouth 2 (two) times daily. [facility] ibuprofen 600 mg tablet 12-04 00:00: 00 Yes [id number] 102 600mg Take 1 tablet by mouth every 6 (six) hours as needed (Pain). Take with food or milk. [facility] vitamin w/FA tablet 12-04 00:00: 00 Yes [id number] 102 1{tbl} Take 1 tablet by mouth daily. [facility] docusate calcium 240 mg capsule 12-04 00:00: 00 Yes [id number] 102 240mg Take 1 capsule by mouth once daily as needed for Constipati on. [facility] ferrous sulfate 325 mg (65 mg iron) tablet 12-04 00:00: 00 Yes [id number] 102 325mg Take 1 tablet by mouth 2 (two) times daily. [facility] ibuprofen 600 mg tablet 12-04 00:00: 00 Yes [id number] 102 600mg Take 1 tablet by mouth every 6 (six) hours as needed (Pain). Take with food or milk. [facility] vitamin w/FA tablet 12-04 00:00: 00 Yes [id number] 102 1{tbl} Take 1 tablet by mouth daily. [facility] docusate calcium 240 mg capsule 12-04 00:00: 00 Yes [id number] 102 240mg Take 1 capsule by mouth once daily as needed for Constipati on. [facility] ferrous sulfate 325 mg (65 mg iron) tablet 12-04 00:00: 00 Yes [id number] 102 325mg Take 1 tablet by mouth 2 (two) times daily. [facility] ibuprofen 600 mg tablet 12-04 00:00: 00 Yes [id number] 102 600mg Take 1 tablet by mouth every 6 (six) hours as needed (Pain). Take with food or milk. [facility] vitamin w/FA tablet 12-04 00:00: 00 Yes [id number] 102 1{tbl} Take 1 tablet by mouth daily. [facility] docusate calcium 240 mg capsule 12-04 00:00: 00 Yes [id number] 102 240mg Take 1 capsule by mouth once daily as needed for Constipati on. [facility] ferrous sulfate 325 mg (65 mg iron) tablet 12-04 00:00: 00 Yes [id number] 102 325mg Take 1 tablet by mouth 2 (two) times daily. [facility] ibuprofen 600 mg tablet 12-04 00:00: 00 Yes [id number] 102 600mg Take 1 tablet by mouth every 6 (six) hours as needed (Pain). Take with food or milk. [facility] vitamin w/FA tablet 12-04 00:00: 00 Yes [id number] 102 1{tbl} Take 1 tablet by mouth daily. [facility] docusate calcium 240 mg capsule 12-04 00:00: 00 Yes [id number] 102 240mg Take 1 capsule by mouth once daily as needed for Constipati on. [facility] ferrous sulfate 325 mg (65 mg iron) tablet 12-04 00:00: 00 Yes [id number] 102 325mg Take 1 tablet by mouth 2 (two) times daily. [facility] ibuprofen 600 mg tablet 12-04 00:00: 00 Yes [id number] 102 600mg Take 1 tablet by mouth every 6 (six) hours as needed (Pain). Take with food or milk. [facility] vitamin w/FA tablet 12-04 00:00: 00 Yes [id number] 102 1{tbl} Take 1 tablet by mouth daily. [facility] docusate calcium 240 mg capsule 12-04 00:00: 00 Yes [id number] 102 240mg Take 1 capsule by mouth once daily as needed for Constipati on. [facility] ferrous sulfate 325 mg (65 mg iron) tablet 12-04 00:00: 00 Yes [id number] 102 325mg Take 1 tablet by mouth 2 (two) times daily. [facility] ibuprofen 600 mg tablet 12-04 00:00: 00 Yes [id number] 102 600mg Take 1 tablet by mouth every 6 (six) hours as needed (Pain). Take with food or milk. [facility] vitamin w/FA tablet 12-04 00:00: 00 Yes [id number] 102 1{tbl} Take 1 tablet by mouth daily. [facility] docusate calcium 240 mg capsule 12-04 00:00: 00 Yes [id number] 102 240mg Take 1 capsule by mouth once daily as needed for Constipati on. [facility] ferrous sulfate 325 mg (65 mg iron) tablet 12-04 00:00: 00 Yes [id number] 102 325mg Take 1 tablet by mouth 2 (two) times daily. [facility] ibuprofen 600 mg tablet 12-04 00:00: 00 Yes [id number] 102 600mg Take 1 tablet by mouth every 6 (six) hours as needed (Pain). Take with food or milk. [facility] vitamin w/FA tablet 12-04 00:00: 00 Yes [id number] 102 1{tbl} Take 1 tablet by mouth daily. [facility] docusate calcium 240 mg capsule 12-04 00:00: 00 Yes [id number] 102 240mg Take 1 capsule by mouth once daily as needed for Constipati on. [facility] ferrous sulfate 325 mg (65 mg iron) tablet 12-04 00:00: 00 Yes [id number] 102 325mg Take 1 tablet by mouth 2 (two) times daily. [facility] ibuprofen 600 mg tablet 12-04 00:00: 00 Yes [id number] 102 600mg Take 1 tablet by mouth every 6 (six) hours as needed (Pain). Take with food or milk. [facility] vitamin w/FA tablet 12-04 00:00: 00 Yes [id number] 102 1{tbl} Take 1 tablet by mouth daily. [facility] docusate calcium 240 mg capsule 12-04 00:00: 00 Yes [id number] 102 240mg Take 1 capsule by mouth once daily as needed for Constipati on. [facility] ferrous sulfate 325 mg (65 mg iron) tablet 12-04 00:00: 00 Yes [id number] 102 325mg Take 1 tablet by mouth 2 (two) times daily. [facility] ibuprofen 600 mg tablet 12-04 00:00: 00 Yes [id number] 102 600mg Take 1 tablet by mouth every 6 (six) hours as needed (Pain). Take with food or milk. [facility] vitamin w/FA tablet 12-04 00:00: 00 Yes [id number] 102 1{tbl} Take 1 tablet by mouth daily. [facility] docusate calcium 240 mg capsule 12-04 00:00: 00 Yes [id number] 102 240mg Take 1 capsule by mouth once daily as needed for Constipati on. [facility] ferrous sulfate 325 mg (65 mg iron) tablet 12-04 00:00: 00 Yes [id number] 102 325mg Take 1 tablet by mouth 2 (two) times daily. [facility] ibuprofen 600 mg tablet 12-04 00:00: 00 Yes [id number] 102 600mg Take 1 tablet by mouth every 6 (six) hours as needed (Pain). Take with food or milk. [facility] vitamin w/FA tablet 16 00:00: 00 Yes [id number] 102 1{tbl} Take 1 tablet by mouth daily. [facility] docusate calcium 240 mg capsule 12-04 00:00: 00 Yes [id number] 102 240mg Take 1 capsule by mouth once daily as needed for Constipati on. [facility] ferrous sulfate 325 mg (65 mg iron) tablet 12-04 00:00: 00 Yes [id number] 102 325mg Take 1 tablet by mouth 2 (two) times daily. [facility] ibuprofen 600 mg tablet 12-04 00:00: 00 Yes [id number] 102 600mg Take 1 tablet by mouth every 6 (six) hours as needed (Pain). Take with food or milk. [facility] vitamin w/FA tablet 12-04 00:00: 00 Yes [id number] 102 1{tbl} Take 1 tablet by mouth daily. [facility] docusate calcium 240 mg capsule 12-04 00:00: 00 Yes [id number] 102 240mg Take 1 capsule by mouth once daily as needed for Constipati on. [facility] ferrous sulfate 325 mg (65 mg iron) tablet 12-04 00:00: 00 Yes [id number] 102 325mg Take 1 tablet by mouth 2 (two) times daily. [facility] ibuprofen 600 mg tablet 12-04 00:00: 00 Yes [id number] 102 600mg Take 1 tablet by mouth every 6 (six) hours as needed (Pain). Take with food or milk. [facility] vitamin w/FA tablet 12-04 00:00: 00 Yes [id number] 102 1{tbl} Take 1 tablet by mouth daily. [facility] docusate calcium 240 mg capsule 12-04 00:00: 00 Yes [id number] 102 240mg Take 1 capsule by mouth once daily as needed for Constipati on. [facility] ferrous sulfate 325 mg (65 mg iron) tablet 12-04 00:00: 00 Yes [id number] 102 325mg Take 1 tablet by mouth 2 (two) times daily. [facility] ibuprofen 600 mg tablet 12-04 00:00: 00 Yes [id number] 102 600mg Take 1 tablet by mouth every 6 (six) hours as needed (Pain). Take with food or milk. [facility] vitamin w/FA tablet 12-04 00:00: 00 Yes [id number] 102 1{tbl} Take 1 tablet by mouth daily. [facility] docusate calcium 240 mg capsule 12-04 00:00: 00 Yes [id number] 102 240mg Take 1 capsule by mouth once daily as needed for Constipati on. [facility] ferrous sulfate 325 mg (65 mg iron) tablet 12-04 00:00: 00 Yes [id number] 102 325mg Take 1 tablet by mouth 2 (two) times daily. [facility] ibuprofen 600 mg tablet 12-04 00:00: 00 Yes [id number] 102 600mg Take 1 tablet by mouth every 6 (six) hours as needed (Pain). Take with food or milk. [facility] FENTanyl PF (SUBLIMAZE (PF)) injection 100 mcg 12-03 21:33: 37 12-04 02:06 :30 No 100ug 100 mcg, Slow IV Push, Q1HPRN, Starting Sun12/03/19 at 1533, Until Sun12/03/19 at 2006, Routine, Pain (scale 4-6) [facility] penicillin g pot in dextrose 3 million unit/50 mL RTU iv piggyback 3 Million Units 12-03 20:45: 00 12-04 02:06 :30 No 310 3 Million Units, IV Piggyback, Q4H ABX, First dose on Sun12/03/19 at 1445, Until Discontinu ed, 50 mL
Reas on for Anti-Infec tive: Empiric Therapy for Suspected Infection< br>Empiric Therapy Site: Pelvic
Duration of therapy: 72 hours [facility] FENTanyl PF (SUBLIMAZE (PF)) injection 100 mcg 12-03 18:15: 00 12-03 18:05 :00 No 100ug 100 mcg, Slow IV Push, ONCE, 1 dose, Sun12/03/19 at 1215, Routine [facility] proMETHazin e (PHENERGAN) 25 mg in NaCl 0.9% (NS) 50 mL piggyback 12-03 17:55: 47 12-03 18:48 :00 No 25mg 25 mg, IV Piggyback, ONCE-SEE INSTRUCTIO NS, 1 dose, Starting Sun12/03/19 at 1155, Until Sun12/03/19 at 1248, 50 mL [facility] penicillin g pot in dextrose 3 million unit/50 mL RTU iv piggyback 3 Million Units 12-03 06:00: 00 12-03 14:59 :42 No 310 3 Million Units, IV Piggyback, Q4H ABX, First dose on Sun12/03/19 at 0000, Until Discontinu ed, 50 mL
Reas on for Anti-Infec tive: Empiric Therapy for Suspected Infection< br>Empiric Therapy Site: Other
O ther site: vaginal
Duration of therapy: 72 hours [facility] proMETHazin e (PHENERGAN) 25 mg in NaCl 0.9% (NS) 50 mL piggyback 12-03 04:45: 00 12-03 04:45 :00 No 25mg 25 mg, IV Piggyback, ONCE, 1 dose, Sun12/02/19 at 2245, 50 mL [facility] nalbuphine (NUBAIN) injection 10 mg 12-03 04:45: 00 12-03 03:42 :00 No 10mg 10 mg, Intravenou s, ONCE, 1 dose, Sun12/02/19 at 2245, Routine [facility] D5W-LR IV infusion 1,000 mL 12-03 03:15: 00 12-04 02:06 :30 No 1000mL at 125 mL/hr, IV Infusion, CONTINUOUS , Starting Sun12/02/19 at 2115, Until Sun12/03/19 at 2006, Routine [facility] penicillin g potassium 5 Million Units in NaCl 0.9% (NS) 100 mL piggyback 12-03 03:15: 00 12-03 04:15 :00 No 510 5 Million Units, IV Piggyback, ONCE, 1 dose, Sun12/02/19 at 2115, 100 mL
Reas on for Anti-Infec tive: Empiric Therapy for Suspected Infection< br>Empiric Therapy Site: Other
O ther site: vaginal [facility] lactated ringers IV infusion 1,000 mL 12-03 03:15: 00 12-03 02:38 :00 No 1000mL at 999 mL/hr, 1,000 mL, IV Infusion, ONCE, 1 dose, Sun12/02/19 at 2115, Routine [facility] betamethaso ne acet,sod phos (CELESTONE SOLUSPAN) 6 mg/mL injection 12 mg 12-03 03:00: 00 12-04 02:06 :30 No 12mg 12 mg, Intramuscu lar, Q24H, 2 doses, First dose on Sun12/02/19 at 2100, Last dose on Sun12/03/19 at 2100, Routine [facility] terbutaline (BRETHINE) injection 0.25 mg 12-03 03:00: 00 12-03 02:00 :00 No .25mg 0.25 mg, Subcutaneo us, ONCE, 1 dose, Sun12/02/19 at 2100, Routine General acute [facility] 500 mg tablet 2018-11 2- 00:00: 00 12-04 00:00 :00 No [id number] 500mg Take 1 tablet by mouth every 12 (twelve) hours. [facility] acute hospital vit37/iron/ folic acid (PRENATA ORAL) 08-07 18:55: 41 Yes Take by mouth. General acute hospital vit37/iron/ folic acid (PRENATA ORAL) 08-07 18:55: 41 Yes Take by mouth. [facility] acute [facility] 500 mg tablet 07-11 00:00: 00 Yes [id number] 500mg Take 1 tablet by mouth every 12 (twelve) hours. [facility] 500 mg tablet 07-11 00:00: 00 08-07 00:00 :00 No [id number] 500mg Take 1 tablet by mouth every 12 (twelve) hours. General acute hospital SERTraline (ZOLOFT) 50 mg tablet 06-12 00:00: 00 Yes [id number] 50mg Take 1 tablet by mouth daily. [facility] acute hospital SERTraline (ZOLOFT) 50 mg tablet 06-12 00:00: 00 Yes [id number] 50mg Take 1 tablet by mouth daily. [facility] acute hospital SERTraline (ZOLOFT) 50 mg tablet 06-12 00:00: 00 Yes [id number] 50mg Take 1 tablet by mouth daily. [facility] acute hospital SERTraline (ZOLOFT) 50 mg tablet 06-12 00:00: 00 Yes [id number] 50mg Take 1 tablet by mouth daily. [facility] acute hospital SERTraline (ZOLOFT) 50 mg tablet 06-12 00:00: 00 Yes [id number] 50mg Take 1 tablet by mouth daily. [facility] acute hospital SERTraline (ZOLOFT) 50 mg tablet 06-12 00:00: 00 Yes [id number] 50mg Take 1 tablet by mouth daily. [facility] acute hospital SERTraline (ZOLOFT) 50 mg tablet 06-12 00:00: 00 Yes [id number] 50mg Take 1 tablet by mouth daily. [facility] acute hospital SERTraline (ZOLOFT) 50 mg tablet 06-12 00:00: 00 Yes [id number] 50mg Take 1 tablet by mouth daily. [facility] acute hospital SERTraline (ZOLOFT) 50 mg tablet 06-12 00:00: 00 Yes [id number] 50mg Take 1 tablet by mouth daily. [facility] acute hospital SERTraline (ZOLOFT) 50 mg tablet 06-12 00:00: 00 Yes [id number] 50mg Take 1 tablet by mouth daily. [facility] acute hospital SERTraline (ZOLOFT) 50 mg tablet 06-12 00:00: 00 Yes [id number] 50mg Take 1 tablet by mouth daily. [facility] acute hospital SERTraline (ZOLOFT) 50 mg tablet 06-12 00:00: 00 Yes [id number] 50mg Take 1 tablet by mouth daily. [facility] acute hospital SERTraline (ZOLOFT) 50 mg tablet 06-12 00:00: 00 Yes [id number] 50mg Take 1 tablet by mouth daily. [facility] acute hospital SERTraline (ZOLOFT) 50 mg tablet 06-12 00:00: 00 Yes [id number] 50mg Take 1 tablet by mouth daily. [facility] acute hospital SERTraline (ZOLOFT) 50 mg tablet 06-12 00:00: 00 Yes [id number] 50mg Take 1 tablet by mouth daily. [facility] acute hospital SERTraline (ZOLOFT) 50 mg tablet 06-12 00:00: 00 Yes [id number] 50mg Take 1 tablet by mouth daily. [facility] acute hospital SERTraline (ZOLOFT) 50 mg tablet 06-12 00:00: 00 Yes [id number] 50mg Take 1 tablet by mouth daily. [facility] acute hospital SERTraline (ZOLOFT) 50 mg tablet 06-12 00:00: 00 Yes [id number] 50mg Take 1 tablet by mouth daily. [facility] acute hospital SERTraline (ZOLOFT) 50 mg tablet 06-12 00:00: 00 Yes [id number] 50mg Take 1 tablet by mouth daily. [facility] acute hospital SERTraline (ZOLOFT) 50 mg tablet 06-12 00:00: 00 Yes [id number] 50mg Take 1 tablet by mouth daily. [facility] acute hospital SERTraline (ZOLOFT) 50 mg tablet 06-12 00:00: 00 Yes [id number] 50mg Take 1 tablet by mouth daily. [facility] acute hospital SERTraline (ZOLOFT) 50 mg tablet 06-12 00:00: 00 Yes [id number] 50mg Take 1 tablet by mouth daily. [facility] acute hospital SERTraline (ZOLOFT) 50 mg tablet 06-12 00:00: 00 Yes [id number] 50mg Take 1 tablet by mouth daily. General acute hospital SERTraline (ZOLOFT) 50 mg tablet 06-12 00:00: 00 Yes [id number] 50mg Take 1 tablet by mouth daily. [facility] acute hospital SERTraline (ZOLOFT) 50 mg tablet 06-12 00:00: 00 Yes [id number] 50mg Take 1 tablet by mouth daily. [facility] acute hospital SERTraline (ZOLOFT) 50 mg tablet 06-12 00:00: 00 Yes [id number] 50mg Take 1 tablet by mouth daily. General acute hospital SERTraline (ZOLOFT) 50 mg tablet 06-12 00:00: 00 Yes [id number] 50mg Take 1 tablet by mouth daily. General acute hospital SERTraline (ZOLOFT) 50 mg tablet 06-12 00:00: 00 Yes [id number] 50mg Take 1 tablet by mouth daily. [facility] acute hospital SERTraline (ZOLOFT) 50 mg tablet 06-12 00:00: 00 Yes [id number] 50mg Take 1 tablet by mouth daily. General acute hospital SERTraline (ZOLOFT) 50 mg tablet 06-12 00:00: 00 Yes [id number] 50mg Take 1 tablet by mouth daily. General acute hospital SERTraline (ZOLOFT) 50 mg tablet 06-12 00:00: 00 Yes [id number] 50mg Take 1 tablet by mouth daily. General acute hospital vit37/iron/ folic acid (PRENATA ORAL) 05-15 16:14: 27 Yes Take by mouth. General acute hospital vit37/iron/ folic acid (PRENATA ORAL) 05-15 16:14: 27 Yes Take by mouth. General acute hospital vit37/iron/ folic acid (PRENATA ORAL) 05-15 16:14: 27 Yes Take by mouth. General acute hospital vit37/iron/ folic acid (PRENATA ORAL) 05-15 16:14: 27 Yes Take by mouth. General acute hospital vit37/iron/ folic acid (PRENATA ORAL) 05-15 16:14: 27 Yes Take by mouth. General acute hospital vit37/iron/ folic acid (PRENATA ORAL) 05-15 16:14: 27 Yes Take by mouth. General acute hospital vit37/iron/ folic acid (PRENATA ORAL) 05-15 16:14: 27 Yes Take by mouth. General acute hospital vit37/iron/ folic acid (PRENATA ORAL) 05-15 16:14: 27 Yes Take by mouth. General acute hospital vit37/iron/ folic acid (PRENATA ORAL) 05-15 16:14: 27 Yes Take by mouth. General acute hospital vit37/iron/ folic acid (PRENATA ORAL) 05-15 16:14: 27 Yes Take by mouth. General acute hospital vit37/iron/ folic acid (PRENATA ORAL) 05-15 16:14: 27 Yes Take by mouth. General acute hospital vit37/iron/ folic acid (PRENATA ORAL) 05-15 16:14: 27 Yes Take by mouth. General acute hospital doxylamine- pyridoxine, vit B6, (DICLEGIS) 10-10 mg per tablet 04-28 00:00: 00 Yes [id number] 1{tbl} Take 1 tablet by mouth SEE-INSTRU CTIONS. General acute hospital doxylamine- pyridoxine, vit B6, (DICLEGIS) 10-10 mg per tablet 04-28 00:00: 00 Yes [id number] 1{tbl} Take 1 tablet by mouth SEE-INSTRU CTIONS. General acute hospital doxylamine- pyridoxine, vit B6, (DICLEGIS) 10-10 mg per tablet 04-28 00:00: 00 Yes [id number] 1{tbl} Take 1 tablet by mouth SEE-INSTRU CTIONS. General acute hospital doxylamine- pyridoxine, vit B6, (DICLEGIS) 10-10 mg per tablet 04-28 00:00: 00 Yes [id number] 1{tbl} Take 1 tablet by mouth SEE-INSTRU CTIONS. General acute hospital doxylamine- pyridoxine, vit B6, (DICLEGIS) 10-10 mg per tablet 04-28 00:00: 00 Yes [id number] 1{tbl} Take 1 tablet by mouth SEE-INSTRU CTIONS. General acute hospital doxylamine- pyridoxine, vit B6, (DICLEGIS) 10-10 mg per tablet 04-28 00:00: 00 Yes [id number] 1{tbl} Take 1 tablet by mouth SEE-INSTRU CTIONS. General acute hospital doxylamine- pyridoxine, vit B6, (DICLEGIS) 10-10 mg per tablet 04-28 00:00: 00 Yes [id number] 1{tbl} Take 1 tablet by mouth SEE-INSTRU CTIONS. General acute hospital doxylamine- pyridoxine, vit B6, (DICLEGIS) 10-10 mg per tablet 04-28 00:00: 00 Yes [id number] 1{tbl} Take 1 tablet by mouth SEE-INSTRU CTIONS. General acute hospital doxylamine- pyridoxine, vit B6, (DICLEGIS) 10-10 mg per tablet 04-28 00:00: 00 Yes [id number] 1{tbl} Take 1 tablet by mouth SEE-INSTRU CTIONS. General acute hospital doxylamine- pyridoxine, vit B6, (DICLEGIS) 10-10 mg per tablet 04-28 00:00: 00 Yes [id number] 1{tbl} Take 1 tablet by mouth SEE-INSTRU CTIONS. General acute hospital doxylamine- pyridoxine, vit B6, (DICLEGIS) 10-10 mg per tablet 04-28 00:00: 00 Yes [id number] 1{tbl} Take 1 tablet by mouth SEE-INSTRU CTIONS. General acute hospital doxylamine- pyridoxine, vit B6, (DICLEGIS) 10-10 mg per tablet 04-28 00:00: 00 Yes [id number] 1{tbl} Take 1 tablet by mouth SEE-INSTRU CTIONS. [facility] doxylamine- pyridoxine, vit B6, (DICLEGIS) 10-10 mg per tablet 10 00:00: 00 08-07 00:00 :00 No [id number] 1{tbl} Take 1 tablet by mouth SEE-INSTRU CTIONS. General acute hospital Immunizations Ordered Immunization Name Filled Immunization Name Date Status Comments Source TDAP (ADACEL) VACCINE 2019-10-22 00:00:00 Completed [facility] TDAP (ADACEL) VACCINE 2019-10-22 00:00:00 Completed [facility] TDAP (ADACEL) VACCINE 2019-10-22 00:00:00 Completed [facility] TDAP (ADACEL) VACCINE 2019-10-22 00:00:00 Completed [facility] TDAP (ADACEL) VACCINE 2019-10-22 00:00:00 Completed [facility] TDAP (ADACEL) VACCINE 2019-10-22 00:00:00 Completed [facility] TDAP (ADACEL) VACCINE 2019-10-22 00:00:00 Completed [facility] TDAP (ADACEL) VACCINE 2019-10-22 00:00:00 Completed [facility] TDAP (ADACEL) VACCINE 2019-10-22 00:00:00 Completed [facility] TDAP (ADACEL) VACCINE 2019-10-22 00:00:00 Completed [facility] TDAP (ADACEL) VACCINE 2019-10-22 00:00:00 Completed [facility] TDAP (ADACEL) VACCINE 2019-10-22 00:00:00 Completed [facility] TDAP (ADACEL) VACCINE 2019-10-22 00:00:00 Completed [facility] TDAP (ADACEL) VACCINE 2019-10-22 00:00:00 Completed [facility] TDAP (ADACEL) VACCINE 2019-10-22 00:00:00 Completed [facility] TDAP (ADACEL) VACCINE 2019-10-22 00:00:00 Completed [facility] Influenza Virus Vaccine Quad .5 mL IM 6+ MO 2019-09-08 00:00:00 Completed [facility] Influenza Virus Vaccine Quad .5 mL IM 6+ MO 2019-09-08 00:00:00 Completed [facility] Influenza Virus Vaccine Quad .5 mL IM 6+ MO 2019-09-08 00:00:00 Completed [facility] Influenza Virus Vaccine Quad .5 mL IM 6+ MO 2019-09-08 00:00:00 Completed [facility] Influenza Virus Vaccine Quad .5 mL IM 6+ MO 2019-09-08 00:00:00 Completed [facility] Influenza Virus Vaccine Quad .5 mL IM 6+ MO 2019-09-08 00:00:00 Completed [facility] Influenza Virus Vaccine Quad .5 mL IM 6+ MO 2019-09-08 00:00:00 Completed [facility] Influenza Virus Vaccine Quad .5 mL IM 6+ MO 2019-09-08 00:00:00 Completed [facility] Influenza Virus Vaccine Quad .5 mL IM 6+ MO 2019-09-08 00:00:00 Completed [facility] Influenza Virus Vaccine Quad .5 mL IM 6+ MO 2019-09-08 00:00:00 Completed [facility] Influenza Virus Vaccine Quad .5 mL IM 6+ MO 2019-09-08 00:00:00 Completed [facility] Influenza Virus Vaccine Quad .5 mL IM 6+ MO 2019-09-08 00:00:00 Completed [facility] Influenza Virus Vaccine Quad .5 mL IM 6+ MO 2019-09-08 00:00:00 Completed [facility] Influenza Virus Vaccine Quad .5 mL IM 6+ MO 2019-09-08 00:00:00 Completed [facility] Influenza Virus Vaccine Quad .5 mL IM 6+ MO 2019-09-08 00:00:00 Completed [facility] Influenza Virus Vaccine Quad .5 mL IM 6+ MO 2019-09-08 00:00:00 Completed [facility] HPV9 2018-10-03 00:00:00 Completed [facility] HPV9 2018-10-03 00:00:00 Completed [facility] HPV9 2018-10-03 00:00:00 Completed [facility] HPV9 2018-10-03 00:00:00 Completed [facility] HPV9 2018-10-03 00:00:00 Completed [facility] HPV9 2018-10-03 00:00:00 Completed [facility] HPV9 2018-10-03 00:00:00 Completed [facility] HPV9 2018-10-03 00:00:00 Completed [facility] HPV9 2018-10-03 00:00:00 Completed [facility] HPV9 2018-10-03 00:00:00 Completed [facility] HPV9 2018-10-03 00:00:00 Completed [facility] HPV9 2018-10-03 00:00:00 Completed [facility] HPV9 2018-10-03 00:00:00 Completed [facility] HPV9 2018-10-03 00:00:00 Completed [facility] HPV9 2018-10-03 00:00:00 Completed [facility] HPV9 2018-10-03 00:00:00 Completed [facility] HPV9 2018-10-03 00:00:00 Completed [facility] HPV9 2018-10-03 00:00:00 Completed [facility] HPV9 2018-10-03 00:00:00 Completed [facility] HPV9 2018-10-03 00:00:00 Completed [facility] HPV9 2018-10-03 00:00:00 Completed [facility] HPV9 2018-10-03 00:00:00 Completed [facility] HPV9 2018-10-03 00:00:00 Completed [facility] HPV9 2018-10-03 00:00:00 Completed [facility] HPV9 2018-10-03 00:00:00 Completed [facility] HPV9 2018-10-03 00:00:00 Completed [facility] HPV9 2018-10-03 00:00:00 Completed [facility] HPV9 2018-10-03 00:00:00 Completed [facility] HPV9 2018-10-03 00:00:00 Completed [facility] HPV9 2018-10-03 00:00:00 Completed [facility] Tdap 2018-08-22 00:00:00 Completed [facility] Tdap 2018-08-22 00:00:00 Completed [facility] Tdap 2018-08-22 00:00:00 Completed [facility] Tdap 2018-08-22 00:00:00 Completed [facility] Tdap 2018-08-22 00:00:00 Completed [facility] Tdap 2018-08-22 00:00:00 Completed [facility] Tdap 2018-08-22 00:00:00 Completed [facility] Tdap 2018-08-22 00:00:00 Completed [facility] TDAP 2018-08-22 00:00:00 Completed [facility] Tdap 2018-08-22 00:00:00 Completed [facility] Tdap 2018-08-22 00:00:00 Completed [facility] Tdap 2018-08-22 00:00:00 Completed [facility] Tdap 2018-08-22 00:00:00 Completed [facility] Tdap 2018-08-22 00:00:00 Completed [facility] Tdap 2018-08-22 00:00:00 Completed [facility] Tdap 2018-08-22 00:00:00 Completed [facility] TDAP 2018-08-22 00:00:00 Completed [facility] TDAP 2018-08-22 00:00:00 Completed [facility] Tdap 2018-08-22 00:00:00 Completed [facility] TDAP 2018-08-22 00:00:00 Completed [facility] TDAP 2018-08-22 00:00:00 Completed [facility] TDAP 2018-08-22 00:00:00 Completed [facility] TDAP 2018-08-22 00:00:00 Completed [facility] TDAP 2018-08-22 00:00:00 Completed [facility] Tdap 2018-08-22 00:00:00 Completed [facility] Tdap 2018-08-22 00:00:00 Completed [facility] Tdap 2018-08-22 00:00:00 Completed [facility] Tdap 2018-08-22 00:00:00 Completed [facility] Tdap 2018-08-22 00:00:00 Completed [facility] Tdap 2018-08-22 00:00:00 Completed [facility] TDAP Unknown Completed [facility] HPV9 Unknown Completed [facility] Influenza Virus Vaccine Quad .5 mL IM 6+ MO (FLUZONE/FLULAVAL/F LUARIX) Unknown Completed [facility] TDAP (ADACEL) VACCINE Unknown Completed [facility] TDAP Unknown Completed [facility] HPV9 Unknown Completed [facility] Influenza Virus Vaccine Quad .5 mL IM 6+ MO (FLUZONE/FLULAVAL/F LUARIX) Unknown Completed [facility] TDAP (ADACEL) VACCINE Unknown Completed [facility] Vital Signs Vital Name Observation Time Observation Value Comments S ource Systolic blood pressure 2020-08-03 14:34:00 120 mm[Hg] [facility] Diastolic blood pressure 2020-08-03 14:34:00 81 mm[Hg] [facility] Heart rate 2020-08-03 14:34:00 84 /min [facility] Body temperature 2020-08-03 14:34:00 36.78 Julia [facility] Respiratory rate 2020-08-03 14:34:00 18 /min [facility] Body height 2020-08-03 14:34:00 167.6 cm [facility] Body weight 2020-08-03 14:34:00 112.674 kg [facility] BMI 2020-08-03 14:34:00 40.09 kg/m2 [facility] Systolic blood pressure 2020-08-03 14:34:00 120 mm[Hg] [facility] Diastolic blood pressure 2020-08-03 14:34:00 81 mm[Hg] [facility] Heart rate 2020-08-03 14:34:00 84 /min [facility] Body temperature 2020-08-03 14:34:00 36.78 Julia [facility] Respiratory rate 2020-08-03 14:34:00 18 /min [facility] Body height 2020-08-03 14:34:00 167.6 cm [facility] Body weight 2020-08-03 14:34:00 112.674 kg [facility] BMI 2020-08-03 14:34:00 40.09 kg/m2 [facility] Systolic blood pressure 2020-03-29 19:33:00 106 mm[Hg] [facility] Diastolic blood pressure 2020-03-29 19:33:00 67 mm[Hg] [facility] Heart rate 2020-03-29 19:33:00 76 /min [facility] Body temperature 2020-03-29 19:33:00 36.72 Julia [facility] Respiratory rate 2020-03-29 19:33:00 18 /min [facility] Body height 2020-03-29 19:33:00 165.1 cm [facility] Body weight 2020-03-29 19:33:00 115.486 kg [facility] BMI 2020-03-29 19:33:00 42.37 kg/m2 [facility] Systolic blood pressure 2019-12-05 14:00:00 140 mm[Hg] [facility] Diastolic blood pressure 2019-12-05 14:00:00 89 mm[Hg] [facility] Heart rate 2019-12-05 14:00:00 74 /min [facility] Body temperature 2019-12-05 14:00:00 36.78 Julia [facility] Respiratory rate 2019-12-05 14:00:00 16 /min [facility] Oxygen saturation in Arterial blood by Pulse oximetry 2019-12-05 14:00:00 100 /min [facility] Body height 2019-12-03 00:54:00 165.1 cm [facility] Body weight 2019-12-03 00:54:00 106.142 kg [facility] BMI 2019-12-03 00:54:00 38.94 kg/m2 [facility] Systolic blood pressure 2019-08-07 18:53:00 121 mm[Hg] [facility] Diastolic blood pressure 2019-08-07 18:53:00 76 mm[Hg] [facility] Heart rate 2019-08-07 18:53:00 69 /min [facility] Body temperature 2019-08-07 18:53:00 36.5 Julia [facility] Respiratory rate 2019-08-07 18:53:00 20 /min [facility] Body height 2019-08-07 18:53:00 167.6 cm [facility] Body weight 2019-08-07 18:53:00 92.08 kg [facility] BMI 2019-08-07 18:53:00 32.77 kg/m2 [facility] Systolic blood pressure 2019-07-10 16:56:00 117 mm[Hg] [facility] Diastolic blood pressure 2019-07-10 16:56:00 72 mm[Hg] [facility] Heart rate 2019-07-10 16:56:00 70 /min [facility] 2019-07-10 16:56:00 36.78 Julia [facility] Respiratory rate 2019-07-10 16:56:00 18 /min [facility] Body height 2019-07-10 16:56:00 167.6 cm [facility] Body weight 2019-07-10 16:56:00 89.359 kg [facility] BMI 2019-07-10 16:56:00 31.80 kg/m2 [facility] Systolic blood pressure 2019-06-12 16:42:00 118 mm[Hg] [facility] Diastolic blood pressure 2019-06-12 16:42:00 82 mm[Hg] [facility] Body temperature 2019-06-12 16:42:00 36.39 Julia [facility] Respiratory rate 2019-06-12 16:42:00 18 /min [facility] Body height 2019-06-12 16:42:00 165.1 cm [facility] Body weight 2019-06-12 16:42:00 89.177 kg [facility] BMI 2019-06-12 16:42:00 32.72 kg/m2 [facility] Procedures Procedure Date / Time Performed Performing Clinician Source THYROID STIMULATING HORMONE 2020-08-03 15:42:00 Danielle Ferreira [facility] CBC WITH DIFFERENTIAL 2019-12-04 09:59:00 Amanda Rao [facility] VENOUS CORD GAS 2019-12-03 23:45:00 Amanda Rao [facility] GROUP B STREPTOCOCCUS BY PCR 2019-12-03 02:47:00 Amanda Rao [facility] HB ABO GROUPING 2019-12-03 02:45:00 Amanda Rao [facility] RHO (D) IMMUNE GLOBULIN 2019-12-03 02:45:00 Amanda Rao [facility] CBC WITH DIFFERENTIAL 2019-12-03 02:37:00 Amanda Rao m [facility] HEPATITIS B SURFACE ANTIGEN 2019-12-03 02:37:00 Amanda Rao [facility] GC & CHLAMYDIA AMPLIFIED ASSAY 2019-12-03 02:37:00 Amanda Rao [facility] ADC OR DEMARCUS ONLY - RPR 2019-12-03 02:37:00 Amanda Rao [facility] HIV 1/2 AG-AB WITH REFLEX 2019-12-03 02:37:00 Amanda Rao [facility] ADC CLC OR LCC ONLY - WET PREP 2019-12-03 02:36:00 Amanda Rao [facility] ASSIGNMENT OF BENEFITS 2019-12-03 00:28:34 Docto r Unassigned, [place] [facility] CONSENT/REFUSAL FOR DIAGNOSIS AND TREATMENT 2019-12-03 00:28:17 Doctor Unassigned, [place] [facility] POCT URINALYSIS W/O SPECIFIC GRAVITY 2019-08-07 00:00:00 Amanda Rao [facility] ASSIGNMENT OF BENEFITS 2019-07-10 17:40:12 Docto r Unassigned, [place] [facility] POCT URINALYSIS W/O SPECIFIC GRAVITY 2019-07-10 00:00:00 Danielle Ferreira [facility] Encounters Start Date/Time End Date/Time Encounter Type Admission Type Attending Clinicians Care Facility Care Department Encounter ID Source 2021-08-18 16:00:00 2021-08-18 16:00:00 Outpatient R DANIELLE [facility]REIRA [facility] [id number] General acute hospital 2021-08-05 00:00:00 2021-08-05 00:00:00 Telephone Janice Angel [id number] [id number] General acute hospital 2021-08-05 00:00:00 2021-08-05 00:00:00 Patient Secure Msg Doctor Unassigned, [place] ANTOLIN MARTIN [id number] [id number] [id number] General acute hospital 2021-08-03 13:00:00 2021-08-03 13:00:00 Outpatient R DANIELLE FERREIRA [facility] [id number] General acute hospital 2021-02-08 00:00:00 2021-02-08 00:00:00 Patient Outreach Sumit Giuseppe [facility] [id number] [id number] [id number] 2021-02-08 00:00:00 2021-02-08 00:00:00 Patient Outreach Giuseppe Arana [facility] [id number] [id number] [id number] General acute hospital 2021-01-05 00:00:00 2021-01-05 00:00:00 Patient Secure Msg Doctor Unassigned, [place] [facility] [id number] 350.1.13.10 [id number] [id number] General acute hospital 2020-12-29 00:00:00 2020-12-29 00:00:00 Case Management Danielle [facility] [id number] [id number] 4.2.7.2.686 [id number] General acute hospital 2020-12-29 00:00:00 2020-12-29 00:00:00 Case Management Danielle Ferreira [facility] [id number] 350.1.13.10 [id number] [id number] General acute hospital 2020-12-29 00:00:00 2020-12-29 00:00:00 Case Management Danielle Ferreira [facility] [id number] 350.1.13.10 [id number] [id number] 2020-12-29 00:00:00 2020-12-29 00:00:00 Case Management Danielle Ferreira [facility] [id number] 4.2.7.2.686 [id number] 2020-12-27 16:30:00 2020-12-27 16:54:49 Outpatient R DANIELLE FERREIRA [facility] [id number] General acute hospital 2020-12-27 14:30:00 2020-12-27 14:30:00 Outpatient R DANIELLE FERREIRA [facility] [id number] General acute hospital 2020-12-02 14:45:00 2020-12-02 14:45:00 Outpatient R DANIELLE FERREIRA [facility] [id number] General acute hospital 2020-08-03 10:37:16 2020-08-03 10:52:16 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 1.2.840.114 350.1.13.10 4.2.7.2.686 [id number] General acute hospital 2020-08-03 09:20:24 2020-08-03 10:20:24 Office Visit Danielle Ferreira [facility] 1.2.840.114 350.1.13.10 4.2.7.2.686 [id number] 2020-08-03 09:00:00 2020-08-03 09:00:00 Outpatient R DANIELLE FERREIRA [facility] [id number] General acute hospital 2020-04-01 00:00:00 2020-04-01 00:00:00 Case Management Danielle Ferreira [facility] 1.2.840.114 350.1.13.10 4.2.7.2.686 [id number] 134 [id number] General acute hospital 2020-04-01 00:00:00 2020-04-01 00:00:00 Patient Secure Msg Doctor Unassigned, [place] [facility] 1.2.840.114 350.1.13.10 4.2.7.2.686 [id number] General acute hospital 2020-03-29 14:20:12 2020-03-29 14:55:35 Office Visit Danielle Ferreira [facility] 1.2.840.114 350.1.13.10 4.2.7.2.686 [id number] General acute hospital 2020-03-29 14:00:00 2020-03-29 14:00:00 Outpatient R DANIELLE FERREIRA [facility] [id number] General acute hospital 2020-03-29 09:00:00 2020-03-29 09:00:00 Outpatient R ANDERSON BARNETT [facility] [id number] General acute hospital 2020-03-22 00:00:00 2020-03-22 00:00:00 Telephone Amanda Rao [facility] 1.2.840.114 350.1.13.10 4.2.7.2.686 [id number] 134 [id number] General acute hospital 2019-12-02 18:27:00 2019-12-05 12:55:00 Hospital Encounter Amanda Rao [facility] 1.2.840.114 350.1.13.10 4.2.7.2.686 [id number] General acute hospital 2019-12-01 00:00:00 2019-12-01 00:00:00 Patient Secure Msg Amanda Rao [facility] 1.2.840.114 350.1.13.10 4.2.7.2.686 [id number] General acute hospital 2019-08-08 10:01:37 2019-08-08 11:01:37 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 Ultrasound, Adc Katie Jasmine [facility] 1.2.840.114 350.1.13.10 4.2.7.2.686 [id number] General acute hospital 2019-08-07 13:19:27 2019-08-07 14:31:47 Routine Visit Amanda Rao [facility] 1.2.840.114 350.1.13.10 4.2.7.2.686 [id number] General acute hospital 2019-07-11 00:00:00 2019-07-11 00:00:00 Case Management Amanda Rao [facility] 1.2.840.114 350.1.13.10 4.2.7.2.686 [id number] General acute hospital 2019-07-11 00:00:00 2019-07-11 00:00:00 Case Management [facility] 1.2.840.114 350.1.13.10 4.2.7.2.686 [id number] General acute hospital 2019-07-10 12:39:44 2019-07-10 12:54:44 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 1, Adc Lab Amanda Rao [facility] 1.20.114 350.1.13.10 4.2.7.2.686 [id number] General acute hospital 2019-07-10 11:37:17 2019-07-10 12:16:07 Routine Visit Danielle Ferreira [facility] 1.20.114 350.1.13.10 4.2.7.2.686 [id number] General acute hospital 2019-07-10 00:00:00 2019-07-10 00:00:00 Orders Only Doctor Unassigned, [place] [facility] 1.2840.114 350.1.13.10 4.2.7.2.686 [id number] General acute hospital 2019-06-30 00:00:00 2019-06-30 00:00:00 Patient Secure Rocio Membreno [facility] 1.20.114 350.1.13.10 4.2.7.2.686 [id number] 134 [id number] General acute hospital 2019-06-19 15:19:17 2019-06-19 15:34:49 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 Lab/[place] Jennifer A [facility] FREQUENCY CHECKER [facility] 1.20.114 350.1.13.10 4.2.7.2.686 [id number] General acute hospital 2019-06-19 14:34:16 2019-06-19 15:04:16 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 Lab Amanda Rao [facility] 1.2.840.114 350.1.13.10 4.2.7.2.686 [id number] General acute hospital 2019-06-12 11:32:16 2019-06-12 12:10:45 Routine Visit Amanda Rao [facility] 1.2.840.114 350.1.13.10 4.2.7.2.686 [id number] General acute hospital Results Test Description Test Time Test Comments Results Result Co mments Source [facility] IMMUNE [id number] 22:47:05* Test Item Value Reference Range Interpretation Comme nts RHIG CANDIDATE? (test code = 5055) No- see comment Patient is not a candidate for RhIg- Patient is Rh Positive.Performed at [facility] Laboratory Services - [facility] Blood [address] [place] [phone] Free: [phone] No. [id number] [facility] CenterGROUP B STREPTOCOCCUS BY [id number] 15:52:00* Test Item Value Reference Range Interpretation Comme nts Group B Streptococcus by PCR (test code = 56299-6) Negative Negative Lab Interpretation (test cod e = 56539-1) Normal [facility] CenterCBC WITH [id number] 10:28:00* Test Item Value Reference Range Interpretation Comme nts WBC (test code = 6690-2) See_Comment H [Automated message] The system which generated this result transmitted reference range: 4.30 - 11.10 10*3/?L. The reference range was not used to interpret this result as normal/abnormal. RBC (test code = 789-8) See_Comment L [Automated message] The system which generated this result transmitted reference range: 3.93 - 5.25 10*6/?L. The reference range was not used to interpret this result as normal/abnormal. HGB (test code = 718-7) 10.5 g/dL 11.6-15 L HCT (test code = 4544-3) 33.3 % 35.7-45.2 L MCV (test code = 787-2) 92.2 fL 80.6-95.5 MCH (test code = 785-6) 29.1 pg 25.9-32.8 MCHC (test code = 786-4) 31.5 g/dL 31.6-35.1 L RDW-SD (test code = 79080-8) 43.2 fL 39-49.9 RDW-CV (test code = 788-0) 12.8 % 12-15.5 PLT (test code = 777-3) See_Comment [Automated message] The system which generated this result transmitted reference range: 166 - 358 10*3/?L. The reference range was not used to interpret this result as normal/abnormal. MPV (test code = 67305-2) 10.5 fL 9.5-12.9 NRBC/100 WBC (test code = 0797926014) See_Comment [Automated message] The system which generated this result transmitted reference range: 0.0 - 10.0 /100 WBCs. The reference range was not used to interpret this result as normal/abnormal. NRBC x10^3 (test code = 1750371618) <0.01 See_Comment [Automated message] The system which generated this result transmitted reference range: 10*3/?L. The reference range was not used to interpret this result as normal/abnormal. GRAN MAT (NEUT) % (test code = 770-8) 86.2 % IMM GRAN % (test code = 3536845143) 0.90 % LYMPH % (test code = 736-9) 9.3 % MONO % (test code = 5905-5) 3.3 % EOS % (test code = 713-8) 0.0 % BASO % (test code = 706-2) 0.3 % GRAN MAT x10^3(ANC) (test code = 9523831593) 16.08 10*3/uL 1.88-7.09 H IMM GRAN x10^3 (test code = 3903535858) 0.17 10*3/uL 0-0.06 H LYMPH x10^3 (test code = 731-0) 1.73 10*3/uL 1.32-3.29 MONO x10^3 (test code = 742-7) 0.62 10*3/uL 0.33-0.92 EOS x10^3 (test code = 711-2) <0.03 0.03-0.39 L BASO x10^3 (test code = 704-7) 0.05 10*3/uL 0.01-0.07 Lab Interpretation (test code = 17227-0) Abnormal [facility] CenterRHO (D) IMMUNE [id number] 03:13:43* Test Item Value Reference Range Interpretation Comme nts RHIG CANDIDATE? (test code = 5055) No- see comment Patient is not a candidate for RhIg- Patient is Rh Positive.Performed at [facility] Laboratory Services - [facility] Blood [address] [place] [phone] Free: [phone] No. [id number] [facility] CenterVenous Cord [id number] 23:56:00* Test Item Value Reference Range Interpretation Comme [facility] VENOUS BASE EXCESS, CORD (test code = 4296214126) mEq/L VENOUS PH, CORD (test code = 6445708741) 7.25-7.45 VENOUS PC02, CORD (test code = 6979947957) See_Comment [Automated messa ge] The system which generated this result transmitted reference range: 27 - 49 mmHg. The reference range was not used to interpret this result as normal/abnormal. VENOUS PO2, CORD (test code = 8934959212) See_Comment [Automated me ssage] The system which generated this result transmitted reference range: 17 - 41 mmHg. The reference range was not used to interpret this result as normal/abnormal. VENOUS BICARBONATE, CORD (test code = 2509805889) See_Comment [Automated messa ge] The system which generated this result transmitted reference range: 12 - 29 mEq/L. The reference range was not used to interpret this result as normal/abnormal. [facility] CenterArterial Cord [id number] 23:54:00* Test Item Value Reference Range Interpretation Comme nts BASE EXCESS, CORD (test code = 1229934060) mEq/L AC PH, CORD (BEAKER) (test code = 1292883899) 7.18-7.38 PC02, CORD (test code = 3626076322) See_Comment [Automated messa ge] The system which generated this result transmitted reference range: 32 - 66 mmHg. The reference range was not used to interpret this result as normal/abnormal. PO2, CORD (test code = 8828834759) See_Comment [Automated messa ge] The system which generated this result transmitted reference range: 10 - 30 mmHg. The reference range was not used to interpret this result as normal/abnormal. BICARBONATE, CORD (test code = 6647771929) See_Comment [Automated messa ge] The system which generated this result transmitted reference range: 17 - 27 mEq/L. The reference range was not used to interpret this result as normal/abnormal. [facility] CenterGC & CHLAMYDIA AMPLIFIED [id number] 17:27:00* Test Item Value Reference Range Interpretation Comme nts C. trachomatis Nucleic Acid (test code = 62444-4) Negative Negative N. gonorrhoeae Nucleic Acid (test code = 66110-6) Negative Negative Lab Interpretation (test cod e = 97781-0) Normal [facility] CenterHEPATITIS B SURFACE [id number] 06:43:00 * Test Item Value Reference Range Interpretation Comme nts HBsAg Semi-Quantitative (kenroy t code = 5195-3) Negative Negative [facility] CenterADC OR DEMARCUS ONLY - [id number] 05:35:00* Test Item Value Reference Range Interpretation Comme nts RPR (Qualitative) (test code = 83043-8) Nonreactive Nonreactive Lab Interpretation (test cod e = 92201-5) Normal [facility] CenterHIV 1/2 AG-AB WITH [id number] 04:32:00* Test Item Value Reference Range Interpretation Comme nts HIV Semi-quantitative (test code = 07392-6) Negative Negative DELIA (test code = DELIA) Non-reactive for HIV-1 antigen and HIV-1/HIV-2 antibodies. ?No laboratory evidence of HIV infection. ?Repeat in 2-4 weeks if acute HIV infection is suspected. [facility] CenterType and Screen - ONCE [id number] 04:08:33* Test Item Value Reference Range Interpretation Comme nts ABO & RH (test code = 20) O Positive Performed at [facility] Laboratory [facility] Blood [address] Free: [phone] No. [id number] IAT (test code = 1185) Negative Performed at [facility] Blood [place] [address]Toll Free: [phone] No. [id number] [facility] CenterAD CLC OR LCC ONLY - WET [id number] 03:20:00* Test Item Value Reference Range Interpretation Comme nts Wet Prep (test code = 2397937024) Few Red blood cells [facility] WITH [id number] 03:12:00* Test Item Value Reference Range Interpretation Comme nts WBC (test code = 6690-2) See_Comment H [Automated School[employer]a ge] The system which generated this result transmitted reference range: 4.30 - 11.10 10*3/?L. The reference range was not used to interpret this result as normal/abnormal. RBC (test code = 789-8) See_Comment [Automated [employer] ge] The system which generated this result transmitted reference range: 3.93 - 5.25 10*6/?L. The reference range was not used to interpret this result as normal/abnormal. HGB (test code = 718-7) 12.4 g/dL 11.6-15 HCT (test code = 4544-3) 38.6 % 35.7-45.2 MCV (test code = 787-2) 90.8 fL 80.6-95.5 MCH (test code = 785-6) 29.2 pg 25.9-32.8 MCHC (test code = 786-4) 32.1 g/dL 31.6-35.1 RDW-SD (test code = 39141-9) 42.2 fL 39-49.9 RDW-CV (test code = 788-0) 12.9 % 12-15.5 PLT (test code = 777-3) See_Comment [Automated messa ge] The system which generated this result transmitted reference range: 166 - 358 10*3/?L. The reference range was not used to interpret this result as normal/abnormal. MPV (test code = 85473-8) 9.9 fL 9.5-12.9 NRBC/100 WBC (test code = 6983215003) See_Comment [Automated [employer] ssage] The system which generated this result transmitted reference range: 0.0 - 10.0 /100 WBCs. The reference range was not used to interpret this result as normal/abnormal. NRBC x10^3 (test code = 4468905541) <0.01 See_Comment [Automated messa ge] The system which generated this result transmitted reference range: 10*3/?L. The reference range was not used to interpret this result as normal/abnormal. GRAN MAT (NEUT) % (test code = 770-8) 63.8 % IMM GRAN % (test code = 0093104068) 0.50 % LYMPH % (test code = 736-9) 28.1 % MONO % (test code = 5905-5) 6.7 % EOS % (test code = 713-8) 0.6 % BASO % (test code = 706-2) 0.3 % GRAN MAT x10^3(ANC) (test code = 7892856335) 8.13 10*3/uL 1.88-7.09 H IMM GRAN x10^3 (test code = 3202965057) 0.07 10*3/uL 0-0.06 H LYMPH x10^3 (test code = 731-0) 3.59 10*3/uL 1.32-3.29 H MONO x10^3 (test code = 742-7) 0.86 10*3/uL 0.33-0.92 EOS x10^3 (test code = 711-2) 0.08 10*3/uL 0.03-0.39 BASO x10^3 (test code = 704-7) 0.04 10*3/uL 0.01-0.07 Lab Interpretation (test code = 49253-5) Abnormal [facility] CenterPOCT URINALYSIS W/O SPECIFIC [id number] 18:57:00* Test Item Value Reference Range Interpretation Comme nts POCT PH U (test code = 3254) n/a 5-8 POCT U LEUK EST (test code = 3263) n/a Negative - N egative POCT U NIT (test code = 3262) n/a Negative - Negati ve POCT U PROT (test code = 3259) neg Negative - Negat kristan POCT U GLU (test code = 3256) neg Negative - Negati ve POCT U KETONE (test code = 3258) n/a Negative - Neg ative POCT U BLD (test code = 3257) n/a Negative - Negati ve Lab Interpretation (test cod e = 25111-8) Normal [facility] CenterPOMA URINALYSIS W/O SPECIFIC [id number] 17:00:00* Test Item Value Reference Range Interpretation Comme nts POCT PH U (test code = 3254) N/A 5-8 POCT U LEUK EST (test code = 3263) N/A Negative - Negative POCT U NIT (test code = 3262) N/A Negative - Negati ve POCT U PROT (test code = 3259) Negative Negative - Negat kristan POCT U GLU (test code = 3256) Negative Negative - Negati ve POCT U KETONE (test code = 3258) N/A Negative - Neg ative POCT U BLD (test code = 3257) N/A Negative - Negati ve [facility]
--- NOTE | 2024-02-01 22:15 | ER ---
Nurse's Notes [facility] Name: Robert Winter Age: 28 yrs Sex: Female : 1995 Arrival Date: 02/01/2024 Time: 21:58 Bed 10 Private MD: Diagnosis: Sciatica, left side Presentation: 01/31 22:08 Chief complaint: Patient states: Pt c/o left lower back pain that radiates down her tl4 left leg. Pt states her left leg has been numb x 3 days. No relief with prescribed anti-inflammatory and pain meds. Coronavirus screen: At this time, the client does not indicate any symptoms associated with coronavirus-19. Ebola Screen: No symptoms or risks identified at this time. Initial Sepsis Screen: Does the patient meet any 2 criteria? No. Patient's initial sepsis screen is negative. Does the patient have a suspected source of infection? No. Patient's initial sepsis screen is negative. Risk Assessment: Do you want to hurt yourself or someone else? Patient reports no desire to harm self or others. Onset of symptoms was January 27, 2024. 22:08 Method Of Arrival: Ambulatory tl4 22:08 Acuity: REBECCA 4 tl4 Triage Assessment: 22:15 General: Appears uncomfortable, Behavior is cooperative. Pain: Complains of pain in tl4 back. EENT: No deficits noted. No signs and/or symptoms were reported regarding the EENT system. Neuro: No deficits noted. Cardiovascular: No deficits noted. Respiratory: No deficits noted. GI: No deficits noted. No signs and/or symptoms were reported involving the gastrointestinal system. : No deficits noted. No signs and/or symptoms were reported regarding the genitourinary system. Derm: No deficits noted. No signs and/or symptoms reported regarding the dermatologic system. Musculoskeletal: Reports pain in back. 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 - Social history:: Smoking status: Patient reports the use of cigarette tobacco products, denies chronic smoking, but will smoke occasionally. Screenin:19 [facility] ED Fall Risk Assessment (Adult) History of falling in the last 3 months, tl4 including since admission No falls in past 3 months (0 pts) Confusion or Disorientation No (0 pts) Intoxicated or Sedated No (0 pts) Impaired Gait No (0 pts) Mobility Assist Device Used No (0 pt) Altered Elimination No (0 pt) Score/Fall Risk Level 0 - 2 = Low Risk Oriented to surroundings, Maintained a safe environment, Educated pt \T\ family on fall prevention, incl call for assistance when getting out of bed, Assessed \T\ reinforced patient's understanding of fall precautions, Hourly rounding (assess needs \T\ fall precautionary measures) done, Used ambulatory aids as needed (educated on \T\ assisted with), Used gait belt as appropriate. Abuse screen: Denies threats or abuse. Denies injuries from another. Nutritional screening: No deficits noted. Tuberculosis screening: No symptoms or risk factors identified. Assessment: 22:58 Reassessment: Patient and/or family updated on plan of care and expected duration. Pain tl4 level reassessed. Patient is alert, oriented x 3, equal unlabored respirations, skin warm/dry/pink. Patient states symptoms have not improved. Vital Signs: 22:08 BP 135 / 90; Pulse 75; Resp 18; Temp 98.4(TE); Pulse Ox 99% ; Weight 104.33 kg; Height tl4 5 ft. 5 in. ; Pain 10/10; 22:58 BP 129 / 78; Pulse 73; Resp 16; Temp 97(TE); Pulse Ox 99% on R/A; tl4 22:08 Body Mass Index 38.27 (104.33 kg, 165.1 cm) tl4 22:08 Pain Scale: Adult tl4 ED Course: 22:01 Patient arrived in ED. hb 22:07 Lisa Vickers FNP-C [facility] kb 22:07 Memo Harvey MD is Attending Physician. kb 22:15 Triage completed. tl4 22:16 Arm band placed on right wrist. tl4 22:18 Patient has correct armband on for positive identification. Bed in low position. Call tl4 light in reach. Side rails up X 1. Adult w/ patient. Provided Education on: ed process. Door closed. Noise minimized. Moved to private room. 22:18 No provider procedures requiring assistance completed. Patient did not have IV access tl4 during this emergency room visit. Administered Medications: 22:32 Drug: Dexamethasone IM 10 mg IM once Route: IM; Site: right ventrogluteal; tl4 22:58 Follow up: Response: No adverse reaction tl4 22:32 Drug: Ketorolac IM 30 mg IM once Route: IM; Site: left ventrogluteal; tl4 22:58 Follow up: Response: No adverse reaction; Pain is unchanged, physician notified tl4 Medication: 22:19 VIS not applicable for this client. tl4 Outcome: 22:14 Discharge ordered by . janae 22:59 Discharged to home ambulatory, with friend, tl4 22:59 Condition: stable 22:59 Discharge instructions given to patient, Instructed on discharge instructions, follow up and referral plans. medication usage, Demonstrated understanding of instructions, follow-up care, medications, Prescriptions given X 2, 22:59 Patient left the ED. tl4 Signatures: Lisa Vickers, DARIEN-C DARIEN-Eula Diallo, RN RN Zbigniew Zepeda RN RN tl4
--- NOTE | 2024-02-01 22:15 | EDPHYS ---
Physician Documentation [facility] Name: Robert Winter Age: 28 yrs Sex: Female : 1995 Arrival Date: 02/01/2024 Time: 21:58 Bed 10 Private MD: ED Physician Memo Harvey HPI: 02/01 01:06 This 28 yrs old Female presents to ER via Ambulatory with complaints of kb Numbness - foot. 01:06 Patient is a 28-year-old female who presents for left low back, buttock pain that kb radiates down leg for 3 days. Reports numbness to left leg. Ambulating with steady gait. States she was seen by her PCP, given toradol and had an MRI ordered that has not been scheduled yet. States pain was getting better, but then she went to a child's birthday constitution party today and the pain returned. . 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 - Social history:: Smoking status: Patient reports the use of cigarette tobacco products, denies chronic smoking, but will smoke occasionally. ROS: 02/01 00:55 Constitutional: As per HPI kb Exam: 01:06 Constitutional: This is a well developed, well nourished patient who is awake, alert, kb and in no acute distress. Head/Face: Normocephalic, atraumatic. ENT: Moist Mucous membranes Cardiovascular: Regular rate Respiratory: Respirations even and unlabored. No increased work of breathing. Talking in full sentences Abdomen/GI: Soft, non-tender. No distention Skin: Warm, dry with normal turgor. Normal color. MS/ Extremity: Pulses equal, no cyanosis. Neurovascular intact. Full, normal range of motion. Neuro: Awake and alert, GCS 15, oriented to person, place, time, and situation. Moves all extremities. Normal gait. 01:06 Back: pain, that is moderate, of the left low back, Vital Signs: 01/31 22:08 BP 135 / 90; Pulse 75; Resp 18; Temp 98.4(TE); Pulse Ox 99% ; Weight 104.33 kg; Height tl4 5 ft. 5 in. ; Pain 10/10; 22:58 BP 129 / 78; Pulse 73; Resp 16; Temp 97(TE); Pulse Ox 99% on R/A; tl4 22:08 Body Mass Index 38.27 (104.33 kg, 165.1 cm) tl4 22:08 Pain Scale: Adult tl4 MDM: 22:07 Patient medically screened. kb 02/01 00:56 Data reviewed: vital signs, nurses notes. kb 01:04 Differential diagnosis: strain, sciatica, Herniated disc. Counseling: I had a detailed kb discussion with the patient and/or guardian regarding the historical points, exam findings, and any diagnostic results supporting the discharge/admit diagnosis, the need for outpatient follow up, a family practitioner, to return to the emergency department if symptoms worsen or persist or if there are any questions or concerns that arise at home. Administered Medications: 01/31 22:32 Drug: Dexamethasone IM 10 mg IM once Route: IM; Site: right ventrogluteal; tl4 22:58 Follow up: Response: No adverse reaction tl4 22:32 Drug: Ketorolac IM 30 mg IM once Route: IM; Site: left ventrogluteal; tl4 22:58 Follow up: Response: No adverse reaction; Pain is unchanged, physician notified tl4 Disposition: 02/01 19:01 Co-signature as Attending Physician, Memo Harvey MD I agree with the assessment sp4 and plan of care. I reviewed the patient's care provided by the Advanced Practice Provider and agree with the diagnosis and treatment plan. Disposition Summary: 02/01/24 22:14 Discharge Ordered Notes: Location: Home kb Condition: Stable kb Diagnosis - Sciatica, left side kb Followup: kb - With: Emergency Department - When: As needed - Reason: Worsening of condition Followup: kb - With: Private Physician - When: 2 - 3 days - Reason: Recheck today's complaints, Continuance of care, Re-evaluation by your physician Discharge Instructions: - Discharge Summary Sheet kb - Sciatica, [id number] kb - Back Exercises, [id number]-[id number] kb Forms: - Medication Reconciliation Form kb - Thank You Letter kb - Antibiotic Education kb - Prescription Opioid Use kb - Patient Portal Instructions kb - Leadership Thank You Letter kb Prescriptions: - Prednisone 20 mg Oral Tablet - take 1 tablet ORAL route once daily for 5 days; 5 tablet; Refills: 0, Product kb Selection Permitted - orphenadrine citrate 100 mg Oral Tablet Sustained Release - take 1 tablet ORAL route 2 times per day As needed; 20 tablet; Refills: 0, kb Product Selection Permitted Signatures: Lisa Vickers FNP-C [employer]-Memo Luke MD MD sp4 Zbigniew Zepeda RN RN tl4 Corrections: (The following items were deleted from the chart) 01:09 01:06 Patient is a 28-year-old female who presents for left low back, buttock pain that kb radiates down leg. kb
[2024-02-01 23:23] VITALS: BP 135/90; TEMP 98.4; O2SAT 99
== END ==
LOC: ER 21:58
DX: M54.32 Sciatica, left side (principal)
CPT/HCPCS: 96372; 99284; J1100